=== PATIENT | female | born 1965 | race Caucasian/White ===

== ENCOUNTER → 2017-08-27 10:55 | Outpatient (CLI) | payer MEDICAID, SELFPAY ==
[2017-08-27 12:24] LABS: ALB/GLOB Ratio 1.1 RATIO (0.9-2.4); AST(SGOT) 13 U/L (15-37); Alanine Aminotransfer ALT/SGPT 22 U/L (13-56); Albumin, Serum 3.9 g/dL (3.2-5.0); Alkaline Phosphatase 30 U/L (45-117); Anion Gap 7 (5-15); BUN 9 mg/dL (7-18); BUN/Creat Ratio 12.4 RATIO (10-20); Calcium,Total 8.8 mg/dL (8.5-10.1); Chloride 106 mmol/L (98-107); Cholesterol 162 mg/dL (200); Creatinine, Serum 0.72 mg/dL (0.55-1.02); EST Glomerular Filtration Rate 90 mL/min (>60); Est Glom Filt Rate - Afr Amer 109 mL/min (>60); Globulin 3.4 g/dL (2.2-4.2); Glucose 86 mg/dL (74-106); High Density Lipoprotein 49 mg/dL; Potassium 3.8 mmol/L (3.5-5.1); Protein, Total 7.3 g/dL (6.4-8.2); Sodium Level 140 mmol/L (136-145); Thyroid Stim Hormone (TSH) 0.88 uIU/mL (0.358-3.74); Triglycerides 155 mg/dL; Very Low Density Lipoprotein 31 mg/dL (5-40)
== END ==
PROVIDERS: Family Provider Family Medicine; PCP Family Medicine; Visit Provider Family Medicine
DX: Z00.00 Encounter for general adult medical examination without abnormal findings (principal)
CPT/HCPCS: 36415; 80053; 80061; 84443

== ENCOUNTER → 2019-02-10 08:44 | Outpatient (CLI) | payer MEDICAID, SELFPAY ==
[2016-09-29 11:36] VITALS: BMI 24.8
[2019-02-10 10:10] LABS: Absolute Lymphocyte Count 3.17 X10^3/uL (0.83-4.51); Absolute Neutrophil Count 2.4 X10^3/uL (2.0-7.7); Basophil# 0.04 X10^3/uL; Basophil% 0.6 % (0-1); Eosinophil# 0.17 X10^3/uL; Eosinophils% 2.7 % (0-5); Hematocrit 41.4 % (37-47); Hemoglobin 13.5 g/dL (12.0-15.0); Lymphocyte # 3.17 X10^3/ul (4.0); Lymphocyte % 50.4 % (19-41); Mean Corp Hgb Conc 32.6 g/dL (32-36); Mean Corpuscular Hgb 33.3 pg (27.0-32.0); Mean Corpuscular Volume 102.2 fL (81-99); Mean Platelet Vol. 10.3 fl (6.2-12.0); Monocyte# 0.54 X10^3/uL; Monocyte% 8.6 % (0-10); NRBC Flagged by Analyzer 0 % (0-5); Neutrophil # 2.36 X10^3/uL (2.7-7.7); Neutrophil % 37.5 % (47-70); Platelet Count 232 K/mm3 (150-450); RBC Distribution Width CV 12.3 % (11.6-14.6); RBC Distribution Width SD 46.5 fl (35.1-43.9); Red Blood Count 4.05 M/mm3 (4.2-5.4); White Blood Count 6.3 K/mm3 (4.4-11.0)
[2019-02-10 10:36] LABS: ALB/GLOB Ratio 1.1 RATIO (0.9-2.4); AST(SGOT) 16 U/L (15-37); Alanine Aminotransfer ALT/SGPT 19 U/L (13-56); Albumin, Serum 4.1 g/dL (3.2-5.0); Alkaline Phosphatase 30 U/L (45-117); Anion Gap 6 (5-15); BUN 14 mg/dL (7-18); BUN/Creat Ratio 16.8 RATIO (10-20); Calcium,Total 9.1 mg/dL (8.5-10.1); Chloride 106 mmol/L (98-107); Creatinine, Serum 0.84 mg/dL (0.55-1.02); EST Glomerular Filtration Rate 76 mL/min (>60); Est Glom Filt Rate - Afr Amer 92 mL/min (>60); Globulin 3.7 g/dL (2.2-4.2); Glucose 97 mg/dL (74-106); Lipase 102 U/L (73-393); Protein, Total 7.8 g/dL (6.4-8.2); Sodium Level 141 mmol/L (136-145); T4 Free Direct 1.17 ng/dL (0.76-1.46); Thyroid Stim Hormone (TSH) 1.89 uIU/mL (0.358-3.74)
[2019-02-11 13:12] LABS: DHEA Sulfate 84.5 ug/dL (41.2-243.7)
== END ==
PROVIDERS: Family Provider Family Medicine; PCP Family Medicine; Referring Provider Family Medicine; Visit Provider Family Medicine
DX: R53.83 Other fatigue (principal)
CPT/HCPCS: 36415; 80053; 82533; 82627; 83690; 84403; 84439; 84443; 84481; 85025; 82626

== ENCOUNTER → 2019-07-07 11:28 | Outpatient (CLI) | payer SELFPAY ==
[2016-09-29 11:36] VITALS: BMI 24.8
[2019-07-07 15:05] LABS: Absolute Lymphocyte Count 2.48 X10^3/uL (0.83-4.51); Basophil# 0.06 X10^3/uL; Basophil% 1.2 % (0-1); Eosinophil# 0.11 X10^3/uL; Eosinophils% 2.1 % (0-5); Hematocrit 44.6 % (37-47); Hemoglobin 14.4 g/dL (12.0-15.0); Lymphocyte # 2.48 X10^3/ul (4.0); Lymphocyte % 48.4 % (19-41); Mean Corp Hgb Conc 32.3 g/dL (32-36); Mean Corpuscular Hgb 32.7 pg (27.0-32.0); Mean Corpuscular Volume 101.4 fL (81-99); Mean Platelet Vol. 10.4 fl (6.2-12.0); Monocyte# 0.44 X10^3/uL; Monocyte% 8.6 % (0-10); NRBC Flagged by Analyzer 0 % (0-5); Neutrophil # 2.02 X10^3/uL (2.7-7.7); Neutrophil % 39.5 % (47-70); Platelet Count 278 K/mm3 (150-450); RBC Distribution Width CV 12.7 % (11.6-14.6); RBC Distribution Width SD 47.8 fl (35.1-43.9); White Blood Count 5.1 K/mm3 (4.4-11.0)
[2019-07-07 15:32] LABS: Hemoglobin A1c 5.3 % (4.2-6.3)
[2019-07-07 15:40] LABS: AST(SGOT) 12 U/L (15-37); Alanine Aminotransfer ALT/SGPT 25 U/L (13-56); Alkaline Phosphatase 37 U/L (45-117); Anion Gap 5 (5-15); BUN 13 mg/dL (7-18); BUN/Creat Ratio 17.9 RATIO (10-20); Calcium,Total 9.6 mg/dL (8.5-10.1); Chloride 105 mmol/L (98-107); Creatinine, Serum 0.73 mg/dL (0.55-1.02); EST Glomerular Filtration Rate 89 mL/min (>60); Est Glom Filt Rate - Afr Amer 108 mL/min (>60); Globulin 3.9 g/dL (2.2-4.2); Glucose 82 mg/dL (74-106); Protein, Total 7.9 g/dL (6.4-8.2); Sodium Level 140 mmol/L (136-145)
== END ==
PROVIDERS: PCP Family Medicine; Referring Provider Family Medicine; Visit Provider Family Medicine
DX: R53.81 Other malaise (principal)
CPT/HCPCS: 36415; 80053; 83036; 84443; 85025

== ENCOUNTER → 2019-10-01 10:29 | Outpatient (CLI) | payer OTHER, SELFPAY ==
--- NOTE | 2019-10-01 10:32 | BI_ITS ---
MAMMOGRAPHY - UNILATERAL DIAGNOSTIC: RIGHT BREAST REASON FOR EXAM: Female, 54 years old. Six-month follow-up examination. History of prior puncture wound of the right breast due to a fall. PERTINENT HISTORY: Non-contributory. TECHNIQUE: Digital unilateral breast velma (3D mammographic acquisition) in the CC and MLO projections. 2-D mediolateral oblique (MLO) and craniocaudad (CC) views of both breasts were obtained. CAD: Full Field Digital Mammography with Computer Added Detection was performed. COMPARISON: Comparison is made with prior unenhanced examination dated March 31, 2019. FINDINGS: Breast Composition: There are scattered areas of fibroglandular density. There are no dominant masses or suspicious calcifications. No other significant abnormalities are identified. There has been no significant change since the prior study. BI/DIAG MAMM W/CAD, UNILAT IMPRESSION: Stable unilateral diagnostic mammogram. One year follow-up mammogram recommended. (A) ASSESSMENT CATEGORY: BIRADS Category 2: Benign. A letter regarding these results will be sent to the patient by the facility within 30 days. Approximately 10% of breast cancers are not detected by mammography. A normal mammogram should not delay biopsy of a clinically suspicious abnormality. Electronically Signed: Wilbur Burton, at 12:46 EDT , Service support ,
--- NOTE | 2019-10-01 11:10 | US_ITS ---
STUDY: ULTRASOUND BREAST - RIGHT REASON FOR EXAM: Female, 54 years old. Six-month follow-up for prior puncture wound of the right breast. TECHNIQUE: Axial and longitudinal images of the RIGHT breast were performed with a high resolution ultrasound transducer. # OF IMAGES: 34 COMPARISON: Comparison is made with prior mammogram done earlier in the day. FINDINGS: RIGHT Breast: The lower outer aspect of the right breast was examined by ultrasound. There is homogeneous fibroglandular tissue. No sonographic abnormality is seen. US/Breast Limited Unilateral IMPRESSION: No sonographic abnormality is seen. ASSESSMENT CATEGORY: BIRADS Category 1: Negative. A letter regarding these results will be sent to the patient by the facility within 30 days. Electronically Signed: Wilbur Burton, at 14:12 EDT , Service support ,
== END ==
PROVIDERS: PCP Family Medicine; Referring Provider Family Medicine; Visit Provider Family Medicine
DX: R92.8 Other abnormal and inconclusive findings on diagnostic imaging of breast (principal)
CPT/HCPCS: 76642; 77061; 77065; G0279

== ENCOUNTER → 2020-07-05 09:14 | Outpatient (CLI) | payer OTHER, SELFPAY ==
[2016-09-29 11:36] VITALS: BMI 24.8
[2020-07-05 09:18] LABS: Mucous, Urine 0 SEEN /hpf (<or=2+); Red Blood Cells-Urine 0 SEEN /hpf (0-5); White Blood Cells 0 SEEN /hpf (0-5)
[2020-07-05 10:06] LABS: Absolute Neutrophil Count 2.5 X10^3/uL (2.0-7.7); Basophil# 0.09 X10^3/uL; Basophil% 1.2 % (0-1); Eosinophil# 0.47 X10^3/uL; Eosinophils% 6.2 % (0-5); Hematocrit 43.4 % (37-47); Lymphocyte % 51.5 % (19-41); Mean Corp Hgb Conc 32.3 g/dL (32-36); Mean Corpuscular Hgb 32.7 pg (27.0-32.0); Mean Corpuscular Volume 101.4 fL (81-99); Monocyte# 0.59 X10^3/uL; Monocyte% 7.8 % (0-10); NRBC Flagged by Analyzer 0 % (0-5); Platelet Count 281 K/mm3 (150-450); RBC Distribution Width CV 12.4 % (11.6-14.6); RBC Distribution Width SD 46.6 fl (35.1-43.9); Red Blood Count 4.28 M/mm3 (4.2-5.4); White Blood Count 7.6 K/mm3 (4.4-11.0)
[2020-07-05 10:24] LABS: Color, Urine Yellow (Yellow); Glucose, Dipstick Normal (Normal); Ketone-Dipstick Negative (Negative); Leukocyte Esterase-Dipstick Negative /ul (Negative); Nitrite-Dipstick Negative (Negative); Occult Blood-Urine Negative /ul (Negative); Protein-Dipstick Negative (Negative); Specific Gravity, Urine 1.015 (1.002-1.030); Urine Bilirubin Dipstick Negative (Negative); Urine Clarity Clear (Clear); Urine Urobilinogen Normal (Normal)
[2020-07-05 10:30] LABS: Bacteria RARE /hpf (None Seen); Squamous Epithelial Cells - UA 0-5 SEEN /hpf (5-10)
[2020-07-05 10:35] LABS: Hemoglobin A1c 5.1 % (3.8-5.6)
[2020-07-05 10:42] LABS: AST(SGOT) 25 U/L (15-37); Alanine Aminotransfer ALT/SGPT 55 U/L (13-56); Albumin, Serum 3.9 g/dL (3.2-5.0); Alkaline Phosphatase 38 U/L (45-117); Anion Gap 5 (5-15); BUN 11 mg/dL (7-18); BUN/Creat Ratio 14.1 RATIO (10-20); Calcium,Total 9.2 mg/dL (8.5-10.1); Chloride 107 mmol/L (98-107); Creatinine, Serum 0.78 mg/dL (0.55-1.02); EST Glomerular Filtration Rate 82 mL/min (>60); Est Glom Filt Rate - Afr Amer 99 mL/min (>60); Glucose 91 mg/dL (74-106); Potassium 3.8 mmol/L (3.5-5.1); Protein, Total 7.9 g/dL (6.4-8.2); Sodium Level 139 mmol/L (136-145)
== END ==
PROVIDERS: PCP Family Medicine; Referring Provider Family Medicine; Visit Provider Family Medicine
DX: R35.0 Frequency of micturition (principal)
CPT/HCPCS: 36415; 80053; 81001; 83036; 85025; 87086; 87088

== ENCOUNTER → 2020-07-18 06:53 | Outpatient (CLI) | payer MEDICAID, SELFPAY ==
[2020-07-15 09:37] VITALS: BMI 28.9
--- NOTE | 2020-07-18 13:21 | STRESSREP_ITS ---
Stress Test Report Exercise myocardial perfusion stress test. 54-year-old lady with a history of chest pain. Stress protocol: Resting EKG demonstrates normal sinus rhythm with a rate of 65 bpm, right bundle branch block intervals are noted; resting blood pressure is 114/70 mmHg. The patient exercised according to regular Lam protocol for a total duration of 9 minutes. Patient completed stage III of the Lam protocol the maximum heart rate attained was 146 bpm which was 87% of max impacted heart rate the maximum workload was 10.1 metabolic equivalents. The patient maintained sinus rhythm throughout the recording. At rest there were no ST or T wave changes noted to suggest ischemia or abnormal flow reserve. At peak exercise upsloping ST yared nges were noted with no meet the criteria for ischemia. The test was terminated due to the target heart rate being achieved. The peak blood pressure was 154/62 mmHg which was a normal blood pressure response to exercise with a rate-pressure product of 22,100. Myocardial perfusion protocol. 11.5 mCi of technetium 99m sestamibi was injected at rest. The patient exercised according to regular Lam protocol for 9 minutes and at peak exercise 33.1 mCi of technetium 99m sestamibi was injected stress and resting images were reconstructed and compared in the short axis vertical long horizontal long axis. Gated images were also obtained Perfusion SPECT analysis: Review of the stress images demonstrate normal uptake of tracer noted in all areas of myocardium the resting images similarly demonstrate normal uptake of tracer noted in all areas. No reversibility is noted to suggest ischemia no previous infarct is noted. Gated SPECT analysis: Gated ejection fraction is 61%. Conclusion: Normal exercise myocardial perfusion stress test at a high workload. Preserved ejection fraction.
== END ==
PROVIDERS: PCP Family Medicine; Referring Provider Family Medicine; Visit Provider Family Medicine
DX: R07.89 Other chest pain (principal)
CPT/HCPCS: 78452; 93017; A9500; A4216

== ENCOUNTER → 2020-07-28 11:03 | Outpatient (CLI) | payer MEDICAID, SELFPAY ==
[2020-07-15 09:37] VITALS: BMI 28.9
[2020-07-28 13:21] LABS: Cholesterol 205 mg/dL (200); High Density Lipoprotein 61 mg/dL; Triglycerides 112 mg/dL; Very Low Density Lipoprotein 22 mg/dL (5-40)
== END ==
PROVIDERS: PCP Family Medicine; Referring Provider Family Medicine; Visit Provider Family Medicine
DX: Z13.220 Encounter for screening for lipoid disorders (principal)
CPT/HCPCS: 36415; 80061

== ENCOUNTER 2020-08-10 07:18 | Day surgery (SDC) | payer MEDICAID, SELFPAY ==
[2020-07-15 09:37] VITALS: BMI 28.9
[2020-08-10] VITALS (7 sets, daily range): BP systolic 108–118; BP diastolic 61–80; PULSE 64–74; RESP 16; TEMP 36.2–37.1; O2SAT 100; BMI 27.8
--- NOTE | 2020-08-10 07:23 | HP.PCM_ITS ---
History and Physical Date of Admission: 08/10/20 Date of Service: 07/15/20 MR#: [id number] Acct: [id number] Name: DARLIN PARADA Rep #: [id number] : 1965 Provider: Dr. Al Lanza MD Age/Sex: 54/F Location: [facility] Status: Signed Intake Vital Signs 07/15/20 Height 5 ft 5 in 07/15/20 Weight: 174 lb 07/15/20 BMI 28.9 07/15/20 BP 116/71 07/15/20 Blood Pressure Location Rt brachial 07/15/20 Position Sitting 07/15/20 Respiration 18 07/15/20 Pulse 70 07/15/20 Pulse Source Monitor 07/15/20 Temp 97.9 F 07/15/20 Temp Source Temporal 07/15/20 Pulse Oximetry (%) 99 07/15/20 Oxygen Delivery Method room air Intake Visit Reasons: CSCOPE, ABDOMINAL PAIN Chief Complaint: C-scope consult Electro Winning Operator Required: No Is patient in pain?: No Allergies acetaminophen [From Vicodin] Adverse Reaction (Verified 07/15/20 09:40) Vomiting hydrocodone bitartrate [From Vicodin] Adverse Reaction (Verified 07/15/20 09:40) Vomiting Medications Estradiol/Norethindrone Acet [Estradiol-Noreth 1-0.5 mg Tab] 1 ea PO DAILY 01/27/15 [History Confirmed 07/15/20] Loratadine [Allergy] 10 mg PO DAILY 09/29/16 [History Confirmed 07/15/20] acyclovir 400 mg tablet 500 mg PO DAILY tab 07/15/20 [History Confirmed 07/15/20] apple cider vinegar 500 mg tablet mg PO DAILY tab 07/15/20 [History] biotin 1 mg capsule 1 mg PO DAILY 07/15/20 [History Confirmed 07/15/20] mirtazapine 7.5 mg tablet 7.5 mg PO DAILY 07/15/20 [History Confirmed 07/15/20] zinc gluconate 30 mg tablet 30 mg PO DAILY 07/15/20 [History Confirmed 07/15/20] [facility] Medical History (Updated 07/15/20 @ 09:34 by Jammie Quintero) Right bundle branch block (RBBB) (Acute) Irritable bowel syndrome with constipation (Chronic) Anxiety (Acute) Constipation (Acute) Irritable bowel syndrome (Acute) Surgical History (Updated 07/15/20 @ 09:36 by Jammie Quintero) History of laparoscopic cholecystectomy (Acute) History of vein stripping (Acute) history excision lesion left ear (Acute) history excision lesion lip (Acute) Family History (Updated 07/15/20 @ 09:37 by Jammie Quintero) Father Asthma Diabetes Hypertension Heart disease Mother Asthma Diabetes Heart disease Grandfather Heart disease Social History (Updated 07/18/20 @ 13:[address] Farida Lanza MD) Smoking Status: Former smoker alcohol intake: current substance use type: does not use HPI HPI HPI: DARLIN PARADA, is a 54 F who presents to the office today for HPI HPI Surgical H&P: Yes HPI: DARLIN PARADA, is a 54 F who presents to the office today for change of bowel habits. Patient states she has been having smaller than usual stools recently. Patient does have a history of IBS. Patient states she likely does have low fiber in her diet however she has tried to increase but does note some constipation/bloating with this. Patient also admits to having reflux she states that she does have increased amount of burping and occasionally she will have the burning up her esophagus about every other day. Patient's last colonoscopy was in February 2013 and a small polyp was removed at that time from the distal sigmoid patient was told she had 10 years, which was hyperplastic patient was told 10 years before another. Patient denies any family history of colon cancer. ROS General General: Yes weight change and fatigue; no appetite, colon cancer, breast cancer or weakness HEENT HEENT: No difficulty swallowing, eye injury, eye surgery, swollen glands or hoarseness Endo Endocrine: No thyroid disease, diabetes mellitus, thyroid cancer, Hair loss, heat intolerance or cold intolerance Skin Skin: No rash or changing moles Breast Breast: No left breast lump, right breast lump, breast pain, abnormal mammogram, abnormal US or breast enlargement Musc Musculoskeletal: No back problems, arthritis, rheumatoid arthritis, gout or joint pain Cardio Cardiovascular: No pacemaker, heart disease, atrial fibrillation, high blood pressure, heart attack, heart stent, palpitations, shortness of breat with exertion or chest pain Psych Psychiatric: Yes anxiety; no depression or hearing voices Resp Respiratory: No shortness of breath, No sleep apnea, No cough, No COPD, No asthma, No emphysema, No wheezing Gastro Gastrointestinal: No abdominal pain, No nausea or vomiting, No diarrhea, Yes constipation, No blood in stool, No acid reflux, Yes hemorrhoids, No ulcers, No gallbladder problem, No black,tarry stools Elvis Hematologic: No blood thinners, No blood disorders, No bleeding, No anemia, No blood clots Neuro Neurologic: No weakness Exam Const General: cooperative, comfortable, no acute distress, well developed Resp Effort & Inspection: normal respiratory effort Cardio Rate: regular rate GI Inspection: non-distended Palpation: soft, no guarding, tender (Mild epigastric) Assessment & Plan Problems 1. Change in bowel habits R19.4 2. Gastroesophageal reflux disease K21.9 3. Irritable bowel syndrome with constipation K58.1 Plan Did discuss with patient the importance of trying to add fiber to her diet by also discussed with not adding fiber quickly as it can cause increased bloating and abdominal discomfort. I have discussed the above with the patient. I have offered the patient EGD and colonoscopy for evaluation. I have explained the risks/benefits of the procedure and described the procedure. I have discussed the risks with the patient, including but not limited to: infection, bleeding, perforation of the GI tract requiring emergency surgery, inability to complete the procedure, injury to any internal organs, complications of anesthesia, etc. - the patient understands and agrees to proceed. I have answered all the patient's questions to the patient's satisfaction and t he patient has no further questions. The patient has been given instructions for the colon cleansing preparation. 1 day prep MiraLAX Dulcolax split prep, 1 day of clears we will plan for August 10 per patient request. Farida Lanza M.D. Pager: [phone] [facility] [address] [place] [address], [facility], [address] [place] [address] Office: [phone] Orders Orders: Colonoscopy Today EGD Today Plan Detail Follow Up We will schedule EGD and colonoscopy Coding Level of Care Code Off vis,new,level 4 Diagnoses Change in bowel habits R19.4 Gastroesophageal reflux disease K21.9 Irritable bowel syndrome with constipation K58.1 COVID (Procedure Consent) Procedure Criteria Procedure Criteria: Yes Elective The surgeon/proceduralist and patient have discussed in detail the risk of exposure to and/or potential harm posed by the COVID-19 virus with having a surgery/procedure at this time versus the risk of? delaying the surgery/procedure. It is not possible to know either the risk of delaying the surgery or procedure or chance of getting an infection with perfect accuracy, but a joint decision was made between the patient and the surgeon/proceduralist ?to proceed at this time with the scheduled surgery/procedure as indicated on the consent form. 07/18/20 1328 <Electronically signed by Farida Ayala am, MD> Date _ Farida Lanza MD
[2020-08-10] MEDS: Lactated Ringers 1,000 ML 100 ML IV (07:50)
--- NOTE | 2020-08-10 08:30 | IMM_PTH ---
PATIENT: DARLIN PARADA (KAYLAH) LOC: EN U#:[id number] AGE/SX: 54/F ROOM: RE08/10/[address]: Dr. Farida Lanza MD : 1965 BED: DIS: 08/10/2020 SPEC #: [id number] RECD: 08/10/20 12:57 STATUS: CHIRAG REQ #: [id number] JEANETTE: 08/10/20 08:[address]: Farida Lanza DEPT: IMMUNOHISTOCHEMISTRY RECD BY: Ladi Esparza ENTERED: 08/10/20 12:57 SP TYPE: IMMUNO OTHR DR: Dr. Braden Coulter MD Tissues: A - Stomach, NOS B - Esophageal mucous membrane Procedures: H Pylori (initial) P53 (initial) KI-67 (add) P53 (add) PHYSICIAN & INSTITUTION [place] [id number] SPECIMEN INFORMATION: Tissue Source: A - Antrum biopsy, B - GE junction biopsy Clinical Info: Change in bowel habits; GERD; irritable bowel syndrome with constipation Specimen Number: [id number] A & B CPT code: 22067 x2, 05396 x3 METHODOLOGY: Deparaffinized sections of prefer/formalin-fixed tissue or PAP/DQ stained slides are incubated with monoclonal/polyclonal antibodies/oligonucleotide probes. Localization is made via biotin free immunoperoxidase method. Appropriate controls are performed and reacted as expected. Results on target cell population are indicated in the following table: RESULTS: ANTIBODY / CLONE RESULT Block A H Pylori (polyclonal) positive P53 (DO-7) negative Ki-67 (30-9) negative Block B P53 (DO-7) negative Ki-67 (30-9) negative These tests were developed and their performance characteristics determined by [facility]. They may not have been cleared or approved by the U.S. Food and Drug Administration. The FDA has determined that such clearance or approval is not necessary. The above immunohistochemical/dualISH markers are ordered and reviewed by the pathologist. INTERPRETATION: A. Antrum, biopsy: Positive for Helicobacter pylori organisms. No evidence of dysplasia. B. Gastroesophageal junction, biopsy: No evidence of dysplasia. AM:fco 08/15/2020
--- NOTE | 2020-08-10 08:30 | EGD_PTH ---
PATIENT: DARLIN PARADA (KAYLAH) LOC: EN U#:[id number] AGE/SX: 54/F ROOM: RE08/10/[address]: Dr. Farida Lanza MD : 1965 BED: DIS: 08/10/2020 SPEC #: [id number] RECD: 08/10/20 10:38 STATUS: CHIRAG RECher #: [id number] JEANETTE: 08/10/20 08:[address]: Farida Lanza DEPT: SURGICAL PATHOLOGY RECD BY: Leisa Aldana ENTERED: 08/10/20 12:46 SP TYPE: EGD BIOPSY OT DR: Dr. Braden Coulter MD Tissues: A - Gastric mucous membrane B - Gastric mucous membrane C - Descending colon D - Sigmoid colon biopsy Procedures: Special Stain Group II Surgery Specimen Level IV Alcian Blue/PAS (control) HEADER OPERATION: [place] [place] DIAGNOSIS: Change in bowel habits; GERD; irritable bowel syndrome with constipation TISSUE SUBMITTED: A - Antrum biopsy for H. pylori and path, B - GE junction biopsy, C - Descending colon polyp, D - Sigmoid polyp MICROSCOPIC DIAGNOSIS A. Gastric antrum, biopsy: Chronic gastritis, moderate to severe with focal acute gastritis. Focal intestinal metaplasia. No evidence of dysplasia. See comment. B. Gastroesophageal junction, biopsy: Chronic gastritis with focal active gastritis. Focal goblet cell metaplasia. No evidence of dysplasia. Focal changes of reflux. See comment. C. Descending colon polyp, biopsy: Fragments of colonic mucosa with focal hyperplastic change. D. Sigmoid colon polyp, biopsy: Hyperplastic polyp. AM:fco 08/11/2020 COMMENT A. The results of immunohistochemistry for Helicobacter pylori will be reported separately ([id number]). Immunohistochemistry ([id number]) supports the above diagnosis. Alcian blue/PAS stain with matched control supports the above diagnosis. B. Immunohistochemistry ([id number]) supports the above diagnosis. Alcian blue/PAS stain with matched control supports the above diagnosis. MICROSCOPIC DESCRIPTION Slides are reviewed. GROSS DESCRIPTION A - Received in fixative is one container labeled with the patient's name and designated antrum biopsy. The specimen consists of one irregular fragment of light chapman soft tissue that measures 0.3 x 0.2 x 0.1 cm. The specimen is totally submitted in one cassette. B - Received in fixative is one container labeled with the patient's name and designated GE junction biopsy. The specimen consists of one irregular fragment of light chapman soft tissue that measures 0.4 x 0.3 x 0.1 cm. The specimen is totally submitted in one cassette. C - Received in fixative is one container labeled with the patient's name and designated descending colon polyp. The specimen consists of multiple irregular fragments of light chapman soft tissue that in aggregate measure 1 x 0.5 x 0.1 cm. The specimen is totally submitted in one cassette. D - Received in fixative is one container labeled with the patient's name and designated sigmoid polyp. The specimen consists of multiple irregular fragments of light chapman soft tissue that in aggregate measure 1 x 0.4 x 0.1 cm. The specimen is totally submitted in one cassette. / SJ:rg 08/10/20 TC:3 CPT: 62076 x4, 40820 x2
--- NOTE | 2020-08-10 09:12 | OP.EGD_ITS ---
Patient Name: Faby Forbes Procedure Date: 08/10/2020 8:07 AM Date of : 1965 Age: 54 Procedure: Upper GI endoscopy Indications: Heartburn Providers: Farida Lanza MD Referring MD: Braden Coulter Medicines: Monitored Anesthesia Care Patient Profile: This is a 54 year old female. Complications: No immediate complications. Procedure: Pre-Anesthesia Assessment: - Prior to the procedure, a History and Physical was performed, and patient medications and allergies were reviewed. The patient's tolerance of previous anesthesia was also reviewed. The risks and benefits of the procedure and the sedation options and risks were discussed with the patient. All questions were answered, and informed consent was obtained. Prior Anticoagulants: The patient has taken no previous anticoagulant or antiplatelet agents. ASA Grade Assessment: Per anesthesia. After reviewing the risks and benefits, the patient was deemed in satisfactory condition to undergo the procedure. After obtaining informed consent, the endoscope was passed under direct vision. Throughout the procedure, the patient's blood pressure, pulse, and oxygen saturations were monitored continuously. The gastroscope was introduced through the mouth, and advanced to the second part of duodenum. The upper GI endoscopy was accomplished without difficulty. The patient tolerated the procedure well. Scope In: 8:20:17 AM Scope Out: 8:28:45 AM Total Procedure Duration Time 0 hours 8 minutes 28 seconds Findings: The Z-line was variable and was found 40 cm from the incisors. Biopsies were taken with a cold forceps for histology. Mildly erythematous mucosa without bleeding was found in the gastric antrum. Biopsies were taken with a cold forceps for histology. Biopsies were taken with a cold forceps for Helicobacter pylori cultures. The examined duodenum was normal. A small hiatal hernia was present. Impression: - Z-line variable, 40 cm from the incisors. Biopsied. - Erythematous mucosa in the antrum. Biopsied. - Normal examined duodenum. - Small hiatal hernia. Recommendation: - Await pathology results. - Discharge patient to home. - Resume previous diet. - Use Protonix (pantoprazole) 40 mg PO daily. - Continue present medications. Procedure Code(s): --- Professional --- 98757, Esophagogastroduodenoscopy, flexible, transoral; with biopsy, single or multiple Diagnosis Code(s): --- Professional --- K22.8, Other specified diseases of esophagus K31.89, Other diseases of stomach and duodenum R12, Heartburn CPT copyright 2017 [employer]. All rights reserved. The codes documented in this report are preliminary and upon leasing machine tender review may be revised to meet current compliance requirements. MD Farida Meraz MD 08/10/2020 9:11:41 AM This report has been signed electronically. Number of Addenda: 0 Note Initiated On: 08/10/2020 8:07 AM
--- NOTE | 2020-08-10 09:12 | OP.CCLET_ITS ---
08/10/2020 Braden Coulter [address] [facility] [address] [place] [address] Re : Upper GI endoscopy procedure for Faby Forbes Dear Dr. Coulter This procedure was performed on Monday, August 10, 2020. My impressions and recommendations are as follows: Impressions : - Z-line variable, 40 cm from the incisors. Biopsied. - Erythematous mucosa in the antrum. Biopsied. - Normal examined duodenum. - Small hiatal hernia. Recommendations : - Await pathology results. - Discharge patient to home. - Resume previous diet. - Use Protonix (pantoprazole) 40 mg PO daily. - Continue present medications. My findings are described in the full procedure note, which is enclosed. If I can be of further assistance, please feel free to contact me at Doctor phone number(s): , Work: . Sincerely, MD Farida Meraz MD 08/10/2020 9:11:41 AM This report has been signed electronically.
--- NOTE | 2020-08-10 09:16 | OP.COLON_ITS ---
Patient Name: Faby Forbes Procedure Date: 08/10/2020 8:30 AM Date of : 1965 Age: 54 Procedure: Colonoscopy Indications: Change in bowel habits, Constipation Providers: Farida Lanza MD Referring MD: Braden Coulter Medicines: Monitored Anesthesia Care Patient Profile: This is a 54 year old female. Last Colonoscopy: February 2013. Complications: No immediate complications. Procedure: Pre-Anesthesia Assessment: - Prior to the procedure, a History and Physical was performed, and patient medications and allergies were reviewed. The patient's tolerance of previous anesthesia was also reviewed. The risks and benefits of the procedure and the sedation options and risks were discussed with the patient. All questions were answered, and informed consent was obtained. Prior Anticoagulants: The patient has taken no previous anticoagulant or antiplatelet agents. ASA Grade Assessment: Per anesthesia. After reviewing the risks and benefits, the patient was deemed in satisfactory condition to undergo the procedure. After I obtained informed consent, the scope was passed under direct vision. Throughout the procedure, the patient's blood pressure, pulse, and oxygen saturations were monitored continuously. The colonoscope was introduced through the anus and advanced to the cecum, identified by the appendiceal orifice, ileocecal valve and palpation. The colonoscopy was technically difficult and complex due to a tortuous colon. Successful completion of the procedure was aided by applying abdominal pressure. The patient tolerated the procedure well. The quality of the bowel preparation was good. Scope In: 8:31:01 AM Scope Withdrawal Time 0 hours 16 minutes 8 seconds Scope Out: 9:02:45 AM Total Procedure Duration Time 0 hours 31 minutes 44 seconds Findings: Hemorrhoids were found on perianal exam. Four sessile polyps were found in the sigmoid colon and descending colon. The polyps were less than 5 mm in size. These polyps were removed with a cold biopsy forceps. Resection and retrieval were complete. Non-bleeding internal hemorrhoids were found. The hemorrhoids were Grade I (internal hemorrhoids that do not prolapse). The exam was otherwise without abnormality. Impression: - Hemorrhoids found on perianal exam. - Four less than 5 mm polyps in the sigmoid colon and in the descending colon, removed with a cold biopsy forceps. Resected and retrieved. - Non-bleeding internal hemorrhoids. - The examination was otherwise normal. Recommendation: - Discharge patient to home. - Resume previous diet. - Continue present medications. - Await pathology results. - Repeat colonoscopy in 5-10 years for surveillance based on pathology results. Procedure Code(s): --- Professional --- 03748, Colonoscopy, flexible; with biopsy, single or multiple Diagnosis Code(s): --- Professional --- K64.0, First degree hemorrhoids D12.5, Benign neoplasm of sigmoid colon D12.4, Benign neoplasm of descending colon R19.4, Change in bowel habit K59.00, Constipation, unspecified CPT copyright 2017 [employer]. All rights reserved. The codes documented in this report are preliminary and upon food sales clerk review may be revised to meet current compliance requirements. MD Farida Meraz MD 08/10/2020 9:15:59 AM This report has been signed electronically. Number of Addenda: 0 Note Initiated On: 08/10/2020 8:30 AM
--- NOTE | 2020-08-10 09:16 | OP.CCLET_ITS ---
08/10/2020 Braden Coulter [address] [facility] [facility] [address] [place] [address] Re : Colonoscopy procedure for Faby Forbes Dear Dr. Coulter This procedure was performed on Monday, August 10, 2020. My impressions and recommendations are as follows: Impressions : - Hemorrhoids found on perianal exam. - Four less than 5 mm polyps in the sigmoid colon and in the descending colon, removed with a cold biopsy forceps. Resected and retrieved. - Non-bleeding internal hemorrhoids. - The examination was otherwise normal. Recommendations : - Discharge patient to home. - Resume previous diet. - Continue present medications. - Await pathology results. - Repeat colonoscopy in 5-10 years for surveillance based on pathology results. My findings are described in the full procedure note, which is enclosed. If I can be of further assistance, please feel free to contact me at Doctor phone number(s): , Work: . Sincerely, MD Farida Meraz MD 08/10/2020 9:15:59 AM This report has been signed electronically.
== END 2020-08-10 10:03 | disposition home or self-care (01) ==
LOC: EN 07:18 → AC 07:18
PROVIDERS: PCP Family Medicine; Referring Provider Family Medicine; Visit Provider Surgery
PROC: 0DJD8ZZ Inspection of Lower Intestinal Tract, Via Natural or Artificial Opening Endoscopic (ICD-10-PCS; CPT 45378; principal; 2020-08-10 08:25)
DX: K29.50 Unspecified chronic gastritis without bleeding (principal); K21.9 Gastro-esophageal reflux disease without esophagitis; K44.9 Diaphragmatic hernia without obstruction or gangrene; K63.5 Polyp of colon; K64.0 First degree hemorrhoids; Z20.828 Contact with and (suspected) exposure to other viral communicable diseases; K58.1 Irritable bowel syndrome with constipation; Z78.0 Asymptomatic menopausal state; Z90.49 Acquired absence of other specified parts of digestive tract; Z79.899 Other long term (current) drug therapy; Z87.891 Personal history of nicotine dependence
CPT/HCPCS: 43239; 45380; 87426; 88305; 88313; 88341; 88342; C9803; J7120; J2405; J3490

== ENCOUNTER → 2020-09-28 | Outpatient (CLI) | payer MEDICAID, SELFPAY ==
[2020-08-10 07:46] VITALS: BMI 27.8
[2020-09-30 08:23] LABS: H. PYLORI STOOL AG Negative (Negative)
== END | disposition home or self-care (01) ==
PROVIDERS: PCP Family Medicine; Referring Provider Surgery; Visit Provider Surgery
DX: A04.8 Other specified bacterial intestinal infections (principal)

== ENCOUNTER → 2020-09-29 09:30 | Outpatient (CLI) | payer MEDICAID, SELFPAY ==
[2020-08-10 07:46] VITALS: BMI 27.8
--- NOTE | 2020-09-29 09:35 | BD_ITS ---
STUDY: DUAL ENERGY X-RAY ABSORPTIOMETRY / DXA REASON FOR EXAM: Female, 55 years old. [id number]. The patient is postmenopausal. TECHNIQUE: Bone Mineral Density (BMD) measurements of lumbar spine and bilateral hips were obtained. COMPARISON: None. FINDINGS: Lumbar Spine (L1-L4): g/cm2 (1.359) / T-score (1.5) / Z-score (2.3) Findings are suggestive of normal bone density with a low fracture risk. Left Femur Total: g/cm2 (0.994) / T-score (-0.1) / Z-score (0.5) Left Femoral Neck: g/cm2 (0.957) / T-score (-0.6) / Z-score (0.4) Right Femur Total: g/cm2 (1.017) / T-score (0.1) / Z-score (0.7) Right Femoral Neck: g/cm2 (1.014) / T-score (-0.2) / Z-score (0.8) BD/Dexa Bone Density Study IMPRESSION: The patient is considered normal as outlined below according to World Beau Organization (WHO) criteria with a low fracture risk. Reference Information: The T-score is the number of standard deviations above or below the standard which is normal for young adults at their peak bone mineral density. The World Health Organization (WHO) interprets the T-scores as follows: Above -1 Normal bone density Between -1 and -2.5 Osteopenia Equal to / or below -2.5 Osteoporosis As a practical clinical guideline, osteopenia may be graded as follows: Mild -1 through -1.5 Moderate -1.6 through -2.0 Severe -2.1 through -2.4 The Z-score is the number of standard deviations above or below age-matched controls. A Z-score of less than -1.5 would be considered abnormal. References: 1. NIH Osteoporosis and Related Bone Diseases www osteo.org 2. International Society for Clinical Densitometry www iscd.org 3. National Osteoporosis Foundation www nof.org Electronically Signed: Wilbur Burton MD at 14:09 EDT , Service support ,
== END ==
PROVIDERS: PCP Family Medicine; Referring Provider Family Medicine; Visit Provider Family Medicine
DX: N95.9 Unspecified menopausal and perimenopausal disorder (principal)
CPT/HCPCS: 77080

== ENCOUNTER → 2021-01-03 | Outpatient (CLI) | payer MEDICAID, SELFPAY | END | disposition home or self-care (01) | PROVIDERS: PCP Family Medicine; Visit Provider Family Medicine | DX: B34.9 Viral infection, unspecified (principal) | CPT/HCPCS: 87635; U0005; U0003 ==

== ENCOUNTER 2021-08-01 14:27 | Outpatient (CLI) | payer MEDICAID, SELFPAY ==
[2021-08-01 17:47] LABS: Absolute Lymphocyte Count 3.41 X10^3/uL (0.83-4.51); Absolute Neutrophil Count 2.5 X10^3/uL (2.0-7.7); Basophil# 0.08 X10^3/uL; Basophil% 1.2 % (0-1); Eosinophil# 0.15 X10^3/uL; Eosinophils% 2.3 % (0-5); Hematocrit 44.4 % (37-47); Hemoglobin 14.9 g/dL (12.0-15.0); Lymphocyte # 3.41 X10^3/ul (0.83-4.51); Lymphocyte % 51.4 % (19-41); Mean Corp Hgb Conc 33.6 g/dL (32-36); Mean Corpuscular Hgb 34.5 pg (27.0-32.0); Mean Corpuscular Volume 102.8 fL (81-99); Mean Platelet Vol. 10.8 fl (6.2-12.0); Monocyte# 0.46 X10^3/uL; Monocyte% 6.9 % (0-10); NRBC Flagged by Analyzer 0 % (0-5); Neutrophil # 2.53 X10^3/uL (2.7-7.7); Platelet Count 248 K/mm3 (150-450); RBC Distribution Width CV 12.6 % (11.6-14.6); RBC Distribution Width SD 48.1 fl (35.1-43.9); Red Blood Count 4.32 M/mm3 (4.2-5.4); White Blood Count 6.6 K/mm3 (4.4-11.0)
[2021-08-01 18:16] LABS: ALB/GLOB Ratio 1.2 RATIO (0.9-2.4); AST(SGOT) 18 U/L (15-37); Alanine Aminotransfer ALT/SGPT 22 U/L (13-56); Albumin, Serum 4.1 g/dL (3.2-5.0); Alkaline Phosphatase 35 U/L (45-117); Anion Gap 8 (5-15); BUN 11 mg/dL (7-18); BUN/Creat Ratio 15.7 RATIO (10-20); Calcium,Total 9.3 mg/dL (8.5-10.1); Chloride 105 mmol/L (98-107); Cholesterol 197 mg/dL (200); EST Glomerular Filtration Rate 92 mL/min (>60); Est Glom Filt Rate - Afr Amer 111 mL/min (>60); Globulin 3.4 g/dL (2.2-4.2); Glucose 84 mg/dL (74-106); High Density Lipoprotein 61 mg/dL; Potassium 3.8 mmol/L (3.5-5.1); Protein, Total 7.5 g/dL (6.4-8.2); Sodium Level 140 mmol/L (136-145); Triglycerides 87 mg/dL; Very Low Density Lipoprotein 17 mg/dL (5-40)
== END 2021-08-01 23:59 | disposition home or self-care (01) ==
LOC: MFPLAB 14:28
PROVIDERS: PCP Family Medicine; Referring Provider Family Medicine; Visit Provider Family Medicine
DX: Z00.00 Encounter for general adult medical examination without abnormal findings (principal); K58.9 Irritable bowel syndrome, unspecified; Z13.220 Encounter for screening for lipoid disorders
CPT/HCPCS: 36415; 80053; 80061; 85025

== ENCOUNTER → 2022-01-22 | Outpatient (CLI) | payer MEDICAID, SELFPAY ==
[2022-01-22 18:46] LABS: Absolute Lymphocyte Count 4.04 X10^3/uL (0.83-4.51); Absolute Neutrophil Count 2.2 X10^3/uL (2.0-7.7); Basophil# 0.07 X10^3/uL; Eosinophils% 2.8 % (0-5); Hematocrit 41.2 % (37-47); Hemoglobin 13.4 g/dL (12.0-15.0); Lymphocyte # 4.04 X10^3/ul (0.83-4.51); Lymphocyte % 56.7 % (19-41); Mean Corp Hgb Conc 32.5 g/dL (32-36); Mean Corpuscular Hgb 33.5 pg (27.0-32.0); Monocyte# 0.63 X10^3/uL; Monocyte% 8.8 % (0-10); NRBC Flagged by Analyzer 0 % (0-5); Neutrophil # 2.17 X10^3/uL (2.7-7.7); Neutrophil % 30.6 % (47-70); Platelet Count 218 K/mm3 (150-450); RBC Distribution Width CV 12.6 % (11.6-14.6); RBC Distribution Width SD 47.8 fl (35.1-43.9); White Blood Count 7.1 K/mm3 (4.4-11.0)
[2022-01-22 19:22] LABS: AST(SGOT) 18 U/L (15-37); Alanine Aminotransfer ALT/SGPT 21 U/L (13-56); Alkaline Phosphatase 32 U/L (45-117); Anion Gap 6 (5-15); BUN 10 mg/dL (7-18); Calcium,Total 9.1 mg/dL (8.5-10.1); Chloride 104 mmol/L (98-107); Creatinine, Serum 0.71 mg/dL (0.55-1.02); EST Glomerular Filtration Rate 90 mL/min (>60); Est Glom Filt Rate - Afr Amer 109 mL/min (>60); Globulin 3.9 g/dL (2.2-4.2); Glucose 89 mg/dL (74-106); Potassium 3.7 mmol/L (3.5-5.1); Protein, Total 7.9 g/dL (6.4-8.2); Sodium Level 138 mmol/L (136-145)
== END | disposition home or self-care (01) ==
LOC: MFPLAB 15:53
PROVIDERS: PCP Family Medicine; Visit Provider Family Medicine
DX: K58.9 Irritable bowel syndrome, unspecified (principal); D72.820 Lymphocytosis (symptomatic)
CPT/HCPCS: 36415; 80053; 85025

== ENCOUNTER → 2022-07-26 | Outpatient (CLI) | payer MEDICAID, SELFPAY ==
[2022-07-26 12:33] LABS: Absolute Lymphocyte Count 3.64 X10^3/uL (0.83-4.51); Absolute Neutrophil Count 1.9 X10^3/uL (2.0-7.7); Basophil# 0.06 X10^3/uL; Basophil% 0.9 % (0-1); Eosinophil# 0.23 X10^3/uL; Eosinophils% 3.5 % (0-5); Hematocrit 43.4 % (37-47); Hemoglobin 14.1 g/dL (12.0-15.0); Lymphocyte # 3.64 X10^3/ul (0.83-4.51); Lymphocyte % 55.3 % (19-41); Mean Corp Hgb Conc 32.5 g/dL (32-36); Mean Corpuscular Hgb 33.5 pg (27.0-32.0); Mean Corpuscular Volume 103.1 fL (81-99); Mean Platelet Vol. 10.6 fl (6.2-12.0); Monocyte# 0.71 X10^3/uL; Monocyte% 10.8 % (0-10); NRBC Flagged by Analyzer 0 % (0-5); Neutrophil # 1.93 X10^3/uL (2.7-7.7); Neutrophil % 29.3 % (47-70); Platelet Count 258 K/mm3 (150-450); RBC Distribution Width CV 12.8 % (11.6-14.6); RBC Distribution Width SD 48.6 fl (35.1-43.9); Red Blood Count 4.21 M/mm3 (4.2-5.4); White Blood Count 6.6 K/mm3 (4.4-11.0)
[2022-07-26 13:53] LABS: ALB/GLOB Ratio 1.1 RATIO (0.9-2.4); AST(SGOT) 20 U/L (15-37); Alanine Aminotransfer ALT/SGPT 23 U/L (13-56); Albumin, Serum 3.9 g/dL (3.2-5.0); Alkaline Phosphatase 33 U/L (45-117); Anion Gap 10 (5-15); BUN 13 mg/dL (7-18); BUN/Creat Ratio 19.8 RATIO (10-20); Calcium,Total 9.1 mg/dL (8.5-10.1); Chloride 106 mmol/L (98-107); Cholesterol 190 mg/dL (200); Creatinine, Serum 0.66 mg/dL (0.55-1.02); EST Glomerular Filtration Rate 99 mL/min (>60); Est Glom Filt Rate - Afr Amer 120 mL/min (>60); Globulin 3.4 g/dL (2.2-4.2); Glucose 96 mg/dL (74-106); High Density Lipoprotein 60 mg/dL; Potassium 4.1 mmol/L (3.5-5.1); Protein, Total 7.3 g/dL (6.4-8.2); Sodium Level 141 mmol/L (136-145); Thyroid Stim Hormone (TSH) 1.18 uIU/mL (0.358-3.74); Triglycerides 73 mg/dL; Very Low Density Lipoprotein 15 mg/dL (5-40)
[2022-07-31 13:08] LABS: PROEL- A/G Ratio 1.2 (0.7-1.7); PROEL- Albumin 3.9 g/dL (2.9-4.4); PROEL- Alpha-1 Globulin 0.2 g/dL (0.0-0.4); PROEL- Alpha-2 Globulin 0.7 g/dL (0.4-1.0); PROEL- Gamma Globulin 1.2 g/dL (0.4-1.8); PROEL- Globulin, Total 3.2 g/dL (2.2-3.9); PROEL- TOTAL PROTEIN 7.1 g/dL (6.0-8.5)
== END | disposition home or self-care (01) ==
LOC: MFPLAB 09:40
PROVIDERS: PCP Family Medicine; Referring Provider Family Medicine; Visit Provider Family Medicine
DX: Z00.01 Encounter for general adult medical examination with abnormal findings (principal); Z13.220 Encounter for screening for lipoid disorders; K58.9 Irritable bowel syndrome, unspecified
CPT/HCPCS: 36415; 80053; 80061; 84165; 84443; 85025

== ENCOUNTER → 2022-08-03 | Outpatient (CLI) | payer MEDICAID, SELFPAY ==
[2022-08-03 12:47] LABS: Vitamin B12 456 pg/mL (211-911)
== END | disposition home or self-care (01) ==
PROVIDERS: PCP Family Medicine; Referring Provider Family Medicine; Visit Provider Family Medicine
DX: D75.89 Other specified diseases of blood and blood-forming organs (principal)
CPT/HCPCS: 36415; 82607; 82746

== ENCOUNTER → 2023-07-11 | Outpatient (CLI) | payer OTHER, SELFPAY ==
[2023-07-11 12:09] LABS: Absolute Lymphocyte Count 2.34 X10^3/uL (0.83-4.51); Absolute Neutrophil Count 3.5 X10^3/uL (2.0-7.7); Basophil# 0.07 X10^3/uL; Basophil% 1.1 % (0-1); Eosinophils% 1.6 % (0-5); Hematocrit 42.8 % (37-47); Hemoglobin 14.4 g/dL (12.0-15.0); Lymphocyte # 2.34 X10^3/ul (0.83-4.51); Lymphocyte % 36.4 % (19-41); Mean Corp Hgb Conc 33.6 g/dL (32-36); Mean Corpuscular Hgb 34.6 pg (27.0-32.0); Mean Corpuscular Volume 102.9 fL (81-99); Mean Platelet Vol. 10.7 fl (6.2-12.0); Monocyte# 0.44 X10^3/uL; Monocyte% 6.9 % (0-10); NRBC Flagged by Analyzer 0 % (0-5); Neutrophil # 3.45 X10^3/uL (2.7-7.7); Neutrophil % 53.7 % (47-70); Platelet Count 229 K/mm3 (150-450); RBC Distribution Width CV 12.6 % (11.6-14.6); RBC Distribution Width SD 48.3 fl (35.1-43.9); Red Blood Count 4.16 M/mm3 (4.2-5.4); White Blood Count 6.4 K/mm3 (4.4-11.0)
[2023-07-11 13:17] LABS: ALB/GLOB Ratio 1.1 RATIO (0.9-2.4); AST(SGOT) 15 U/L (15-37); Alanine Aminotransfer ALT/SGPT 17 U/L (13-56); Albumin, Serum 4.1 g/dL (3.2-5.0); Alkaline Phosphatase 36 U/L (45-117); Anion Gap 9 (5-15); BUN 10 mg/dL (7-18); CRP < 2.90 mg/L (0.0-3.0); Calcium,Total 9.5 mg/dL (8.5-10.1); Chloride 104 mmol/L (98-107); Creatinine, Serum 0.72 mg/dL (0.55-1.02); EST Glomerular Filtration Rate 89 mL/min (>60); Est Glom Filt Rate - Afr Amer 108 mL/min (>60); GGTP 4 U/L (5-55); Globulin 3.8 g/dL (2.2-4.2); Glucose 101 mg/dL (74-106); Lipase 36 U/L (13-75); Protein, Total 7.9 g/dL (6.4-8.2); Sodium Level 140 mmol/L (136-145)
== END | disposition home or self-care (01) ==
PROVIDERS: PCP Family Medicine; Visit Provider Family Medicine
DX: N39.0 Urinary tract infection, site not specified (principal); D75.89 Other specified diseases of blood and blood-forming organs; K58.9 Irritable bowel syndrome, unspecified; R10.11 Right upper quadrant pain; R53.81 Other malaise
CPT/HCPCS: 36415; 80053; 82746; 82977; 83690; 84443; 85025; 86140; 87086; 87088

== ENCOUNTER → 2024-07-21 | Outpatient (CLI) | payer OTHER, SELFPAY ==
--- NOTE | 2024-07-21 09:06 | ART_ITS ---
Reason For Study Reason For Study: PVD Procedure A bilateral lower extremity continuous wave Doppler with analog waveform analysis,segmental pressures,and ankle brachial indexes with exercise. PT walked 5 minutes @ 2.0 MPH with no symptoms. Left Segmental Pressures Left brachial= 145mmHg. Left posterior tibial artery = 149mmHg. Left dorsalis pedis artery = 152mmHg. The left posterior tibial artery waveforms are triphasic. The left dorsalis pedis waveforms are biphasic. Right Segmental Pressures Right brachial= 147mmHg. Right posterior tibial artery = 152mmHg. Right dorsalis pedis artery = 149mmHg. The right posterior tibial artery waveforms are triphasic. The right dorsalis pedis waveforms are biphasic. Indices The right resting ankle brachial index is 1.03. The right ankle brachial index by the posterior tibial artery is 1.03. The right ankle brachial index by the dorsalis pedis is 1.01. The right ankle brachial index by the posterior tibial artery post exercise is 1.04. The left resting ankle brachial index is 1.03. The left ankle brachial index by the posterior tibial artery is 1.01. The left ankle brachial index by the dorsalis pedis is 1.03. The left dorsalis pedis index post exercise is 1.05. VL/Lower Ext Art Exam w/ Exercise Interpretation Summary Triphasic and biphasic Doppler waveforms are noted at ankle level bilaterally. Pulse-volume recordings appear satisfactory at low thigh, calf, and ankle levels bilaterally. Resting ankle-br achial indices are normal bilaterally. Following a period of ambulation, ankle pressures augment bilaterally, a normal physiological response. There is no evidence of significant arterial occlusive disease in the lower ext remities bilaterally. Ordering Physician: Braden Coulter Referring Physician: Braden Coulter Performed By: Jammie Moon RVT, RDCS
== END | disposition home or self-care (01) ==
LOC: CVS 09:00
PROVIDERS: PCP Family Medicine; Referring Provider Family Medicine; Visit Provider Family Medicine
DX: I73.9 Peripheral vascular disease, unspecified (principal)
CPT/HCPCS: 93924

== ENCOUNTER 2024-07-31 08:05 | Day surgery (SDC) | payer OTHER, SELFPAY ==
[2024-07-31 08:39] VITALS: BP 143/71; PULSE 67; RESP 16; TEMP 37; O2SAT 100; BMI 27.6
--- NOTE | 2024-07-31 08:41 | DCINST_ITS ---
Discharge Instructions Follow Up Care Test Results: Test results from this visit will be discussed in further detail at your follow- up appointment, if applicable. Discharge Plan Admission Attending Provider: Ethel Sparks Primary Care Provider: Braden Coulter Instructions Print Language: Amharic Discharge Orders/Prescriptions Prescriptions: No Action biotin 1 mg capsule 1 mg PO DAILY zinc gluconate 30 mg tablet 30 mg PO DAILY apple cider vinegar 500 mg tablet 500 mg PO DAILY acyclovir 400 mg tablet 500 mg PO DAILY mirtazapine 7.5 mg tablet 7.5 mg PO QHS (DME) hydrocortisone 2.5%/lidocaine 5% suppository (compound) Suppository See Rx Instructions .ROUTE .MEDSUPPLY Qty: 1 Rx Instructions: 30 supp with 2 refills use BID PRN pain valacyclovir 1 gram tablet 1,000 mg PO QDAY estradiol-norethindrone acet 1 EACH tablet 1 ea PO DAILY Patient Comments: hormone loratadine 10 MG tablet 10 mg PO DAILY pantoprazole 40 MG tablet,delayed release (DR/EC) 40 mg PO DAILY Qty: 30 2RF fluconazole 150 mg tablet 150 mg PO Q3D Qty: 2 0RF Rx Instructions: may repeat second dose 72 hrs after first dose if symptoms persist Referrals / Follow Up: Braden Coulter MD [Primary Care Provider] - Disposition Disposition (needs filled in before D/C Order can be placed): Home, Self Care
--- NOTE | 2024-07-31 08:47 | PCM.HP.BLA ---
History and Physical Date of Admission: 07/31/24 The patient is examined and there are no changes from the H&P dated 07/15/2024. Patient for excision of a neoplasm of her right lower leg. She is marked in the preop holding area prior to surgery. She is aware of the potential need for further surgery depending on the resulting pathology. An informed consent is obtained. Assessment & Plan Assessment/Plan (1) Neoplasm of uncertain behavior of skin: PLAN: Plan Excision neoplasm of right lower leg and submission for pathologic evaluation.
[2024-07-31 09:11] VITALS: BP 110/82; BP 110/95; O2SAT 100; O2SAT 99
[2024-07-31] MEDS: Lidocaine 1% /Epi 1:100 9 ML, Sodium Bicarbonate 1 MEQ OPERA.SITE (09:18)
--- NOTE | 2024-07-31 09:20 | LES_PTH ---
PATIENT: FABY FORBES (KAYLAH) LOC: [facility] U#:[id number] AGE/SX: 58/F ROOM: RE07/31/[address]: Dr. Ethel Sparks MD : 1965 BED: DIS: 07/31/2024 SPEC #: [id number] RECD: 07/31/24 13:42 STATUS: CHIRAG POWELLCher #: [id number] JEANETTE: 07/31/24 09:[address]: Ethel Sparks DEPT: SURGICAL PATHOLOGY RECD BY: Froy Greene ENTERED: 07/31/24 13:42 SP TYPE: Lesion OTHR DR: Dr. Braden Coulter MD Tissues: A - Skin of leg, NOS Procedures: Immunohistochemical Stains Surgery Specimen Level IV HEADER OPERATION: Excision nevus of right lower leg PRE-OP DIAGNOSIS: Neoplasm of uncertain behavior of skin TISSUE SUBMITTED: A- Nevus right lower leg MICROSCOPIC DIAGNOSIS PRELIMINARY DIAGNOSIS: A. SKIN, RIGHT LOWER LEG, NEVUS, EXCISION:- ATYPICAL MELANOCYTIC PROLIFERATION, MARGINS NARROWLY FREE (0.1 CM) - SEE NOTE. NOTE: THE ABOVE IS A PRELIMINARY DIAGNOSIS. THE FINAL DIAGNOSIS IS PENDING DERMATOPATHOLOGIST REVIEW AND WILL BE REPORTED IN AN ADDENDUM. MICROSCOPIC DESCRIPTION Slides are reviewed. These tests were developed and their performance characteristics determined by [facility]. They may not have been cleared or approved by the U.S. Food and Drug Administration. The FDA has determined that such clearance or approval is not necessary. The above immunohistochemical/dualISH markers are ordered and reviewed by the Pathologist. GROSS DESCRIPTION Received in formalin labeled, Faby Forbes, and designated nevus right lower leg, is an on oriented, elliptical, excision of skin that measures 1.0 x 0.6 x 0.2 cm. Central on the skin is an area of brown discoloration measuring 0.7 x 0.5 cm and is 0.1 cm from the closest skin margin. The margin is inked black, and the specimen is entirely submitted as follows:Cassette Summary:A1-central sectionsA2-opposing tips shaved 07/31/2024 CPT:05160,53572 ADDENDUM ADDENDUM ADDENDUM ADDENDUM ADDENDUM ADDENDUM ADDENDUM ADDENDUM ADDENDUM ADDENDUM ADDENDUM ADDENDUM ADDENDUM ADDENDUM ADDENDUM ADDENDUM ADDENDUM ADDENDUM ADDENDUM ADDENDUM ADDENDUM ADDENDUM ADDENDUM ADDENDUM ADDENDUM ADDENDUM ADDENDUM ADDENDUM ADDENDUM ADDENDUM ADDENDUM ADDENDUM ADDENDUM ADDENDUM ADDENDUM ADDENDUM ADDENDUM ADDENDUM ADDENDUM ADDENDUM ADDENDUM ADDENDUM ADDENDUM ADDENDUM ADDENDUM ADDENDUM ADDENDUM ADDENDUM ADDENDUM 08/19/2024 16:52 ADDENDUM 08/19/2024 16:52 ADDENDUM 08/19/2024 16:52 ADDENDUM 08/19/2024 16:52 ADDENDUM 08/19/2024 16:52 This addendum is to report the FINAL DIAGNOSIS following intradepartmental consultation with dermatopathologist, Dr Hema Danielle, at [facility]: FINAL DIAGNOSIS: A. SKIN, RIGHT LOWER LEG, EXCISION: * MALIGNANT MELANOMA, SUPERFICIAL SPREADING TYPE - see Synoptic Report. * BRESLOW THICKNESS 0.5 MM * MARCELLUS LEVEL II * LATERAL MARGINS FREE (3 MM) AND DEEP MARGIN FREE (2.5 MM) - INVASIVE TUMOR * LATERAL MARGINS FREE ((1 MM) - IN SITU TUMOR * pT1a, pNX SYNOPTIC REPORT FOR INVASIVE MELANOMA Procedure: excision Laterality: right Tumor site: lower leg Histologic type: superficial spreading type Maximum depth (Breslow) thickness (mm): 0.5 mm Ulceration: absent Anatopmic (Marcellus) level: II (present in the papillary dermis) Mitotic rate per mm2: not identified Microsatellitosis: not identified Lymphatic and/or vascular invasion: not identified Neurotropism: not identified Tumor infiltrating lymphocytes: present, non-brisk Tumor regression: not identified Margin status: not involved (invasive: 3 mm to lateral margin, 2.5 mm to deep margin) Margin status for melanoma in situ: not involved (in situ: 1 mm to lateral margin) pT1a, pNX Associated findings: minimal solar elastosis Comment: The slides/images were reviewed in intradepartmental consultation by Dr Hema Danielle (dermatopathology division, [facility]). The diagnosis was discussed with Dr Sparks, 08/19/24. IHC utilized in the assessment: Melan-A (A1) The above synoptic report complies, in slightly modified form, with the guidelines of the [employer] and the Association of Directors of Anatomic and Surgical Pathology for the reporting of cancer specimens. All matched controls reacted appropriately. These tests were developed and their performance characteristics determined by [facility]. They may not have been cleared or approved by the U.S. Food and Drug Administration. The FDA has determined that such clearance or approval is not necessary. The above immunohistochemical/dualISH markers are ordered and reviewed by the Pathologist.
--- NOTE | 2024-07-31 09:35 | DCINST_ITS ---
Discharge Instructions Dressing / Incision Additional Dressing/Incision Instructions:: Keep your leg elevated is much as possible to decrease swelling and bruising. Take the oral antibiotic (Bactrim) 2 times a day until finished. May leave the dressing on until seen in the office. Keep the dressing dry when bathing. Follow Up Care Please Follow Up With: Ethel Sparks MD When: 1 to 2 weeks Test Results: Test results from this visit will be discussed in further detail at your follow- up appointment, if applicable. Discharge Plan Admission Attending Provider: Ethel Sparks Primary Care Provider: Braedn Coulter Instructions Print Language: Congolese Discharge Orders/Prescriptions Prescriptions: New sulfamethoxazole-trimethoprim [Bactrim] 400-80 mg tablet 1 tab PO BID 5 Days Qty: 10 0RF No Action biotin 1 mg capsule 1 mg PO DAILY zinc gluconate 30 mg tablet 30 mg PO DAILY apple cider vinegar 500 mg tablet 500 mg PO DAILY acyclovir 400 mg tablet 500 mg PO DAILY mirtazapine 7.5 mg tablet 7.5 mg PO QHS (DME) hydrocortisone 2.5%/lidocaine 5% suppository (compound) Suppository See Rx Instructions .ROUTE .MEDSUPPLY Qty: 1 Rx Instructions: 30 supp with 2 refills use BID PRN pain valacyclovir 1 gram tablet 1,000 mg PO QDAY estradiol-norethindrone acet 1 EACH tablet 1 ea PO DAILY Patient Comments: hormone loratadine 10 MG tablet 10 mg PO DAILY pantoprazole 40 MG tablet,delayed release (DR/EC) 40 mg PO DAILY Qty: 30 2RF fluconazole 150 mg tablet 150 mg PO Q3D Qty: 2 0RF Rx Instructions: may repeat second dose 72 hrs after first dose if symptoms persist Referrals / Follow Up: Braden Coulter MD [Primary Care Provider] - Disposition Disposition (needs filled in before D/C Order can be placed): Home, Self Care
[2024-07-31 09:40] VITALS: BP 122/62; BP 143/71; PULSE 68; RESP 16; TEMP 36.7; O2SAT 96
--- NOTE | 2024-07-31 09:40 | PCM.OPRPT ---
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 maker: No Type of Anesthesia: Local RN Documented Start/Stop Times: Operation Date: 07/31/24 09:20 Case Time Into Pre-Op 07/31/24 08:27 Out of Pre-Op 07/31/24 08:59 Into Room 07/31/24 09:02 Procedure Start 07/31/24 09:19 Procedure End 07/31/24 09:31 Anesthesia End 07/31/24 09:35 Out of Room 07/31/24 09:35 Procedure Start Time: 09:19 Procedure Stop Time: 09:31 Select all DRAINS/GRAFTS/IMPLANTS that apply: None Estimated Blood Loss: Minimal Specimen collected: Yes Description of specimen(s) removed: Neoplasm right lower leg Description of surgery: The patient presents today with a growing or changing neoplasm of the right lower leg. Because of the variation in color and borders, she presents for excision with submission for pathologic evaluation. She is aware the potential need for further surgery depending on the resulting pathology. She is marked in the preop holding area prior to surgery and an informed consent is obtained. The patient is brought to the operating room and placed on the operating room table in supine position. The right leg is prepped and draped in the usual sterile fashion. 1% Xylocaine with epinephrine buffered with sodium bicarb is used for local anesthetic. Following this, the site is excised and passed off the operative field to be sent to pathology. Hemostasis is controlled with cautery. The incisions then closed with interrupted silk suture. Further refinement the closure is done with a running chromic suture. Xeroform gauze and a Coban wrap is used to dress the site. She tolerated the procedure well was taken to the recovery area in an awake and stable condition. Needle and sponge counts are correct. Surgical Findings: As above Complications Complications: No Admit VTE Documentation VTE Mechan Device Prophylaxis: None Reason prophylaxis not ordered: Treatment Not Indicated
== END 2024-07-31 10:02 | disposition home or self-care (01) ==
LOC: SDC 08:05 → AC 08:10
PROVIDERS: PCP Family Medicine; Referring Provider Plastic Surgery; Visit Provider Plastic Surgery
PROC: (CPT 11602; principal; 2024-07-31 09:10)
DX: C43.71 Malignant melanoma of right lower limb, including hip (principal); Z87.891 Personal history of nicotine dependence
CPT/HCPCS: 11602; 88305; 88342

== ENCOUNTER → 2024-08-25 | Outpatient (CLI) | payer OTHER, SELFPAY ==
[2024-08-25 11:46] LABS: Hematocrit 43.2 % (37-47); Hemoglobin 14.7 g/dL (12.0-15.0); Mean Corpuscular Hgb 33.6 pg (27.0-32.0); Mean Corpuscular Volume 98.6 fL (81-99); Mean Platelet Vol. 9.9 fl (6.2-12.0); Platelet Count 249 K/mm3 (150-450); RBC Distribution Width CV 12.7 % (11.6-14.6); RBC Distribution Width SD 46.1 fl (35.1-43.9); Red Blood Count 4.38 M/mm3 (4.2-5.4); White Blood Count 6.8 K/mm3 (4.4-11.0)
[2024-08-25 12:19] LABS: Anion Gap 11 (5-15); BUN 14 mg/dL (4-19); BUN/Creat Ratio 14.4 RATIO (10-20); Calcium,Total 9.7 mg/dL (7.6-11.0); Carbon Dioxide 24.6 mmol/L (21.0-32.0); Chloride 104 mmol/L (98-108); Creatinine, Serum 0.94 mg/dL (0.70-1.20); EST Glomerular Filtration Rate 70 (>60); Glucose 95 mg/dL (70-99); Potassium 4.1 mmol/L (3.3-5.1); Sodium Level 139 mmol/L (133-145)
== END | disposition home or self-care (01) ==
LOC: LAB 11:16
PROVIDERS: PCP Family Medicine; Referring Provider Plastic Surgery; Visit Provider Plastic Surgery
DX: C43.9 Malignant melanoma of skin, unspecified (principal); D48.5 Neoplasm of uncertain behavior of skin
CPT/HCPCS: 36415; 80048; 85027

== ENCOUNTER 2024-09-03 08:18 | Day surgery (SDC) | payer OTHER, SELFPAY ==
--- NOTE | 2024-08-31 12:12 | PAT.ANESEVAL ---
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 When Was Last Pacemaker Check QUESTION #4 FULL TEXT: You/Your Family Experience fever (hyperthermia) with Anesthesia Last Oral Intake Last Oral intake: Last Oral Intake NPO since Meds taken in AM with sips of water? 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 Female Yes 08/31/24 08:13 HX of Motion Sickness No 08/31/24 08:13 HX of N/V After Surgery Yes 08/31/24 08:13 Non-Smoker Yes 08/31/24 08:13 Duration of Surgery greater No 08/31/24 08:13 than 60 minutes Number of Risk Factors 3 08/31/24 08:13 PONV Score Moderate Risk 08/31/24 08:13 Height & Weight Height & Weight: Anesthesia: Height & Weight Height 5 ft 5 in 08/25/24 10:20 Respiratory Assessment Respiratory Assessment - box press operator: Respiratory Tract Infection Hx - box press operator Hx Respiratory Tract Infection No 08/31/24 08:13 STOP Sleep Apnea STOP Sleep Apnea - box press operator: STOP Sleep Apnea - box press operator Hx Hypertension No 08/31/24 08:13 Hx Sleep Apnea No 08/31/24 08:13 CPAP No 08/20/24 08:03 BIPAP No 08/20/24 08:03 Do you snore loudly (louder No 08/31/24 08:13 than talking or can be heard Do you often feel tired/ No 08/31/24 08:13 fatigued/ sleepy during daytime? Has anyone observed you stop No 08/31/24 08:13 breathing during sleep? STOP Results Negative 08/31/24 08:13 QUESTION #5 FULL TEXT : Do you snore loudly (louder than talking or can be heard through closed doors)? 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 Specify any problems Hx of Preganancy in last 3 N/A 08/31/24 08:13 Months Nurse Filling Out Transfusion NBUCHER 08/31/24 08:13 & Questions: Date: 08/31/24 08/31/24 08:13 Time: 08:14 08/31/24 08:13 Patient unable to answer at this time (ie. confused, unrespo /Reproduction History /Reproductive History - box press operator: /Reproductive Hx- box press operator Hx Now No 08/31/24 08:13 Gestational Age (in weeks): EDC: Hx Hx Para Hx Section SAB No 08/31/24 08:13 [facility] Medical History (Updated 08/31/24 @ 08:23 by Jade Mckeon) Wears contact lenses MRSA infection History of IBS Former smoker History of edema PONV (postoperative nausea and vomiting) History of echocardiogram History of stress test Herpes Post-menopausal Vertigo Irritable bowel syndrome Constipation Anxiety Right bundle branch block (RBBB) Irritable bowel syndrome with constipation Home Medications ?Medication ?Instructions ?Recorded ?Last Taken ?Type loratadine 10 mg tablet 10 mg PO DAILY 09/29/16 Unknown History Hydrocortisone 2.5%/lidocaine 5% #1 ea 08/30/20 Unknown History suppository (cmpd) (hydrocortisone 2.5%/lidocaine 5% suppository (compound)) fluconazole 150 mg tablet 150 mg PO Q3D 2 doses #2 tabs 04/26/23 Unknown Rx valacyclovir 1 gram tablet 1,000 mg PO QDAY 07/15/24 07/31/24 History sulfamethoxazole 800 1 tab PO BID #14 tabs 08/26/24 Unknown Rx mg-trimethoprim 160 mg tablet (Bactrim DS) Allergy/AdvReac Type Severity Reaction Status Date / Time amoxicillin Allergy Mild rash Verified 08/31/24 08:07 hydrocodone bitartrate (From AdvReac Vomiting Verified 08/31/24 08:07 Vicodin) Family History Father Asthma Diabetes Hypertension Heart disease Mother Asthma Diabetes Heart disease Grandfather Heart disease Surgical History (Updated 08/31/24 @ 08:23 by Jade Mckeon) History of colonoscopy History of esophagogastroduodenoscopy (EGD) history excision lesion lip history excision lesion left ear History of vein stripping History of laparoscopic cholecystectomy Social History (Updated 07/15/24 @ 09:34 by Brigida Medellin) Smoking Status: Former smoker how long ago did patient quit smoking: quit 18 years ago alcohol intake: current substance use type: does not use additional social history: pt denies vaping, denies marijuana use, denies edibles, denies aspirin use uses ibuprofen as needed Audit: Pertinent Findings Pertinent Findings Echo (EF%) pertinent findings: 01/28/2015. Stress echocardiogram. Negative. 11.7 METS. EF 60 to 70%. Recommendation Anesthesia Recommendation Anesthesia recommendation: OPTIMIZED for anesthesia
[2024-09-03] VITALS (10 sets, daily range): BP systolic 81–121; BP diastolic 42–62; PULSE 51–64; RESP 16; TEMP 36.1–36.6; O2SAT 94–100; BMI 27.5
[2024-09-03] MEDS: Lactated Ringers 1,000 ML 15 ML IV (09:04)
--- NOTE | 2024-09-03 09:15 | PCM.HP.BLA ---
History and Physical Date of Admission: 09/03/24 The patient is examined and there are no changes to the H&P dated 08/27/2024. She presents for wide excision of a melanoma of her right lower extremity. She is aware that this likely will result in skin grafting of the wound. An informed consent is obtained. She is marked in the preop holding area. Assessment & Plan Assessment/Plan (1) Superficial spreading melanoma: PLAN: Plan Wide excision melanoma and probable STSG of the resulting site.
--- NOTE | 2024-09-03 09:38 | PCM.PRE.AN2 ---
ASA Classification* ASA Classification ASA Classification: 2 Assessment & Plan Anesthesia* Anesthesia Assessment Anesthesia Assessment: Discussed sedation and/or anesthesia options, risks, benefits, and alternatives with patient/parents/legal guardian/POA. Questions invited. The patient/parents/legal guardian/POA seems to understand and agrees to proceed with anesthesia plan. Reviewed the physical assessment, medical history, allergy history and patient home medications list prior to surgery/procedure/anesthetic and documented any changes. Performed airway and anesthesia risk assessments. Anesthesia Type Anesthesia Type: General Anesthesia Focused Assessment* Temperature: 97.4 F Pulse Rate: 64 Blood Pressure: 121/62 Respiratory Rate: 16 Pulse Ox: 97 Oxygen Delivery Method: Room Air Airway Assessment Mouth opens: >3 cm Mallampati Score: III Teeth Condition: Intact Neck Range of motion (ROM): Full ROM Focused Labs Anesthesia Preop lab: CBC WBC 6.8 K/mm3 (4.4-11.0) 08/25/24 11:08/25/24 RBC 4.38 M/mm3 (4.2-5.4) 08/25/24 11:08/25/24 Hgb 14.7 g/dL (12.0-15.0) 08/25/24 11:08/25/24 Hct 43.2 % (37-47) 08/25/24 11:22 08/25/24 Plt Count 249 K/mm3 (150-450) 08/25/24 11:22 08/25/24 CHEMISTRY Potassium 4.1 mmol/L (3.3-5.1) 08/25/24 11:08/25/24 Sodium 139 mmol/L (133-145) 08/25/24 11:22 08/25/24 Magnesium 1.9 mg/dL (1.8-2.4) 01/27/15 20:07 01/27/15 BUN 14 mg/dL (4-19) 08/25/24 11:08/25/24 Creatinine 0.94 mg/dL (0.70-1.20) 08/25/24 11:08/25/24 Glucose 95 mg/dL (70-99) 08/25/24 11:08/25/24 TSH 1.00 uIU/mL (0.358-3.74) 07/11/23 10:27 07/11/23 COAG Pre-Assessment Diagnosis/Proposed Procedure Planned Operative Procedure(s): (R) Wide excision melanoma right leg with split thickness skin graft Anesthesia History Anesthesia History - corporate legal manager: Anesthesia History - corporate legal manager Hx Hospitalization No 08/31/24 08:13 Any Problems With Anesthesia Yes: PONV 08/31/24 08:13 Cholinesterase deficiency No 08/31/24 08:13 You/Your Family Experience No 08/31/24 08:13 fever (hyperthermia) with Relationship Recent Exposure to Contagious No 09/03/24 09:05 Disease Does patient have nerve No 08/31/24 08:13 stimulator Patient instructed to have device shut off --Does patient have Pacemaker No 09/03/24 09:05 or ICD? When Was Last Pacemaker Check QUESTION #4 FULL TEXT: You/Your Family Experience fever (hyperthermia) with Anesthesia Last Oral Intake Last Oral intake: Last Oral Intake NPO since 00:00 09/03/24 09:05 Meds taken in AM with sips of No 09/03/24 09:05 water? Meds patient instructed to take am of surgery PONV PONV - corporate legal manager: PONV - corporate legal manager Female Yes 08/31/24 08:13 HX of Motion Sickness No 08/31/24 08:13 HX of N/V After Surgery Yes 08/31/24 08:13 Non-Smoker Yes 08/31/24 08:13 Duration of Surgery greater No 08/31/24 08:13 than 60 minutes Number of Risk Factors 3 08/31/24 08:13 PONV Score Moderate Risk 08/31/24 08:13 Height & Weight Height & Weight: Anesthesia: Height & Weight Height 5 ft 5 in 09/03/24 09:05 Weight: 75 kg 09/03/24 09:05 Body Mass Index (BMI) 27.5 09/03/24 09:05 Respiratory Assessment Respiratory Assessment - corporate legal manager: Respiratory Tract Infection Hx - corporate legal manager Hx Respiratory Tract Infection No 08/31/24 08:13 STOP Sleep Apnea STOP Sleep Apnea - corporate legal manager: STOP Sleep Apnea - corporate legal manager Hx Hypertension No 08/31/24 08:13 Hx Sleep Apnea No 08/31/24 08:13 CPAP No 08/20/24 08:03 BIPAP No 08/20/24 08:03 Do you snore loudly (louder No 08/31/24 08:13 than talking or can be heard Do you often feel tired/ No 08/31/24 08:13 fatigued/ sleepy during daytime? Has anyone observed you stop No 08/31/24 08:13 breathing during sleep? STOP Results Negative 08/31/24 08:13 QUESTION #5 FULL TEXT : Do you snore loudly (louder than talking or can be heard through closed doors)? Tobacco Use History Tobacco Use History - corporate legal manager: Tobacco Use History - corporate legal manager Tobacco Use Smoking Status Former smoker 08/31/24 08:13 Hx Tobacco Use No 08/31/24 08:13 Years Smoking Packs Smoked per Day Smoking Cessation Date was No - quit smoking greater 08/31/24 08:13 within the last 15 years than 15 years ago Hx Smoking Cessation Date 05/06/09 08/31/24 08:13 Hx Smoking Cessation No 08/31/24 08:13 Counseling Hematologic Medial History Hematologic Hx - corporate legal manager: Hematologic Medical Hx - belt sander stone Hx of Blood Transfusion No 08/31/24 08:13 Hx of Transfusion in last 3 No 08/31/24 08:13 Months Date of Last Transfusion (if within last 3 months) Ever experience any problems No 08/31/24 08:13 with transfusion(s)? Specify any problems Hx of Preganancy in last 3 N/A 08/31/24 08:13 Months Nurse Filling Out Transfusion NBUCHER 08/31/24 08:13 & Questions: Date: 08/31/24 08/31/24 08:13 Time: 08:14 08/31/24 08:13 Patient unable to answer at this time (ie. confused, unrespo /Reproduction History /Reproductive History - corporate legal manager: /Reproductive Hx- corporate legal manager Hx Now No 08/31/24 08:13 Gestational Age (in weeks): EDC: Hx Hx Para Hx Section SAB No 08/31/24 08:13 Active Medications Active Medications: Current Medications Generic Name Dose Route Start Last Admin Trade Name Freq PRN Reason Stop Dose Admin Clindamycin Phosphate 900 mg in 50 mls @ 75 mls/hr 09/03/24 10:00 Cleocin IV 09/03/24 10:39 INTRAOP ONE Lactated Ringer's 1,000 mls @ 15 mls/hr 09/03/24 08:45 09/03/24 09:04 IV 15 mls/hr .Q48H KALYAN Administration PFSH Medical History Wears contact lenses MRSA infection History of IBS Former smoker History of edema PONV (postoperative nausea and vomiting) History of echocardiogram History of stress test Herpes Post-menopausal Vertigo Irritable bowel syndrome Constipation Anxiety Right bundle branch block (RBBB) Irritable bowel syndrome with constipation Home Medications ?Medication ?Instructions ?Recorded ?Last Taken ?Type loratadine 10 mg tablet 10 mg PO DAILY 09/29/16 09/02/24 History fluconazole 150 mg tablet 150 mg PO Q3D 2 doses #2 tabs 04/26/23 09/02/24 Rx valacyclovir 1 gram tablet 1,000 mg PO QDAY 07/15/24 09/02/24 History sulfamethoxazole 800 1 tab PO BID #14 tabs 08/26/24 09/02/24 Rx mg-trimethoprim 160 mg tablet (Bactrim DS) Allergy/AdvReac Type Severity Reaction Status Date / Time amoxicillin Allergy Mild rash Verified 09/03/24 09:03 hydrocodone bitartrate (From AdvReac Vomiting Verified 09/03/24 09:03 Vicodin) Family History Father Asthma Diabetes Hypertension Heart disease Mother Asthma Diabetes Heart disease Grandfather Heart disease Surgical History History of colonoscopy History of esophagogastroduodenoscopy (EGD) history excision lesion lip history excision lesion left ear History of vein stripping History of laparoscopic cholecystectomy Social History Smoking Status: Former smoker how long ago did patient quit smoking: quit 18 years ago alcohol intake: current substance use type: does not use additional social history: pt denies vaping, denies marijuana use, denies edibles, denies aspirin use uses ibuprofen as needed Review of Systems (Anesthesia) ROS Narrative System reviewed and no additional complaints, except as documented.
--- NOTE | 2024-09-03 10:00 | LES_PTH ---
PATIENT: DARLIN PARADA (KAYLAH) LOC: [facility] [place] U#:[id number] AGE/SX: 59/F ROOM: RE09/03/[address]: Dr. Ethel Sparks MD : 1965 BED: DIS: 09/03/2024 SPEC #: [id number] RECD: 09/03/24 11:46 STATUS: CHIRAG HOWELL #: [id number] JEANETTE: 09/03/24 10:[address]: Ethel Sparks DEPT: SURGICAL PATHOLOGY RECD BY: Froy Greene ENTERED: 09/03/24 13:33 SP TYPE: Lesion OTHR DR: Mannie Mancuso MD Tissues: A - Skin of leg, NOS Procedures: Surgery Specimen Level IV HEADER OPERATION: Wide excision melanoma right leg with split thickness skin PRE-OP DIAGNOSIS: Superficial spreading melanoma TISSUE SUBMITTED: A- Right leg melanoma * suture for orientation only. 2 tags - superior aspect, 1 posterior aspect* MICROSCOPIC DIAGNOSIS A. Skin, right leg, melanoma, wide excision: * No residual malignant melanoma observed (margins free) - see note. * Ulcer, scar, and associated reactive changes consistent with a previous surgical procedure. * Note: See specimen [id number] for the original diagnosis and Synoptic Report (provided by Dr Hema Danielle, [facility]). MICROSCOPIC DESCRIPTION Slides are reviewed. GROSS DESCRIPTION A. Received in formalin in a container labeled with the patient's name, date of , and right leg melanoma is an oriented ovoid skin excision with 2 sutures indicating superior margin, and 1 suture indicating posterior margin. The superior margin is arbitrarily designated as 12:00, and the posterior margin is arbitrarily designated as 9:00. The specimen is 3.2 cm from superior to inferior/12-6 o'clock, 2.9 cm from posterior to anterior/9-3 o'clock, with a depth of up to 0.8 cm. The epidermis exhibits a black-brown, scabbed lesion.Lesion measurement: 1.2 x 1.0 cm. The lesion is 1.0 cm from each margin. The remaining skin is chapman-pink with sloughing at the periphery. Ink randle: Posterior/9:00 half = black Anterior/3:00 = orange The specimen is serially sectioned from superior/12:00 to inferior/6:00 into 9 slices to reveal that the lesion is within slices 3-7. On cut surface, the lesion exhibits red-black hemorrhage that extends 0.5 cm deep, but is 0.3 cm to the deep margin. The remaining cut surfaces are chapman-yellow and unremarkable. The specimen is submitted entirely and sequentially as follows:A1. Slice 1, perpendicular sections of superior/12:00 marginA2. Slices 2-3, wholeA3. Slices 4-5, wholeA4. Slices 6-8, wholeA5. Slice 9, perpendicular sections of inferior/6:00 margin [facility] 09-03-2024 CPT:59237
[2024-09-03] MEDS: Clindamycin 900 MG/50 ML BAG 75 MG IV (10:11)
[2024-09-03] MEDS: Lidocaine 1% /Epi 1:100 (20ml) 20 ML Vial (10:27)
[2024-09-03] MEDS: EPINEPHrine Nasal 0.1% 30 ML Bottle (10:40)
[2024-09-03] MEDS: Mineral Oil, Light Sterile 10 ML Vial MC (10:40)
[2024-09-03] MEDS: BACITRACIN/POLYMYXIN B 15 GM Tube 1 APPLIC (11:04)
--- NOTE | 2024-09-03 11:36 | EX.PCM.DISCH ---
Discharge Instructions Dressing / Incision Additional Dressing/Incision Instructions:: Keep your leg elevated is much as possible. Take the oral antibiotic twice a day until finished. Leave the dressings in place until seen in the office next week. Follow Up Care Please Follow Up With: Ethel Sparks MD When: In 1 week Test Results: Test results from this visit will be discussed in further detail at your follow-up appointment, if applicable. Discharge Plan Admission Attending Provider: Ethel Sparks Primary Care Provider: Mannie Mancuso Instructions Print Language: Frisian Discharge Orders/Prescriptions Prescriptions: New sulfamethoxazole-trimethoprim [Bactrim] 400-80 mg tablet 1 tab PO BID 7 Days Qty: 14 0RF No Action valacyclovir 1 gram tablet 1,000 mg PO QDAY sulfamethoxazole-trimethoprim [Bactrim DS] 800-160 mg tablet 1 tab PO BID Qty: 14 0RF loratadine 10 MG tablet 10 mg PO DAILY fluconazole 150 mg tablet 150 mg PO Q3D Qty: 2 0RF Rx Instructions: may repeat second dose 72 hrs after first dose if symptoms persist Referrals / Follow Up: Mannie Macnuso MD [Primary Care Provider] - Disposition Disposition (needs filled in before D/C Order can be placed): Home, Self Care
--- NOTE | 2024-09-03 11:40 | OP.PCM_ITS ---
Problems Associated Problem List Diagnoses (1) Superficial spreading melanoma: Operative Report (Standard) Operative Information Date of Procedure: 09/03/24 Pre-Operative Diagnosis: Biopsy-proven superficial spreading melanoma right ankle Post-Operative Diagnosis: Same Surgery/Procedure Performed: Wide excision melanoma right ankle --3.5 cm (1 cm margin); STSG from right thigh to right ankle (20 cm?) napkin machine operator: Yes Burglar Alarm Assembler: Ama Loco Tasks completed by first aid nurse: Retracting Type of Anesthesia: General RN Documented Start/Stop Times: Operation Date: 09/03/24 10:00 Case Time Into Pre-Op 09/03/24 08:34 Out of Pre-Op 09/03/24 09:51 Anesthesia Start 09/03/24 09:55 Into Room 09/03/24 09:55 Procedure Start 09/03/24 10:27 Procedure End 09/03/24 11:28 Anesthesia End 09/03/24 11:33 Out of Room 09/03/24 11:33 Into Recovery 09/03/24 11:36 Procedure Start Time: 10:27 Procedure Stop Time: 11:28 Select all DRAINS/GRAFTS/IMPLANTS that apply: None Estimated Blood Loss: Minimal Specimen collected: Yes Description of specimen(s) removed: Melanoma site right ankle Description of surgery: The patient presents with a diagnosis of a superficial spreading melanoma of the right ankle. She presents today for wide excision to ensure complete removal. She is aware that in this area, we we will likely have to skin graft in order to achieve wound closure. She is also aware that this area is prone to delayed wound healing. The patient is brought to the operating room and placed under general anesthesia in supine position. Care is taken to pad all pressure points, apply a sequential compression stocking on the opposite leg, and a warming pad. Her [facility] ankle and right thigh are prepped and draped in the usual sterile fashion. We initially began with injecting 1% Xylocaine with epinephrine in the periphery of the site of the ankle. Following this, 1 cm margin had been demarcated and the skin around the previous excision site. The skin is incised and dissection is carried down to the fascia. Hemostasis is controlled with cautery. A damp g auze is placed on the site. The specimen is marked for orientation with 2 sutures designated as superior aspect and 1 suture designated as posterior aspect. The wound site is measured and the appropriate with dermatome blade width is selected. The site on the upper thigh is prepared by applying mineral oil. The dermatome is then used to harvest a thin piece of epidermis. An epi soaked Telfa was then placed on the site. The graft is then placed on the open wound after assuring hemostasis. Correct orientation of the graft is assured. The graft is then sutured in place with silk sutures for the tie-over dressing. Additional approximation of the edges is accomplished with a running plain gut suture. A few small fenestrations are placed in the graft to allow egress of fluid. A Xeroform gauze is placed over the graft along with mineral oil soaked cotton balls in the tie-over graft is tied in place. A thin layer of antibiotic ointment is also placed in the periphery of the wound edges. Fluffed gauze are placed over the tie-over and affixed in place with a Bella dressing. A 3 inch Jordan is then used to wrap the foot and ankle. She is placed in an orthopedic shoe in order to prevent dorsiflexion. The graft site is dressed with Skin-Prep and a Tegaderm. She tolerated the procedure well was taken to the recovery area in an awake and stable condition. Needle and sponge counts are correct. Surgical Findings: As above Complications Complications: No Admit VTE Documentation VTE Mechan Device Prophylaxis: SCD's
--- NOTE | 2024-09-03 11:40 | PCM.POST.ANE ---
Anesthesia: Postop Eval I Current Vital Signs Temperature: 97.8 F Pulse Rate: 55 Blood Pressure: 81/49 Respiratory Rate: 16 Pulse Ox: 95 Oxygen Delivery Method: Room Air Assessment Airway patent: Yes Spontaneous unlabored respirations: Yes Mental status: Awake and Calm nausea: No Vomiting: No Anesthesia Complication: No Fluid Hydration Crystalloid volume administer (ml): 1,400 Total IV fluid infused: 1,400 Progress Note Anesthesia document: Postop Eval 1 completed: Yes
--- NOTE | 2024-09-03 15:23 | POSTOPAN2_ITS ---
Anesthesia Postop Eval I Sum Postop Eval Completion status Anesthesia document: Postop Eval 1 completed: Yes Anesthesia Postop Eval I Summary Anesthesia Postop Eval I Summary: Anesthesia Postop Eval I: Assessment Summary Airway patent Yes 09/03/24 11:40 CONCRETE BOOM PUMP [email or web address].[email or web address] Spontaneous unlabored Yes 09/03/24 11:40 CONCRETE BOOM PUMP OPERATOR.[email or web address] respirations Mental status Awake,Calm 09/03/24 11:40 CONCRETE BOOM PUMP [email or web address].[email or web address] nausea No 09/03/24 11:40 CONCRETE BOOM PUMP [email or web address].[email or web address] Vomiting No 09/03/24 11:40 CONCRETE BOOM PUMP [email or web address].[email or web address] Anesthesia Postop Eval I: Fluid Summary Crystalloid volume administer 1,400 09/03/24 11:40 CONCRETE BOOM PUMP [email or web address].[email or web address] (ml) Colloids volume administered ( ml) Blood Product volume administered (ml) Total IV fluid infused 1,400 09/03/24 11:40 CONCRETE BOOM PUMP [email or web address].[email or web address] Anesthesia Postop Eval I: Summary Notes Anesthesia Complication No 09/03/24 11:40 CONCRETE BOOM PUMP [email or web address].[email or web address] Anesthesia Complication Comment: Post-operative progress note Anesthesia: Postop Eval II Evaluation Mental status: Awake and Calm Pain Level: 1 nausea: No Vomiting: No Complications Anesthesia Complication: No
--- NOTE | 2024-09-03 15:23 | PCM.POSTANE2 ---
Anesthesia Postop Eval I Sum Postop Eval Completion status Anesthesia document: Postop Eval 1 completed: Yes Anesthesia Postop Eval I Summary Anesthesia Postop Eval I Summary: Anesthesia Postop Eval I: Assessment Summary Airway patent Yes 09/03/24 11:40 SEALER [email or web address] Spontaneous unlabored Yes 09/03/24 11:40 SEALER [email or web address].[email or web address] respirations Mental status Awake,Calm 09/03/24 11:40 SEALER [email or web address].[email or web address] nausea No 09/03/24 11:40 SEALER [email or web address].[email or web address] Vomiting No 09/03/24 11:40 SEALER [email or web address] Anesthesia Postop Eval I: Fluid Summary Crystalloid volume administer 1,400 09/03/24 11:40 SEALER [email or web address] (ml) Colloids volume administered ( ml) Blood Product volume administered (ml) Total IV fluid infused 1,400 09/03/24 11:40 SEALER [email or web address].[email or web address] Anesthesia Postop Eval I: Summary Notes Anesthesia Complication No 09/03/24 11:40 SEALER [email or web address].[email or web address] Anesthesia Complication Comment: Post-operative progress note Anesthesia: Postop Eval II Evaluation Mental status: Awake and Calm Pain Level: 1 nausea: No Vomiting: No Complications Anesthesia Complication: No
== END 2024-09-03 13:19 | disposition home or self-care (01) ==
LOC: SDC 08:22 → AC 08:25
PROVIDERS: PCP Family Medicine; Referring Provider Plastic Surgery; Visit Provider Plastic Surgery
PROC: (CPT 11606; principal; 2024-09-03 09:45)
DX: C43.71 Malignant melanoma of right lower limb, including hip (principal); Z87.891 Personal history of nicotine dependence
CPT/HCPCS: 11606; 15100; 00400; 88305; J2405

== ENCOUNTER 2024-09-21 12:13 | Emergency (ER) | payer OTHER, SELFPAY ==
[2024-09-21 12:14] VITALS: BP 145/91; PULSE 84; RESP 19; TEMP 36.4; O2SAT 98; BMI 28.0
--- NOTE | 2024-09-21 12:55 | VDLE_ITS ---
Reason For Study Reason For Study: Right leg pain RIGHT LEFT GSV is normal. CFV is compressible, spontaneous, phasic, competent, CFV is compressible, spontaneous, phasic, competent and demonstrates normal augmentation. and demonstrates normal augmentation. FV is compressible, spontaneous, phasic, competent and demonstrates normal augmentation. POP V is compressible, spontaneous, phasic, competent and demonstrates normal augmentation. T/P Trunk is compressible. PTV is compressible. RT PerV is compressible. Procedure This is a venous duplex using B-mode, color flow and spectral Doppler. Exam performed portable in ED. A preliminary report was called and/or faxed to Dr. Peña. VL/Venous Duplex US, Unilateral Interpretation Summary Deep veins of the right lower extremity are patent and compressible segmentally . There is no evidence of right lower extremity deep vein thrombosis. The right great saphenous vein appears patent a nd compressible segmentally. Ordering Physician: Trell Peña Referring Physician: Mannie Mancuso Performed By: Lisa Deshpande RVT
--- NOTE | 2024-09-21 13:15 | EX.ED.DYSGE1 ---
HPI History of Present Illness Chief Complaint: Wound Check Narrative Narrative: Patient is a 59-year-old female with past medical history of IBS, right bundle branch block, anxiety who presents to the emergency department with concern for blood clot in her right leg. 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 States that she called her yesterday concerned with swelling in the leg and given her recent surgery she wanted sent her here to the emergency department to make sure she did not have a blood clot. [facility] Medical History Wears contact lenses MRSA infection History of IBS Former smoker History of edema PONV (postoperative nausea and vomiting) History of echocardiogram History of stress test Herpes Post-menopausal Vertigo Irritable bowel syndrome Constipation Anxiety Right bundle branch block (RBBB) Irritable bowel syndrome with constipation Home Medications ?Medication ?Instructions ?Recorded ?Last Taken ?Type NK 09/21/24 Unknown History Allergy/AdvReac Type Severity Reaction Status Date / Time amoxicillin Allergy Mild rash Verified 09/21/24 12:14 hydrocodone bitartrate (From AdvReac Vomiting Verified 09/21/24 12:14 Vicodin) Family History Father Asthma Diabetes Hypertension Heart disease Mother Asthma Diabetes Heart disease Grandfather Heart disease Surgical History History of colonoscopy History of esophagogastroduodenoscopy (EGD) history excision lesion lip history excision lesion left ear History of vein stripping History of laparoscopic cholecystectomy Social History Smoking Status: Former smoker how long ago did patient quit smoking: quit 18 years ago alcohol intake: current substance use type: does not use additional social history: pt denies vaping, denies marijuana use, denies edibles, denies aspirin use uses ibuprofen as needed ROS ROS ED ROS Narrative Constitutional: Denies fevers, chills, headaches malaise, denies Cardiovascular denies chest pain Respiratory: Denies shortness of breath Musculoskeletal: Complains of right lower extremity swelling as noted above, patient states that this has improved however since last night Neurological: Denies any numbness, wheeze, tingling EXAM Physical Exam Narrative Exam Narrative: General: Patient was lying in bed rest comfortably did not appear to be acute distress Head: Atraumatic, normocephalic Cardiovascular: Regular rate Musculoskeletal: No large appreciable difference between the right lower extremity and left lower extremity with comes the swelling compartments are soft and compressible Extremities: DP pulses +2/4 in the bilateral lower extremities, +5/5 strength noted in the bilateral upper and lower extremities Neurological: Patient following commands knew that she was at [facility] year is 2024. Sensation grossly intact Skin: Patient's wound appears to be healing well without any concern for infection at this point time Const Vital Signs: 09/21/24 12:14 Temperature 97.6 F L Temperature Source Temporal Pulse Rate 84 Respiratory Rate 19 H Blood Pressure 145/91 H Blood Pressure Mean 109 Pulse Ox 98 Oxygen Delivery Method Room Air MDM MDM MDM Narrative Medical decision making narrative: Patient is a 59-year-old female who presents to the emerged part with concern for DVT in her right lower extremity sent by her plastic surgeon. On the differential diagnosis includes but not limited to deep venous thrombosis, superficial venous thrombosis, venous insufficiency. Once again the patient states that by this morning her swelling had improved however since she is here we will complete the DVT study. Patient's DVT study was reviewed and did not show any evidence of any DVT or superficial venous thrombosis. Called to back her plastic surgeon Dr. Sparks and I notified her of the results and she states that she will follow-up with her tomorrow in the office. Patient was advised to go to the appointment tomorrow as scheduled. She was encouraged return with worsening symptoms and concerns. She is agreeable this plan all question concerns answered she is discharged home in stable condition. Discharge Plan Triage Chief Complaint: Wound Check ED Provider: Trell Peña Dx/Rx/DC Orders Clinical Impression: Localized swelling of right lower extremity Prescriptions: No Action NK Primary Care Provider: Mannie Mancuso Referrals: Mannie Mancuso MD [Primary Care Provider] - Activity Restrictions/Additional Instructions: Insert follow-up with your doctor at your scheduled appointment tomorrow. Your ultrasound did not show any evidence of blood clots in your legs today. Return with worsening symptoms or any concerns Print Language: South Korean Disposition Disposition: Home, Self Care
[2024-09-21 13:28] VITALS: BP 141/90; PULSE 87; RESP 16; O2SAT 99
== END 2024-09-21 13:32 | disposition home or self-care (01) ==
LOC: ED 13:20
PROVIDERS: Emergency Provider Emergency Medicine; PCP Family Medicine; Visit Provider Emergency Medicine
DX: R22.41 Localized swelling, mass and lump, right lower limb (principal); Z87.891 Personal history of nicotine dependence
CPT/HCPCS: 93971; 99282

== ENCOUNTER → 2024-12-03 | Outpatient (CLI) | payer OTHER, SELFPAY ==
--- NOTE | 2024-12-03 10:14 | BI_ITS ---
EXAM: SCRN MAMM (CAD)W/HERLIDNA BILAT DATE: 12/03/2024 CLINICAL HISTORY: F, Age 59 y/o , BREAST CANCER SCREENING TECHNIQUE: SCRN MAMM (CAD)W/HERLINDA BILAT COMPARISON: Prior exam(s) were compared FINDINGS: TISSUE DENSITY: The breasts are heterogeneously dense, which may obscure small masses. Bilateral Breast Mammographic Findings: No suspicious masses, calcifications or other abnormalities are identified. BI/SCRN MAMM (CAD)W/HERLINDA BILAT IMPRESSION: No mammographic evidence of malignancy in either breast OVERALL FINAL ASSESSMENT BI-RADS 1: NEGATIVE. RECOMMENDATION: Routine annual follow-up in 1 Year A letter with findings and recommendations will be mailed to the patient. Reading Location: [id number]
--- OUTSIDE RECORDS SUMMARY | 2024-12-03 19:15 | XMS RPT_ITS | CCD ---
Author Organization [facility] Care Team Providers Care Rn Transitional Name Role Phone Daniela Coulter MD Primary Care Provider [phone] Dr. Daniela Coulter Primary Care Provider [phone] Daniela Coulter Referring Provider [phone] PHUONG Marrero Attending Provider Daniela Coulter MD Primary Care Provider [phone] DANIELA COULTER Primary Care Unavailable MADINA MORALES Attending Unavailable DANIELA COULTER Primary Care Unavailable Dr. Daniela Coulter MD Primary Care Provider Dr. Daniela Coulter MD Referring Provider Dr. Ethel Sparks MD Attending Provider Dr. Daniela Coulter MD Attending Provider Dr. Ethel Sparks MD Referring Provider Dr. Ethel Sparks MD Other Provider Zuleyka GARCIA, Dr. Macario Marquez Attending Provider Mannie Mancuso MD Primary Care Provider [phone] Mannie Mancuos MD Referring Provider Dr. Trell Peña DO Emergency Provider Dr. Daniela Mcbride MD Attending Provider Dr. Trell Peña DO Attending Provider Dr. Trell Peña DO Referring Provider Dr. Javad Green MD Attending Provider Coulter MD, Dr. Daniela Primary Care Provider Clare GARCIA, Dr. Davenport Attending Provider Dr. Daniela Coulter MD Referring Provider Jamee, Chalon Referring Unavailable Jamee, Chalon Attending Unavailable Jamee, Chalon Primary Care Unavailable Ghazoul, Ethel Attending Unavailable Jamee, Chalon Referring Unavailable Jamee, Chalon Primary Care Unavailable Jamee, Chalon Referring Unavailable Ghazoul, Ethel Attending Unavailable Jamee, Chalon Primary Care Unavailable Coulter, Daniela Primary Care Unavailable Coulter, Daniela Referring Unavailable Ghazoul, Ethel Attending Unavailable Coulter, Daniela Primary Care Unavailable Coulter, Daniela Referring Unavailable Ghazoul, Ethel Attending Unavailable Jamee, Chalon Primary Care Unavailable Jamee, Chalon Referring Unavailable Ghazoul, Ethel Attending Unavailable Jamee, Chalon Primary Care Unavailable Jamee, Chalon Referring Unavailable Jamee, Chalon Attending Unavailable Coulter, Daniela Primary Care Unavailable Coulter, Daniela Referring Unavailable Coulter, Daniela Attending Unavailable Coulter, Daniela Primary Care Unavailable Ghazoul, Ethel Attending Unavailable Ghazoul, Ethel Referring Unavailable Jamee, Chalon Referring Unavailable Siska Javad Attending Unavailable Jamee, Chalon Primary Care Unavailable PeñaTrell Attending Unavailable Jamee, Chalon Primary Care Unavailable Jamee, Chalon Primary Care Unavailable Ghazoul, Ethel Referring Unavailable Ghazoul, Ethel Attending Unavailable Jamee, Chalon Referring Unavailable Siska Javad Attending Unavailable Jamee, Chalon Primary Care Unavailable Jamee, Chalon Primary Care Unavailable Jamee, Chalon Referring Unavailable Ghazoul, Ethel Attending Unavailable Jamee, Chalon Primary Care Unavailable Jamee, Chalon Referring Unavailable Ghazoul, Ethel Attending Unavailable Coulter, Daniela Primary Care Unavailable Ghazoul, Ethel Consulting Unavailable Ghazoul, Ethel Referring Unavailable Ghazoul, Ethel Attending Unavailable Rae, Daniela Attending Unavailable Peña, Trell Referring Unavailable Jamee, Chalon Primary Care Unavailable Jamee, Chalon Primary Care Unavailable Ghazoul, Ethel Referring Unavailable Ghazoul, Ethel Attending Unavailable Ghazoul, Ethel Consulting Unavailable Jamee, Chalon Primary Care Unavailable Jamee, Chalon Referring Unavailable Siska, Javad Attending Unavailable Coulter, Daniela Primary Care Unavailable Coulter, Daniela Referring Unavailable Ethel Sparks Attending Unavailable Coulter, Daniela Primary Care Unavailable Coulter, Daniela Referring Unavailable Ethel Sparks Attending Unavailable Coulter, Daniela Primary Care Unavailable Coulter, Daniela Referring Unavailable Ethel Sparks Attending Unavailable Coulter, Daniela Primary Care Unavailable Jose Sparksa Referring Unavailable Ethel Sparks Attending Unavailable Allergies Allergy Classification Reported Allergen(s) Allergy Type Date of Onset Reaction(s) Facility Acetaminophen / HYDROcodone (1 source) Acetaminophen / HYDROcodone Drug Allergy 07-22-2008 Vomiting [facility] (7 sources) Acetaminophen Drug Allergy 08-30-2020 Vomiting [facility] (16 sources) HYDROcodone; Translations: [hydrocodone bitartrate] Drug Allergy 08-30-2020 Vomiting [facility] (8 sources) Acetaminophen / HYDROcodone; Translations: [HYDROCODONE-ACETA MINOPHEN] Drug Allergy 07-22-2008 [facility] Work Phone: (11 sources) Amoxicillin Drug Allergy 07-15-2024 rash [facility] (1 source) Acetaminophen Drug Allergy 08-25-2024 [facility] Repository (1 source) Amoxicillin Drug Allergy 11-20-2024 [facility] Repository Medications Current Medications Medication Drug Class(es) Dates Sig (Normalized) Sig (Original) ascorbic acid 500 mg oral tablet (8 sources) Vitamin C take 1 tablet by mouth once daily ascorbic acid, vitamin C, (VITAMIN C) 500 mg tablet Take 500 mg by mouth once daily. 0 Active Comment on above: Take 500 mg by mouth once daily. cholecalciferol 0.025 mg oral tablet (6 sources) Vitamin D take 1 tablet by mouth twice daily cholecalciferol (VITAMIN D3) 1,000 unit tab tablet Take 1,000 Units by mouth twice daily. 0 Active Comment on above: Take 1,000 Units by mouth twice daily. clindamycin 300 mg oral capsule (1 source) Lincosamide Antibacterial Start: 09-16-2023 End: 09-23-2023 take 1 capsule by mouth twice daily clindamycin (CLEOCIN) 300 mg capsule Take 1 capsule by mouth two times a day for 7 days. 14 capsule 0 09/16/2023 09/23/2023 Active Estradiol / Norethindrone (20 sources) Estrogen Start: 05-30-2023 take 1 tablet by mouth once daily, then take 1 tablet by mouth once Estradiol-Norethindr one Acet 1-0.5 mg per tablet Indications: Postmenopausal HRT (hormone replacement therapy) Take 1 tablet by mouth once daily. 28 tablet 0 05/30/2023 Active Start: 05-08-2022 take 1 tablet by yung th once daily, then take 1 tablet by mouth once Estradiol-Norethindrone Acet 1-0.5 mg pe r tablet Indications: Postmenopausal HRT (hormone replacement therapy) Take 1 tablet by mouth once daily. 84 tablet 4 05/08/2022 Active Start: 04-26-2022 take 1 tablet by yung th once daily, then take 1 tablet by mouth once Estradiol-Norethindrone Acet 1-0.5 mg pe r tablet Indications: Postmenopausal HRT (hormone replacement therapy) take 1 tablet by mouth once daily 84 tablet 0 04/26/2022 Active Start: 05-01-2021 End: 04-26-2022 take 1 tablet by mouth once daily, then take 1 tablet by mouth once Estradiol-Norethindrone Acet 1-0.5 mg pe r tablet Indications: Postmenopausal HRT (hormone replacement therapy) Take 1 tablet by mouth once daily. 28 tablet 11 05/01/2021 04/26/2022 Discontinued Start: 05-01-2021 take 1 tablet by yung th once daily, then take 1 tablet by mouth once Estradiol-Norethindrone Acet 1-0.5 mg pe r tablet Indications: Postmenopausal HRT (hormone replacement therapy) Take 1 tablet by mouth once daily. 28 tablet 11 05/01/2021 Active Start: 01-27-2015 Estradiol-Nore thindrone Acet Active 1 EACH PO DAILY January 27, 2015 8:00pm Start: 01-27-2015 End: 08-31-2024 take 1 tablet by mouth once daily Estradiol-Norethindrone Acet 1 EACH tabl et Discontinued 1 NMA PO DAILY January 27, 2015 12:00am August 31, 2024 8:09am Start: 01-27-2015 take 1 tablet by yung th once daily Estradiol-Norethindrone Acet 1 EACH tabl et Active 1 NMA PO DAILY January 27, 2015 12:00am Start: 01-27-2015 Estradiol-Nore thindrone Acet Active 1 EACH PO DAILY January 27, 2015 12:00am Comment on above: Take 1 tablet by yung th once daily. take 1 tablet by yung th once daily Hydrocortisone 2.5%/Lidocaine 5% Suppository (Cmpd) (Hydrocortisone ) suppository (1 source) Start: 021 Hydrocortisone 2.5%/Lidocaine 5% Suppository (Cmpd) (Hydrocortisone ) suppository Active 0 .ROUTE .MEDSUPPLY 1 August 30, 2020 8:58am 30 supp with 2 refills use BID PRN pain ibuprofen 200 mg oral capsule (8 sources) Nonsteroidal Anti-inflammatory Drug Start: Ibuprofen 200 mg ORAL Cap Take by mouth every 4 hours as needed. FOR PAIN. 0 12/07/2010 Active Comment on above: Take by mouth every 4 hours as needed. FOR PAIN. metroNIDAZOLE 500 mg oral tablet (17 sources) Nitroimidazole Antimicrobial Start: End: take 1 tablet by mouth twice daily metroNIDAZOLE (FLAGYL) 500 mg tablet Indications: BV (bacterial vaginosis) Take 1 tablet by mouth two times a day for 7 days. 14 tablet 0 10/03/2023 10/10/2023 Active Start: 09-16-2023 End: 09-16-2023 take 1 tablet by mouth twice daily metroNIDAZOLE (FLAGYL) 500 mg tablet Take 1 tablet by mouth two times a day for 7 days. 14 tablet 0 09/16/2023 09/16/2023 Discontinued Start: 08-15-2020 End: 08-29-2020 take 1 tablet by mouth three times daily Metronidazole 500 mg tablet Discontinued 500 mg PO THREE TIMES A DAY 42 14 0 August 15, 2020 12:00am August 28, 2020 12:00am August 29, 2020 12:03am Mcmullin (Nk) (7 sources) Start: 09-21-2024 Mcmullin (Nk) A ctive September 21, 2024 12:00am Completed/Discontinued Medications Medication Drug Class(es) Dates Sig (Normalized) Sig (Original) acyclovir 400 mg oral tablet (15 sources) Herpesvirus Nucleoside Analog DNA Polymerase Inhibitor, Herpes Simplex Virus Nucleoside Analog DNA Polymerase Inhibitor, Herpes Zoster Virus Nucleoside Analog DNA Polymerase Inhibitor Start: 07-15-2020 End: 08-31-2024 take 1 tablet by mouth once daily Acyclovir 400 mg tablet Discontinued 500 mg PO DAILY July 15, 2020 1:00am August 31, 2024 8:08am Start: 07-15-2020 take 500 mg by mouth once danika y Acyclovir Active 500 MG PO DAILY July 15, 2020 1:00am amoxicillin 875 mg / clavulanate 125 mg oral tablet (12 sources) Penicillin-class Antibacterial Start: 04-19-2023 End: 04-29-2023 Amoxicillin-Pot Clavulanate 875-125 mg tablet Discontinued 1 {tbl} PO Q12H 20 10 0 April 19, 2023 1:00am April 28, 2023 1:00am April 29, 2023 1:04am Acute sinusitis, unspecified Start: 04-19-2023 End: 04-29-2023 take 1 tablet by mouth every twelve hours Amoxicillin-Pot Clavulanate Discontinued 1 TABLET PO Q12H 20 April 19, 2023 1:00am April 29, 2023 1:04am apple cider vinegar 500 mg oral tablet (15 sources) Start: 07-15-2020 End: 08-31-2024 take 1 tablet by mouth once daily Apple Cider Vinegar 500 mg tablet Discontinued 500 mg PO DAILY July 15, 2020 1:00am August 31, 2024 8:09am biotin 1 mg oral capsule (17 sources) Start: 07-15-2020 End: 08-31-2024 take 1 capsule by mouth once daily Biotin 1 mg capsule Discontinued 1 mg PO DAILY July 15, 2020 1:00am August 31, 2024 8:09am biotin 5,000 mcg ODT Take by mouth. 0 Active Comment on above: Take by mouth. bismuth subsalicylate 262 mg oral tablet (15 sources) Bismuth Start: 021 End: take 1 tablet by mouth every twenty-four hours Bismuth Subsalicylate 262 mg tablet Discontinued 2 {tbl} PO .QID 112 14 0 August 15, 2020 12:00am August 28, 2020 12:00am August 29, 2020 12:03am diarrhea do not exceed 16 tabs per 24 hrs Coconut Oil, Bulk, (COCONUT) Misc Oil (2 sources) Coconut Oil, Bul k, (COCONUT) Misc Oil dicyclomine hydrochloride 20 mg oral tablet (15 sources) Anticholinergic Start: End: take 1 tablet by mouth three times daily Dicyclomine 20 MG tablet Discontinued 20 mg PO THREE TIMES A DAY September 29, 2016 12:00am July 15, 2020 10:41am famotidine 20 mg oral tablet (15 sources) Histamine-2 Receptor Antagonist Start: End: take 1 tablet by mouth once daily Famotidine 20 MG tablet Discontinued 20 mg PO DAILY 14 September 29, 2016 12:00am July 15, 2020 10:41am fluconazole 150 mg oral tablet (12 sources) Azole Antifungal Start: End: Fluconazole 150 mg tablet Discontinued 150 mg PO Every 3 Days 2 April 26, 2023 1:00am September 21, 2024 12:47pm september repeat second dose 72 hrs after first dose if symptoms persist Herbal Drugs liqd (2 sources) Herbal Drugs liq d Hydrocortisone 2.5%/Lidocaine 5% Suppository (Cmpd) [Hydrocortisone 2.5%/Lidocaine 5% Suppository (Compound)] (Hydrocortisone ) suppository (14 sources) Start: End: Hydrocortisone 2.5%/Lidocaine 5% Suppository (Cmpd) [Hydrocortisone 2.5%/Lidocaine 5% Suppository (Compound)] (Hydrocortisone ) suppository Discontinued 0 .ROUTE .MEDSUPPLY August 30, 2020 12:00am September 03, 2024 9:04am 30 supp with 2 refills use BID PRN pain Start: 08-30-2020 Hydrocortisone 2.5%/Lidocaine 5% Suppository (Cmpd) [Hydrocortisone 2.5%/Lidocaine 5% Suppository (Compound)] (Hydrocortisone ) suppository Active 0 .ROUTE .MEDSUPPLY August 30, 2020 12:00am 30 supp with 2 refills use BID PRN pain L. acidophilus-L. rhamnosus 15 billion cell cap (2 sources) Start: 03-27-2019 take 1 capsule by mouth once daily L. acidophilus-L. rhamnosus 15 billion cell cap Indications: Vaginal discharge Take 1 capsule by mouth once daily. FLORAJEN WOMEN. If on antibiotic, take at least 1-2 hours before or after antibiotic. KEEP REFRIGERATED 30 capsule 03/27/2019 Active Comment on above: Take [address] [facility] once daily. FLORAJEN WOMEN. If on antibiotic, take at least 1-2 hours before or after antibiotic. KEEP REFRIGERATED loratadine 10 mg oral tablet (20 sources) Start: 09-29-2016 End: 09-21-2024 take 1 tablet by mouth once daily Loratadine 10 MG tablet Discontinued 10 mg PO DAILY September 29, 2016 12:00am September 21, 2024 12:47pm Comment on above: Take 10 mg by mouth once daily. magnesium oxide 400 mg oral capsule (2 sources) magnesium oxide 400 mg cap Take by mouth. 0 Active Comment on above: Take by mouth. mirtazapine 7.5 mg oral tablet (20 sources) Start: 07-15-2020 End: 08-31-2024 take 1 tablet by mouth at bedtime Mirtazapine 7.5 mg tablet Discontinued 7.5 mg PO AT BEDTIME July 15, 2020 1:00am August 31, 2024 8:11am Comment on above: Take 7.5 mg by mouth daily at bedtime. omega-3 fatty acids (FISH OIL CONCENTRATE ORAL) (2 sources) omega-3 fatty ac ids (FISH OIL CONCENTRATE ORAL) Take by mouth. 0 Active Comment on above: Take by mouth. pantoprazole 40 mg delayed release oral tablet (15 sources) Proton Pump Inhibitor Start: 08-10-2020 End: 08-31-2024 take 1 tablet by mouth once daily Pantoprazole 40 MG tablet,delayed release (DR/EC) Discontinued 40 mg PO DAILY 30 2 August 10, 2020 12:00am August 31, 2024 8:11am polyethylene glycol 3350 21757 mg powder for oral solution (15 sources) Osmotic Laxative Start: 01-28-2015 End: 01-28-2015 take 17 g by mouth once daily Polyethylene Glycol 3350 17 GM Packet Discontinued 17 g PO DAILY January 28, 2015 12:00am January 28, 2015 10:07am sulfamethoxazole 400 mg / trimethoprim 80 mg oral tablet (20 sources) Dihydrofolate Reductase Inhibitor Antibacterial, Sulfonamide Antimicrobial Start: 09-03-2024 End: 09-21-2024 Sulfamethoxazole-Tr imethoprim (Bactrim) 400-80 mg tablet Discontinued 1 {tbl} PO TWICE A DAY 14 7 0 September 03, 2024 12:00am September 21, 2024 12:47pm Start: 08-26-2024 End: 09-16-2024 Sulfamethoxazole-Trimethopri m (Bactrim Ds) 800-160 mg tablet Discontinued 1 {tbl} PO TWICE A DAY 14 0 August 26, 2024 12:00am September 16, 2024 11:22am Start: 07-31-2024 End: 08-31-2024 Sulfamethoxazole-Trimethopri m (Bactrim) 400-80 mg tablet Discontinued 1 {tbl} PO TWICE A DAY 10 5 0 July 31, 2024 12:00am August 31, 2024 8:12am tetracycline hydrochloride 500 mg oral capsule (15 sources) Tetracycline-class Antimicrobial Start: 08-15-2020 End: 08-29-2020 take 1 capsule by mouth every four hours Tetracycline 500 mg capsule Discontinued 500 mg PO Q4H 84 14 0 August 15, 2020 12:00am August 28, 2020 12:00am August 29, 2020 12:03am valACYclovir 1000 mg oral tablet (20 sources) Herpesvirus Nucleoside Analog DNA Polymerase Inhibitor, Herpes Simplex Virus Nucleoside Analog DNA Polymerase Inhibitor, Herpes Zoster Virus Nucleoside Analog DNA Polymerase Inhibitor Start: 07-15-2024 End: 09-21-2024 Valacyclovir 1 gram tablet Discontinued 1000 mg PO daily July 15, 2024 12:00am September 21, 2024 12:47pm Start: 09-13-2023 End: 12-06-2024 take 1 tablet by mouth once daily valACYclovir (VALTREX) 1 gram tablet Indications: History of herpes genitalis Take 1 tablet by mouth once daily. 90 tablet 4 09/13/2023 12/06/2024 Active Start: 12-27-2020 End: 05-08-2023 take 1 tablet by mouth once daily valACYclovir (VALTREX) 1 gram Indications: History of herpes genitalis Take 1 tablet by mouth once daily. 90 tablet 4 05/08/2022 05/08/2023 Active Comment on above: Take 1 tablet by yung once daily. wheat dextrin 3000 mg powder for oral solution (15 sources) Start: 09-29-2016 End: 07-15-2020 Wheat Dextrin 1 EACH powder in packet Discontinued 1 NMA PO DAILY September 29, 2016 12:00am July 15, 2020 10:40am Start: 09-29-2016 End: 07-15-2020 Wheat Dextrin Discontinued 1 EACH PO DAILY September 29, 2016 12:00am July 15, 2020 10:40am zinc gluconate 30 mg oral tablet (15 sources) Start: 07-15-2020 End: 08-31-2024 take 1 tablet by mouth once daily Zinc Gluconate 30 mg tablet Discontinued 30 mg PO DAILY July 15, 2020 1:00am August 31, 2024 8:12am Problems Active Problems Problem Classification Problem Date Documented Da te Episodic/Chronic Conditions associated with dizziness or vertigo (16 sources) Vertigo; Translations: [Dizziness and giddiness] Onset: 05-06-2014 06-18-2014 Episodic Conduction disorders (15 sources) Right bundle branch block; Translations: [Unspecified right bundle-branch block] 07-15-2020 Chronic Genitourinary symptoms and ill-defined conditions (3 sources) Increased frequency of urination; Translations: [Frequency of micturition] Episodic Hemorrhoids (15 sources) Internal hemorrhoids; Translations: [Other hemorrhoids] 08-31-2020 Episodic Inflammatory diseases of female pelvic organs (1 source) Bacterial vaginosis; Translations: [Acute vaginitis] 10-03-2023 Episodic Intestinal infection (15 sources) Infection caused by Helicobacter pylori; Translations: [Other specified bacterial intestinal infections] 08-31-2020 Episodic Melanomas of skin (20 sources) Superficial spreading malignant melanoma of skin; Translations: [Malignant melanoma of skin, unspecified] Onset: 08-31-2024 08-25-2024 Chronic Menopausal disorders (19 sources) Premature menopause; Translations: [Asymptomatic premature menopause] Onset: 04-24-2013 Resolved: 01-11-2014 05-01-2021 Chronic Menopausal disorders (10 sources) Postmenopausal state; Translations: [Hormone replacement therapy] Episodic Neoplasms of unspecified nature or uncertain behavior (20 sources) Neoplasm of uncertain behavior of skin; Translations: [Neoplasm of uncertain behavior of skin] Onset: 09-01-2024 07-15-2024 Episodic Nutritional deficiencies (8 sources) Vitamin D deficiency; Translations: [Vitamin D deficiency, unspecified] Onset: 07-04-2012 05-01-2021 Chronic Open wounds of extremities (5 sources) Injury of right leg; Translations: [Unspecified open wound, right lower leg, initial encounter] 10-23-2024 Episodic Comment on above: After skin graft Other female genital disorders (8 sources) Dyspareunia; Translations: [Dyspareunia] 01-11-2014 Chronic Other female genital disorders (2 sources) Vaginal discharge; Translations: [Other specified noninflammatory disorders of vagina] Episodic Other gastrointestinal disorders (15 sources) Irritable bowel syndrome characterized by constipation; Translations: [Irritable bowel syndrome with constipation] 08-10-2020 Chronic Other infections; including parasitic (3 sources) History of sexually transmitted disease; Translations: [Personal history of other infectious and parasitic diseases] Episodic Other screening for suspected conditions (not mental disorders or infectious disease) (9 sources) Breast neoplasm screening status; Translations: [Encounter for screening mammogram for malignant neoplasm of breast] Onset: 06-18-2014 06-18-2014 Episodic Other skin disorders (7 sources) Localized swelling of right lower limb; Translations: [Localized swelling, mass and lump, right lower limb] 09-21-2024 Episodic Other skin disorders (1 source) Localized swelling, mass and lump, right lower limb; Translations: [Localized swelling, mass and lump, right lower limb] Onset: 09-23-2024 Episodic Other upper respiratory infections (13 sources) Acute sinusitis; Translations: [Acute sinusitis, unspecified] 04-19-2023 Episodic Peripheral and visceral atherosclerosis (1 source) Peripheral vascular disease, unspecified; Translations: [Peripheral vascular disease, unspecified] Onset: 07-30-2024 Chronic Residual codes; unclassified (1 source) Family history of ischemic heart disease and other diseases of the circulatory system; Translations: [Family history of ischemic heart disease and other diseases of the circulatory system] Onset: 11-20-2024 Episodic Thyroid disorders (8 sources) Goiter; Translations: [Nontoxic goiter, unspecified] Onset: 06-09-2013 06-09-2013 Chronic Past or Other Problems Problem Classification Problem Date Documented Da te Episodic/Chronic Abdominal pain (3 sources) Right upper quadrant pain; Translations: [Right upper quadrant pain] Onset: 05-17-2005 Resolved: 04-15-2012 04-15-2012 Episodic Biliary tract disease (8 sources) Disorder of gallbladder; Translations: [Other specified diseases of gallbladder] Onset: 06-07-2005 06-07-2005 Episodic Other and unspecified benign neoplasm (8 sources) Benign neoplasm of nose, middle ear and accessory sinuses; Translations: [Benign neoplasm of middle ear, nasal cavity and accessory sinuses] Onset: 01-26-2002 08-30-2003 Episodic Other endocrine disorders (3 sources) Disorder of endocrine ovary; 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 Javad Green MD Age/Sex: 59/F Location: [facility] Status: Signed Intake Vital Signs 10/30/24 09:55 11/20/24 08:56 Height 5 ft 5 in 5 ft 5 in Weight: 166 lb BMI 27.6 BP 114/68 128/84 H Blood Pressure Location Rt brachial Rt brachial Position Sitting Sitting Respiration 18 18 Pulse 77 72 Pulse Source Monitor Temp 98.4 F 97.3 F L Temp Source Oral Temporal Pulse Oximetry (%) 97 97 Oxygen Delivery Method room air room air Intake Visit Reasons: 3 W FU Chief Complaint: wound check Accompanied by: Self Is patient in pain?: Yes Pain scale (1-10): 3 Allergies amoxicillin Allergy (Mild, Verified 11/20/24 08:57) rash hydrocodone bitartrate (From Vicodin) Adverse Reaction (Verified 11/20/24 08:57) Vomiting Medications ???Medication ???Instructions ???Recorded ???Confirmed ???Type NK 09/21/24 11/20/24 History PFSH Medical History Wears contact lenses MRSA infection History of IBS Former smoker History of edema PONV (postoperative nausea and vomiting) History of echocardiogram History of stress test Herpes Post-menopausal Vertigo Irritable bowel syndrome Constipation Anxiety Right bundle branch block (RBBB) Irritable bowel syndrome with constipation Surgical History History of colonoscopy History of esophagogastroduodenosc opy (EGD) history excision lesion lip history excision lesion left ear History of vein stripping History of laparoscopic cholecystectomy Family History Father Asthma Diabetes Hypertension Heart disease Mother Asthma Diabetes Heart disease Grandfather Heart disease Social History Smoking Status: Former smoker how long ago did patient quit smoking: quit 18 years ago alcohol intake: current substance use type: does not use additional social history: pt denies vaping, denies marijuana use, denies edibles, denies aspirin use uses ibuprofen as needed HPI 3 W FU Details: The patient is a 59-year-old female presenting for follow-up care of a superficial spreading melanoma and management of subsequent skin graft and wound. Appears to have healed nicely. No longer any ankle wounds Patient's PCP is concerned about ringworm at the donor site She was placed on ketoconazole topical Exam Details Right ankle Scar status post skin graft. Healed well without any excoriations or wounds. Right thigh with some crustiness at the skin graft donor site consistent with potential ringworm. Coding Level of Care Code Off vis,est,level 3 Diagnoses Wound of right leg S81.801A Ringworm of body B35.4 Assessment and Plan (No Qualifiers) Assessment and Plan (1) Wound of right leg: Status: Acute Comment: After skin graft Plan: Healed Continue Aquaphor placement (2) Ringworm of body: Status: Acute Plan: Discussed terbinafine application (better coverage than ketoconazole for ringworm) She will apply topical terbinafine as directed Return if symptoms persist Aquaphor for the skin graft donor site once ringworm has ceased 11/20/24 1011 Date Javad Green MD Cosigner Signature: Date (if applicable) CC: Normal [facility] Plastic Surgery Visit Report on 10-31-2024 Plastic Surgery Visit Report [facility] Plastic Reconstructive Surgery [address], [address] [place] [address] OFFICE VISIT Date of Service: 10/30/24 MR#: [id number] Acct: [id number] Name: DARLIN FORBES Rep #: [id number] : 1965 Provider: Dr. Javad Green MD Age/Sex: 59/F Location: [facility] Status: Signed Intake Vital Signs 10/23/24 10:59 10/30/24 09:55 Height 5 ft 5 in 5 ft 5 in BP 124/76 H 114/68 Blood Pressure Location Lt brachial Rt brachial Position Sitting Sitting Respiration 18 18 Pulse 72 77 Temp 97.9 F 98.4 F Temp Source Temporal Oral Pulse Oximetry (%) 99 97 Oxygen Delivery Method room air room air Intake Visit Reasons: 1 w fu Chief Complaint: wound check Allergies amoxicillin Allergy (Mild, Verified 10/30/24 09:56) rash hydrocodone bitartrate (From Vicodin) Adverse Reaction (Verified 10/30/24 09:56) Vomiting Medications ???Medication ???Instructions ???Recorded ???Confirmed ???Type NK 09/21/24 10/30/24 History PFSH Medical History Wears contact lenses MRSA infection History of IBS Former smoker History of edema PONV (postoperative nausea and vomiting) History of echocardiogram History of stress test Herpes Post-menopausal Vertigo Irritable bowel syndrome Constipation Anxiety Right bundle branch block (RBBB) Irritable bowel syndrome with constipation Surgical History History of colonoscopy History of esophagogastroduodenosc opy (EGD) history excision lesion lip history excision lesion left ear History of vein stripping History of laparoscopic cholecystectomy Family History Father Asthma Diabetes Hypertension Heart disease Mother Asthma Diabetes Heart disease Grandfather Heart disease Social History Smoking Status: Former smoker how long ago did patient quit smoking: quit 18 years ago alcohol intake: current substance use type: does not use additional social history: pt denies vaping, denies marijuana use, denies edibles, denies aspirin use uses ibuprofen as needed HPI 1 w fu Details: The patient is a 59-year-old female presenting for follow-up care of a superficial spreading melanoma and management of subsequent skin graft and wound. The patient reports swelling in both legs and feet, which she attributes to heat exposure during a recent event. She describes her toes as appearing like sausages, indicating significant swelling. The swelling is noted to be exacerbated by heat and possibly by the use of an Jordan bandage, which may worsen the condition by causing localized swelling in the foot. The patient has a history of superficial spreading melanoma, which was diagnosed following a biopsy. The lesion was excised with clear margins, indicating successful removal. She is awaiting a dermatology referral for ongoing skin checks to monitor for any recurrence or new lesions. - Integumentary: Reports swelling in legs and feet. Denies signs of infection or exposed critical structures. Attestation: Documentation on this patient encounter was supported using ambient scribe technology/ voice AI technology. The patient consented to recording for the purpose of documenting the encounter. Provider reviewed content of the generated note prior to signature. Exam Details - Integumentary: Reports swelling in legs and feet. Denies signs of infection or exposed critical structures. Small areas of scabbing and open wounds in the skin graft wound bed 2+ PEDAL pulses Supplemental Info - Pathology: Superficial spreading melanoma with clear margins Coding Level of Care Code Off vis,est,level 3 Diagnoses Wound of right leg S81.801A Assessment and Plan (No Qualifiers) Assessment and Plan (1) Wound of right leg: Status: Acute Comment: After skin graft Plan: Assessment and Plan The 59-year-old female with a history of superficial spreading melanoma presents for follow-up care. The melanoma was excised with clear margins, and there are no signs of recurrence or infection at the site. The patient is advised to continue with dermatology referrals for regular skin checks to monitor for any new lesions or recurrence. The patient also reports swelling in the legs and feet, likely exacerbated by heat exposure and possibly by the use of an Jordan bandage. The swelling is significant, described as toes appearing like sausages, but there are no signs of infection or critical exposure. Management includes elevation and avoiding compression bandages that may worsen the condition (but wrapping from toes proximal is O.K.). (more content not included)... Normal [facility] Plastic Surgery Visit Report on 10-23-2024 Plastic Surgery Visit Report [facility] Plastic Reconstructive Surgery [address], [address] [place] [address] OFFICE VISIT Date of Service: 10/23/24 MR#: [id number] Acct: [id number] Name: DARLIN FORBES Rep #: [id number] : 1965 Provider: Dr. Javad Green MD Age/Sex: 59/F Location: [facility] Status: Signed Intake Vital Signs 10/07/24 11:19 10/23/24 10:59 Height 5 ft 5 in 5 ft 5 in Weight: 170 lb BMI 28.3 BP 125/73 H 124/76 H Blood Pressure Location Lt brachial Lt brachial Position Sitting Sitting Respiration 18 18 Pulse 98 72 Temp 97.8 F 97.9 F Temp Source Temporal Temporal Pulse Oximetry (%) 95 99 Oxygen Delivery Method room air room air Intake Visit Reasons: wound check Chief Complaint: wound check Is patient in pain?: No Allergies amoxicillin Allergy (Mild, Verified 10/23/24 11:00) rash hydrocodone bitartrate (From Vicodin) Adverse Reaction (Verified 10/23/24 11:00) Vomiting Medications ???Medication ???Instructions ???Recorded ???Confirmed ???Type NK 09/21/24 10/23/24 History Nurse's Note: pt comes into office concerned with the healing of right lower leg PFSH Medical History Wears contact lenses MRSA infection History of IBS Former smoker History of edema PONV (postoperative nausea and vomiting) History of echocardiogram History of stress test Herpes Post-menopausal Vertigo Irritable bowel syndrome Constipation Anxiety Right bundle branch block (RBBB) Irritable bowel syndrome with constipation Surgical History History of colonoscopy History of esophagogastroduodenosc opy (EGD) history excision lesion lip history excision lesion left ear History of vein stripping History of laparoscopic cholecystectomy Family History Father Asthma Diabetes Hypertension Heart disease Mother Asthma Diabetes Heart disease Grandfather Heart disease Social History Smoking Status: Former smoker how long ago did patient quit smoking: quit 18 years ago alcohol intake: current substance use type: does not use additional social history: pt denies vaping, denies marijuana use, denies edibles, denies aspirin use uses ibuprofen as needed HPI wound check Details: The patient is a 59-year-old female presenting with a skin graft site on the right lateral ankle. The graft site has been healing with approximately 90% take, but there are some raw partial thickness wounds present. The patient reports that the site has been bleeding and has some drainage, although not excessive. She has been applying various treatments, including antibacterial ointment, which caused the site to turn yellow and yucky. The excision with 1 cm margins was for a 0.5 mm Breslow depth T1a malignant melanoma superficial spreading subtype. Final surgical excision had clear margins from Dr. Ethel Sparks, previous physician in our practice who performed the skin graft Attestation: Documentation on this patient encounter was supported using ambient scribe technology/ voice AI technology. The patient consented to recording for the purpose of documenting the encounter. Provider reviewed content of the generated note prior to signature. ROS Details - Integumentary: Reports bleeding and drainage from the skin graft site. Denies excessive drainage. Exam Details - Integumentary: Examination of the right lateral ankle skin graft site showed approximately 90% take with no purulent drainage and some raw partial thickness wounds. Coding Level of Care Code Off vis,new,level 3 Diagnoses Wound of right leg S81.801A Assessment and Plan (No Qualifiers) Assessment and Plan (1) Wound of right leg: Status: Acute Comment: After skin graft Plan: Assessment and Plan The patient is a 59-year-old female with a history of atypical melanocytic proliferation presenting with a skin graft site on the right lateral ankle. The graft site shows approximately 90% take with some raw partial thickness wounds and no signs of purulent drainage, indicating ongoing healing. The patient has been experiencing some bleeding and drainage from the site, which she has been managing with various treatments, including antibacterial ointment. The use of antibacterial ointment caused discoloration, but there is no current evidence of infection. 1. Skin Graft Site On The Right Lateral Ankle The plan is to continue local wound care with Xeroform dressing, changing it twice daily to promote healing. The patient should avoid tight bandaging to prevent swelling and is advised to elevate (more content not included)... Normal [facility] Plastic Surgery Visit Report on 10-07-2024 Plastic Surgery Visit Report [facility]astic Reconstructive Surgery [address], [address] [place] [address] OFFICE VISIT Date of Service: 10/07/24 MR#: [id number] Acct: [id number] Name: DARLIN FORBES Rep #: [id number] : 1965 Provider: Dr. Ethel yan MD Age/Sex: 59/F Location: [facility] Status: Signed Intake Vital Signs 09/30/24 13:36 10/07/24 11:19 Height 5 ft 5 in 5 ft 5 in Weight: 168 lb 170 lb BMI 27.9 28.3 BP 121/72 H 125/73 H Blood Pressure Location Lt brachial Lt brachial Position Sitting Sitting Respiration 18 18 Pulse 73 98 Temp 98.7 F 97.8 F Temp Source Temporal Temporal Pulse Oximetry (%) 92 95 Oxygen Delivery Method room air room air Intake Visit Reasons: 1 W FU Chief Complaint: post op Accompanied by: Mother Is patient in pain?: No Allergies amoxicillin Allergy (Mild, Verified 10/07/24 11:19) rash hydrocodone bitartrate (From Vicodin) Adverse Reaction (Verified 10/07/24 11:19) Vomiting Medications ???Medication ???Instructions ???Recorded ???Confirmed ???Type NK 09/21/24 10/07/24 History Nurse's Note: pt here with mother post op, no issues Subjective Details: Darlin comes in today for recheck of the skin graft of her lower leg where the melanoma was excised. I reminded her of the need to establish a relationship with dermatology. She states that she has yet to make an appointment with a [employer] functional analyst but will be following up with that to her primary care provider. She has been ambulating more and keeping the leg up when sitting. Objective Details: The graft is intact. There is some areas that have not fully epithelialized around the periphery. The area was massaged with Aquaphor and the patient instructed to do the same. I dressed this with a Tegaderm, tape, and an Jordan wrap. She can leave this open at home and at nighttime. But I encouraged her to keep it covered while working during the day. She can return to work. 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 PENDING SALE TO [facility] Medical History Wears contact lenses MRSA infection History of IBS Former smoker History of edema PONV (postoperative nausea and vomiting) History of echocardiogram History of stress test Herpes Post-menopausal Vertigo Irritable bowel syndrome Constipation Anxiety Right bundle branch block (RBBB) Irritable bowel syndrome with constipation Surgical History History of colonoscopy History of esophagogastroduodenosc opy (EGD) history excision lesion lip history excision lesion left ear History of vein stripping History of laparoscopic cholecystectomy Family History Father Asthma Diabetes Hypertension Heart disease Mother Asthma Diabetes Heart disease Grandfather Heart disease Social History Smoking Status: Former smoker how long ago did patient quit smoking: quit 18 years ago alcohol intake: current substance use type: does not use additional social history: pt denies vaping, denies marijuana use, denies edibles, denies aspirin use uses ibuprofen as needed Assessment and Plan (No Qualifiers) Assessment and Plan (1) Superficial spreading melanoma: Status: Acute Plan Details Additional Comments: Follow-up as needed 10/07/24 1503 Date Ethel Sparks MD Cosigner Signature: Date (if applicable) CC: Normal [facility] Plastic Surgery Visit Report on 09-30-2024 Plastic Surgery Visit Report [facility]astic Reconstructive Surgery [address], [address] [place] [address] OFFICE VISIT Date of Service: 09/30/24 MR#: [id number] Acct: [id number] Name: DARLIN FORBES Rep #: [id number] : 1965 Provider: Dr. Ethel yan MD Age/Sex: 59/F Location: [facility] Status: Signed Intake Vital Signs 09/22/24 11:13 09/30/24 13:36 Height 5 ft 5 in 5 ft 5 in Weight: 169 lb 168 lb BMI 28.1 27.9 BP 103/64 121/72 H Blood Pressure Location Lt brachial Lt brachial Position Sitting Sitting Respiration 18 18 Pulse 84 73 Temp 98.7 F 98.7 F Temp Source Temporal Temporal Pulse Oximetry (%) 96 92 Oxygen Delivery Method room air room air Intake Visit Reasons: 1 W FU Chief Complaint: post op Accompanied by: Mother Allergies amoxicillin Allergy (Mild, Verified 09/30/24 13:37) rash hydrocodone bitartrate (From Vicodin) Adverse Reaction (Verified 09/30/24 13:37) Vomiting Medications ???Medication ???Instructions ???Recorded ???Confirmed ???Type NK 09/21/24 09/30/24 History Nurse's Note: pt here for post op leg lesion, no pain just tightness when leg is not elevated. Subjective Details: Darlin comes in for recheck of the skin graft status post melanoma excision on her lower leg. She denies any problems. Objective Details: The grafted site is epithelializing. There is no evidence of infection. This was redressed with Aquaphor and a Telfa. This was anchored in place with a Coban wrap. She is instructed to do the same daily. She can take the dressing off to shower and then replace it. She can begin to walk more. She is encouraged to keep her legs up if she sitting however. I will see her back in a week for recheck. 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 PENDING SALE TO [facility] Medical History Wears contact lenses MRSA infection History of IBS Former smoker History of edema PONV (postoperative nausea and vomiting) History of echocardiogram History of stress test Herpes Post-menopausal Vertigo Irritable bowel syndrome Constipation Anxiety Right bundle branch block (RBBB) Irritable bowel syndrome with constipation Surgical History History of colonoscopy History of esophagogastroduodenosc opy (EGD) history excision lesion lip history excision lesion left ear History of vein stripping History of laparoscopic cholecystectomy Family History Father Asthma Diabetes Hypertension Heart disease Mother Asthma Diabetes Heart disease Grandfather Heart disease Social History Smoking Status: Former smoker how long ago did patient quit smoking: quit 18 years ago alcohol intake: current substance use type: does not use additional social history: pt denies vaping, denies marijuana use, denies edibles, denies aspirin use uses ibuprofen as needed Assessment and Plan (No Qualifiers) Assessment and Plan (1) Superficial spreading melanoma: Status: Acute Plan Details Additional Comments: Follow-up 1 week 09/30/24 9840 Date Ethel Torrez Signature: Date (if applicable) CC: Normal [facility] Plastic Surgery Visit Report on 09-22-2024 Plastic Surgery Visit Report [facility] Plastic Reconstructive Surgery [address], [address] [place] [address] OFFICE VISIT Date of Service: 09/22/24 MR#: [id number] Acct: [id number] Name: DARLIN FORBES Rep #: [id number] : 1965 Provider: Dr. Ethel yan MD Age/Sex: 59/F Location: [facility] Status: Signed Intake Vital Signs 09/16/24 11:20 09/21/24 12:14 09/22/24 11:13 Height 5 ft 5 in 5 ft 5 in 5 ft 5 in Weight: 169 lb BMI 28.1 BP 103/64 Blood Pressure Location Lt brachial Position Sitting Respiration 18 Pulse 84 Temp 98.7 F Temp Source Temporal Pulse Oximetry (%) 96 Oxygen Delivery Method room air Intake Visit Reasons: 1 W FU Chief Complaint: post op Allergies amoxicillin Allergy (Mild, Verified 09/21/24 12:14) rash hydrocodone bitartrate (From Vicodin) Adverse Reaction (Verified 09/21/24 12:14) Vomiting Medications ???Medication ???Instructions ???Recorded ???Confirmed ???Type NK 09/21/24 09/22/24 History Nurse's Note: pt here for post op, follow up ED Subjective Details: Darlin comes in for recheck of the skin graft to the lower leg. She had been seen in the ER yesterday due to swelling and was evaluated for DVT which was negative. She states her leg feels better but she has still been cautious and keeping it elevated. Objective Details: The graft is adherent around the periphery. There is some movement of the graft in the mid section however there is no evidence of drainage or fluid collections beneath the graft. There is no evidence of cellulitis. The site was redressed with Xeroform, antibiotic ointment, and dry gauze. The leg is wrapped with an Jordan wrap. The harvest site is healing well and the Tegaderm which was nonadherent was debrided. I will see her back in a week for 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 PENDING SALE TO [facility] Medical History Wears contact lenses MRSA infection History of IBS Former smoker History of edema PONV (postoperative nausea and vomiting) History of echocardiogram History of stress test Herpes Post-menopausal Vertigo Irritable bowel syndrome Constipation Anxiety Right bundle branch block (RBBB) Irritable bowel syndrome with constipation Surgical History History of colonoscopy History of esophagogastroduodenosc opy (EGD) history excision lesion lip history excision lesion left ear History of vein stripping History of laparoscopic cholecystectomy Family History Father Asthma Diabetes Hypertension Heart disease Mother Asthma Diabetes Heart disease Grandfather Heart disease Social History Smoking Status: Former smoker how long ago did patient quit smoking: quit 18 years ago alcohol intake: current substance use type: does not use additional social history: pt denies vaping, denies marijuana use, denies edibles, denies aspirin use uses ibuprofen as needed Assessment and Plan (No Qualifiers) Assessment and Plan (1) Superficial spreading melanoma: Status: Acute Plan Details Additional Comments: follow-up 1 week 09/22/24 1145 Date Ethel Torrez Signature: Date (if applicable) CC: Normal [facility] Emergency Department Summary on 09-21-2024 Emergency Department Summary [facility] Medical Records Department [address] [place] [address] Emergency Department Summary 09/21/24 MR#: [id number] Acct: [id number] Name: DARLIN FORBES Rep #: [id number] : 1965 59 From: Trell Peña DO PCP: Dr. Mannie Mancuso MD Status:PRE ER Location: ED HPI History of Present Illness Chief Complaint: Wound Check Narrative Narrative: Patient is a 59-year-old female with past medical history of IBS, right bundle branch block, anxiety who presents to the emergency department with concern for blood clot in her right leg. 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 States that she called her yesterday concerned with swelling in the leg and given her recent surgery she wanted sent her here to the emergency department to make sure she did not have a blood clot. [facility] Medical History Wears contact lenses MRSA infection History of IBS Former smoker History of edema PONV (postoperative nausea and vomiting) History of echocardiogram History of stress test Herpes Post-menopausal Vertigo Irritable bowel syndrome Constipation Anxiety Right bundle branch block (RBBB) Irritable bowel syndrome with constipation Home Medications ???Medication ???Instructions ???Recorded ???Last Taken ???Type NK 09/21/24 Unknown History Allergy/AdvReac Type Severity Reaction Status Date / Time amoxicillin Allergy Mild rash Verified 09/21/24 12:14 hydrocodone bitartrate (From AdvReac Vomiting Verified 09/21/24 12:14 Vicodin) Family History Father Asthma Diabetes Hypertension Heart disease Mother Asthma Diabetes Heart disease Grandfather Heart disease Surgical History History of colonoscopy History of esophagogastroduodenosc opy (EGD) history excision lesion lip history excision lesion left ear History of vein stripping History of laparoscopic cholecystectomy Social History Smoking Status: Former smoker how long ago did patient quit smoking: quit 18 years ago alcohol intake: current substance use type: does not use additional social history: pt denies vaping, denies marijuana use, denies edibles, denies aspirin use uses ibuprofen as needed ROS ROS ED ROS Narrative Constitutional: Denies fevers, chills, headaches malaise, denies Cardiovascular denies chest pain Respiratory: Denies shortness of breath Musculoskeletal: Complains of right lower extremity swelling as noted above, patient states that this has improved however since last night Neurological: Denies any numbness, wheeze, tingling EXAM Physical Exam Narrative Exam Narrative: General: Patient was lying in bed rest comfortably did not appear to be acute distress Head: Atraumatic, normocephalic Cardiovascular: Regular rate Musculoskeletal: No large appreciable difference between the right lower extremity and left lower extremity with comes the swelling compartments are soft and compressible Extremities: DP pulses +2/4 in the bilateral lower extremities, +5/5 strength noted in the bilateral upper and lower extremities Neurological: Patient following commands knew that she was at [facility] year is 2024. Sensation grossly intact Skin: Patient's wound appears to be healing well without any concern for infection at this point time Const Vital Signs: 09/21/24 12:14 Temperature 97.6 F L Temperature Source Temporal Pulse Rate 84 Respiratory Rate 19 H Blood Pressure 145/91 H Blood Pressure Mean 109 Pulse Ox 98 Oxygen Delivery Method Room Air MDM MDM MDM Narrative Medical decision making narrative: Patient is a 59-year-old female who presents to the emerged part with concern for DVT in her right lower extremity sent by her plastic surgeon. On the differential diagnosis includes but not limited to deep venous thrombosis, superficial venous thrombosis, venous insufficiency. Once again the patient states that by this morning her swelling had improved however since she is here we will complete the DVT study. Patient's DVT study was reviewed and did not show any evidence of any DVT or superficial venous thrombosis. Called to back her plastic surgeon Dr. Sparks and I notified her of the results and she states that she will follow-up with her tomorrow in the office. Patient was advised to go to the appointment tomorrow as scheduled. She was encouraged return with worsening symptoms and concerns. (more content not included)... Normal [facility] Venous Duplex US, Unilateral on 09-21-2024 Venous Duplex US, Unilateral [facility] [address] [place] [address] Venous Duplex US, Unilateral 09/21/24 1301 MR#: [id number] Acct: [id number] Name: DARLIN FORBES Rep #: [id number] : 1965 59 From: Daniela Mcbride MD Attending Dr: Status: DEP ER Ordering Dr: Trell Peña DO Date: 09/21/24 Location: ED Sex: F C Admitted: Reason For Study Reason For Study: Right leg pain RIGHT LEFT GSV is normal. CFV is compressible, spontaneous, phasic, competent, CFV is compressible, spontaneous, phasic, competent and demonstrates normal augmentation. and demonstrates normal augmentation. FV is compressible, spontaneous, phasic, competent and demonstrates normal augmentation. POP V is compressible, spontaneous, phasic, competent and demonstrates normal augmentation. T/P Trunk is compressible. PTV is compressible. RT PerV is compressible. Procedure This is a venous duplex using B-mode, color flow and spectral Doppler. Exam performed portable in ED. A preliminary report was called and/or faxed to Dr. Peña. VL/Venous Duplex US, Unilateral Interpretation Summary Deep veins of the right lower extremity are patent and compressible segmentally. There is no evidence of right lower extremity deep vein thrombosis. The right great saphenous vein appears patent and compressible segmentally. Ordering Physician: Trell Peña Referring Physician: Manine Mancuso Performed By: Lisa Deshpande RVT 09/22/24 0729 Date Daniela Mcbride MD CC: Dr. Mannie Mancuso MD; Dr. Trell Peña, DO Date Dictated: 09/21/24 1301 Date Transcribed: 09/22/24 0729 E D Tech: Signed Normal [facility] Plastic Surgery Visit Report on 09-16-2024 Plastic Surgery Visit Report [facility] [address], [address] [place] [address] OFFICE VISIT Date of Service: 09/16/24 MR#: [id number] Acct: [id number] Name: DARLIN FORBES Rep #: [id number] : 1965 Provider: Dr. Ethel yan MD Age/Sex: 59/F Location: [facility] Status: Signed Intake Vital Signs 08/25/24 10:20 09/08/24 10:10 09/16/24 11:20 Height 5 ft 5 in 5 ft 5 in 5 ft 5 in Weight: 169 lb BMI 28.1 BP 113/76 Blood Pressure Location Lt brachial Position Sitting Respiration 18 Pulse 71 Temp 98.0 F Temp Source Temporal Pulse Oximetry (%) 96 Oxygen Delivery Method room air Intake Visit Reasons: post op Chief Complaint: post op Accompanied by: Mother Is patient in pain?: Yes (08/13) Allergies amoxicillin Allergy (Mild, Verified 09/08/24 10:11) rash hydrocodone bitartrate (From Vicodin) Adverse Reaction (Verified 09/08/24 10:11) Vomiting Medications ???Medication ???Instructions ???Recorded ???Confirmed ???Type loratadine 10 mg tablet 10 mg PO DAILY 09/29/16 09/16/24 H istory fluconazole 150 mg tablet 150 mg PO Q3D 2 doses #2 tabs 04/0609/16/24 Rx valacyclovir 1 gram tablet 1,000 mg PO QDAY 07/15/24 09/16/24 History sulfamethoxazole 400 1 tab PO BID 7 days #14 tabs 09/0309/16/24 Rx mg-trimethoprim 80 mg tablet (Bactrim) Nurse's Note: pt here with mother for post op lesion and skin graft. Subjective Details: Darlin comes in for recheck of the melanoma excision and skin graft of the right lower extremity. She denies any problems. Objective Details: The tie-over dressing is removed. The graft is adherent. This was dressed with antibiotic ointment, Xeroform, and fluff gauze. A Gary and an Jordan wrap maintain the dressing in place. The harvest site is dry and the Tegaderm is intact. The pathology was reviewed which demonstrated clear margins. I will see her back in a week for recheck. 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 PENDING SALE TO [facility] Medical History Wears contact lenses MRSA infection History of IBS Former smoker History of edema PONV (postoperative nausea and vomiting) History of echocardiogram History of stress test Herpes Post-menopausal Vertigo Irritable bowel syndrome Constipation Anxiety Right bundle branch block (RBBB) Irritable bowel syndrome with constipation Surgical History History of colonoscopy History of esophagogastroduodenosc opy (EGD) history excision lesion lip history excision lesion left ear History of vein stripping History of laparoscopic cholecystectomy Family History Father Asthma Diabetes Hypertension Heart disease Mother Asthma Diabetes Heart disease Grandfather Heart disease Social History Smoking Status: Former smoker how long ago did patient quit smoking: quit 18 years ago alcohol intake: current substance use type: does not use additional social history: pt denies vaping, denies marijuana use, denies edibles, denies aspirin use uses ibuprofen as needed Assessment and Plan (No Qualifiers) Assessment and Plan (1) Superficial spreading melanoma: Status: Acute Plan Details Additional Comments: Follow-up 1 week 09/16/24 3822 Date Ethel Sparks MD Cosigner Signature: Date (if applicable) CC: Normal [facility] Plastic Surgery Visit Report on 09-08-2024 Plastic Surgery Visit Report [facility] [address], [address] [place] [address] OFFICE VISIT Date of Service: 09/08/24 MR#: [id number] Acct: [id number] Name: DARLIN FORBES Rep #: [id number] : 1965 Provider: Dr. Ethel yan MD Age/Sex: 59/F Location: [facility] Status: Signed Intake Vital Signs 09/03/24 09:05 09/08/24 10:10 Height 5 ft 5 in 5 ft 5 in Weight: 169 lb BMI 28.1 BP 125/74 H Blood Pressure Location Lt brachial Position Sitting Respiration 18 Pulse 85 Temp 97.5 F L Temp Source Temporal Pulse Oximetry (%) 96 Oxygen Delivery Method room air Intake Visit Reasons: post op -concerned Chief Complaint: concerned with wound Is patient in pain?: Yes (09/12) Allergies amoxicillin Allergy (Mild, Verified 09/08/24 10:11) rash hydrocodone bitartrate (From Vicodin) Adverse Reaction (Verified 09/08/24 10:11) Vomiting Medications ???Medication ???Instructions ???Recorded ???Confirmed ???Type loratadine 10 mg tablet 10 mg PO DAILY 09/29/16 09/08/24 H istory fluconazole 150 mg tablet 150 mg PO Q3D 2 doses #2 tabs 04/0609/08/24 Rx valacyclovir 1 gram tablet 1,000 mg PO QDAY 07/15/24 09/08/24 History sulfamethoxazole 800 1 tab PO BID #14 tabs 08/26/2410/28 Rx mg-trimethoprim 160 mg tablet (Bactrim DS) sulfamethoxazole 400 1 tab PO BID 7 days #14 tabs 09/0309/08/24 Rx mg-trimethoprim 80 mg tablet (Bactrim) Nurse's Note: pt concerned with graft site, pain 09/12 Subjective Details: Darlin comes in today with concerns regarding the thigh dressing which has some drainage on it. She had a friend bring her to the appointment. I reminded her about keeping her ankle at 90 degrees with her leg to prevent dorsiflexion of her foot. Objective Details: The harvest site has some drainage and this was removed. The periphery of the area was cleaned with peroxide and tincture benzoin was placed around the periphery of the harvest site. A new piece of Tegaderm was then applied. I unwrapped the Jordan wrap from the skin graft site. The dressing is intact and dry. I have left in place. I will see her back next week for recheck. 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 PENDING SALE TO [facility] Medical History Wears contact lenses MRSA infection History of IBS Former smoker History of edema PONV (postoperative nausea and vomiting) History of echocardiogram History of stress test Herpes Post-menopausal Vertigo Irritable bowel syndrome Constipation Anxiety Right bundle branch block (RBBB) Irritable bowel syndrome with constipation Surgical History History of colonoscopy History of esophagogastroduodenosc opy (EGD) history excision lesion lip history excision lesion left ear History of vein stripping History of laparoscopic cholecystectomy Family History Father Asthma Diabetes Hypertension Heart disease Mother Asthma Diabetes Heart disease Grandfather Heart disease Social History Smoking Status: Former smoker how long ago did patient quit smoking: quit 18 years ago alcohol intake: current substance use type: does not use additional social history: pt denies vaping, denies marijuana use, denies edibles, denies aspirin use uses ibuprofen as needed Assessment and Plan (No Qualifiers) Assessment and Plan (1) Superficial spreading melanoma: Status: Acute Plan Details Additional Comments: Follow-up 1 week 09/16/2416 Date Ethel Sparks MD Cosigner Signature: Date (if applicable) CC: Normal [facility] Discharge Instructionon Discharge Instruction [facility] Medical Records Department [address] [place] [address] Instructions for Home/Discharge Instructions 09/03/24 1136 MR#: [id number] Acct: [id number] Name: DARLIN FORBES Rep #: [id number] : 1965 59 From: Ethel Sparks MD PCP: Dr. Mannie Mancuso MD Status:REG [facility] Discharge Instructions Dressing / Incision Additional Dressing/Incision Instructions:: Keep your leg elevated is much as possible. Take the oral antibiotic twice a day until finished. Leave the dressings in place until seen in the office next week. Follow Up Care Please Follow Up With: Ethel Sparks MD When: In 1 week Test Results: Test results from this visit will be discussed in further detail at your follow-up appointment, if applicable. Discharge Plan Admission Attending Provider: Ethel Sparks Primary Care Provider: Mannie Mancuso Instructions Print Language: Liberian Discharge Orders/Prescriptions Prescriptions: New sulfamethoxazole-trimet hoprim [Bactrim] 400-80 mg tablet 1 tab PO BID 7 Days Qty: 14 0RF No Action valacyclovir 1 gram tablet 1,000 mg PO QDAY sulfamethoxazole-trimet hoprim [Bactrim DS] 800-160 mg tablet 1 tab PO BID Qty: 14 0RF loratadine 10 MG tablet 10 mg PO DAILY fluconazole 150 mg tablet 150 mg PO Q3D Qty: 2 0RF Rx Instructions: may repeat second dose 72 hrs after first dose if symptoms persist Referrals / Follow Up: Mannie Mancuso MD [Primary Care Provider] - Disposition Disposition (needs filled in before D/C Order can be placed): Home, Self Care 09/03/24 1147 Ethel Sparks MD CC: Dr. Mannie Mancuso MD Signed [facility] MR/POSTOP.ANEon 09-03-2024 MR/POSTOP.ANE [facility] Medical Records Department [address] [place] [address] Anesthesia Postop Eval I 09/03/24 1140 MR#: [id number] Acct: [id number] Name: DARLIN FORBES Rep #: [id number] : 1965 59 From: Mariposa Sears PLASTIC MAKER PCP: Dr. Mannie Mancuso MD Status:[facility] Y Race: C Location: [place] [address] Anesthesia: Postop Eval I Current Vital Signs Temperature: 97.8 F Pulse Rate: 55 Blood Pressure: 81/49 Respiratory Rate: 16 Pulse Ox: 95 Oxygen Delivery Method: Room Air Assessment Airway patent: Yes Spontaneous unlabored respirations: Yes Mental status: Awake and Calm nausea: No Vomiting: No Anesthesia Complication: No Fluid Hydration Crystalloid volume administer (ml): 1,400 Total IV fluid infused: 1,400 Progress Note Anesthesia document: Postop Eval 1 completed: Yes 09/03/24 1140 Date Mariposa Sears PLASTIC MAKER Cosigner Signature: Date CC: Signed Normal [facility] MR/[id number] 09-03-2024 [facility] Medical Records Department [address] [place] [address] Anesthesia Postop Eval II 09/03/24 1523 MR#: [id number] Acct: [id number] Name: DARLIN FORBES Rep #: [id number] : 1965 59 From: Brent Ramos MD PCP: Dr. Mannie Mancuso MD Status:[facility] Y Race: C Location: [facility] [place] [facility] Anesthesia Postop Eval I Sum Postop Eval Completion status Anesthesia document: Postop Eval 1 completed: Yes Anesthesia Postop Eval I Summary Anesthesia Postop Eval I Summary: Anesthesia Postop Eval I: Assessment Summary Airway patent Yes 09/03/24 11:40 [email or web address] Spontaneous unlabored Yes 09/03/24 11:40 PLASTIC [email or web address].LMIL respirations Mental status Awake,Calm 09/03/24 11:40 PLASTIC [email or web address].LMIL nausea No 09/03/24 11:40 PLASTIC [email or web address].LMIL Vomiting No 09/03/24 11:40 [email or web address] [email or web address] Anesthesia Postop Eval I: Fluid Summary Crystalloid volume administer 1,400 09/03/24 11:40 PLASTIC [email or web address].LMIL (ml) Colloids volume administered ( ml) Blood Product volume administered (ml) Total IV fluid infused 1,400 09/03/24 11:40 [email or web address] Anesthesia Postop Eval I: Summary Notes Anesthesia Complication No 09/03/24 11:40 [email or web address].LMIL Anesthesia Complication Comment: Post-operative progress note Anesthesia: Postop Eval II Evaluation Mental status: Awake and Calm Pain Level: 1 nausea: No Vomiting: No Complications Anesthesia Complication: No 09/03/24 1524 Date Brent Ramos MD Cosigner Signature: Date CC: Signed Normal [facility] Operative Reporton Operative Report [facility] Medical Records Department [address] [place] [address] Operative Report 09/03/24 1140 MR#: [id number] Acct: [id number] Name: DARLIN FORBES Rep #: [id number] : 1965 59 From: Ethel Sparks MD PCP: Dr. Mannie Mancuso MD Status:REG [facility] Location: [place] [address] Problems Associated Problem List Diagnoses (1) Superficial spreading melanoma: Operative Report (Standard) Operative Information Date of Procedure: 09/03/24 Pre-Operative Diagnosis: Biopsy-proven superficial spreading melanoma right ankle Post-Operative Diagnosis: Same Surgery/Procedure Performed: Wide excision melanoma right ankle --3.5 cm (1 cm margin); STSG from right thigh to right ankle (20 cm???) booking police officer: Yes Director Of Manufacturing: Ama [employer] Tasks completed by first aid attendant: Retracting Type of Anesthesia: General RN Documented Start/Stop Times: Operation Date: 09/03/24 10:00 Case Time Into Pre-Op 09/03/24 08:34 Out of Pre-Op 09/03/24 09:51 Anesthesia Start 09/03/24 09:55 Into Room 09/03/24 09:55 Procedure Start 09/03/24 10:27 Procedure End 09/03/24 11:28 Anesthesia End 09/03/24 11:33 Out of Room 09/03/24 11:33 Into Recovery 09/03/24 11:36 Procedure Start Time: 10:27 Procedure Stop Time: 11:28 Select all DRAINS/GRAFTS/IMPLANTS that apply: None Estimated Blood Loss: Minimal Specimen collected: Yes Description of specimen(s) removed: Melanoma site right ankle Description of surgery: The patient presents with a diagnosis of a superficial spreading melanoma of the right ankle. She presents today for wide excision to ensure complete removal. She is aware that in this area, we we will likely have to skin graft in order to achieve wound closure. She is also aware that this area is prone to delayed wound healing. The patient is brought to the operating room and placed under general anesthesia in supine position. Care is taken to pad all pressure points, apply a sequential compression stocking on the opposite leg, and a warming pad. Her right ankle and right thigh are prepped and draped in the usual sterile fashion. We initially began with injecting 1% Xylocaine with epinephrine in the periphery of the site of the ankle. Following this, 1 cm margin had been demarcated and the skin around the previous excision site. The skin is incised and dissection is carried down to the fascia. Hemostasis is controlled with cautery. A damp gauze is placed on the site. The specimen is marked for orientation with 2 sutures designated as superior aspect and 1 suture designated as posterior aspect. The wound site is measured and the appropriate with dermatome blade width is selected. The site on the upper thigh is prepared by applying mineral oil. The dermatome is then used to harvest a thin piece of epidermis. An epi soaked Telfa was then placed on the site. The graft is then placed on the open wound after assuring hemostasis. Correct orientation of the graft is assured. The graft is then sutured in place with silk sutures for the tie-over dressing. Additional approximation of the edges is accomplished with a running plain gut suture. A few small fenestrations are placed in the graft to allow egress of fluid. A Xeroform gauze is placed over the graft along with mineral oil soaked cotton balls in the tie-over graft is tied in place. A thin layer of antibiotic ointment is also placed in the periphery of the wound edges. Fluffed gauze are placed over the tie-over and affixed in place with a Gary dressing. A 3 inch Jordan is then used to wrap the foot and ankle. She is placed in an orthopedic shoe in order to prevent dorsiflexion. The graft site is dressed with Skin-Prep and a Tegaderm. She tolerated the procedure well was taken to the recovery area in an awake and stable condition. Needle and sponge counts are correct. Surgical Findings: As above Complications Complications: No Admit VTE Documentation VTE Mechan Device Prophylaxis: SCD's 09/03/24 1147 Cosigner Signature (if applicable): CC: Dr. Mannie Mancuso MD; Dr. Ethel Sparks MD Signed Normal [facility] Surgery Specimen Level Elizabeth 09-03-2024 Surgery Specimen Level IV Patient Age/Sex Location Account Attending Physician DARLIN FORBES 59/F [facility] [id number] Dr. Ethel Sparks MD Specimen: [id number] Received: 09/03/24 Status: CHIRAG Singleton Num: [id number] Spec Type: Lesion Subm Dr: Dr. Ethel Sparks MD HEADER OPERATION: Wide excision melanoma right leg with split thickness skin PRE-OP DIAGNOSIS: Superficial spreading melanoma TISSUE SUBMITTED: A- Right leg melanoma * suture for orientation only. 2 tags - superior aspect, 1 posterior aspect* MICROSCOPIC DIAGNOSIS A. Skin, right leg, melanoma, wide excision: * No residual malignant melanoma observed (margins free) - see note. * Ulcer, scar, and associated reactive changes consistent with a previous surgical procedure. * Note: See specimen [id number] for the original diagnosis and Synoptic Report (provided by Dr Hema Danielle, [facility]). MICROSCOPIC DESCRIPTION Slides are reviewed. GROSS DESCRIPTION A. Received in formalin in a container labeled with the patient's name, date of , and right leg melanoma is an oriented ovoid skin excision with 2 sutures indicating superior margin, and 1 suture indicating posterior margin. The superior margin is arbitrarily designated as 12:00, and the posterior margin is arbitrarily designated as 9:00. The specimen is 3.2 cm from superior to inferior/12-6 o'clock, 2.9 cm from posterior to anterior/9-3 o'clock, with a depth of up to 0.8 cm. The epidermis exhibits a black-brown, scabbed lesion.Lesion measurement: 1.2 x 1.0 cm. The lesion is 1.0 cm from each margin. The remaining skin is chapman-pink with sloughing at the periphery. Ink randle: Posterior/9:00 half = black Anterior/3:00 = orange The specimen is serially sectioned from superior/12:00 to inferior/6:00 into 9 slices to reveal that the lesion is within slices 3-7. On cut surface, the lesion exhibits red-black hemorrhage that extends 0.5 cm deep, but is 0.3 cm to the deep margin. The remaining cut surfaces are chapman-yellow and unremarkable. The specimen is submitted entirely and sequentially as follows:A1. Slice 1, perpendicular sections of superior/12:00 marginA2. Slices 2-3, wholeA3. Slices 4-5, wholeA4. Slices 6-8, wholeA5. Slice 9, perpendicular sections of inferior/6:00 margin [facility] 09-03-2024 CPT:18315 Patient Age/Sex Location Account Attending Physician DARLIN FORBES 59/F [facility] [id number] Dr. Ethel Sparks MD Signed (signature on file) Dr. Nadja Duval MD 09/16/24 1020 Normal [facility] Comment on above: Performed By: #### P SUIV ####[facility] [address] [place], [address] MR/Josselin 08-31-2024 MR/PAT.[place] [facility] Medical Records Department [address] [place] [address] PAT - Anesthesia 08/31/24 1212 MR#: [id number] Acct: [id number] Name: DARLIN FORBES Rep #: [id number] : 1965 59 From: Aleksandar Basurto MD PCP: Dr. 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 When Was Last Pacemaker Check QUESTION #4 FULL TEXT: You/Your Family Experience fever (hyperthermia) with Anesthesia Last Oral Intake Last Oral intake: Last Oral Intake NPO since Meds taken in AM with sips of water? 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 Female Yes 08/31/24 08:13 HX of Motion Sickness No 08/31/24 08:13 HX of N/V After Surgery Yes 08/31/24 08:13 Non-Smoker Yes 08/31/24 08:13 Duration of Surgery greater No 08/31/24 08:13 than 60 minutes Number of Risk Factors 3 08/31/24 08:13 PONV Score Moderate Risk 08/31/24 08:13 Height Weight Height Weight: Anesthesia: Height Weight Height 5 ft 5 in 08/25/24 10:20 Respiratory Assessment Respiratory Assessment - field pipelines supervisor: Respiratory Tract Infection Hx - field pipelines supervisor Hx Respiratory Tract Infection No 08/31/24 08:13 STOP Sleep Apnea STOP Sleep Apnea - field pipelines supervisor: STOP Sleep Apnea - field pipelines supervisor Hx Hypertension No 08/31/24 08:13 Hx Sleep Apnea No 08/31/24 08:13 CPAP No 08/20/24 08:03 BIPAP No 08/20/24 08:03 Do you snore loudly (louder No 08/31/24 08:13 than talking or can be heard Do you often feel tired/ No 08/31/24 08:13 fatigued/ sleepy during daytime? Has anyone observed you stop No 08/31/24 08:13 breathing during sleep? STOP Results Negative 08/31/24 08:13 QUESTION #5 FULL TEXT : Do you snore loudly (louder than talking or can be heard through closed doors)? 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 Specify any problems Hx of Preganancy in last 3 N/A 08/31/24 08:13 Months Nurse Filling Out Transfusion NBUCHER 08/31/24 08:13 Questions: Date: 08/31/24 08/31/24 08:13 Time: 08:14 08/31/24 08:13 Patient unable to answer at this time (ie. confused, unrespo /Reproduction History /Reproductive History - field pipelines supervisor: /Reproductive Hx- field pipelines supervisor Hx Now No 08/31/24 08:13 Gestational Age (in weeks): EDC: Hx Hx Para Hx Section SAB No 08/31/24 08:13 PENDING SALE TO [facility] Medical History (Updated 08/31/24 @ 08:23 by Jade Mckeon) Wears contact lenses MRSA infection History of IBS Former smoker History of edema PONV (postoperative nausea and vomiting) History of echocardiogram History of stress test Herpes Post-menopausal Vertigo Irritable bowel syndrome Constipation Anxiety Right bundle branch block (RBBB) Irritable bowel syndrome with constipation Home Medications ???Medication ???Instructions ???Recorded ???Last Taken ???Type loratadine 10 mg tablet 10 mg PO DAILY 09/29/16 Unknown Hi story Hydrocortisone 2.5%/lidocaine 5% #1 ea 08/30/20 Unknown History suppository (cmpd) (hydrocortisone 2.5%/lidocaine 5% suppository (compound)) fluconazole 150 mg tablet 150 mg PO Q3D 2 doses #2 tabs 12/2 (more content not included)... Normal [facility] Anion gap in Serum or Plasma Ordered By: Ethel Sparks on 08-25-2024 Anion gap [Moles/Vol] 11 mmol/L - [facility] BUN/creatinine ratioOrdered By: Ethel Sparks on 08-25-2024 Urea nitrogen/Creatinine [Mass ratio] 14.4 mg/mg - [facility] Basic Metabolic Profile (BMP )on 08-25-2024 BUN/CRE 14.4 RATIO Normal 02-22 [facility] Comment on above: Performed By: #### L 100.0500, L500.2500 ####[facility] [address] [place], [address] Calcium [Mass/Vol] 9.7 mg/dL Normal 7.6-11.0 [facility] Comment on above: Performed By: #### L 100.0500, L500.2500 ####[facility] [address] [place], [address] Chloride [Moles/Vol] 104 mmol/L Normal 98-108 [facility] Comment on above: Performed By: #### L 100.0500, L500.2500 ####[facility] [address] [place], [address] CO2 [Moles/Vol] 24.6 mmol/L Normal 21.0-32.0 [facility] Comment on above: Performed By: #### L 100.0500, L500.2500 ####[facility] [address] [place], [address] Creatinine [Mass/Vol] 0.94 mg/dL Normal 0.70-1.20 [facility] Comment on above: Performed By: #### L 100.0500, L500.2500 ####[facility] [address] [place], [address] GAP 11 Normal 5-15 [facility] Comment on above: Performed By: #### L 100.0500, L500.2500 ####[facility] [address] [place], [address] GFR/1.73 sq M.predicted among non-blacks MDRD (S/P/Bld) [Vol rate/Area] 70 mL/min/{1.73_m2} Normal >60 [facility] Comment on above: Result Comment: mL/m in/1.73m2 CKD-EPI Creatinine Equation (2020) Performed By: #### L 100.0500, L500.2500 ####[facility] [address] [place], [address] Glucose [Mass/Vol] 95 mg/dL Normal 70-99 [facility] Comment on above: Performed By: #### L 100.0500, L500.2500 ####[facility] [address] [place], [address] Potassium [Moles/Vol] 4.1 mmol/L Normal 3.3-5.1 [facility] Comment on above: Performed By: #### L 100.0500, L500.2500 ####[facility] [address] [place], [address] Sodium [Moles/Vol] 139 mmol/L Normal 133-145 [facility] Comment on above: Performed By: #### L 100.0500, L500.2500 ####[facility] [address] [place], [address] Urea nitrogen [Mass/Vol] 14 mg/dL Normal 4-19 [facility] Comment on above: Performed By: #### L 100.0500, L500.2500 ####[facility] [address] [place], [address] CBC-Complete Blood Cnt No Di ffon 08-25-2024 Erythrocyte distribution width (RBC) [Ratio] 12.7 % Normal 11.6-14.6 [facility] Comment on above: Performed By: #### L 100.0500, L500.2500 ####[facility] [address] [place], [address] Hematocrit (Bld) [Volume fraction] 43.2 % Normal 37-47 [facility] Comment on above: Performed By: #### L 100.0500, L500.2500 ####[facility] [address] [place], [address] Hemoglobin (Bld) [Mass/Vol] 14.7 g/dL Normal 12.0-15.0 [facility] Comment on above: Performed By: #### L 100.0500, L500.2500 ####[facility] [address] [place], [address] MCH (RBC) [Entitic mass] 33.6 pg High 27.0-32.0 [facility] Comment on above: Performed By: #### L 100.0500, L500.2500 ####[facility] [address] [place], [address] MCHC (RBC) [Mass/Vol] 34.0 g/dL Normal 32-36 [facility] Comment on above: Performed By: #### L 100.0500, L500.2500 ####[facility] [address] [place], [address] MCV (RBC) [Entitic vol] 98.6 fL Normal 81-[address] [facility] Comment on above: Performed By: #### L 100.0500, L500.2500 ####[facility] [address] [place], [address] Platelet mean volume (Bld) [Entitic vol] 9.9 fL Normal 6.2-12.0 [facility] Comment on above: Performed By: #### L 100.0500, L500.2500 ####[facility] [address] [place], [address] Platelets (Bld) [#/Vol] 249 10*3/uL Normal 150-450 [facility] Comment on above: Performed By: #### L 100.0500, L500.2500 ####[facility] [address] [place], [address] RBC (Bld) [#/Vol] 4.38 10*6/uL Normal 4.2-5.4 [facility] Comment on above: Performed By: #### L 100.0500, L500.2500 ####[facility] [address] [place], [address] RDW SD 46.1 fl High 35.1-43.9 [facility] Comment on above: Performed By: #### L 100.0500, L500.2500 ####[facility] [address] [place], [address] WBC (Bld) [#/Vol] 6.8 10*3/uL Normal 4.4-11.0 [facility] Comment on above: Performed By: #### L 100.0500, L500.2500 ####[facility] [address] [place], [address] Carbon dioxide, total [Moles /volume] in Central venous bloodOrdered By: Ethel Sparks on 08-25-2024 CO2 [Moles/Vol] 24.6 mmol/L 21.0-32.0 [facility] Chloride assayOrdered By: Darrell Sparks on 08-25-2024 Chloride [Moles/Vol] 104 mmol/L 98-108 [facility] Erythrocyte distribution wid th (RBC) [Ratio]Ordered By: Ethel Sparks on 08-25-2024 Erythrocyte distribution width (RBC) [Entitic vol] 46.1 fL High 35.1-43.9 [facility] Erythrocyte distribution wid th ratioOrdered By: Ethel Sparks on 08-25-2024 Erythrocyte distribution width (RBC) [Ratio] 12.7 % 11.6-14.6 [facility] Erythrocyte distribution wid th standard deviationOrdered By: Ethel Balderramaazofarrah on 08-25-2024 Erythrocyte distribution width (RBC) [Ratio] 46.1 fl High 35.1-43.9 [facility] GFR/1.73 sq M.predicted jacquelin g non-blacks MDRD (S/P/Bld) [Vol rate/Area]Ordered By: Ethel Sparks on 08-25-2024 Estimated GFR (MDRD) Non-Af Amer 70 >60 [facility] Comment on above: mL/min/1.73m2 CKD-EP I Creatinine Equation (2020) Glomerular filtration rate ( GFR) estimation/1.73 sq m using serum, plasma, or whole bOrdered By: Ethel Sparks on 08-25-2024 GFR/1.73 sq M.predicted among non-blacks MDRD (S/P/Bld) [Vol rate/Area] 70 mL/min/{1.73_m2} >60 [facility] Comment on above: mL/min/1.73m2 CKD-EP I Creatinine Equation (2020) Hematocrit Auto (Bld) [Volum e fraction]Ordered By: Ethel Sparks on 08-25-2024 Hematocrit (Bld) [Volume fraction] 43.2 % 37-47 [facility] Hemoglobin measurementOrdere d By: Ethel Sparks on 08-25-2024 Hemoglobin (Bld) [Mass/Vol] 14.7 g/dL 12.0-15.0 [facility] MCV (mean corpuscular volume ) determinationOrdered By: Ethel Sparks on 08-25-2024 MCV (RBC) [Entitic vol] 98.6 fL 81-99 [facility] Mean corpuscular hemoglobin (MCH) determinationOrdered By: Ethel Sparks on 08-25-2024 MCH (RBC) [Entitic mass] 33.6 pg High 27.0-32.0 [facility] Mean corpuscular hemoglobin concentration (MCHC) determinationOrdered By: Ethel Sparks on 08-25-2024 MCHC (RBC) [Mass/Vol] 34.0 g/dL 32-36 [facility] Mean platelet volume determi nationOrdered By: Ethel Sparks on 08-25-2024 Platelet mean volume (Bld) [Entitic vol] 9.9 fL 6.2-12.0 [facility] Plastic Surgery Visit Report on 08-25-2024 Plastic Surgery Visit Report [facility] Plastic Reconstructive Surgery [address], [address] [place], [place] [address] OFFICE VISIT Date of Service: 08/25/24 MR#: [id number] Acct: [id number] Name: DARLIN FORBES Rep #: [id number] : 1965 Provider: Dr. Ethel yan MD Age/Sex: 59/F Location: [facility] [place] Status: Signed with Addenda ADDENDUM by Dr. Ethel Sparks MD on 08/26/24 at 0940 Assessment and Plan (No Qualifiers) Assessment and Plan (1) Superficial spreading melanoma: Status: Acute Addendum 08/26/24 She was called with results of her CBC and electrolytes which were essentially within normal limits. She states she changed the dressing today and noted improvement in the redness. She cleaned it with peroxide and reapplied the dressing. I also reminded her to continue with oral antibiotics. I reiterated the importance of keeping her leg elevated. She is reminded to get in with her primary care provider to provide clearance for the upcoming surgery. She is encouraged to call with any problems. 08/26/24 0940 Date Ethel Sparks MD cc: * Signed Intake Vital Signs 08/11/24 10:54 08/24/24 09:53 08/25/24 10:20 Height 5 ft 5 in 5 ft 5 in 5 ft 5 in Weight: 167 lb 6 oz BMI 27.8 BP 114/73 Blood Pressure Location Lt brachial Position Sitting Respiration 18 Pulse 66 Temp 98.3 F Temp Source Temporal Pulse Oximetry (%) 98 Oxygen Delivery Method room air Intake Visit Reasons: 2 W FU Chief Complaint: concerned with wound Is patient in pain?: No Allergies amoxicillin Allergy (Mild, Verified 08/25/24 10:22) rash acetaminophen (From Vicodin) Adverse Reaction (Verified 08/25/24 10:22) Vomiting hydrocodone bitartrate (From Vicodin) Adverse Reaction (Verified 08/25/24 10:22) Vomiting Nurse's Note: pt here for post of, removed xeroform, gauze, cling and coban, pt report wound looks better. pt reports feeling like burning /itchy this am. Subjective Details: Darlin comes in for recheck of her leg where she had an excision of a neoplasm. She had come into the office Michel with concern of the redness. She was put on Bactrim DS. She had been applying a nonstick Band-Aid to the area. Objective Details: The area has some surrounding erythema but no drainage. The silk sutures are removed. The area was cleaned with peroxide. Dry gauze was applied along with a Coban wrap. I reviewed the pathology with her which demonstrated a melanoma, superficial spreading. Although the margins were clear (3 mm), additional excision will be needed to assure complete removal. I reviewed with her the need for excision and skin graft for closure of the wound. I have indicated that she will need to take time off of work and keep this leg elevated is much as she can to facilitate healing. We will expedite her surgery under a general anesthetic. I also reviewed with her the need to establish a relationship with dermatology to do a complete skin scan along with ongoing surveillance. Coding Level of Care Code Off vis,est,level 4 Diagnoses Superficial spreading melanoma C43.9 PENDING SALE TO [facility] Medical History Irritable bowel syndrome Constipation Anxiety Right bundle branch block (RBBB) Irritable bowel syndrome with constipation Surgical History history excision lesion lip history excision lesion left ear History of vein stripping History of laparoscopic cholecystectomy Family History Father Asthma Diabetes Hypertension Heart disease Mother Asthma Diabetes Heart disease Grandfather Heart disease Social History (Updated 07/15/24 @ 09:34 by Brigida Medellin) Smoking Status: Former smoker how long ago did patient quit smoking: quit 18 years ago alcohol intake: current substance use type: does not use additional social history: pt denies vaping, denies marijuana use, denies edibles, denies aspirin use uses ibuprofen as needed Assessment and Plan (No Qualifiers) Assessment and Plan (1) Superficial spreading melanoma: Status: Acute Plan Details Additional Comments: We will schedule this in the near future. The procedure of wide excision melanoma of right lower leg with STSG was thoroughly reviewed with the patient including risks and alternatives of care. Informed consent was obtained. The patient will be scheduled for the procedure under [general] anesthesia. They are to call with any problems or questions prior to the procedure. 08/25/24 1535 Date Ethel Torrez Signature: Date (more content not included)... Normal [facility] Platelet countOrdered By: Darrell Sparks on 08-25-2024 Platelets (Bld) [#/Vol] 249 10*3/uL 150-450 [facility] Potassium (Unsp spec) [Mass/ Vol]Ordered By: Ethel Sparks on 08-25-2024 Potassium [Moles/Vol] 4.1 mmol/L 3.3-5.1 [facility] Potassium measurement (mass/ volume)Ordered By: Ethel Sparks on 08-25-2024 Potassium (Unsp spec) [Mass/Vol] 4.1 mmol/L 3.3-5.1 [facility] RBC Auto (Bld) [#/Vol]Ordere d By: Ethel Sparks on 08-25-2024 RBC (Bld) [#/Vol] 4.38 10*6/uL 4.2-5.4 [facility] Serum creatinine measurement (mass/volume)Ordered By: Ethel Sparks on 08-25-2024 Creatinine [Mass/Vol] 0.94 mg/dL 0.70-1.20 [facility] Serum glucose measurement (m ass/volume)Ordered By: Ethel Sparks on 08-25-2024 Glucose [Mass/Vol] 95 mg/dL 70-99 [facility] Serum or plasma calcium ana cristina urement (mass/volume)Ordered By: Ethel Sparks on 08-25-2024 Calcium [Mass/Vol] 9.7 mg/dL 7.6-11.0 [facility] Serum or plasma urea nitroge n measurement (mass/volume)Ordered By: Ethel Sparks on 08-25-2024 Urea nitrogen [Mass/Vol] 14 mg/dL 4-19 [facility] Sodium levelOrdered By: Prema Sparks on 08-25-2024 Sodium [Moles/Vol] 139 mmol/L 133-145 [facility] White blood cell (WBC) count Ordered By: Ethel Sparks on 08-25-2024 WBC (Bld) [#/Vol] 6.8 10*3/uL 4.4-11.0 [facility] Office Visit Reporton 2024 Office Visit Report [facility] [place] [address] [address] [place] [address] OFFICE VISIT Date of Service: 08/24/24 MR#: [id number] Acct: [id number] Patient: DARLIN FORBES Rep #: [id number] : 1965 Provider: Dr. Ethel yan MD Age/Sex: 59/F Location: [facility] Status: Signed Intake Vital Signs 08/20/24 08:03 08/24/24 09:53 Height 5 ft 5 in 5 ft 5 in BP 116/88 H Blood Pressure Location Lt brachial Position Sitting Respiration 18 Pulse 66 Temp 98.5 F Temp Source Oral Intake Visit Reasons: FOLLOW UP Chief Complaint: concerned with wound Is patient in pain?: No Allergies amoxicillin Allergy (Mild, Verified 08/25/24 10:22) rash acetaminophen (From Vicodin) Adverse Reaction (Verified 08/25/24 10:22) Vomiting hydrocodone bitartrate (From Vicodin) Adverse Reaction (Verified 08/25/24 10:22) Vomiting Nurse's Note: pt comes in for dressing change, xeroform, gauze, gary and coban. pt spoke with Dr. Sparks on phone, instructed pt to elevate leg as much as possible, and to take motrin BID. 08/25/24 1536 Date Ethel Sparks MD Cosigner Signature: Date (if applicable) CC: Normal [facility] Office Visit Reporton 2024 Office Visit Report [facility] [address] [place] [address] OFFICE VISIT Date of Service: 08/19/24 MR#: [id number] Acct: [id number] Patient: DARLIN FORBES Rep #: [id number] : 1965 Provider: Dr. Ethel yan MD Age/Sex: 59/F Location: [facility] Status: Signed Intake Vital Signs 08/11/24 10:54 08/20/24 08:03 Height 5 ft 5 in 5 ft 5 in Weight: 170 lb 6 oz BMI 28.3 BP 104/60 Blood Pressure Location Lt brachial Position Sitting Respiration 18 Pulse 75 Temp 97.3 F L Temp Source Temporal Pulse Oximetry (%) 96 Oxygen Delivery Method room air Intake Visit Reasons: NURSE VISIT Chief Complaint: side of right leg suspicious mole and on back Is patient in pain?: No Allergies amoxicillin Allergy (Mild, Verified 08/20/24 14:24) rash acetaminophen (From Vicodin) Adverse Reaction (Verified 08/20/24 14:24) Vomiting hydrocodone bitartrate (From Vicodin) Adverse Reaction (Verified 08/20/24 14:24) Vomiting Medications ???Medication ???Instructions ???Recorded ???Confirmed ???Type estradiol-norethindrone acet 1 1 ea PO DAILY 01/27/15 08/20/24 Hi story mg-0.5 mg tablet loratadine 10 mg tablet 10 mg PO DAILY 09/29/16 08/20/24 H istory acyclovir 400 mg tablet 500 mg PO DAILY 07/15/20 08/20/24 History apple cider vinegar 500 mg tablet 500 mg PO DAILY 07/15/20 08/20/24 History biotin 1 mg capsule 1 mg PO DAILY 07/15/20 08/20/24 Hi story mirtazapine 7.5 mg tablet 7.5 mg PO QHS 07/15/20 08/20/24 Hi story zinc gluconate 30 mg tablet 30 mg PO DAILY 07/15/20 08/20/24 H istory pantoprazole 40 mg tablet,delayed 40 mg PO DAILY ##30 08/10/2008/04 Rx release Hydrocortisone 2.5%/lidocaine 5% #1 ea 08/30/20 08/20/24 History suppository (cmpd) (hydrocortisone 2.5%/lidocaine 5% suppository (compound)) fluconazole 150 mg tablet 150 mg PO Q3D 2 doses #2 tabs 04/0608/20/24 Rx valacyclovir 1 gram tablet 1,000 mg PO QDAY 07/15/24 08/20/24 History sulfamethoxazole 400 1 tab PO BID 5 days #10 tabs 07/3108/20/24 Rx mg-trimethoprim 80 mg tablet (Bactrim) Nurse's Note: Pt came in for area on right ankle to be looked at. pt concerned about it being infected. Area slight redness surrounding incision. Dr. Strickland was called and gave instructions for dressing area as well as an antibiotic for pt. Bactrium DS called in to [facility] in [place]. one tab by mouth twice a day for 7 days. 08/20/24 1627 Date Ethel Sparks MD Cosigner Signature: Date (if applicable) CC: Normal [facility] Plastic Surgery Visit Report on 08-11-2024 Plastic Surgery Visit Report [facility] Plastic Reconstructive Surgery [address], [address] [place] [address] OFFICE VISIT Date of Service: 08/11/24 MR#: [id number] Acct: [id number] Name: DARLIN FORBES Rep #: [id number] : 1965 Provider: Dr. Ethel yan MD Age/Sex: 58/F Location: [facility] [place] Status: Signed Intake Vital Signs 07/15/24 09:36 07/31/24 08:39 08/11/24 10:54 Height 5 ft 5 in 5 ft 5 in 5 ft 5 in Weight: 170 lb 6 oz BMI 28.3 BP 104/60 Blood Pressure Location Lt brachial Position Sitting Respiration 18 Pulse 75 Temp 97.3 F L Temp Source Temporal Pulse Oximetry (%) 96 Oxygen Delivery Method room air Intake Visit Reasons: post op Chief Complaint: side of right leg suspicious mole and on back Is patient in pain?: No Allergies amoxicillin Allergy (Mild, Verified 08/11/24 10:54) rash acetaminophen (From Vicodin) Adverse Reaction (Verified 08/11/24 10:54) Vomiting hydrocodone bitartrate (From Vicodin) Adverse Reaction (Verified 08/11/24 10:54) Vomiting Medications ???Medication ???Instructions ???Recorded ???Confirmed ???Type estradiol-norethindrone acet 1 1 ea PO DAILY 01/27/15 08/11/24 Hi story mg-0.5 mg tablet loratadine 10 mg tablet 10 mg PO DAILY 09/29/16 08/11/24 H istory acyclovir 400 mg tablet 500 mg PO DAILY 07/15/20 08/11/24 History apple cider vinegar 500 mg tablet 500 mg PO DAILY 07/15/20 08/11/24 History biotin 1 mg capsule 1 mg PO DAILY 07/15/20 08/11/24 Hi story mirtazapine 7.5 mg tablet 7.5 mg PO QHS 07/15/20 08/11/24 Hi story zinc gluconate 30 mg tablet 30 mg PO DAILY 07/15/20 08/11/24 H istory pantoprazole 40 mg tablet,delayed 40 mg PO DAILY ##30 08/10/2012/28 Rx release Hydrocortisone 2.5%/lidocaine 5% #1 ea 08/30/20 08/11/24 History suppository (cmpd) (hydrocortisone 2.5%/lidocaine 5% suppository (compound)) fluconazole 150 mg tablet 150 mg PO Q3D 2 doses #2 tabs 04/0608/11/24 Rx valacyclovir 1 gram tablet 1,000 mg PO QDAY 07/15/24 08/11/24 History sulfamethoxazole 400 1 tab PO BID 5 days #10 tabs 07/3108/11/24 Rx mg-trimethoprim 80 mg tablet (Bactrim) Nurse's Note: post op leg lesion Subjective Details: Darlin comes in for recheck of the neoplasm removed from her leg. She denies any problemss. Objective Details: The incision is well approximated and the sutures are intact. There is no evidence of drainage or infection. The path is not back yet. Wound care was reviewed. She can leave this area open at night. She is to wear a bandaid during the day. I will see her back in 2 weeks for recheck. Coding Level of Care Code Global Post Op Diagnoses Neoplasm of uncertain behavior of skin D48.5 PENDING SALE TO [facility] Medical History Irritable bowel syndrome Constipation Anxiety Right bundle branch block (RBBB) Irritable bowel syndrome with constipation Surgical History history excision lesion lip history excision lesion left ear History of vein stripping History of laparoscopic cholecystectomy Family History Father Asthma Diabetes Hypertension Heart disease Mother Asthma Diabetes Heart disease Grandfather Heart disease Social History (Updated 07/15/24 @ 09:34 by Brigida Medellin) Smoking Status: Former smoker how long ago did patient quit smoking: quit 18 years ago alcohol intake: current substance use type: does not use additional social history: pt denies vaping, denies marijuana use, denies edibles, denies aspirin use uses ibuprofen as needed Assessment and Plan (No Qualifiers) Assessment and Plan (1) Neoplasm of uncertain behavior of skin: Status: Acute Plan Details Additional Comments: f/u in 2 weeks 08/11/24 1625 Date Ethel Torrez Signature: Date (if applicable) CC: Normal [facility] Discharge Instructionon 07-05 Discharge Instruction [facility] Medical Records Department [address] [place] [address] Instructions for Home/Discharge Instructions 07/31/24 0935 MR#: [id number] Acct: [id number] Name: DARLIN FORBES Rep #: [id number] : 1965 58 From: Ethel Sparks MD PCP: Dr. Daniela Coulter MD Status:REG [facility] [place] Discharge Instructions Dressing / Incision Additional Dressing/Incision Instructions:: Keep your leg elevated is much as possible to decrease swelling and bruising. Take the oral antibiotic (Bactrim) 2 times a day until finished. May leave the dressing on until seen in the office. Keep the dressing dry when bathing. Follow Up Care Please Follow Up With: Ethel Sparks MD When: 1 to 2 weeks Test Results: Test results from this visit will be discussed in further detail at your follow-up appointment, if applicable. Discharge Plan Admission Attending Provider: Ethel Sparks Primary Care Provider: Dnaiela Coulter Instructions Print Language: Liberian Discharge Orders/Prescriptions Prescriptions: New sulfamethoxazole-trimet hoprim [Bactrim] 400-80 mg tablet 1 tab PO BID 5 Days Qty: 10 0RF No Action biotin 1 mg capsule 1 mg PO DAILY zinc gluconate 30 mg tablet 30 mg PO DAILY apple cider vinegar 500 mg tablet 500 mg PO DAILY acyclovir 400 mg tablet 500 mg PO DAILY mirtazapine 7.5 mg tablet 7.5 mg PO QHS (DME) hydrocortisone 2.5%/lidocaine 5% suppository (compound) Suppository See Rx Instructions .ROUTE .MEDSUPPLY Qty: 1 Rx Instructions: 30 supp with 2 refills use BID PRN pain valacyclovir 1 gram tablet 1,000 mg PO QDAY estradiol-norethindrone acet 1 EACH tablet 1 ea PO DAILY Patient Comments: hormone loratadine 10 MG tablet 10 mg PO DAILY pantoprazole 40 MG tablet,delayed release (DR/EC) 40 mg PO DAILY Qty: 30 2RF fluconazole 150 mg tablet 150 mg PO Q3D Qty: 2 0RF Rx Instructions: may repeat second dose 72 hrs after first dose if symptoms persist Referrals / Follow Up: Daniela Coulter MD [Primary Care Provider] - Disposition Disposition (needs filled in before D/C Order can be placed): Home, Self Care 07/31/24 0939 Ethel Sparks MD CC: Dr. Daniela Coulter MD Signed Normal [facility] Immunohistochemical Stainson 07-31-2024 Immunohistochemical Stains Patient Age/Sex Location Account Attending Physician DARLIN FORBES 58/F [facility] [place] [id number] Dr. Ethel Sparks MD Specimen: [id number] Received: 07/31/24 Status: [facility] Areli Num: [id number] Spec Type: Lesion Subm Dr: Dr. Ethel Sparks MD HEADER OPERATION: Excision nevus of right lower leg PRE-OP DIAGNOSIS: Neoplasm of uncertain behavior of skin TISSUE SUBMITTED: A- Nevus right lower leg MICROSCOPIC DIAGNOSIS PRELIMINARY DIAGNOSIS: A. SKIN, RIGHT LOWER LEG, NEVUS, EXCISION:- ATYPICAL MELANOCYTIC PROLIFERATION, MARGINS NARROWLY FREE (0.1 CM) - SEE NOTE. NOTE: THE ABOVE IS A PRELIMINARY DIAGNOSIS. THE FINAL DIAGNOSIS IS PENDING DERMATOPATHOLOGIST REVIEW AND WILL BE REPORTED IN AN ADDENDUM. MICROSCOPIC DESCRIPTION Slides are reviewed. GROSS DESCRIPTION Received in formalin labeled, Darlin Forbes, and designated nevus right lower leg, is an on oriented, elliptical, excision of skin that measures 1.0 x 0.6 x 0.2 cm. Central on the skin is an area of brown discoloration measuring 0.7 x 0.5 cm and is 0.1 cm from the closest skin margin. The margin is inked black, and the specimen is entirely submitted as follows:Cassette Summary:A1-central sectionsA2-opposing tips shaved 07/31/2024 CPT:21918 ADDENDUM Addendum 1 Entered: 08/19/24 This addendum is to report the FINAL DIAGNOSIS following intradepartmental consultation with dermatopathologist, Dr Hema Danielle, at [facility]: FINAL DIAGNOSIS: A. SKIN, RIGHT LOWER LEG, EXCISION: Patient Age/Sex Location Account Attending Physician KARMADARLIN GARCIA 58/F [facility] [place] [id number] Dr. Ethel Sparks MD ADDENDUM (Continued) * MALIGNANT MELANOMA, SUPERFICIAL SPREADING TYPE - see Synoptic Report. * BRESLOW THICKNESS 0.5 MM * MARCELLUS LEVEL II * LATERAL MARGINS FREE (3 MM) AND DEEP MARGIN FREE (2.5 MM) - INVASIVE TUMOR * LATERAL MARGINS FREE ((1 MM) - IN SITU TUMOR * pT1a, pNX SYNOPTIC REPORT FOR INVASIVE MELANOMA Procedure: excision Laterality: right Tumor site: lower leg Histologic type: superficial spreading type Maximum depth (Breslow) thickness (mm): 0.5 mm Ulceration: absent Anatopmic (Marcellus) level: II (present in the papillary dermis) Mitotic rate per mm2: not identified Microsatellitosis: not identified Lymphatic and/or vascular invasion: not identified Neurotropism: not identified Tumor infiltrating lymphocytes: present, non-brisk Tumor regression: not identified Margin status: not involved (invasive: 3 mm to lateral margin, 2.5 mm to deep margin) Margin status for melanoma in situ: not involved (in situ: 1 mm to lateral margin) pT1a, pNX Associated findings: minimal solar elastosis Comment: The slides/images were reviewed in intradepartmental consultation by Dr Hema Danielle (dermatopathology division, [facility]). The diagnosis was discussed with Dr Sparks, 08/19/24. IHC utilized in the assessment: Melan-A (A1) The above synoptic report complies, in slightly modified form, with the guidelines of the [employer] and the Association of Directors of Anatomic and Surgical Pathology for the reporting of cancer specimens. All matched controls reacted appropriately. These tests were developed and their performance characteristics determined by [facility]. They may not have been cleared or approved by the U.S. Food and Drug Administration. The FDA has determined that such clearance or approval is not necessary. The above immunohistochemical/ashli Sienna markers are ordered and reviewed by the Pathologist. Addendum Signed (signature on file) Dr. Nadja Duval MD 08/19/24 1653 Patient Age/Sex Location Account Attending Physician DARLIN FORBES 58/F [facility] [place] [id number] Dr. Ethel Sparks MD (more content not included)... Normal [facility] Comment on above: Performed By: #### P GIOVANY BOYLE ####[facility] [id number] [place], [address] Operative Reporton 5 Operative Report [facility] Medical Records Department [address] [place] [address] Operative Report 07/31/24 0940 MR#: [id number] Acct: [id number] Name: DARLIN FORBES Rep #: [id number] : 1965 58 From: Ethel Sparks MD PCP: Dr. 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 Post-Operative Diagnosis: Same Surgery/Procedure Performed: Excision neoplasm right lower leg (1.5 cm) booking police officer: No Type of Anesthesia: Local RN Documented Start/Stop Times: Operation Date: 07/31/24 09:20 Case Time Into Pre-Op 07/31/24 08:27 Out of Pre-Op 07/31/24 08:59 Into Room 07/31/24 09:02 Procedure Start 07/31/24 09:19 Procedure End 07/31/24 09:31 Anesthesia End 07/31/24 09:35 Out of Room 07/31/24 09:35 Procedure Start Time: 09:19 Procedure Stop Time: 09:31 Select all DRAINS/GRAFTS/IMPLANTS that apply: None Estimated Blood Loss: Minimal Specimen collected: Yes Description of specimen(s) removed: Neoplasm right lower leg Description of surgery: The patient presents today with a growing or changing neoplasm of the right lower leg. Because of the variation in color and borders, she presents for excision with submission for pathologic evaluation. She is aware the potential need for further surgery depending on the resulting pathology. She is marked in the preop holding area prior to surgery and an informed consent is obtained. The patient is brought to the operating room and placed on the operating room table in supine position. The right leg is prepped and draped in the usual sterile fashion. 1% Xylocaine with epinephrine buffered with sodium bicarb is used for local anesthetic. Following this, the site is excised and passed off the operative field to be sent to pathology. Hemostasis is controlled with cautery. The incisions then closed with interrupted silk suture. Further refinement the closure is done with a running chromic suture. Xeroform gauze and a Coban wrap is used to dress the site. She tolerated the procedure well was taken to the recovery area in an awake and stable condition. Needle and sponge counts are correct. Surgical Findings: As above Complications Complications: No Admit VTE Documentation VTE Mechan Device Prophylaxis: None Reason prophylaxis not ordered: Treatment Not Indicated 07/31/24 0942 Cosigner Signature (if applicable): CC: Dr. Daniela Coulter MD; Dr. Ethel Sparks MD Signed Normal [facility] Surgery Specimen Level Elizabeth 07-31-2024 Surgery Specimen Level IV Patient Age/Sex Location Account Attending Physician DARLIN FORBES 58/F [facility] [place] [id number] Dr. Ethel Sparks MD Specimen: [id number] Received: 07/31/24 Status: CHIRAG Singleton Num: [id number] Spec Type: Lesion Subm Dr: Dr. Ethel Sparks MD HEADER OPERATION: Excision nevus of right lower leg PRE-OP DIAGNOSIS: Neoplasm of uncertain behavior of skin TISSUE SUBMITTED: A- Nevus right lower leg MICROSCOPIC DIAGNOSIS PRELIMINARY DIAGNOSIS: A. SKIN, RIGHT LOWER LEG, NEVUS, EXCISION:- ATYPICAL MELANOCYTIC PROLIFERATION, MARGINS NARROWLY FREE (0.1 CM) - SEE NOTE. NOTE: THE ABOVE IS A PRELIMINARY DIAGNOSIS. THE FINAL DIAGNOSIS IS PENDING DERMATOPATHOLOGIST REVIEW AND WILL BE REPORTED IN AN ADDENDUM. MICROSCOPIC DESCRIPTION Slides are reviewed. GROSS DESCRIPTION Received in formalin labeled, Darlin Forbes, and designated nevus right lower leg, is an on oriented, elliptical, excision of skin that measures 1.0 x 0.6 x 0.2 cm. Central on the skin is an area of brown discoloration measuring 0.7 x 0.5 cm and is 0.1 cm from the closest skin margin. The margin is inked black, and the specimen is entirely submitted as follows:Cassette Summary:A1-central sectionsA2-opposing tips shaved K 07/31/2024 CPT:03080 Patient Age/Sex Location Account Attending Physician DARLIN FORBES 58/F [facility] [place] [id number] Dr. Ethel Sparks MD Signed (signature on file) Dr. Nadja Duval MD 08/11/24 1156 Normal [facility] Comment on above: Performed By: #### P GIOVANY BOYLE ####[facility] [id number] [place], [address] Arterial study reportOrdered By: Macario Gardiner on 07-22-2024 Noninvasive arteriosclerosis study report [facility] [address] [place] [address] Lower Ext Art Exam w/ Exercise 07/21/24906 MR#: [id number] Acct: [id number] Name: DARLIN FORBES Rep #:[id number] : 1965 58 From: Macario Gardiner MD Attending Dr: Dr. Daniela Coulter MD atus: REG CLI Ordering Dr: Daniela Coulter MD Date: 07/04 12/28 Location: [facility] Sex: F C Admitted: Reason For Study Reason For Study: PVD Procedure A bilateral lower extremity continuous wave Doppler with analog waveform analysis,segmental pressures,and ankle brachial indexes with exercise. PT walked 5 minutes @ 2.0 MPH with no symptoms. Left Segmental Pressures Left brachial= 145mmHg. Left posterior tibial artery = 149mmHg. Left dorsalis pedis artery = 152mmHg. The left posterior tibial artery waveforms are triphasic. The left dorsalis pedis waveforms are biphasic. Right Segmental Pressures Right brachial= 147mmHg. Right posterior tibial artery = 152mmHg. Right dorsalispedis artery = 149mmHg. The right posterior tibial artery waveforms are triphasic. The right dorsalis pedis waveforms are biphasic. Indices The right resting ankle brachial index is 1.03. The right ankle brachial index by the posterior tibial artery is 1.03. The right ankle brachial index by the dorsalis pedis is 1.01. The right ankle brachial index by the posterior tibial artery post exercise is 1.04. The left resting ankle brachial index is 1.03. Theleft ankle brachial index by the posterior tibial artery is 1.01. The left ankle brachial index by the dorsalis pedis is 1.03. The left dorsalis pedis index post exercise is 1.05. VL/Lower Ext Art Exam w/ Exercise Interpretation Summary Triphasic and biphasic Doppler waveforms are noted at ankle level bilaterally. Pulse-volume recordings appear satisfactory at low thigh, calf, and ankle levels bilaterally. Resting ankle-brachial indices are normal bilaterally. Following a period of ambulation, ankle pressures augment bilaterally, a normal physiological response. There is no evidence of significant arterial occlusive disease in the lower extremities bilaterally. Ordering Physician: Daniela Coulter Referring Physician: Daniela Coulter Performed By: Jammie Moon RVT, RDCS 07/22/24 1434 Date _ Macario Gardiner MD CC: Dr. Daniela Coulter MD ~ Date Dictated: 07/21/24906 Date Transcribed: 07/22/241433 E D Tech: Signed [facility] Other Phone: Lower Ext Art Exam w/ Exerci mayank 07-21-2024 Lower Ext Art Exam w/ Exercise [facility] [address] [place] [address] Lower Ext Art Exam w/ Exercise 07/21/24906 MR#: [id number] Acct: [id number] Name: DARLIN FORBES Rep #: [id number] : 1965 58 From: Macario Gardiner MD Attending Dr: Dr. Daniela Coulter MD Status: REG CL I Ordering Dr: Daniela Coulter MD Date: 07/21/24 Location: [facility] Sex: F C Admitted: Reason For Study Reason For Study: PVD Procedure A bilateral lower extremity continuous wave Doppler with analog waveform analysis,segmental pressures,and ankle brachial indexes with exercise. PT walked 5 minutes @ 2.0 MPH with no symptoms. Left Segmental Pressures Left brachial= 145mmHg. Left posterior tibial artery = 149mmHg. Left dorsalis pedis artery = 152mmHg. The left posterior tibial artery waveforms are triphasic. The left dorsalis pedis waveforms are biphasic. Right Segmental Pressures Right brachial= 147mmHg. Right posterior tibial artery = 152mmHg. Right dorsalis pedis artery = 149mmHg. The right posterior tibial artery waveforms are triphasic. The right dorsalis pedis waveforms are biphasic. Indices The right resting ankle brachial index is 1.03. The right ankle brachial index by the posterior tibial artery is 1.03. The right ankle brachial index by the dorsalis pedis is 1.01. The right ankle brachial index by the posterior tibial artery post exercise is 1.04. The left resting ankle brachial index is 1.03. The left ankle brachial index by the posterior tibial artery is 1.01. The left ankle brachial index by the dorsalis pedis is 1.03. The left dorsalis pedis index post exercise is 1.05. VL/Lower Ext Art Exam w/ Exercise Interpretation Summary Triphasic and biphasic Doppler waveforms are noted at ankle level bilaterally. Pulse-volume recordings appear satisfactory at low thigh, calf, and ankle levels bilaterally. Resting ankle-brachial indices are normal bilaterally. Following a period of ambulation, ankle pressures augment bilaterally, a normal physiological response. There is no evidence of significant arterial occlusive disease in the lower extremities bilaterally. Ordering Physician: Daniela Coulter Referring Physician: Daniela Coulter Performed By: Jammie Moon RVPatrice, RDCS 07/22/24 1434 Date Macario Gardiner MD CC: Dr. Daniela Coulter MD Date Dictated: 07/21/24 0907 Date Transcribed: 07/22/24 1434 E D Tech: Signed Normal [facility] Plastic Surgery Visit Report on 07-15-2024 Plastic Surgery Visit Report [facility] [address] [place] [address] OFFICE VISIT Date of Service: 07/15/24 MR#: [id number] Acct: [id number] Name: DARLIN FORBES Rep #: [id number] : 1965 Provider: Dr. Ethel yan MD Age/Sex: 58/F Location: [facility] Status: Signed Intake Vital Signs 04/19/23 10:51 07/15/24 09:36 Height 5 ft 4 in 5 ft 5 in Weight: 171 lb 8 oz BMI 28.5 BP 112/59 L Blood Pressure Location Lt brachial Position Sitting Respiration 18 Pulse 60 Temp 99.2 F H Temp Source Oral Pulse Oximetry (%) 98 Oxygen Delivery Method room air Intake Visit Reasons: R LEG NEVUS Chief Complaint: side of right leg suspicious mole and on back Is patient in pain?: No Allergies amoxicillin Allergy (Mild, Verified 07/15/24 09:34) rash acetaminophen (From Vicodin) Adverse Reaction (Verified 07/15/24 09:34) Vomiting hydrocodone bitartrate (From Vicodin) Adverse Reaction (Verified 07/15/24 09:34) Vomiting Medications ???Medication ???Instructions ???Recorded ???Confirmed ???Type estradiol-norethindrone acet 1 1 ea PO DAILY 01/27/15 04/19/23 Hi story mg-0.5 mg tablet loratadine 10 mg tablet 10 mg PO DAILY 09/29/16 04/19/23 H istory acyclovir 400 mg tablet 500 mg PO DAILY 07/15/20 04/19/23 History apple cider vinegar 500 mg tablet 500 mg PO DAILY 07/15/20 04/19/23 History biotin 1 mg capsule 1 mg PO DAILY 07/15/20 04/19/23 Hi story mirtazapine 7.5 mg tablet 7.5 mg PO QHS 07/15/20 04/19/23 Hi story zinc gluconate 30 mg tablet 30 mg PO DAILY 07/15/20 04/19/23 H istory pantoprazole 40 mg tablet,delayed 40 mg PO DAILY ##30 08/10/2004/05 Rx release Hydrocortisone 2.5%/lidocaine 5% #1 ea 08/30/20 04/19/23 History suppository (cmpd) (hydrocortisone 2.5%/lidocaine 5% suppository (compound)) fluconazole 150 mg tablet 150 mg PO Q3D 2 doses #2 tabs 04/06 06/28 Rx valacyclovir 1 gram tablet 1,000 mg PO QDAY 07/15/24 07/15/24 History Nurse's Note: pt here for evaluation of mole on right side of lower leg and back PENDING SALE TO [facility] Medical History Irritable bowel syndrome Constipation Anxiety Right bundle branch block (RBBB) Irritable bowel syndrome with constipation Surgical History history excision lesion lip history excision lesion left ear History of vein stripping History of laparoscopic cholecystectomy Family History Father Asthma Diabetes Hypertension Heart disease Mother Asthma Diabetes Heart disease Grandfather Heart disease Social History (Updated 07/15/24 @ 09:34 by Brigida Medellin) Smoking Status: Former smoker how long ago did patient quit smoking: quit 18 years ago alcohol intake: current substance use type: does not use additional social history: pt denies vaping, denies marijuana use, denies edibles, denies aspirin use uses ibuprofen as needed HPI R LEG NEVUS Details: Darlin is a 58-year-old female who presents with a neoplasm of her right lower leg that she has noticed for the past 1 to 2 years . She denies any other symptomatology such as bleeding, drainage, or pain. She is otherwise in good health. She has history of smoking but quit 4 to 6 years ago. She has never personally had a skin cancer and denies any family history of skin cancer. She does admit to enjoying outdoor activities such as camping. ROS General General: Yes good health; No fatigue, fever(s) or weight loss HENMT HENMT: No rhinitis, sore throat/mouth sore, nasal congestion, contacts or glaucoma Endo Endocrine: No thyroid disease, polydipsia, heat intolerance, cold intolerance, hepatitis or excessive urine Skin Skin: No Bleeding, bruising, changing moles or suspicious lesion Musc Musculoskeletal: No joint pain, joint stiffness, muscle weakness, back pain, osteoarthritis or Muscle aches/ myalgia Neuro Neurological: No headache(s), No lightheadedness and No numbness Cardio Cardiovascular: No chest pain, pacemaker, fatigue or shortness of breat with exertion Psych Psychiatric: No depression, claustrophobia or anxiety Resp Respiratory: No spitting up, shortness of breath, sleep apnea, asthma, emphysema, TB, Cough or Smoker Gastro Gastrointestinal: Yes constipation; No diarrhea, blood in stool, nausea, vomiting or abdominal bloating Elvis Hematologic: No anemia, No bleeding and No abnormal bleeding Genitourinary: No urinary frequency, blood in urine or incontinence Exam Details Patient with a variegated pigmented nevus on the lateral aspect of the right lower leg near the ankle. It has irregular margins. Is otherwise fl (more content not included)... Normal [facility] 10-03-2023 [facility] DAR[facility] FORB[facility] ([id number]) 1965 F Date Time Provider Department 10/03/23 MADINA MORALES OBGYWNisha During your visit today, we recorded the following information about you: Beena Rivera RN 10/03/2023 10:28 AM Signed Patient calling with update. Saw AG 09/13/23 and was positive for BV. She completed the clindamycin PO and had no improvement with symptoms. States she is still having copious amounts of odorous vaginal discharge. Still having the vaginal burning/irritation too. Taking Florajen already. She ordered Clairvee, but stated she won't get that in the mail for about 10 days. She is self pay. Asking if she could get another round of antibiotics instead of coming in d/t cost. Please advise. SHELBY Gregg Amy, APRN.[facility] 10/03/2023 1:37 PM Signed She needs treated with oral metronidazole but declined due to wanting to drink alcohol on the weekends when camping so she was treated with clindamycin cream. Please ask if this acceptable with her. Madina Morales APRN.Beena Valencia RN 10/03/2023 1:51 PM Signed Patient notified. She is willing to try Flagyl now. Pharmacy correct. She did pick up operator boric acid suppositories now too. Should she continue with those? SHELBY Gregg Amy, APRN.CL 10/03/2023 2:30 PM Signed Yes, she can continue the boric acid. Madina Morales APRN.Beena Valencia RN 10/03/2023 2:37 PM Signed Patient notified. Beena Rivera RN The following approved medication requests have been transmitted electronically. Requested Prescriptions Signed Prescriptions Disp Refills metroNIDAZOLE (FLAGYL) 500 mg tablet 14 tablet 0 Sig: Take 1 tablet by mouth two times a day for 7 days. Authorizing Provider: MADINA MORALES Pharmacy Information Pharmacy Address [id number] [address] [place] [address] Allergies As of Date: 10/03/2023 Noted Allergy Reaction VICODIN (HYDROCODONE-ACETAMINOP HE*07/22/2008 11 - Vomiting Date Reviewed: 09/13/2023 Reviewed by: Madina Morales APRN.DIGITAL COMMUNICATIONS MANAGER - Fully Assessed Reason for Visit: Vaginal Infection [241] Primary Visit Diagnosis:BV (bacterial vaginosis) [N76.0, B96.89] Order(s):metroNIDAZOLE (FLAGYL) 500 mg tabletTake 1 tablet by mouth two times a day for 7 days.Disp: 14 tabletRfl: 0 Prescriptions as of 10/03/2023 - metroNIDAZOLE (FLAGYL) 500 mg tablet Take 1 tablet by mouth two times a day for 7 days. - valACYclovir (VALTREX) 1 gram tablet Take 1 tablet by mouth once daily. - Estradiol-Norethindrone Acet 1-0.5 mg per tablet Take 1 tablet by mouth once daily. - mirtazapine (REMERON ORAL) Take 7.5 mg by mouth daily at bedtime. - cholecalciferol (VITAMIN D3) 1,000 unit tab tablet Take 1,000 Units by mouth twice daily. - Mirtazapine (REMERON) 7.5 mg tablet Take 7.5 mg by mouth daily at bedtime. - loratadine (CLARITIN) 10 mg tablet Take 10 mg by mouth once daily. - ascorbic acid, vitamin C, (VITAMIN C) 500 mg tablet Take 500 mg by mouth once daily. - Ibuprofen 200 mg ORAL Cap Take by mouth every 4 hours as needed. FOR PAIN. 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] 01/26/2002 01/11/2014 Abdominal pain, right upper quadrant [R10.11] 05/17/2005 04/15/2012 BILIARY DYSKINESIA [K82.8] 06/07/2005 Symptomatic menopausal or female climacteric st*04/24/2013 01/11/2014 Enlarged thyroid [E04.9] 06/09/2013 Dyspareunia [UFT5502] Postmenopausal HRT (hormone replacement therapy* Premature menopause [E28.319] Premature menopause on HRT [E28.319, Z79.890] hx of low vitamin D treated [E55.9] 07/04/2012 Vertigo [R42] Benign positional vertigo [H81.10] 05/06/2014 Other screening mammogram [Z12.31] 06/18/2014 Prescriptions ordered this encounter Disp Refills Start End METRONIDAZOLE 500 MG TABLET 14 t* 0 10/03/2023 10/10/2023 Route: ORAL Sig: Take 1 tablet by mouth two times a day for 7 days. Encounter Status:Closed by BEENA RIVERA on 10/03/23 [facility] 09-16-2023 CNPN Telephone (JAMES) DARLIN FORBES ([id number]) 1965 F Date Time Provider Department 09/16/23 WALDO CALDWELL During your visit today, we recorded the following information about you: Waldo Caldwell APRN.[facility] 09/16/2023 7:18 AM Signed Please notify patient: You tested positive for bacterial vaginosis. This is an imbalance of your normal bacteria. Your partner does not need treated. I will send a prescription for Clindamycin by mouth twice a day for 7 days. No intercourse during treatment. Probiotic by mouth once daily for 30 days or as needed. Please let me know if you have any questions. Waldo Caldwell APRN.Vanessa Alvarenga RN 09/16/2023 9:47 AM Signed Patient notified. Vanessa Rahman RN Allergies As of Date: 09/16/2023 Noted Allergy Reaction VICODIN (HYDROCODONE-ACETAMINOP HE*07/22/2008 11 - Vomiting Date Reviewed: 09/13/2023 Reviewed by: Madina Morales APRN.DIGITAL COMMUNICATIONS MANAGER - Fully Assessed Reason for Visit: Results [95] Order(s):clindamycin (CLEOCIN) 300 mg capsuleTake 1 capsule by mouth two times a day for 7 days.Disp: 14 capsuleRfl: 0 Prescriptions as of 09/16/2023 - clindamycin (CLEOCIN) 300 mg capsule Take 1 capsule by mouth two times a day for 7 days. - valACYclovir (VALTREX) 1 gram tablet Take 1 tablet by mouth once daily. - Estradiol-Norethindrone Acet 1-0.5 mg per tablet Take 1 tablet by mouth once daily. - mirtazapine (REMERON ORAL) Take 7.5 mg by mouth daily at bedtime. - cholecalciferol (VITAMIN D3) 1,000 unit tab tablet Take 1,000 Units by mouth twice daily. - Mirtazapine (REMERON) 7.5 mg tablet Take 7.5 mg by mouth daily at bedtime. - loratadine (CLARITIN) 10 mg tablet Take 10 mg by mouth once daily. - ascorbic acid, vitamin C, (VITAMIN C) 500 mg tablet Take 500 mg by mouth once daily. - Ibuprofen 200 mg ORAL Cap Take by mouth every 4 hours as needed. FOR PAIN. 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] 01/26/2002 01/11/2014 Abdominal pain, right upper quadrant [R10.11] 05/17/2005 04/15/2012 BILIARY DYSKINESIA [K82.8] 06/07/2005 Symptomatic menopausal or female climacteric st*04/24/2013 01/11/2014 Enlarged thyroid [E04.9] 06/09/2013 Dyspareunia [AWU0476] Postmenopausal HRT (hormone replacement therapy* Premature menopause [E28.319] Premature menopause on HRT [E28.319, Z79.890] hx of low vitamin D treated [E55.9] 07/04/2012 Vertigo [R42] Benign positional vertigo [H81.10] 05/06/2014 Other screening mammogram [Z12.31] 06/18/2014 Prescriptions ordered this encounter Disp Refills Start End METRONIDAZOLE 500 MG TABLET 14 t* 0 09/16/2023 09/16/2023 Route: ORAL Sig: Take 1 tablet by mouth two times a day for 7 days. CLINDAMYCIN HCL 300 MG CAPSULE 14 c* 0 09/16/2023 09/23/2023 Route: ORAL Sig: Take 1 capsule by mouth two times a day for 7 days. Medications Discontinued During This Encounter Prescriptions - metroNIDAZOLE (FLAGYL) 500 mg tablet (Discontinued) Take 1 tablet by mouth two times a day for 7 days. Encounter Status:Closed by VANESSA RAHMAN on 09/16/23 [facility] Bacteria Ur Culton 4 Bacteria identified Cx Nom (U) ORGANISM ID: 1 10,000 -<50,000 CFU/ml Normal urogenital maia Normal [facility] Comment on above: Performed By: #### 6 30-4 #### [facility] CLIA [id number] [address] [place] [address] [place] CNOVon 09-13-2023 CNOV Office Visit (DREWWNisha ) DARLIN FORBES ([id number]) 1965 F Date Time Provider Department 09/13/23 10:30 AM MADINA MORALES During your visit today, we recorded the following information about you: Blood pressure Weight 136/76 72.6 kg Madina Morales APRN.DIGITAL COMMUNICATIONS MANAGER 09/13/2023 12:54 PM Signed Operations And Maintenance Specialist offered: Patient declines. Darlin Forbes is a 58 year old female who presents for problem visit vaginal discharge, burning and a little irritation for 1-2 weeks. HPI: Complains of vaginal discharge, burning and a little irritation for past 1-2 weeks. Thinks may have notice a fishy odor at times. Hot feeling when urine strikes the outside of the vagina. Urine has looked different - darker. Able to hold bladder at work. Had what she thought was a pimple to top of vagina a few weeks ago but it has resolved. Noticed sore to outer vagina, not labia, a couple of days ago which is still there. Has history of genital HSV but has never had an outbreak that she knows of. Using hypoallergenic Rastafari soap for bathing. Denies using douches. No recent antibiotic. Has started camping. 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 Is currently sexually active with partner of 1 year. Negative STD testing 10/2022 and does not want repeat. Stopped BRIGITTE that she was taking for HRT, per her preference, a month ago. Has had some episodes of feeling hot. OB History T0 L0 SAB0 IAB0 Ectopic0 Multiple0 Live Births0 Comment: Menarche 15. Was on OCP age 15 - 35 when tried to get . Document Management Specialist History LMP: 06/07/2001, Postmenopausal Age at Menarche: Age at First : Age at Menopause: Document Management Specialist History Comments: Sexual Activity: Not Currently; Male; dyspaurenia Contraception: No contraception data on record PAST MEDICAL HISTORY Diagnosis Date Benign positional vertigo 05/06/2014 BPV saw ENT and PCP had procedure Dyspareunia getting worse Herpes, genital hx of low vitamin D treated 07/04/2012 26.8 repeat 01/2014 normal Premature menopause age 35 Premature menopause on HRT activella PAST SURGICAL HISTORY Procedure Laterality Date CHOLECYSTECTOMY 06/01/2005 Cholecystectomy COLONOSCOPY FLX DX W/COLLJ SPEC WHEN PFRMD 02/03/2013 Colonoscopy- COLONOSCOPY GEN ANES 08/2020 DILATION AND CURETTAGE DXAND/THER NONOBSTETRIC 05/06/1994 false placenta grew, no embryo EGD 08/2020 EXCISION BENIGN LESIONS,EARS EXCISION LIP LESION PAST SURGICAL HISTORY OF 05/06/1991 vein stripping PAST SURGICAL HISTORY OF 04/05/2008 vein ligation left leg FAMILY HISTORY Problem Relation Age of Onset Diabetes Mother vein stripping, circulatory problem hysterectomy for prolapse Heart Mother Stent Hypertension Mother Asthma Mother Hyperlipidemia Mother Thyroid Mother Diabetes Father Heart Father open heart surgery Cancer Father Bladder Hypertension Father Asthma Father Hyperlipidemia Father Alzheimer's Disease Father other (Head Trauma) Father other (menopause age 50) Sister Alzheimer's Disease Paternal Grandmother Heart Paternal Grandfather Social History Tobacco Use Smoking status: Former Packs/day: 0.50 Years: 15.00 Additional pack years: 0.00 Total pack years: 7.50 Types: Cigarettes Quit date: 05/29/2005 Years since quittin.3 Smokeless tobacco: Never Tobacco comments: quit 10 years. Prior was ppd for 20 years Vaping Use Vaping Use: Never used Substance Use Topics Alcohol use: Yes Comment: socially Drug use: No Current Outpatient Medications Medication Sig Estradiol-Norethindrone Acet 1-0.5 mg per tablet Take 1 tablet by mouth once daily. mirtazapine (REMERON ORAL) Take 7.5 mg by mouth daily at bedtime. cholecalciferol (VITAMIN D3) 1,000 unit tab tablet Take 1,000 Units by mouth twice daily. Mirtazapine (REMERON) 7.5 mg tablet Take 7.5 mg by mouth daily at bedtime. loratadine (CLARITIN) 10 mg tablet Take 10 mg by mouth once daily. ascorbic acid, vitamin C, (VITAMIN C) 500 mg tablet Take 500 mg by mouth once daily. Ibuprofen 200 mg ORAL Cap Take by mouth every 4 hours as needed. FOR PAIN. No current facility-administered medications for this visit. Allergies As of Date: 09/13/2023 Allergen Noted Reaction VICODIN [HYDROCODONE-ACETAMINOP HE*07/22/2008 Vomiting Fully Assessed 10/30/2022 REVIEW OF SYSTEMS Abdomen: No bloating, early satiety, indigestion, or increased flatulence. No abdominal pain, nausea, vomiting, diarrhea, or constipation. Bladder: see HPI. Allergies and current medication updated:Yes EXAM: BP 136/76 Wt 160 lb (72.6kg) LMP 06/07/2001 GENERAL: pleasant, female in no apparent distress CHEST: Normal inspiratory effort ABDOMEN: soft, non-tender, and no masses PELVIC: external genitalia normal, normal Bartholin's glands, urethra, Hankins's glands, no vulvar lesions, no cervical l (more content not included)... Normal [facility] Gram Stn Vagon 09-13-2023 Microscopic observation Gram stain Nom (Vag fld) BACTERIAL VAGINOSIS: BACTERIAL VAGINOSIS RESULT: Stain results consistent with bacterial vaginosis. No Yeast observed No clue cells present Few Polymorphonuclear leukocytes Abnormal [facility] Comment on above: Performed By: #### 1 [id number] #### [facility] CLIA [id number] [address] [place] [address] Microscopic observation Gram stain Nom (Vag fld)Ordered By: Dania Parada on 09-13-2023 Bacterial Vaginosis BACTERIAL VAGINOSIS RESULT: Stain results consistent with bacterial vaginosis. Abnormal [facility] Bacterial Vaginosis No Yeast observed Abnormal [facility] Bacterial Vaginosis No clue cells present Abnormal [facility] Bacterial Vaginosis Few Polymorphonuclea r leukocytes Abnormal [facility] No Panel InformationOrdered By: Dania Parada on 09-13-2023 Interpretation and review of laboratory results Abnormal [facility] UA DIP, URINE (POC)on 2023 BILIRUBIN UA (POCT) Negative Negative [facility] CLARITY UA (POCT) Clear [facility] COLOR UA (POCT) Yellow [facility] GLUCOSE UA (POCT) Negative Negative mg/dL [facility] Hemoglobin Ql (U) Negative Negative [facility] KETONE UA (POCT) Negative Negative mg/dL [facility] LEUKOCYTES UA (POCT) Trace Abnormal Negative [facility] NITRITE UA (POCT) Negative Negative [facility] PH UA (POCT) 5.5 4.5 - 8.0 [facility] Protein Ql (U) Negative Negative mg/dL [facility] SPECIFIC GRAVITY UA (POCT) >=1.030 1.005 - 1.030 [facility] UROBILINOGEN UA (POCT) 0.2 Normal E.U./d L [facility] Location:[facility], [address], [place], [address] [facility] POINT OF CARE [facility] No Panel InformationOrdered By: Daniela Coulter on 07-12-2023 Folate 20.50 ng/mL 3.1-55.4 [facility] Absolute lymphocyte countOrd ered By: Daniela Yfn on 07-11-2023 Lymphocytes Auto (Unsp spec) [#/Vol] 2.34 10*3/uL 0.83-4.51 [facility] Automated lymphocyte count a s percentage of total leukocytesOrdered By: Daniela Yfn on 07-11-2023 Lymphocytes/100 WBC Auto (Unsp spec) 36.4 % 19-41 [facility] Basophil percentageOrdered B y: Danielasandra Coulter on 07-11-2023 Basophils/100 WBC (Bld) 1.1 % 0-1 [facility] Bilirubin [Mass/Vol] 0.50 mg/dL 0.20-1.00 [facility] Comment on above: For patients on eltr ombopag therapy, use of Dimension [place] TBIL is not recommended. Chloride [Moles/Vol] 104 mmol/L 98-107 [facility] Eosinophils/100 WBC (Bld) 1.6 % 0-5 [facility] Glucose [Mass/Vol] 101 mg/dL 74-106 [facility] Comment on above: Fasting Glucose resu lt from 100 to 125 mg/dL suggests IMPAIRED HOMEOSTASIS per A.D.A. criteria. Hemoglobin (Bld) [Mass/Vol] 14.4 g/dL 12.0-15.0 [facility] Monocytes/100 WBC (Bld) 6.9 % 0-10 [facility] Neutrophils (Bld) [#/Vol] 3.5 10*3/uL 2.0-7.7 [facility] Neutrophils/100 WBC (Bld) 53.7 % 47-70 [facility] Potassium [Moles/Vol] 4.0 mmol/L 3.5-5.1 [facility] Protein [Mass/Vol] 7.9 g/dL 6.4-8.2 [facility] Sodium [Moles/Vol] 140 mmol/L 136-145 [facility] WBC (Bld) [#/Vol] 6.4 10*3/uL 4.4-11.0 [facility] Culture, urineOrdered By: Wade sandra Coulter on 07-11-2023 Bacteria identified Cx Nom (U) Mixed Gram Pos & Gram Neg Org [facility] Determination of erythrocyte mean corpuscular volume (MCV)Ordered By: Daniela Coulter on 07-11-2023 MCV (RBC) [Entitic vol] 102.9 fL 81-99 [facility] Erythrocyte distribution wid th ratioOrdered By: Daniela Couletr on 07-11-2023 Erythrocyte distribution width (RBC) [Ratio] 12.6 % 11.6-14.6 [facility] Erythrocyte distribution wid th standard deviationOrdered By: Daniela Coulter on 07-11-2023 Erythrocyte distribution width (RBC) [Entitic vol] 48.3 fL 35.1-43.9 [facility] Hematocrit Auto (Bld) [Volum e fraction]Ordered By: Daniela Coulter on 07-11-2023 Hematocrit (Bld) [Volume fraction] 42.8 % 37-47 [facility] Immature granulocytes/100 WB C Auto (Bld)Ordered By: Daniela Coulter on 07-11-2023 Immature granulocytes/100 WBC (Bld) 0.300 % 0.0-0.9 [facility] Comment on above: IG% - Immature Granu locytes (promyelocytes, myelocytes and metamyelocytes) > 1% indicates that a LEFT SHIFT is Present. Laboratory - Chemistry and C hemistry - challengeOrdered By: Daniela Coulter on 07-11-2023 Albumin/Globulin [Mass ratio] 1.1 {ratio} 0.9-2.4 [facility] ALP [Catalytic activity/Vol] 36 U/L 45-117 [facility] ALT [Catalytic activity/Vol] 17 U/L 13-56 [facility] Amylase [Catalytic activity/Vol] 4 U/L 5-55 [facility] CO2 [Moles/Vol] 27.0 mmol/L 21.0-32.0 [facility] Globulin (S) [Mass/Vol] 3.8 g/dL 2.2-4.2 [facility] Lipase [Catalytic activity/Vol] 36 U/L 13-75 [facility] Comment on above: Please note:LIPASE r evised reference range effective 22. New Lipase methodology. Expected to produce lower values than the previous assay method. NEW Reference Range: 13 - 75 U/L Urea nitrogen/Creatinine [Mass ratio] 14.0 mg/mg 10-20 [facility] Laboratory - Hematology and Cell countsOrdered By: Daniela Coulter on 07-11-2023 MCH (RBC) [Entitic mass] 34.6 pg 27.0-32.0 [facility] MCHC (RBC) [Mass/Vol] 33.6 g/dL 32-36 [facility] Nucleated RBC/100 WBC (Bld) [Ratio] 0 % 0-5 [facility] Platelet mean volume (Bld) [Entitic vol] 10.7 fL 6.2-12.0 [facility] Platelets (Bld) [#/Vol] 229 10*3/uL 150-450 [facility] No Panel InformationOrdered By: Daniela Coulter on 07-11-2023 C-Reactive Protein Extended Range < 2.90 mg/L 0.0-3.0 [facility] Comment on above: C-Reactive Protein ( CRP) provides useful information for thediagnosis, therapy and monitoring of inflammatory processesand associated diseases. For the evaluation of Relative Riskfor Cardiovascular Disease, a High Sensitivity CRP (HSCRP)should be ordered. Estimated GFR (MDRD) Amer 108 mL/min >60 [facility] Comment on above: GFR Calc Estimated GFR (MDRD) Non-Af Amer 89 mL/min >60 [facility] Comment on above: Non- GFR Calc RBC Auto (Bld) [#/Vol]Ordere d By: Daniela Coulter on 07-11-2023 RBC (Bld) [#/Vol] 4.16 10*6/uL 4.2-5.4 [facility] Serum or plasma calcium ana cristina urement (mass/volume)Ordered By: Daniela Coulter on 07-11-2023 Calcium [Mass/Vol] 9.5 mg/dL 8.5-10.1 [facility] Serum or plasma creatinine m easurement (mass/volume)Ordered By: Daniela Coulter on 07-11-2023 Creatinine [Mass/Vol] 0.72 mg/dL 0.55-1.02 [facility] Comment on above: The validity of the calculated GFR & GFRAA in patients over 70 years has not been determined. Clinical correlation is essential. Serum or plasma thyroid stim ulating hormone (TSH) measurement (units/volume)Ordered By: Daniela Coulter on 07-11-2023 TSH Qn 1.00 uIU/mL 0.358-3.74 [facility] Serum or plasma urea nitroge n measurement (mass/volume)Ordered By: Daniela Coulter on 07-11-2023 Urea nitrogen [Mass/Vol] 10 mg/dL 7-18 [facility] Thin prep Papanicolaou smear with manual screeningOrdered By: Daniela Coulter on 07-11-2023 Thin prep Papanicolaou smear with manual screening 4.1 g/dL 3.2-5.0 [facility] Thin prep Papanicolaou smear with manual screening 15 U/L 15-37 [facility] Thin prep Papanicolaou smear with manual screening 9 5-15 [facility] BACTERIAL VAGINOSIS NAATon 0 10-31-2022 Lactobacillus crispatus+gasseri+jense sandra + Gardnerella vaginalis + Atopobium vaginae rRNA LUCIEN+probe Ql (Vag fld) Negative Negative for bacterial vaginosis [facility] DARIEN/TRICHOMONAS NAATon 0 10-31-2022 C. glabrata RNA LUCIEN+probe Ql (Vag fld) Negative Negative for Darien glabrata [facility] Darien sp DNA LUCIEN+probe Ql (Vag fld) Negative Negative for Darien species [facility] T. vaginalis DNA LUCIEN+probe Ql (Unsp spec) Negative Negative for Trichomonas vaginalis by amplification [facility] CNPNon 10-31-2022 CNPN Telephone ([facility]) DARLIN FORBES ([id number]) 1965 F Date Time Provider Department 10/31/22 CANDIE GANDARA [facility] During your visit today, we recorded the following information about you: Candie Gandara APRN.DIGITAL COMMUNICATIONS MANAGER 10/31/2022 7:12 AM Signed Negative for gonorrhea, chlamydia, trichomonas, yeast, bacterial infection, patient's urine culture is still pending but if patient symptoms are persistent patient should follow-up with primary care physician. Estela Steiner 10/31/2022 8:32 AM Signed Patient given results and verbalized understanding of instructions given. Estela Steiner Allergies As of Date: 10/31/2022 Noted Allergy Reaction VICODIN (HYDROCODONE-ACETAMINOP HE*07/22/2008 11 - Vomiting Date Reviewed: 10/30/2022 Reviewed by: Liat Moy MA - Fully Assessed Reason for Visit: Results [95] Prescriptions as of 10/31/2022 - mirtazapine (REMERON ORAL) Take 7.5 mg by mouth daily at bedtime. - cholecalciferol (VITAMIN D3) 1,000 unit tab tablet Take 1,000 Units by mouth twice daily. - Estradiol-Norethindrone Acet 1-0.5 mg per tablet Take 1 tablet by mouth once daily. - valACYclovir (VALTREX) 1 gram Take 1 tablet by mouth once daily. - Mirtazapine (REMERON) 7.5 mg tablet Take 7.5 mg by mouth daily at bedtime. - loratadine (CLARITIN) 10 mg tablet Take 10 mg by mouth once daily. - ascorbic acid, vitamin C, (VITAMIN C) 500 mg tablet Take 500 mg by mouth once daily. - Ibuprofen 200 mg ORAL Cap Take by mouth every 4 hours as needed. FOR PAIN. 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] 01/26/2002 01/11/2014 Abdominal pain, right upper quadrant [R10.11] 05/17/2005 04/15/2012 BILIARY DYSKINESIA [K82.8] 06/07/2005 Symptomatic menopausal or female climacteric st*04/24/2013 01/11/2014 Enlarged thyroid [E04.9] 06/09/2013 Dyspareunia [[id number]] Postmenopausal HRT (hormone replacement therapy* Premature menopause [E28.319] Premature menopause on HRT [E28.319, Z79.890] hx of low vitamin D treated [E55.9] 07/04/2012 Vertigo [R42] Benign positional vertigo [H81.10] 05/06/2014 Other screening mammogram [Z12.31] 06/18/2014 Encounter Status:Closed by ESTELA STEINER on 10/31/22 Normal [facility] BACTERIAL VAGINOSIS NAATon 0 10-30-2022 Lactobacillus crispatus+gasseri+jense sandra + Gardnerella vaginalis + Atopobium vaginae rRNA LUCIEN+probe Ql (Vag fld) Negative Normal Negative for bacterial vaginosis [facility] Comment on above: Order Comment: Speci men Type: SWAB Ordering Facility: [facility] Address: [address] [place] [address] Performed By: #### Geoff VAMP, [id number] #### [facility] CLIA [id number] [address] [place] [address] [place] Bacteria Ur Culton 3 Bacteria identified Cx Nom (U) CULTURE, URINE: No growth (<1,000 CFU/ml) [facility] Comment on above: Performed By: #### 6 30-4 #### [facility] CLIA [id number] [address] [place] [address] [place] C. trachomatis+N. gonorrhoea e DNA LUCIEN+probe Ql (Unsp spec)on 10-30-2022 C. trachomatis rRNA LUCIEN+probe Ql (Unsp spec) Negative Normal Negative for Chlamydia trachomatis by amplificaton [facility] Comment on above: Order Comment: Speci men Type: SWAB Ordering Facility: [facility] Address: [address] [place] [address] Performed By: #### Geoff VAMP, [id number] #### [facility] CLIA [id number] [address] [place] [address] [place] N. gonorrhoeae rRNA LUCIEN+probe Ql (Unsp spec) Negative Normal Negative for Neisseria gonorrhoeae by amplification [facility] Comment on above: Order Comment: Speci men Type: SWAB Ordering Facility: [facility] Address: [address] [place] [address] Performed By: #### Geoff VAMP, [id number] #### [facility] CLIA [id number] [address] [place] [address] [place] [id number] [place] DARIEN/TRICHOMONAS NAATon 0 10-30-2022 DARIEN/TRICHOMONAS NAAT DARIEN SPECIES GROUP: Negative for Darien species DARIEN GLABRATA: Negative for Darien glabrata TRICH VAG AMPLIFICATION: Negative for Trichomonas vaginalis by amplification [facility] Comment on above: Performed By: #### C VTV #### [facility] CLIA [id number] [facility] [place] [id number] [place] CNOVon 10-30-2022 CNOV Office Visit (UCWSTR ) DARLIN FORBES ([id number]) 1965 F Date Time Provider Department 10/30/22 2:30 PM CANDIE GANDARA [facility] During your visit today, we recorded the following information about you: Temperature Pulse Respiration Blood pressure 98.3 degrees 58/minute 16/minute 124/72 Weight Height 73.9 kg 1.638 m Candie Gandara APRN.DIGITAL COMMUNICATIONS MANAGER 10/30/2022 3:14 PM Signed CC: Patient presents with: Dysuria Patient does have a new sexual partner that she has been with for about 3 weeks. Patient has had unprotected sex. HPI Darlin Forbes is a 57 year old female who presents with complaint of possible UTI. These symptoms have been present for 2 days. Associated symptoms: burning and abnormal vaginal discharge Denies: fever, chills, and sweats Treatments: nothing The ROS was otherwise negative. PMH, Medications, labs, allergies, and recent past visits with PCP were reviewed and updated as able. PHYSICAL EXAM: BP 124/72 Pulse (!) 58 Temp 36.8 ?C (98.3 ?F) Resp 16 Ht 163.8 cm (5' 4.5) Wt 73.9 kg (163 lb) LMP 06/07/2001 BMI 27.55 kg/m? General: Well appearing and alert Back: straight and symmetric Abdomen: soft, nontender, nondistended No abnormalities upon vaginal exam. Operations And Maintenance Specialist was in the room. PAST MEDICAL HISTORY Diagnosis Date Benign positional vertigo 05/06/2014 BPV saw ENT and PCP had procedure Dyspareunia getting worse Herpes, genital hx of low vitamin D treated 07/04/2012 26.8 repeat 01/2014 normal Premature menopause age 35 Premature menopause on HRT activella PAST SURGICAL HISTORY Procedure Laterality Date CHOLECYSTECTOMY 06/01/2005 Cholecystectomy COLONOSCOPY FLX DX W/COLLJ SPEC WHEN PFRMD 02/03/2013 Colonoscopy- COLONOSCOPY GEN ANES 08/2020 DILATION AND CURETTAGE DXAND/THER NONOBSTETRIC 05/06/1994 false placenta grew, no embryo EGD 08/2020 EXCISION BENIGN LESIONS,EARS EXCISION LIP LESION PAST SURGICAL HISTORY OF 05/06/1991 vein stripping PAST SURGICAL HISTORY OF 04/05/2008 vein ligation left leg ALLERGIES Vicodin [Hydrocodone-Acetaminop hen] MEDICATIONS Estradiol-Norethindrone Acet 1-0.5 mg per tablet Take 1 tablet by mouth once daily. valACYclovir (VALTREX) 1 gram Take 1 tablet by mouth once daily. Mirtazapine (REMERON) 7.5 mg tablet Take 7.5 mg by mouth daily at bedtime. loratadine (CLARITIN) 10 mg tablet Take 10 mg by mouth once daily. ascorbic acid, vitamin C, (VITAMIN C) 500 mg tablet Take 500 mg by mouth once daily. Ibuprofen 200 mg ORAL Cap Take by mouth every 4 hours as needed. FOR PAIN. mirtazapine (REMERON ORAL) Take 7.5 mg by mouth daily at bedtime. cholecalciferol (VITAMIN D3) 1,000 unit tab tablet Take 1,000 Units by mouth twice daily. FAMILY HISTORY Problem Relation Age of Onset Diabetes Mother vein stripping, circulatory problem hysterectomy for prolapse Heart Mother Stent Hypertension Mother Asthma Mother Hyperlipidemia Mother Thyroid Mother Diabetes Father Heart Father open heart surgery Cancer Father Bladder Hypertension Father Asthma Father Hyperlipidemia Father Alzheimer's Disease Father other (Head Trauma) Father other (menopause age 50) Sister Alzheimer's Disease Paternal Grandmother Heart Paternal Grandfather Social History Tobacco Use Smoking status: Former Packs/day: 0.50 Years: 15.00 Pack years: 7.50 Types: Cigarettes Quit date: 05/29/2005 Years since quittin.4 Smokeless tobacco: Never Tobacco comments: quit 10 years. Prior was ppd for 20 years Vaping Use Vaping Use: Never used Substance Use Topics Alcohol use: Yes Comment: socially Drug use: No ASSESSMENT/PLAN: 1. Urinary frequency - ICD9: 788.41, ICD10: R35.0 (primary diagnosis) - UA DIP, URINE (POC) - URINE CULTURE - DARIEN/TRICHOMONAS NAAT - BACTERIAL VAGINOSIS NAAT - GONORRHEA/CHLAMYDIA NAAT 2. Vaginal discharge - ICD9: 623.5, ICD10: N89.8 - DARIEN/TRICHOMONAS NAAT - BACTERIAL VAGINOSIS NAAT - GONORRHEA/CHLAMYDIA NAAT Patient was not treated at this time for anything. Please treat patient according to any positive test results. Patient would like a medication that is compatible with alcohol if possible. Candie Gandara APRN.DIGITAL COMMUNICATIONS MANAGER Prescription instructions reviewed with patient as applicable. Potential red flag symptoms discussed with the patient. Reviewed appropriate action plan to take if red flag symptoms occur. Patient agreeable to treatment plan. Candie Gandara APRN.DIGITAL COMMUNICATIONS MANAGER Allergies As of Date: 10/30/2022 Noted Allergy Reaction VICODIN (HYDROCODONE-ACETAMINOP HE*07/22/2008 11 - Vomiting Date Reviewed: 10/30/2022 Reviewed by: Liat Moy MA - Fully Assessed Reason for Visit: Dysuria [1085] Primary Visit Diagnosis:Urinary frequency [R35.0] Other Visit Diagnosis:Vaginal discharge [N89.8] Order(s):UA DIP, URINE (POC) [[id number]] Or (more content not included)... Normal [facility] UA DIP, URINE (POC)on 2022 BILIRUBIN UA (POCT) Negative Negative [facility] CLARITY UA (POCT) Clear [facility] COLOR UA (POCT) Yellow [facility] GLUCOSE UA (POCT) Negative Negative mg/dL [facility] HEMOGLOBIN/BLOOD UA (POCT) Negative Negative [facility] KETONE UA (POCT) Negative Negative mg/dL [facility] LEUKOCYTES UA (POCT) Negative Negative [facility] NITRITE UA (POCT) Negative Negative [facility] PH UA (POCT) 5.5 4.5 - 8.0 [facility] Protein Ql (U) Negative Negative mg/dL [facility] SPECIFIC GRAVITY UA (POCT) 1.010 1.005 - 1.030 [facility] UROBILINOGEN UA (POCT) 0.2 E.U./dL Normal E.U./ dL [facility] Absolute lymphocyte countOrd ered By: Dr. Coulter on 07-26-2022 Lymphocytes Auto (Unsp spec) [#/Vol] 3.64 10*3/uL 0.83-4.51 [facility] Basophil percentageOrdered B y: Dr. Coulter on 07-26-2022 Basophils/100 WBC (Bld) 0.9 % 0-1 [facility] Bilirubin [Mass/Vol] 0.70 mg/dL 0.20-1.00 [facility] Comment on above: For patients on eltr ombopag therapy, use of Dimension [place] TBIL is not recommended. Chloride [Moles/Vol] 106 mmol/L 98-107 [facility] Cholesterol [Mass/Vol] 190 mg/dL <200 [facility] Comment on above: <200 mg/dL Desirable 200-240 mg/dL Borderline >240 mg/dL High Risk Eosinophils/100 WBC (Bld) 3.5 % 0-5 [facility] Glucose [Mass/Vol] 96 mg/dL 74-106 [facility] Neutrophils (Bld) [#/Vol] 1.9 10*3/uL 2.0-7.7 [facility] Neutrophils/100 WBC (Bld) 29.3 % 47-70 [facility] Potassium [Moles/Vol] 4.1 mmol/L 3.5-5.1 [facility] Protein [Mass/Vol] 7.3 g/dL 6.4-8.2 [facility] Sodium [Moles/Vol] 141 mmol/L 136-145 [facility] Triglyceride [Mass/Vol] 73 mg/dL <199 [facility] Comment on above: The drugs N-Acetylcy steine and Metamizole may falsely depress this assay.Serum Triglycerides Reference Interval Normal <150 mg/dL Borderline high 150 - 199 mg/dL High 200 - 499 mg/dL Very High > or = 500 mg/dL WBC (Bld) [#/Vol] 6.6 10*3/uL 4.4-11.0 [facility] Blood erythrocytes count (nu mber/volume)Ordered By: Dr. Coulter on 07-26-2022 RBC (Bld) [#/Vol] 4.21 10*6/uL 4.2-5.4 [facility] Blood hemoglobin measurement (mass/volume)Ordered By: Dr. Coulter on 07-26-2022 Hemoglobin (Bld) [Mass/Vol] 14.1 g/dL 12.0-15.0 [facility] Blood lymphocytes/100 leukoc ytesOrdered By: Dr. Coulter on 07-26-2022 Lymphocytes/100 WBC (Bld) 55.3 % 19-41 [facility] Blood monocytes/100 leukocyt esOrdered By: Dr. Coulter on 07-26-2022 Monocytes/100 WBC (Bld) 10.8 % 0-10 [facility] Blood platelet mean volumeOr dered By: Dr. Coulter on 07-26-2022 Platelet mean volume (Bld) [Entitic vol] 10.6 fL 6.2-12.0 [facility] Determination of erythrocyte mean corpuscular volume (MCV)Ordered By: Dr. Coulter on 07-26-2022 MCV (RBC) [Entitic vol] 103.1 fL 81-99 [facility] Hematocrit Auto (Bld) [Volum e fraction]Ordered By: Dr. Coulter on 07-26-2022 Hematocrit (Bld) [Volume fraction] 43.4 % 37-47 [facility] Laboratory - Chemistry and C hemistry - challengeOrdered By: Dr. Coulter on 07-26-2022 ALP [Catalytic activity/Vol] 33 U/L 45-117 [facility] ALT [Catalytic activity/Vol] 23 U/L 13-56 [facility] CO2 [Moles/Vol] 25.0 mmol/L 21.0-32.0 [facility] Globulin (S) [Mass/Vol] 3.4 g/dL 2.2-4.2 [facility] Urea nitrogen/Creatinine [Mass ratio] 19.8 mg/mg 10-20 [facility] Laboratory - Hematology and Cell countsOrdered By: Dr. Coulter on 07-26-2022 Erythrocyte distribution width (RBC) [Entitic vol] 48.6 fL 35.1-43.9 [facility] Erythrocyte distribution width (RBC) [Ratio] 12.8 % 11.6-14.6 [facility] Immature granulocytes/100 WBC (Bld) 0.200 % 0.0-0.9 [facility] Comment on above: IG% - Immature Granu locytes (promyelocytes, myelocytes and metamyelocytes) > 1% indicates that a LEFT SHIFT is Present. MCH (RBC) [Entitic mass] 33.5 pg 27.0-32.0 [facility] Nucleated RBC/100 WBC (Bld) [Ratio] 0 % 0-5 [facility] MCHC Auto (RBC) [Mass/Vol]Or dered By: Dr. Coulter on 07-26-2022 MCHC (RBC) [Mass/Vol] 32.5 g/dL 32-36 [facility] No Panel InformationOrdered By: Dr. Coulter on 07-26-2022 Addendum Document Comment . [facility] Comment on above: The SPE pattern appe ars unremarkable. Evidence ofmonoclonal protein is not apparent.Performed at: [facility] [address] [id number] Director: Delgado Harris PhD, Phone: [phone] Ypfid-7-Ajqfvqhil 0.2 g/dL 0.0-0.4 [facility] Pwdxj-4-Zqiyyixpc 0.7 g/dL 0.4-1.0 [facility] Estimated GFR (MDRD) Amer 120 mL/min >60 [facility] Comment on above: GFR Calc Estimated GFR (MDRD) Non-Af Amer 99 mL/min >60 [facility] Comment on above: Non- GFR Calc Gamma Globulins 1.2 g/dL 0.4-1.8 [facility] Thyroid Stimulating Hormone (TSH) 1.18 uIU/mL 0.358-3.74 [facility] Platelets bldOrdered By: Dr. Coulter on 07-26-2022 Platelets (Bld) [#/Vol] 258 10*3/uL 150-450 [facility] Protein Fractions Elph [Inte rp]Ordered By: Dr. Coulter on 07-26-2022 Protein Fractions [Interp] Comment . [facility] Comment on above: Protein electrophore sis scan will follow via computer,mail, or hearing examiner delivery. Serum albumin to globulin ra paula by protein electrophoresisOrdered By: Dr. Coulter on 07-26-2022 Albumin/Globulin Elph [Mass ratio] 1.2 0.7-1.7 [facility] Serum globulin measurement ( mass/volume)Ordered By: Dr. Coulter on 07-26-2022 Globulin (S) [Mass/Vol] 3.2 g/dL 2.2-3.[address] [facility] Serum or plasma albumin ana cristina urement (mass/volume)Ordered By: Dr. Coulter on 07-26-2022 Albumin [Mass/Vol] 3.9 g/dL 2.9-4.4 [facility] Serum or plasma albumin/glob ulin mass ratioOrdered By: Dr. Coulter on 07-26-2022 Albumin/Globulin [Mass ratio] 1.1 {ratio} 0.9-2.4 [facility] Serum or plasma beta globuli n measurement by electrophoresis (mass/volume)Ordered By: Dr. Coulter on 07-26-2022 Beta globulin Elph [Mass/Vol] 1.0 g/dL 0.7-1.3 [facility] Serum or plasma calcium ana cristina urement (mass/volume)Ordered By: Dr. Coulter on 07-26-2022 Calcium [Mass/Vol] 9.1 mg/dL 8.5-10.1 [facility] Serum or plasma cholesterol in HDL measurement (mass/volume)Ordered By: Dr. Coulter on 07-26-2022 Cholesterol in HDL [Mass/Vol] 60 mg/dL >40 [facility] Comment on above: The drugs N-Acetylcy steine and Metamizole may falsely depress this assay. Reference Range HDL <40 mg/dL Low HDL Cholesterol HDL >or= 60 mg/dL High HDL Cholesterol Serum or plasma cholesterol in VLDL measurement (mass/volume)Ordered By: Dr. Coulter on 07-26-2022 Cholesterol in VLDL [Mass/Vol] 15 mg/dL 5-40 [facility] Serum or plasma creatinine m easurement (mass/volume)Ordered By: Dr. Coulter on 07-26-2022 Creatinine [Mass/Vol] 0.66 mg/dL 0.55-1.02 [facility] Comment on above: The validity of the calculated GFR & GFRAA in patients over 70 years has not been determined. Clinical correlation is essential. Serum or plasma low density lipoprotein (LDL) cholesterol measurement (mass/volume)Ordered By: Dr. Coulter on 07-26-2022 Cholesterol in LDL [Mass/Vol] 115 mg/dL 0-130 [facility] Serum or plasma urea nitroge n measurement (mass/volume)Ordered By: Dr. Coulter on 07-26-2022 Urea nitrogen [Mass/Vol] 13 mg/dL 7-18 [facility] Thin prep Papanicolaou smear with manual screeningOrdered By: Dr. Coulter on 07-26-2022 Thin prep Papanicolaou smear with manual screening 20 U/L 15-37 [facility] Thin prep Papanicolaou smear with manual screening 10 5-15 [facility] Thin prep Papanicolaou smear with manual screening See comment [facility] Comment on above: Result: Not Observed Total protein bloodOrdered B y: Dr. Coulter on 07-26-2022 Protein [Mass/Vol] 7.1 g/dL 6.0-8.5 [facility] Absolute lymphocyte counton 01-22-2022 Lymphocytes Auto (Unsp spec) [#/Vol] 4.04 10*3/uL 0.83-4.51 [facility] Work Phone: [phone] Basophil percentageon 2021 Basophils/100 WBC (Bld) 1.0 % 0-[address] [facility] Work Phone: [phone] Bilirubin [Mass/Vol] 0.30 mg/dL 0.20-1.00 [facility] Work Phone: [phone] Comment on above: For patients on eltr ombopag therapy, use of Dimension [place] TBIL is not recommended. Chloride [Moles/Vol] 104 mmol/L 98-107 [facility] Work Phone: Eosinophils/100 WBC (Bld) 2.8 % 0-5 [facility] Work Phone: Glucose [Mass/Vol] 89 mg/dL 74-106 [facility] Work Phone: Neutrophils (Bld) [#/Vol] 2.2 10*3/uL 2.0-7.7 [facility] Work Phone: Neutrophils/100 WBC (Bld) 30.6 % 47-70 [facility] Work Phone: Potassium [Moles/Vol] 3.7 mmol/L 3.5-5.1 [facility]: Protein [Mass/Vol] 7.9 g/dL 6.4-8.2 [facility] Work Phone: Sodium [Moles/Vol] 138 mmol/L 136-145 [facility] Work Phone: WBC (Bld) [#/Vol] 7.1 10*3/uL 4.4-11.0 [facility] Work Phone: Blood erythrocytes count (nu mber/volume)on 01-22-2022 RBC (Bld) [#/Vol] 4.00 10*6/uL 4.2-5.4 [facility]: Blood hemoglobin measurement (mass/volume)on 01-22-2022 Hemoglobin (Bld) [Mass/Vol] 13.4 g/dL 12.0-15.0 [facility] Work Phone: Blood lymphocytes/100 leukoc yteson 01-22-2022 Lymphocytes/100 WBC (Bld) 56.7 % 19-41 [facility] Work Phone: Blood monocytes/100 leukocyt eson 01-22-2022 Monocytes/100 WBC (Bld) 8.8 % 0-10 [facility] Work Phone: Blood platelet mean volumeon 01-22-2022 Platelet mean volume (Bld) [Entitic vol] 11.0 fL 6.2-12.0 [facility] Work Phone: Determination of erythrocyte mean corpuscular volume (MCV)on 01-22-2022 MCV (RBC) [Entitic vol] 103.0 fL 81-99 [facility] Work Phone: Hematocrit Auto (Bld) [Volum e fraction]on 01-22-2022 Hematocrit (Bld) [Volume fraction] 41.2 % 37-47 [facility] Work Phone: [phone] Laboratory - Chemistry and C hemistry - challengeon 01-22-2022 ALP [Catalytic activity/Vol] 32 U/L 45-117 [facility] Work Phone: ALT [Catalytic activity/Vol] 21 U/L 13-56 [facility] Work Phone: CO2 [Moles/Vol] 28.0 mmol/L 21.0-32.0 [facility] Work Phone: Globulin (S) [Mass/Vol] 3.9 g/dL 2.2-4.2 [facility] Work Phone: [phone] Urea nitrogen/Creatinine [Mass ratio] 14.0 mg/mg 10-20 [facility] Work Phone: [phone] Laboratory - Hematology and Cell countson 01-22-2022 Erythrocyte distribution width (RBC) [Entitic vol] 47.8 fL 35.1-43.9 [facility] Work Phone: [phone] Erythrocyte distribution width (RBC) [Ratio] 12.6 % 11.6-14.6 [facility] Work Phone: [phone] Immature granulocytes/100 WBC (Bld) 0.100 % 0.0-0.9 [facility] Work Phone: [phone] Comment on above: IG% - Immature Granu locytes (promyelocytes, myelocytes and metamyelocytes) > 1% indicates that a LEFT SHIFT is Present. MCH (RBC) [Entitic mass] 33.5 pg 27.0-32.0 [facility] Work Phone: [phone] Nucleated RBC/100 WBC (Bld) [Ratio] 0 % 0-5 [facility] Work Phone: [phone] MCHC Auto (RBC) [Mass/Vol]on 01-22-2022 MCHC (RBC) [Mass/Vol] 32.5 g/dL 32-36 [facility] Work Phone: [phone] No Panel Informationon 01-22 Estimated GFR (MDRD) Amer 109 mL/min >60 [facility] Work Phone: Comment on above: GFR Calc Estimated GFR (MDRD) Non-Af Amer 90 mL/min >60 [facility] Work Phone: Comment on above: Non- GFR Calc Platelets bldon 01-22-2022 Platelets (Bld) [#/Vol] 218 10*3/uL 150-450 [facility] Work Phone: Serum or plasma albumin ana cristina urement (mass/volume)on 01-22-2022 Albumin [Mass/Vol] 4.0 g/dL 3.2-5.0 [facility] Work Phone: Serum or plasma albumin/glob ulin mass ratioon 01-22-2022 Albumin/Globulin [Mass ratio] 1.0 {ratio} 0.9-2.4 [facility] Work Phone: Serum or plasma calcium ana cristina urement (mass/volume)on 01-22-2022 Calcium [Mass/Vol] 9.1 mg/dL 8.5-10.1 [facility] Work Phone: Serum or plasma creatinine m easurement (mass/volume)on 01-22-2022 Creatinine [Mass/Vol] 0.71 mg/dL 0.55-1.02 [facility] Work Phone: Comment on above: The validity of the calculated GFR & GFRAA in patients over 70 years has not been determined. Clinical correlation is essential. Serum or plasma urea nitroge n measurement (mass/volume)on 01-22-2022 Urea nitrogen [Mass/Vol] 10 mg/dL 7-18 [facility] Work Phone: Thin prep Papanicolaou smear with manual screeningon 01-22-2022 Thin prep Papanicolaou smear with manual screening 18 U/L 15-37 [facility] Work Phone: Thin prep Papanicolaou smear with manual screening 6 5-15 [facility] Work Phone: Absolute lymphocyte counton 08-01-2021 Lymphocytes Auto (Unsp spec) [#/Vol] 3.41 10*3/uL 0.83-4.51 [facility] Work Phone: [phone] Basophil percentageon 2021 Basophils/100 WBC (Bld) 1.2 % 0-1 [facility] Work Phone: [phone] Bilirubin [Mass/Vol] 0.40 mg/dL 0.20-1.00 [facility] Work Phone: [phone] Comment on above: For patients on eltr ombopag therapy, use of Dimension [place] TBIL is not recommended. Chloride [Moles/Vol] 105 mmol/L 98-107 [facility] Work Phone: [phone] Cholesterol [Mass/Vol] 197 mg/dL <200 [facility] Work Phone: [phone] Comment on above: <200 mg/dL Desirable 200-240 mg/dL Borderline >240 mg/dL High Risk Eosinophils/100 WBC (Bld) 2.3 % 0-5 [facility] Work Phone: Glucose [Mass/Vol] 84 mg/dL 74-106 [facility] Work Phone: Neutrophils (Bld) [#/Vol] 2.5 10*3/uL 2.0-7.7 [facility] Work Phone: Neutrophils/100 WBC (Bld) 38.0 % 47-70 [facility] Work Phone: [phone] Potassium [Moles/Vol] 3.8 mmol/L 3.5-5.1 [facility] Work Phone: Protein [Mass/Vol] 7.5 g/dL 6.4-8.2 [facility] Work Phone: Sodium [Moles/Vol] 140 mmol/L 136-145 [facility] Work Phone: Triglyceride [Mass/Vol] 87 mg/dL [facility] Work Phone: [phone] Comment on above: The drugs N-Acetylcy steine and Metamizole may falsely depress this assay.Serum Triglycerides Reference Interval Normal <150 mg/dL Borderline high 150 - 199 mg/dL High 200 - 499 mg/dL Very High > or = 500 mg/dL WBC (Bld) [#/Vol] 6.6 10*3/uL 4.4-11.0 [facility] Work Phone: [phone] Blood erythrocytes count (nu mber/volume)on 08-01-2021 RBC (Bld) [#/Vol] 4.32 10*6/uL 4.2-5.4 [facility] Work Phone: [phone] Blood hemoglobin measurement (mass/volume)on 08-01-2021 Hemoglobin (Bld) [Mass/Vol] 14.9 g/dL 12.0-15.0 [facility] Work Phone: Blood lymphocytes/100 leukoc yteson 08-01-2021 Lymphocytes/100 WBC (Bld) 51.4 % 19-41 [facility] Work Phone: Blood monocytes/100 leukocyt eson 08-01-2021 Monocytes/100 WBC (Bld) 6.9 % 0-10 [facility] Work Phone: Blood platelet mean volumeon 08-01-2021 Platelet mean volume (Bld) [Entitic vol] 10.8 fL 6.2-12.0 [facility] Work Phone: Determination of erythrocyte mean corpuscular volume (MCV)on 08-01-2021 MCV (RBC) [Entitic vol] 102.8 fL 81-99 [facility] Work Phone: [phone] Hematocrit Auto (Bld) [Volum e fraction]on 08-01-2021 Hematocrit (Bld) [Volume fraction] 44.4 % 37-47 [facility] Work Phone: [phone] Laboratory - Chemistry and C hemistry - challengeon 08-01-2021 ALP [Catalytic activity/Vol] 35 U/L 45-117 [facility] Work Phone: [phone] ALT [Catalytic activity/Vol] 22 U/L 13-56 [facility] Work Phone: CO2 [Moles/Vol] 27.0 mmol/L 21.0-32.0 [facility] Work Phone: Globulin (S) [Mass/Vol] 3.4 g/dL 2.2-4.2 [facility] Work Phone: Urea nitrogen/Creatinine [Mass ratio] 15.7 mg/mg 10-20 [facility] Work Phone: Laboratory - Hematology and Cell countson 08-01-2021 Erythrocyte distribution width (RBC) [Entitic vol] 48.1 fL 35.1-43.9 [facility] Work Phone: Erythrocyte distribution width (RBC) [Ratio] 12.6 % 11.6-14.6 [facility] Work Phone: Immature granulocytes/100 WBC (Bld) 0.200 % 0.0-0.9 [facility] Work Phone: Comment on above: IG% - Immature Granu locytes (promyelocytes, myelocytes and metamyelocytes) > 1% indicates that a LEFT SHIFT is Present. MCH (RBC) [Entitic mass] 34.5 pg 27.0-32.0 [facility] Work Phone: Nucleated RBC/100 WBC (Bld) [Ratio] 0 % 0-5 [facility] Work Phone: MCHC Auto (RBC) [Mass/Vol]on 08-01-2021 MCHC (RBC) [Mass/Vol] 33.6 g/dL 32-36 [facility] Work Phone: No Panel Informationon 08-01 Estimated GFR (MDRD) Amer 111 mL/min >60 [facility] Work Phone: Comment on above: GFR Calc Estimated GFR (MDRD) Non-Af Amer 92 mL/min >60 [facility] Work Phone: Comment on above: Non- GFR Calc Platelets bldon 08-01-2021 Platelets (Bld) [#/Vol] 248 10*3/uL 150-450 [facility] Work Phone: Serum or plasma albumin ana cristina urement (mass/volume)on 08-01-2021 Albumin [Mass/Vol] 4.1 g/dL 3.2-5.0 [facility] Work Phone: Serum or plasma albumin/glob ulin mass ratioon 08-01-2021 Albumin/Globulin [Mass ratio] 1.2 {ratio} 0.9-2.4 [facility] Work Phone: Serum or plasma calcium ana cristina urement (mass/volume)on 08-01-2021 Calcium [Mass/Vol] 9.3 mg/dL 8.5-10.1 [facility] Work Phone: Serum or plasma cholesterol in HDL measurement (mass/volume)on 08-01-2021 Cholesterol in HDL [Mass/Vol] 61 mg/dL [facility] Work Phone: Comment on above: The drugs N-Acetylcy steine and Metamizole may falsely depress this assay. Reference Range HDL <40 mg/dL Low HDL Cholesterol HDL >or= 60 mg/dL High HDL Cholesterol Serum or plasma cholesterol in VLDL measurement (mass/volume)on 08-01-2021 Cholesterol in VLDL [Mass/Vol] 17 mg/dL 5-40 [facility] Work Phone: Serum or plasma creatinine m easurement (mass/volume)on 08-01-2021 Creatinine [Mass/Vol] 0.70 mg/dL 0.55-1.02 [facility] Work Phone: Comment on above: The validity of the calculated GFR & GFRAA in patients over 70 years has not been determined. Clinical correlation is essential. Serum or plasma low density lipoprotein (LDL) cholesterol measurement (mass/volume)on 08-01-2021 Cholesterol in LDL [Mass/Vol] 119 mg/dL 0-130 [facility] Work Phone: Serum or plasma urea nitroge n measurement (mass/volume)on 08-01-2021 Urea nitrogen [Mass/Vol] 11 mg/dL 7-18 [facility] Work Phone: Thin prep Papanicolaou smear with manual screeningon 08-01-2021 Thin prep Papanicolaou smear with manual screening 18 U/L 15-37 [facility] Work Phone: Thin prep Papanicolaou smear with manual screening 8 5-15 [facility] Work Phone: Vital Signs Date Time Vital Sign Value Performing Clinician Facility 11-20-2024 08:56-0400 Body height 165.[address] Daniela Coulter MD Work Phone: [facility] 11-20-2024 08:56-0400 Body mass index (BMI) [Ratio] 27.6 kg/m2 Dr. Daniela Coulter MD Work Phone: [facility] 11-20-2024 08:56-0400 Body temperature 97.3 [degF] Dr. Daniela Coulter MD Work Phone: [facility] 11-20-2024 08:56-0400 Body weight 75.[address] Daniela Coulter MD Work Phone: [facility] 11-20-2024 08:56-0400 Diastolic blood pressure 84 mm[Hg] Dr. Daniela Coulter MD Work Phone: [facility] 11-20-2024 08:56-0400 Heart rate 72 /min Dr. Daniela Coulter MD Work Phone: [facility] 11-20-2024 08:56-0400 Respiratory rate 18 /min Dr. Danieal Coulter MD Work Phone: [facility] 11-20-2024 08:56-0400 SaO2% (BldA) [Mass fraction] 97 % Dr. Daniela Coulter MD Work Phone: [facility] 11-20-2024 08:56-0400 Systolic blood pressure 128 mm[Hg] Dr. Daniela Coulter MD Work Phone: [facility] 10-30-2024 09:55-0400 Body height 165.[address] Daniela Coulter MD Work Phone: [phone] [place] [address] 10-30-2024 09:55-0400 Body temperature 98.4 [degF] Dr. Daniela Coulter MD Work Phone: [facility] 10-30-2024 09:55-0400 Diastolic blood pressure 68 mm[Hg] Dr. Daniela Coulter MD Work Phone: [phone])[phone] [place] [address] 10-30-2024 09:55-0400 Heart rate 77 /min Dr. Daniela Coulter MD Work Phone: 3([phone])398-618144 [address] 10-30-2024 09:55-0400 Respiratory rate 18 /min Dr. Daniela Coulter MD Work Phone: [phone])[phone] [place] [address] 10-30-2024 09:55-0400 SaO2% (BldA) [Mass fraction] 97 % Dr. Daniela Coulter MD Work Phone: 5([phone] [place] [address] 10-30-2024 09:55-0400 Systolic blood pressure 114 mm[Hg] Dr. Daniela Coulter MD Work Phone: 7([phone])794-616944 [address] 10-23-2024 10:59-0400 Body height 165.[address] Daniela Coulter MD Work Phone: 4([phone] [address] 10-23-2024 10:59-0400 Body temperature 97.9 [degF] Dr. Daniela Coulter MD Work Phone: [phone])[phone] [address] 10-23-2024 10:59-0400 Diastolic blood pressure 76 mm[Hg] Dr. Daniela Coulter MD Work Phone: [facility] 10-23-2024 10:59-0400 Heart rate 72 /min Dr. Daniela Coulter MD Work Phone: [phone] [place] [address] 10-23-2024 10:59-0400 Respiratory rate 18 /min Dr. Daniela Coulter MD Work Phone: [facility] 10-23-2024 10:59-0400 SaO2% (BldA) [Mass fraction] 99 % Dr. Daniela Coulter MD Work Phone: [facility] 10-23-2024 10:59-0400 Systolic blood pressure 124 mm[Hg] Dr. Daniela Coulter MD Work Phone: 6([phone] [place] [address] 10-07-2024 11:19-0400 Body height 165.[address] Daniela Coulter MD Work Phone: [phone] [place] [address] 10-07-2024 11:19-0400 Body mass index (BMI) [Ratio] 28.3 kg/m2 Dr. Daniela Coulter MD Work Phone: [phone])[phone] [place] [address] 10-07-2024 11:19-0400 Body temperature 97.8 [degF] Dr. Daniela Coulter MD Work Phone: 3([phone] [place] [address] 10-07-2024 11:19-0400 Body weight 77.[address] Daniela Coulter MD Work Phone: 8([phone])068-263504 [place] [address] 10-07-2024 11:19-0400 Diastolic blood pressure 73 mm[Hg] Dr. Daniela Coulter MD Work Phone: [phone](484)[phone] [place] [address] 10-07-2024 11:19-0400 Heart rate 98 /min Dr. Daniela Coulter MD Work Phone: 0(452)[phone] [place] [address] 10-07-2024 11:19-0400 Respiratory rate 18 /min Dr. Daniela Coulter MD Work Phone: 5([phone] [place] [address] 10-07-2024 11:19-0400 SaO2% (BldA) [Mass fraction] 95 % Dr. Daniela Coulter MD Work Phone: [phone])340-915161 [place] [address] 10-07-2024 11:19-0400 Systolic blood pressure 125 mm[Hg] Dr. Daniela Coulter MD Work Phone: 0(730)[phone] [place] [address] 09-30-2024 13:36-0400 Body height 165.[address] Daniela Coulter MD Work Phone: 4(515)[phone] [place] [address] 09-30-2024 13:36-0400 Body mass index (BMI) [Ratio] 27.9 kg/m2 Dr. Daniela Coulter MD Work Phone: [phone])[phone] [place] [address] 09-30-2024 13:36-0400 Body temperature 98.7 [degF] Dr. Daniela Coulter MD Work Phone: 4(763)808-620561 [place] [address] 09-30-2024 13:36-0400 Body weight 76.[address] Daniela Coulter MD Work Phone: 7(515)802-453504 [place] [address] 09-30-2024 13:36-0400 Diastolic blood pressure 72 mm[Hg] Dr. Daniela Coulter MD Work Phone: 2(466)282-240004 [place] [address] 09-30-2024 13:36-0400 Heart rate 73 /min Dr. Daniela Coulter MD Work Phone: 3(573)299-400604 [place] [address] 09-30-2024 13:36-0400 Respiratory rate 18 /min Dr. Daniela Coulter MD Work Phone: 4(004)037-376204 [place] [address] 09-30-2024 13:36-0400 SaO2% (BldA) [Mass fraction] 92 % Dr. Daniela Coulter MD Work Phone: 5(524)461-519904 [place] [address] 09-30-2024 13:36-0400 Systolic blood pressure 121 mm[Hg] Dr. Daniela Coulter MD Work Phone: 1(904)191-705404 [place] [address] 09-22-2024 11:13-0400 Body height 165.[address] Daniela Coulter MD Work Phone: 5(400)066-190004 [place] [address] 09-22-2024 11:13-0400 Body mass index (BMI) [Ratio] 28.1 kg/m2 Dr. Daniela Coulter MD Work Phone: 9(533)819-703504 [place] [address] 09-22-2024 11:13-0400 Body temperature 98.7 [degF] Dr. Daniela Coulter MD Work Phone: 2(616)347-500004 [place] [address] 09-22-2024 11:13-0400 Body weight 76.[address] Daniela Coulter MD Work Phone: 7(939)971-642304 [place] [address] 09-22-2024 11:13-0400 Diastolic blood pressure 64 mm[Hg] Dr. Daniela Coulter MD Work Phone: 9(367)838-388804 [place] [address] 09-22-2024 11:13-0400 Heart rate 84 /min Dr. Daniela Couletr MD Work Phone: 5(111)399-280704 [place] [address] 09-22-2024 11:13-0400 Respiratory rate 18 /min Dr. Daniela Coulter MD Work Phone: 6(441)019-738604 [place] [address] 09-22-2024 11:13-0400 SaO2% (BldA) [Mass fraction] 96 % Dr. Daniela Coulter MD Work Phone: 0(900)528-520304 [place] [address] 09-22-2024 11:13-0400 Systolic blood pressure 103 mm[Hg] Dr. Daniela Coulter MD Work Phone: 6(376)859-476204 [place] [address] 09-21-2024 13:28-0400 Diastolic blood pressure 90 mm[Hg] Dr. Daniela Coulter MD Work Phone: 1(293)178-514904 [place] [address] 09-21-2024 13:28-0400 Heart rate 87 /min Dr. Daniela Coulter MD Work Phone: 4(355)868-765804 [place] [address] 09-21-2024 13:28-0400 Respiratory rate 16 /min Dr. Daniela Coulter MD Work Phone: 3(161)813-388704 [place] [address] 09-21-2024 13:28-0400 SaO2% (BldA) [Mass fraction] 99 % Dr. Daniela Coulter MD Work Phone: 4(424)111-844004 [place] [address] 09-21-2024 13:28-0400 Systolic blood pressure 141 mm[Hg] Dr. Daniela Coulter MD Work Phone: 4(983)259-191404 [place] [address] 09-21-2024 12:14-0400 Body height 165.[address] Daniela Coulter MD Work Phone: 2(782)335-147104 [place] [address] 09-21-2024 12:14-0400 Body mass index (BMI) [Ratio] 28 kg/m2 Dr. Daniela Coulter MD Work Phone: 6(200)769-382604 [place] [address] 09-21-2024 12:14-0400 Body temperature 97.6 [degF] Dr. Daniela Coulter MD Work Phone: 7(725)264-133604 [place] [address] 09-21-2024 12:14-0400 Body weight 76.[address] Daniela Coulter MD Work Phone: 1(730)784-525361 [place] [address] 09-16-2024 11:20-0400 Body height 165.[address] Daniela Coulter MD Work Phone: 0(970)070-891604 [place] [address] 09-16-2024 11:20-0400 Body mass index (BMI) [Ratio] 28.1 kg/m2 Dr. Daniela Coulter MD Work Phone: 1(150)959-010704 [place] [address] 09-16-2024 11:20-0400 Body temperature 98 [degF] Dr. Daniela Coulter MD Work Phone: 0(601)420-825804 [place] [address] 09-16-2024 11:20-0400 Body weight 76.[address] Daniela Coulter MD Work Phone: 9(486)492-384904 [place] [address] 09-16-2024 11:20-0400 Diastolic blood pressure 76 mm[Hg] Dr. Daniela Coulter MD Work Phone: 4(093)119-076304 [place] [address] 09-16-2024 11:20-0400 Heart rate 71 /min Dr. Daniela Coulter MD Work Phone: 4(467)481-999004 [place] [address] 09-16-2024 11:20-0400 Respiratory rate 18 /min Dr. Daniela Coulter MD Work Phone: 5(092)794-674004 [place] [address] 09-16-2024 11:20-0400 SaO2% (BldA) [Mass fraction] 96 % Dr. Daniela Coulter MD Work Phone: 6(914)037-908304 [place] [address] 09-16-2024 11:20-0400 Systolic blood pressure 113 mm[Hg] Dr. Daniela Coulter MD Work Phone: 0(613)929-202204 [place] [address] 09-08-2024 10:10-0400 Body mass index (BMI) [Ratio] 28.1 kg/m2 Dr. Daniela Coulter MD Work Phone: 1(550)048-582804 [place] [address] 09-08-2024 10:10-0400 Body temperature 97.5 [degF] Dr. Daniela Coulter MD Work Phone: 6(083)059-691504 [place] [address] 09-08-2024 10:10-0400 Body weight 76.[address] Daniela Coulter MD Work Phone: [facility] 09-08-2024 10:10-0400 Diastolic blood pressure 74 mm[Hg] Dr. Daniela Coulter MD Work Phone: 2(544)666-178104 [place] [address] 09-08-2024 10:10-0400 Heart rate 85 /min Dr. Daniela Coulter MD Work Phone: 6(037)937-814804 [place] [address] 09-08-2024 10:10-0400 Respiratory rate 18 /min Dr. Daniela Coulter MD Work Phone: 2(314)255-688304 [place] [address] 09-08-2024 10:10-0400 SaO2% (BldA) [Mass fraction] 96 % Dr. Daniela Coulter MD Work Phone: 8(436)818-518604 [place] [address] 09-08-2024 10:10-0400 Systolic blood pressure 125 mm[Hg] Dr. Daniela Coulter MD Work Phone: 6(965)106-307004 [place] [address] 09-03-2024 12:35-0400 Body temperature 97 [degF] Dr. Daniela Coulter MD Work Phone: 8(845)591-713704 [place] [address] 09-03-2024 12:35-0400 Diastolic blood pressure 62 mm[Hg] Dr. Daniela Coulter MD Work Phone: 2(857)089-659804 [place] [address] 09-03-2024 12:35-0400 Heart rate 53 /min Dr. Daniela Coulter MD Work Phone: 1(525)861-195804 [place] [address] 09-03-2024 12:35-0400 Respiratory rate 16 /min Dr. Daniela Coulter MD Work Phone: 6(516)218-013604 [place] [address] 09-03-2024 12:35-0400 SaO2% (BldA) [Mass fraction] 99 % Dr. Daniela Coulter MD Work Phone: 1(020)437-807004 [place] [address] 09-03-2024 12:35-0400 Systolic blood pressure 97 mm[Hg] Dr. Daniela Coulter MD Work Phone: 8(833)602-462804 [place] [address] 09-03-2024 09:05-0400 Body mass index (BMI) [Ratio] 27.5 kg/m2 Dr. Daniela Coulter MD Work Phone: [facility] 09-03-2024 09:05-0400 Body weight [address] Daniela Coulter MD Work Phone: 4(337)508-611404 [place] [address] 08-25-2024 10:20-0400 Body height 165.[address] Daniela Coulter MD Work Phone: 4(910)619-590704 [place] [address] 08-25-2024 10:20-0400 Body mass index (BMI) [Ratio] 27.8 kg/m2 Dr. Daniela Coulter MD Work Phone: 5(874)171-121344 [address] 08-25-2024 10:20-0400 Body temperature 98.3 [degF] Dr. Daniela Coulter MD Work Phone: 7(136)035-098104 [place] [address] 08-25-2024 10:20-0400 Body weight 75.[address] Daniela Coulter MD Work Phone: 4(580)267-085904 [place] [address] 08-25-2024 10:20-0400 Diastolic blood pressure 73 mm[Hg] Dr. Daniela Coulter MD Work Phone: 9(776)173-155604 [place] [address] 08-25-2024 10:20-0400 Heart rate 66 /min Dr. Daniela Coulter MD Work Phone: 5(051)168-408404 [place] [address] 08-25-2024 10:20-0400 Respiratory rate 18 /min Dr. Daniela Coulter MD Work Phone: 0(565)929-356904 [place] [address] 08-25-2024 10:20-0400 SaO2% (BldA) [Mass fraction] 98 % Dr. Daniela Coulter MD Work Phone: 8(888)204-623561 [place] [address] 08-25-2024 10:20-0400 Systolic blood pressure 114 mm[Hg] Dr. Daniela Coulter MD Work Phone: 0(622)310-170104 [place] [address] 08-24-2024 09:53-0400 Body temperature 98.5 [degF] Dr. Daniela Coulter MD Work Phone: 0(168)112-991104 [place] [address] 08-24-2024 09:53-0400 Diastolic blood pressure 88 mm[Hg] Dr. Daniela Coulter MD Work Phone: 9(127)897-386604 [place] [address] 08-24-2024 09:53-0400 Heart rate 66 /min Dr. Daniela Coulter MD Work Phone: [facility] 08-24-2024 09:53-0400 Respiratory rate 18 /min Dr. Daniela Coulter MD Work Phone: 0(243)840-469761 [place] [address] 08-24-2024 09:53-0400 Systolic blood pressure 116 mm[Hg] Dr. Daniela Coulter MD Work Phone: 5(161)354-003204 [place] [address] 08-11-2024 10:54-0400 Body mass index (BMI) [Ratio] 28.3 kg/m2 Dr. Daniela Coulter MD Work Phone: 6(291)989-181604 [place] [address] 08-11-2024 10:54-0400 Body temperature 97.3 [degF] Dr. Daniela Coulter MD Work Phone: 8(798)706-909004 [place] [address] 08-11-2024 10:54-0400 Body weight 77.[address] Daniela Coulter MD Work Phone: 9(850)262-977761 [place] [address] 08-11-2024 10:54-0400 Diastolic blood pressure 60 mm[Hg] Dr. Daniela Coulter MD Work Phone: 1(079)725-694304 [place] [address] 08-11-2024 10:54-0400 Heart rate 75 /min Dr. Daniela Coulter MD Work Phone: 3(866)798-958104 [place] [address] 08-11-2024 10:54-0400 Respiratory rate 18 /min Dr. Daniela Coulter MD Work Phone: 8(423)293-028861 [place] [address] 08-11-2024 10:54-0400 SaO2% (BldA) [Mass fraction] 96 % Dr. Daniela Coulter MD Work Phone: 6(768)217-082361 [place] [address] 08-11-2024 10:54-0400 Systolic blood pressure 104 mm[Hg] Dr. Daniela Coulter MD Work Phone: 2(643)209-512961 [place] [address] 07-31-2024 09:40-0400 Body temperature 98.1 [degF] Dr. Daniela Coulter MD Work Phone: 9(236)273-092204 [place] [address] 07-31-2024 09:40-0400 Diastolic blood pressure 62 mm[Hg] Dr. Daniela Coulter MD Work Phone: 9(326)989-111261 [place] [address] 07-31-2024 09:40-0400 Heart rate 68 /min Dr. Daniela Coulter MD Work Phone: 3(490)864-738904 [place] [address] 07-31-2024 09:40-0400 Respiratory rate 16 /min Dr. Daniela Coulter MD Work Phone: 6(763)666-798004 [place] [address] 07-31-2024 09:40-0400 SaO2% (BldA) [Mass fraction] 96 % Dr. Daniela Coulter MD Work Phone: 0(878)958-737304 [place] [address] 07-31-2024 09:40-0400 Systolic blood pressure 122 mm[Hg] Dr. Daniela Coulter MD Work Phone: 0(918)277-748804 [place] [address] 07-31-2024 08:39-0400 Body height 165.[address] Daniela Coulter MD Work Phone: 5(946)014-580004 [place] [address] 07-31-2024 08:39-0400 Body mass index (BMI) [Ratio] 27.6 kg/m2 Dr. Daniela Coulter MD Work Phone: 3(946)503-800204 [place] [address] 07-31-2024 08:39-0400 Body weight 75.[address] Daniela Coulter MD Work Phone: 8(886)877-010304 [place] [address] 07-15-2024 09:36-0400 Body height 165.[address] Daniela Coulter MD Work Phone: 1(228)476-155904 [place] [address] 07-15-2024 09:36-0400 Body mass index (BMI) [Ratio] 28.5 kg/m2 Dr. Daniela Coulter MD Work Phone: 5(416)751-461204 [place] [address] 07-15-2024 09:36-0400 Body temperature 99.2 [degF] Dr. Danilea Coulter MD Work Phone: 7(840)002-692704 [place] [address] 07-15-2024 09:36-0400 Body weight 77.[address] Daniela Coulter MD Work Phone: 8(174)846-101104 [place] [address] 07-15-2024 09:36-0400 Diastolic blood pressure 59 mm[Hg] Dr. Daniela Coulter MD Work Phone: [facility] 07-15-2024 09:36-0400 Heart rate 60 /min Dr. Daniela Coulter MD Work Phone: [facility] 07-15-2024 09:36-0400 Respiratory rate 18 /min Dr. Daniela Coulter MD Work Phone: [facility] 07-15-2024 09:36-0400 SaO2% (BldA) [Mass fraction] 98 % Dr. Daniela Coulter MD Work Phone: [facility] 07-15-2024 09:36-0400 Systolic blood pressure 112 mm[Hg] Dr. Daniela Coulter MD Work Phone: [facility] 09-13-2023 10:50-0400 Body mass index (BMI) [Ratio] 27.04 kg/m2 Madina Morales APRN.DIGITAL COMMUNICATIONS MANAGER Work Phone: [facility] 09-13-2023 10:50-0400 Body weight 72.58 kg Madina Morales APRN.DIGITAL COMMUNICATIONS MANAGER Work Phone: [facility] 09-13-2023 10:50-0400 Diastolic blood pressure 76 mm[Hg] Madina Morales APRN.DIGITAL COMMUNICATIONS MANAGER Work Phone: [facility] 09-13-2023 10:50-0400 Systolic blood pressure 136 mm[Hg] Madina Morales APRN.DIGITAL COMMUNICATIONS MANAGER Work Phone: [facility] 04-19-2023 10:51-0500 Body height 162.[address] Daniela Coulter Work Phone: [facility] 04-19-2023 10:51-0500 Body mass index (BMI) [Ratio] 27.4 kg/m2 Dr. Daniela Coulter Work Phone: [facility] 04-19-2023 10:51-0500 Body temperature 98.9 [degF] Dr. Daniela Coulter Work Phone: [facility] 04-19-2023 10:51-0500 Body weight 72.[address] Daniela Coulter Work Phone: [facility] 04-19-2023 10:51-0500 Diastolic blood pressure 76 mm[Hg] Dr. Daniela Coulter Work Phone: [facility] 04-19-2023 10:51-0500 Heart rate 88 /min Dr. Daniela Coulter Work Phone: [facility] 04-19-2023 10:51-0500 Respiratory rate 16 /min Dr. Daniela Coulter Work Phone: [facility] 04-19-2023 10:51-0500 SaO2% (BldA) [Mass fraction] 97 % Dr. Daniela Coulter Work Phone: [facility] 04-19-2023 10:51-0500 Systolic blood pressure 150 mm[Hg] Dr. Daniela Coulter Work Phone: [facility] 10-30-2022 14:36-0400 Body height 163.8 cm Candie Gandara APRN.DIGITAL COMMUNICATIONS MANAGER Work Phone: [facility] 10-30-2022 14:36-0400 Body temperature 98.29 [degF] Candie Gandara APRN.DIGITAL COMMUNICATIONS MANAGER Work Phone: [facility] 10-30-2022 14:36-0400 Body weight 73.94 kg Candie Gandara APRN.DIGITAL COMMUNICATIONS MANAGER Work Phone: [facility] 10-30-2022 14:36-0400 Diastolic blood pressure 72 mm[Hg] Candie Gandara APRN.DIGITAL COMMUNICATIONS MANAGER Work Phone: [facility] 10-30-2022 14:36-0400 Heart rate 58 /min Candie Gandara APRN.DIGITAL COMMUNICATIONS MANAGER Work Phone: [facility] 10-30-2022 14:36-0400 Respiratory rate 16 /min Candie Gandara APRN.DIGITAL COMMUNICATIONS MANAGER Work Phone: [facility] 10-30-2022 14:36-0400 Systolic blood pressure 124 mm[Hg] Candie Gandara APRN.DIGITAL COMMUNICATIONS MANAGER Work Phone: [facility] Encounters Encounter Date Encounter Type Care Provider Facility Start: 11-20-2024 End: 11-20-[address] Javad Green MD -[facility] Work Phone: Start: 11-20-2024 End: 11-20-[address] Daniela Coulter MD Work Phone: -[facility] Start: 10-30-2024 End: 10-30-[address] Javad Green MD -[facility] Work Phone: Start: 10-30-2024 End: 10-30-[address] Daniela Coulter MD Work Phone: [facility] Work Phone: Start: 10-23-2024 End: 10-23-[address] Javad Green MD -[facility] Work Phone: Start: 10-23-2024 End: 10-23-[address] Daniela Coulter MD Work Phone: [facility] Work Phone: Start: 10-07-2024 End: 10-07-[address] Ethel Sparks MD -[facility] Work Phone: Start: 10-07-2024 End: 10-07-[address] Daniela Coulter MD Work Phone: [facility] Work Phone: Start: 09-30-2024 End: 09-30-[address] Ethel Sparks MD -[facility] Work Phone: Start: 09-30-2024 End: 09-30-[address] Daniela Coulter MD Work Phone: [facility] Work Phone: Start: 09-22-2024 End: 09-22-[address] Ethel Sparks MD -[facility] Work Phone: Start: 09-22-2024 End: 09-22-[address] Daniela Coulter MD Work Phone: [facility] Work Phone: Start: 09-21-2024 ambulatory [facility] Facility:[facility] Start: 09-21-2024 Non-patient / Non-visit Dr. Daniela terry MD -[facility] Start: 09-21-2024 End: 09-21-2024 Emergency department patient visit Dr. Daniela Coulter MD Work Phone: -Emergency Department Work Phone: Start: 09-16-2024 End: 09-16-[address] Ethel Sparks MD -[facility] Work Phone: Start: 09-16-2024 End: 09-16-[address] Daniela Coutler MD Work Phone: [facility] Work Phone: Start: 09-08-2024 End: 09-08-[address] Ethel Sparks MD -[facility] Work Phone: Start: 09-08-2024 End: 09-08-2024 ambulatory Chalon Jamee Facility:[facility] Start: 09-03-2024 Non-patient / Non-visit Dr. Ethel myers MD -[facility] Start: 09-03-2024 End: 09-03-2024 Admission to same day surgery center Dr. Ethel Sparks MD -[facility] Start: 09-03-2024 End: 09-03-2024 ambulatory Chalon Jamee Facility:[facility] Start: 08-25-2024 End: 08-25-[address] Daniela Coulter MD Work Phone: [facility] Work Phone: Start: 08-25-2024 End: 08-25-[address] Ethel Sparks MD -Laboratory Work Phone: Start: 08-25-2024 End: 08-25-[address] Ethel Sparks MD -[facility] Work Phone: Start: 08-25-2024 End: 08-25-2024 ambulatory Daniela Coulter Facility:[facility] Start: 08-24-2024 End: 08-24-[address] Ethel Sparks MD -[facility] Work Phone: Start: 08-24-2024 End: 08-25-2024 ambulatory Daniela Coulter Facility:[facility] Start: 2024 End: 2024 ambulatory Daniela Coulter Facility:[facility] Start: 2024 End: [address] Ethel Sparks MD -[facility] Work Phone: Start: 08-11-2024 End: 08-11-2024 ambulatory Daniela Coulter Facility:[facility] Start: 08-11-2024 End: 08-11-[address] Ethel Sparks MD -[facility] Work Phone: Start: 07-31-2024 Non-patient / Non-visit Dr. Ethel myers MD -[facility] Start: 07-31-2024 End: 07-31-2024 Admission to same day surgery center Dr. Ethel Sparks MD -[facility] Start: 07-31-2024 End: 07-31-[address] Daniela Coulter MD Work Phone: [facility] Work Phone: Start: 07-21-2024 End: 07-21-[address] Daniela Coulter MD Work Phone: [facility] Work Phone: Start: 07-21-2024 End: 07-21-[address] Daniela Coulter MD -Cardiovascular Services Work Phone: Start: 07-21-2024 End: 07-21-2024 ambulatory Daniela Coulter Facility:[facility] Start: 07-15-2024 End: 07-15-[address] Ethel Sparks MD -[facility] Work Phone: Start: 07-15-2024 End: 07-15-2024 ambulatory Daniela Coulter Facility:[facility] Start: 10-03-2023 Telephone encounter Madina campos APRN.DIGITAL COMMUNICATIONS MANAGER Work Phone: OB/Gynecology Comment on above: Vaginal Infection Start: 09-16-2023 Telephone encounter Waldojelani Rodriguezjose l londono APRN.DIGITAL COMMUNICATIONS MANAGER Work Phone: OB/Gynecology Comment on above: Results Start: 09-13-2023 End: 09-13-2023 ambulatory DANIELA COULTER Facility:[facility] Start: 09-13-2023 End: 09-13-2023 Patient encounter procedure Madina Morales APRN.DIGITAL COMMUNICATIONS MANAGER Work Phone: OB/Gynecology Comment on above: Vaginal discharge (P rimary Dx); Dysuria; Leukocytes in urine; History of herpes genitalis Start: 07-11-2023 End: 07-11-[address] Daniela Coulter Work Phone: [facility] Work Phone: Start: 07-11-2023 End: 07-11-[address] Daniela Coulter Work Phone: [facility] Start: 04-19-2023 End: 04-19-[address] Daniela Coulter Work Phone: [facility] Work Phone: Start: 11-12-2022 Refill Madina RODRIGUES RN.DIGITAL COMMUNICATIONS MANAGER Work Phone: OB/Gynecology Comment on above: Refill Request Start: 10-31-2022 Telephone encounter Candie Gandara APRN.DIGITAL COMMUNICATIONS MANAGER Work Phone: [facility] Comment on above: Results Start: 10-30-2022 End: 10-30-2022 ambulatory DANIELA COULTER Facility:[facility] Start: 10-30-2022 End: 10-30-2022 Patient encounter procedure Candie Gandara APRN.DIGITAL COMMUNICATIONS MANAGER Work Phone: [facility] Comment on above: Urinary frequency (P rimary Dx); Vaginal discharge Start: 07-26-2022 End: 07-26-2022 ambulatory [facility] Work Phone: Start: 07-26-2022 End: 07-26-2022 Patient encounter procedure [facility] Start: 04-26-2022 Refill Hansa Diana JENNIFER.DIGITAL COMMUNICATIONS MANAGER Work Phone: OB/Gynecology Comment on above: Refill Request Start: 01-22-2022 End: 01-22-2022 ambulatory [facility] Work Phone: Start: 01-22-2022 End: 01-22-2022 Patient encounter procedure [facility] Start: 11-10-2021 Refill Madina RODRIGUES RN.DIGITAL COMMUNICATIONS MANAGER Work Phone: OB/Gynecology Comment on above: Refill Request; Refi ll Request Start: 08-01-2021 End: 08-01-2021 Patient encounter procedure [facility] Procedures Date Procedure Procedure Detail Performing Clinician Start: 07-31-[address] Daniela henley MD Work Phone: Start: 09-13-2023 Smr prim src gram/gi emsa stain bct fungi/cell Madina Morales APRN.DIGITAL COMMUNICATIONS MANAGER Work Phone: Start: 09-13-2023 Urnls dip stick/tabl et rgnt auto w/o microscopy Madina Morales APRN.DIGITAL COMMUNICATIONS MANAGER Work Phone: Start: 07-11-[address] Daniela Coulter Work Phone: Start: 10-30-2022 BACTERIAL VAGINOSIS NAAT Candie Gandara APRN.DIGITAL COMMUNICATIONS MANAGER Work Phone: Start: 10-30-2022 Iadna trichomonas vaginalis amplified probe tech Candie Gandara APRN.DIGITAL COMMUNICATIONS MANAGER Work Phone: Start: 10-30-2022 Urnls dip stick/tabl et rgnt auto w/o microscopy Sherry Perez APRN.DIGITAL COMMUNICATIONS MANAGER Work Phone: Start: 08-10-2020 Colonoscopy Madina campos APRN.DIGITAL COMMUNICATIONS MANAGER Work Phone: Start: 03-31-2019 Mammography Madina campos APRN.DIGITAL COMMUNICATIONS MANAGER Work Phone: Start: 02-03-2013 Colonoscopy Candie Gandara APRN.DIGITAL COMMUNICATIONS MANAGER Work Phone: Start: 07-10-2012 Lipid 1996 panel - S cristela or Plasma Madina Morales APRN.DIGITAL COMMUNICATIONS MANAGER Work Phone: Plan of Treatment Date Care Activity Detail Author Start: 08-10-2030 Colonoscopy COLONOSCOPY [facility] Start: 08-10-2030 COLORECTAL CANCER SCREENING COLORECTAL CANCER SCREENING [facility] Start: 10-14-2025 HPV TESTING HPV TESTING [facility] Start: 10-14-2025 PAP TESTING PAP TESTING [facility] Start: 10-14-2025 Screening for malignant neoplasm of cervix [facility] Start: 12-04-2024 ambulatory Ambulatory Facility:[facility] Start: 12-03-2024 ambulatory Ambulatory Facility:[facility] Start: 09-21-2024 [facility] Start: 09-03-2024 Anes integ extremities ant trunk & perineum nos ANESTH SKIN EXT/PER/ATRUNK [facility] Start: 09-03-2024 Excision malignant lesion trunk/arm/leg > 4.0 cm EXC TR-EXT MAL+ИРИНА >4 CM [facility] Start: 09-03-2024 Split agrft t/a/l 1st 100 cm/&/1% bdy inft/chld SPLT AGRFT T/A/L 1ST 100SQCM [facility] [facility] Start: 09-03-2024 Patient discharge [facility] Start: 07-31-2024 Excision mal lesion trunk/arm/leg 1.1-2.0 cm EXC TR-EXT MAL+ИРИНА 1.1-2 CM [facility] Start: 07-31-2024 Patient discharge [facility] Start: 01-05-2024 Influenza vaccination Influenza Vaccine (Season Ended) [facility] Start: 05-06-2023 Behavioral Health Screening Behavioral Health Screening [facility] Start: 02-03-2023 Colonoscopy COLONOSCOPY [facility] Start: 02-03-2023 COLORECTAL CANCER SCREENING COLORECTAL CANCER SCREENING [facility] Start: 02-03-2023 Screening for malignant neoplasm of colon [facility] Start: 01-04-2023 Covid-19 Vaccine ( season) Covid-19 Vaccine ( season) [facility] Start: 01-04-2023 Influenza vaccination [facility] Start: 05-06-2022 DEPRESSION ASSESSMENT DEPRESSION ASSESSMENT [facility] Start: 01-04-2022 Influenza vaccination INFLUENZA (#1) [facility] Start: 05-09-2021 DIABETES SCREEN DIABETES SCREEN [facility] Start: 05-09-2021 Diabetes Screening Diabetes Screening [facility] Start: 05-06-2021 DEPRESSION ASSESSMENT DEPRESSION ASSESSMENT [facility] Start: 03-31-2020 Mammography MAMMOGRAM [facility] Start: 03-31-2020 Screening for malignant neoplasm of breast Mammogram Screening [facility] Start: 07-10-2017 Lipid panel Lipid Screening [facility] Start: 07-10-2017 LIPID SCREEN LIPID SCREEN [facility] Start: 08-20-2015 SHINGRIX VACCINE (1 of 2) SHINGRIX VACCINE (1 of 2) [facility] Start: 2010 COLOGUARD (FIT-DNA) COLOGUARD (FIT-DNA) [facility] Start: [address] COLONOGRAPHY [facility] Start: 2010 FECAL OCCULT BLOOD FECAL OCCULT BLOOD [facility] Start: 2010 Screening for malignant neoplasm of colon [facility] Start: 2010 SIGMOIDOSCOPY SIGMOIDOSCOPY [facility] Start: 1984 Hepatitis B Vaccine (1 of 3 - 19+ 3-dose series) Hepatitis B Vaccine (1 of 3 - 19+ 3-dose series) [facility] Start: 1984 Urine microalbumin profile [facility] Start: 08-20-1983 HEPATITIS C SCREENING HEPATITIS C SCREENING [facility] Start: 08-20-1983 Hepatitis C screening Hepatitis C Screening [facility] Start: 08-20-1983 HIV SCREENING HIV SCREENING [facility] Start: 08-20-1983 HIV screening HIV Screening [facility] Start: 1977 Adult depression screening assessment DEPRESSION SCREENING [facility] Start: 02-18-1966 COVID-19 VACCINE (#1) COVID-19 VACCINE (#1) [facility] Start: 1965 HEPATITIS B (1 of 3 - 3-dose series) HEPATITIS B (1 of 3 - 3-dose series) [facility] Bacteria identified in Urine by Culture URINE CULTURE Microbiology Routine Urinary frequency 10/30/2022 4:03 PM EDT [facility] Work Phone: Bacteria identified in Urine by Culture URINE CULTURE Microbiology Routine Dysuria Leukocytes in urine 09/13/2023 12:11 PM EDT [facility] Work Phone: Chlamydia trachomatis+Neisseria gonorrhoeae DNA [Presence] in Unspecified specimen by LUCIEN with probe detection GONORRHEA/CHLAMYDIA NAAT Lab Routine Urinary frequency Vaginal discharge 10/30/2022 4:03 PM EDT [facility] Work Phone: Patient referral [facility] Work Phone: Payers Date Payer Category Payer Self-pay [id number] 2024 Unknown [id number] 2023 Unknown [employer] [id number] 2023-Present [phone] [address] [place] [address] Indemnity [id number] 2023 Unknown [id number] 2022 Medicaid [id number] 2020 Medicaid [employer] [id number] 2020-Present [phone] [address] [place] [address] Medicaid [id number] 2020 Medicaid [id number] Unknown [id number] Unknown [id number] [id number] Unknown [id number] [id number]2 Unknown [id number] 2.16.840.1.982425.3.579.2.462 Unknown [id number] 2.16.840.1.209906.3.579.2.462 Unknown [id number] 2.16.840.1.791174.3.579.2.462 Unknown [id number] 2.16.840.1.363246.3.579.2.462 Unknown [id number] 2.16.840.1.458651.3.579.2.462 Unknown [id number] 2.16.840.1.751520.3.579.2.462 Unknown [id number] 2.16.840.1.308788.3.579.2.462 Unknown [id number] 2.16.840.1.263104.3.579.2.462 Unknown [id number] 2.16.840.1.844468.3.579.2.462 Unknown [id number] 2.16.840.1.356961.3.579.2.462 Unknown [id number] 2.16.840.1.172209.3.579.2.462 Unknown [id number] 2.16.840.1.301584.3.579.2.462 Unknown [id number] 2.16.840.1.296346.3.579.2.462 Unknown [id number] 2.16.840.1.169350.3.579.2.462 Unknown [id number] 2.16.840.1.642965.3.579.2.462 Unknown [id number] 2.16.840.1.023677.3.579.2.462 Unknown [id number] 2.16.840.1.513362.3.579.2.462 Unknown [id number] 2.16.840.1.496342.3.579.2.462 Unknown [id number] 2.16840.1.650911.3.579.2.462 Unknown [id number] 2.16.840.1.874806.3.579.2.462 Unknown [id number] [id number] Social History Date Type Detail Facility Start: 08-05-2020 End: 04-19-2023 Tobacco smoking status [facility] Unknown if ever smoked [facility] Start: 01-27-2015 Occasional [facility] Start: 01-27-2015 None [facility] Start: 08-05-2020 Non-smoker [facility] Start: 1965 Sex Assigned At Female [facility] Start: 02-15-2022 End: 09-21-2024 Tobacco smoking status IAIS Ex-smoker [facility] Work Phone: End: 05-29-2005 History of tobacco use Current smoker [facility] Work Phone: Start: 04-27-2021 End: 09-13-2023 Alcohol intake Current drinker of alcohol (finding) [facility] Start: 01-11-2014 History SDOH Alcohol Comment socially [facility] Start: 03-27-2019 History SDOH Financial 5 [facility] Start: 03-27-2019 History SDOH Food Worry 1 [facility] Start: 03-27-2019 History SDOH Transport Med 2 [facility] Start: 03-27-2019 Education 13 [facility] Start: 01-11-2014 End: 02-15-2022 Tobacco Comment quit 10 years. Prior was ppd for 20 years [facility] Start: 1965 Sex Assigned At Not on file [facility] End: 05-29-2005 History of tobacco use Cigarette Smoker [facility] Work Phone: Start: 02-15-2022 End: 09-13-2023 Cigarettes smoked current (pack per day) - Reported 0.5 [facility] Start: 02-15-2022 Tobacco use and exposure Smokeless tobacco non-user [facility] Work Phone: Start: 10-30-2022 End: 09-13-2023 Tobacco use panel [facility] National Score (1-100), lower number is lower risk 87 [facility] (I/We) worried whether (my/our) food would run out before (I/we) got money to buy more. Never true [facility] Start: 07-30-2024 End: 08-31-2024 Sex Female (finding) [facility] NEGATED: Highlighted row Not [facility] Goals Date Patient Goal Desired Activity /State Mental Status Date Assessment Result Facility 09-03-2024 Cognitive function Voice/Name [facility] Work Phone: 07-31-2024 Cognitive function Voice/Name [facility] Work Phone: Clinical Notes 04-24-2013 to 09-21-2024 Note Date & Type Note Facility 09-21-2024 Discharge summary [facility] 09-03-2024 Note [facility] Medical Records Department [address] [place] [address] History Physical Exam 09/03/24 0915 MR#: [id number] Acct: [id number] Name: DARLIN FORBES Rep #: [id number] : 1965 59 From: Ethel Sparks MD PCP: Dr. Mannie Mancuso MD Status:[facility] Location: [place] [address] History and Physical Date of Admission: 09/03/24 The patient is examined and there are no changes to the H P dated 08/27/2024. She presents for wide excision of a melanoma of her right lower extremity. She is aware that this likely will result in skin grafting of the wound. An informed consent is obtained. She is marked in the preop holding area. Assessment Plan Assessment/Plan (1) Superficial spreading melanoma: PLAN: Plan Wide excision melanoma and probable STSG of the resulting site. 09/03/24 0917 Cosigner Signature (if applicable): CC: Dr. Mannie Mancuso MD; Dr. Ethel Sparks MD Signed [facility] 07-31-2024 Evaluation note Diagnosis Onset Date Resolution Neoplasm of uncertain behavior of skin acute July 31 8:05am Neoplasm of uncertain behavior of skin acute August 11, 2024 10:50am Superficial spreading melanoma acute August 25, 2024 10:13am Superficial spreading melanoma acute September 03, 2024 8: 18am Superficial spreading melanoma acute September 08, 2024 10 :04am Superficial spreading melanoma acute September 16, 2024 11:05am Superficial spreading melanoma acute September 22, 2024 10:47am Superficial spreading melanoma acute September 30, 2024 1 :27pm Superficial spreading melanoma acute October 07, 2024 11:08am Wound of right leg acute October 052024 10:43am Wound of right leg acute October 052024 9:50am [facility] [employer] Work Phone: 1(750) 153-338803-28-2025 Procedure note [facility] Medical Records Department [address] [place] [address] Operative Report 07/31/24939 MR#: [id number] Acct: [id number] Name: DARLIN FORBES Rep #:[id number] : 1965 58 From: Ethel Sparks MD PCP: Dr. 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 Post-Operative Diagnosis: Same Surgery/Procedure Performed: Excision neoplasm right lower leg (1.5 cm) booking police officer: No Type of Anesthesia: Local RN Documented Start/Stop Times: Operation Date: 07/31/24 09:20 Case Time Into Pre-Op 07/31/24 08:27 Out of Pre-Op 07/31/24 08:59 Into Room 07/31/24 09:02 Procedure Start 07/31/24 09:19 Procedure End 07/31/24 09:31 Anesthesia End 07/31/24 09:35 Out of Room 07/31/24 09:35 Procedure Start Time: : Procedure Stop Time: : Select all DRAINS/GRAFTS/IMPLANTS that apply: None Estimated Blood Loss: Minimal Specimen collected: Yes Description of specimen(s) removed: Neoplasm right lowerleg Description of surgery: The patient presents today with a growing or changing neoplasm of the right lower leg. Because of the variation in color and borders, she presents for excision with submission for pathologic evaluation. She is aware the potential need for further surgery depending on the resulting pathology. She ismarked inthe preop holding area prior to surgery and an informed consent is obtained. The patient is brought to the operating room and placed on the operating room table in supine position. The right leg is prepped and draped in the usual sterile fashion. 1% Xylocaine with epinephrinebuffered with sodium bicarb is used for local anesthetic. Following this, the site is excised and passed off the operative field to be sent to pathology. Hemostasis is controlled with cautery. The incisions then closed with interrupted silk suture. Further refinement the closure is done with a running chromic suture. Xeroform gauze and a Coban wrap is used to dress the site. She tolerated the procedure well was taken to the recovery area in an awake and stable condition. Needle and sponge counts are correct. Surgical Findings: As above Complications Complications: No Admit VTE Documentation VTE Mechan Device Prophylaxis: None Reason prophylaxis not ordered: Treatment Not Indicated 07/31/24941 Cosigner Signature (if applicable): CC: Dr. Daniela Coulter MD; Dr. Ethel Sparks MD~ Signed [facility]03-28-2025 Discharge summary [facility] Medical Records Department [address] [place] [address] Instructions for Home/Discharge Instructions 07/31/24934 MR#: [id number] Acct: [id number] Name: DARLIN FORBES Rep #:[id number] : 1965 58 From: Ethel Sparks MD PCP: Dr. Daniela Coulter MD Status:[facility] Discharge Instructions Dressing / Incision Additional Dressing/Incision Instructions:: Keep your leg elevated is much as possible to decrease swelling and bruising. Take the oral antibiotic (Bactrim) 2 times a day until finished. May leave the dressing on until seen in the office. Keep the dressing dry when bathing. Follow Up Care Please Follow Up With: Ethel Sparks MD When: 1 to 2 weeks Test Results: Test results from this visit will be discussed in further detail at your follow- up appointment, if applicable. Discharge Plan Admission Attending Provider: Ethel Sparks Primary Care Provider: Daniela Coulter Instructions Print Language: Liberian Discharge Orders/Prescriptions Prescriptions: New sulfamethoxazole-trimethoprim [Bactrim] 400-80 mg tablet 1 tab PO BID 5 Days Qty: 10 0RF No Action biotin 1 mg capsule 1 mg PO DAILY zinc gluconate 30 mg tablet 30 mg PO DAILY apple cider vinegar 500 mg tablet 500 mg PO DAILY acyclovir 400 mg tablet 500 mg PO DAILY mirtazapine 7.5 mg tablet 7.5 mg PO QHS (DME) hydrocortisone 2.5%/lidocaine 5% suppository (compound) Suppository See Rx Instructions .ROUTE .MEDSUPPLY Qty: 1 Rx Instructions: 30 supp with 2 refills use BID PRN pain valacyclovir 1 gram tablet 1,000 mg PO QDAY estradiol-norethindrone acet 1 EACH tablet 1 ea PO DAILY Patient Comments: hormone loratadine 10 MG tablet 10 mg PO DAILY pantoprazole 40 MG tablet,delayed release (DR/EC) 40 mg PO DAILY Qty: 30 2RF fluconazole 150 mg tablet 150 mg PO Q3D Qty: 2 0RF Rx Instructions: may repeat second dose 72 hrs after first dose if symptoms persist Referrals / Follow Up: Daniela Coulter MD [Primary Care Provider] - Disposition Disposition (needs filled in before D/C Order can be placed): Home, Self Care 07/31/24 0939Terdena Sparks MD CC: Dr. Daniela Coulter MD ~ Signed [facility]03-28-2025 History and physical note [facility] Medical Records Department [address] [place] [address] History & Physical Exam 07/31/24 0847 MR#: [id number] Acct: [id number] Name: KARMADARLINMENDOZA GARCIA Rep #:[id number] : 1965 58 From: Ethel Sparks MD PCP: Dr. Daniela Coulter MD Status:[facility] Location: [place] [address] History and Physical Date of Admission: 07/31/24 The patient is examined and there are no changes from the H&P dated 07/15/2024. Patient for excision of a neoplasm of her right lower leg. She is marked in thepreop holding area prior to surgery. She is aware of the potential need for further surgery depending on the resulting pathology. An informed consent is obtained. Assessment & Plan Assessment/Plan (1) Neoplasm of uncertain behavior of skin: PLAN: Plan Excision neoplasm of right lower leg and submission for pathologic evaluation. 07/31/24 0848 Cosigner Signature (if applicable): CC: Dr. Daniela Coulter MD; Dr. Ethel Sparks MD~ [facility]03-28-2025 [facility] Medical Records Department [address] [place] [address] History Physical Exam 07/31/24 0847 MR#: [id number] Acct: [id number] Name: DARLIN FORBES Rep #: [id number] : 1965 58 From: Ethel Sparks MD PCP: Dr. Daniela Coulter MD Status:[facility] Location: [place] [address] History and Physical Date of Admission: 07/31/24 The patient is examined and there are no changes from the H P dated 07/15/2024. Patient for excision of a neoplasm of her right lower leg. She is marked in the preop holding area prior to surgery. She is aware of the potential need for further surgery depending on the resulting pathology. An informed consent is obtained. Assessment Plan Assessment/Plan (1) Neoplasm of uncertain behavior of skin: PLAN: Plan Excision neoplasm of right lower leg and submission for pathologic evaluation. 07/31/24 0848 Cosigner Signature (if applicable): CC: Dr. Daniela Coulter MD; Dr. Ethel Sparks MD [facility]03-12-2025 Evaluation note* Diagnosis Onset Date Resolution Status Admit Date Neoplasm of uncertain behavi or of skin acute July 15, 2024 9:12am [facility] Work Phone: 1(344) 322-157903-12-2025 Evaluation note* Diagnosis Onset Date Resolution Status Admit Date Neoplasm of uncertain behavi or of skin acute July 15, 2024 9:12am Neoplasm of uncertain behavi or of skin acute July 31, 2024 8:05am [facility] Work Phone: 1([phone]) 430-267103-12-2025 Evaluation note* Diagnosis Onset Date Resolution Status Admit Date Neoplasm of uncertain behavi or of skin acute July 15, 2024 9:12am Neoplasm of uncertain behavi or of skin acute July 31, 2024 8:05am Neoplasm of uncertain behavi or of skin acute August 11, 2024 10:50am Superficial spreading melanoma acute August 25, 2024 10:13am [facility] Work Phone: 1([phone]) 816-236303-12-2025 Evaluation note* Diagnosis Onset Date Resolution Status Admit Date Neoplasm of uncertain behavi or of skin acute July 15, 2024 9:12am Neoplasm of uncertain behavi or of skin acute July 31, 2024 8:05am Neoplasm of uncertain behavi or of skin acute August 11, 2024 10:50am Superficial spreading melanoma acute August 25, 2024 10:13am Superficial spreading melanoma acute September 03, 2024 8:18am Superficial spreading melanoma acute September 08, 2024 10:04am [facility] Work Phone: 1([phone]) 534-114903-12-2025 Evaluation note* Diagnosis Onset Date Resolution Status Admit Date Neoplasm of uncertain behavi or of skin acute July 15, 2024 9:12am Neoplasm of uncertain behavi or of skin acute July 31, 2024 8:05am Neoplasm of uncertain behavi or of skin acute August 11, 2024 10:50am Superficial spreading melanoma acute August 25, 2024 10:13am Superficial spreading melanoma acute September 03, 2024 8:18am Superficial spreading melanoma acute September 08, 2024 10:04am Superficial spreading melanoma acute September 16, 2024 11:05am [facility] Work Phone: 1([phone]) 139-907403-12-2025 Evaluation note* Diagnosis Onset Date Resolution Status Admit Date Neoplasm of uncertain behavi or of skin acute July 15, 2024 9:12am Neoplasm of uncertain behavi or of skin acute July 31, 2024 8:05am Neoplasm of uncertain behavi or of skin acute August 11, 2024 10:50am Superficial spreading melanoma acute August 25, 2024 10:13am Superficial spreading melanoma acute September 03, 2024 8:18am Superficial spreading melanoma acute September 08, 2024 10:04am Superficial spreading melanoma acute September 16, 2024 11:05am Superficial spreading melanoma acute September 22, 2024 10:47am Superficial spreading melanoma acute September 30, 2024 1:27pm [facility] [employer] Work Phone: 1([phone]) 364-918203-12-2025 Evaluation note* Diagnosis Onset Date Resolution Status Admit Date Neoplasm of uncertain behavi or of skin acute July 15, 2024 9:12am Neoplasm of uncertain behavi or of skin acute July 31, 2024 8:05am Neoplasm of uncertain behavi or of skin acute August 11, 2024 10:50am Superficial spreading melanoma acute August 25, 2024 10:13am Superficial spreading melanoma acute September 03, 2024 8:18am Superficial spreading melanoma acute September 08, 2024 10:04am Superficial spreading melanoma acute September 16, 2024 11:05am Superficial spreading melanoma acute September 22, 2024 10:47am Superficial spreading melanoma acute September 30, 2024 1:27pm Superficial spreading melanoma acute October 07, 2024 11:08am [facility] Work Phone: 1([phone]) 993-634703-12-2025 Evaluation note* Diagnosis Onset Date Resolution Status Admit Date Neoplasm of uncertain behavi or of skin acute July 15, 2024 9:12am Neoplasm of uncertain behavi or of skin acute July 31, 2024 8:05am Neoplasm of uncertain behavi or of skin acute August 11, 2024 10:50am Superficial spreading melanoma acute August 25, 2024 10:13am Superficial spreading melanoma acute September 03, 2024 8:18am Superficial spreading melanoma acute September 08, 2024 10:04am Superficial spreading melanoma acute September 16, 2024 11:05am Superficial spreading melanoma acute September 22, 2024 10:47am Superficial spreading melanoma acute September 30, 2024 1:27pm Superficial spreading melanoma acute October 07, 2024 11:08am Wound of right leg acute October 052024 10:43am [facility] Work Phone: 1(116) 745-355605-30-2024 Telephone encounter Note* Telephone Encounter - Beena Rivera RN - 10/03/2023 2:36 PM EDT Patient notified. Beena Rivera RN The following approved medication requests have been transmitted electronically. Requested Prescriptions Signed Prescriptions Disp Refills metroNIDAZOLE (FLAGYL) 500 mg tablet 14 tablet 0 Sig: Take 1 tablet by mouth two times a day for 7 days. Authorizing Provider: MADINA MORALES Pharmacy Information Pharmacy Address Telephone [id number] [place] [address] [facility]05-30-2024 Miscellaneous Notes* Telephone Encounter - Beena Rivera RN - 10/03/2023 2:36 PM EDT Patient notified. Beena Rivera RN The following approved medication requests have been transmitted electronically. Requested Prescriptions Signed Prescriptions Disp Refills metroNIDAZOLE (FLAGYL) 500 mg tablet 14 tablet 0 Sig: Take 1 tablet by mouth two times a day for 7 days. Authorizing Provider: MADINA MORALES Pharmacy Information Pharmacy Address Telephone [id number] [place] [address] * Telephone Encounter - Madina Morales APRN.CNP - 10/03/2023 2:30 PM EDT Yes, she can continue the boric acid. Madina Morales APRN.CL * Telephone Encounter - Beena Rivera RN - 10/03/2023 1:46 PM EDT Patient notified. She is willing to try Flagyl now. Pharmacy correct. She did pick up operator boric acid suppositories now too. Should she continue with those? Beena Rivera RN * Telephone Encounter - Madina Morales APRN.CNP - 10/03/2023 1:34 PM EDT She needs treated with oral metronidazole but declined due to wanting to drink alcohol on the weekends when camping so she was treated with clindamycin cream. Please ask if this acceptable with her. Madina Morales APRN.CNP * Telephone Encounter - Beena Rivera RN - 10/03/2023 10:22 AM EDT Patient calling with update. Saw AG 09/13/23 and was positive for BV. She completed the clindamycin PO and had no improvement with symptoms. States she is still having copious amounts of odorous vaginal discharge. Still having the vaginal burning/irritation too. Taking Florajen already. She ordered Clairvee, but stated she won't get that in the mail for about 10 days. She is self pay. Asking if she could get another round of antibiotics instead of coming in d/t cost. Please advise. Beena Rivera RN [facility] Telephone encounter Note * Telephone Encounter - Madina Morales APRN.CNP - 10/03/2023 2:30 PM EDT Yes, she can continue the boric acid. Madina Morales APRN.CNP [facility]05-30-2024 Telephone encounter Note* Telephone Encounter - Beena Rivera RN - 10/03/2023 1:46 PM EDT Patient notified. She is willing to try Flagyl now. Pharmacy correct. She did pick up operator boric acid suppositories now too. Should she continue with those? Beena Rivera RN [facility]05-30-2024 Telephone encounter Note* Telephone Encounter - Madina Morales APRN.CNP - 10/03/2023 1:34 PM EDT She needs treated with oral metronidazole but declined due to wanting to drink alcohol on the weekends when camping so she was treated with clindamycin cream. Please ask if this acceptable with her. Madina Morales APRN.CL [facility]05-30-2024 Telephone encounter Note* Telephone Encounter - Beena Rivera RN - 10/03/2023 10:22 AM EDT Patient calling with update. Saw AG 09/13/23 and was positive for BV. She completed the clindamycin PO and had no improvement with symptoms. States she is still having copious amounts of odorous vaginal discharge. Still having the vaginal burning/irritation too. Taking Florajen already. She ordered Clairvee, but stated she won't get that in the mail for about 10 days. She is self pay. Asking if she could get another round of antibiotics instead of coming in d/t cost. Please advise. Beena Rivera RN [facility]05-13-2024 Telephone encounter Note* Telephone Encounter - Vanessa Rahman RN - 09/16/2023 9:47 AM EDT Patient notified. Vanessa Rahman RN [facility]05-13-2024 Miscellaneous Notes* Telephone Encounter - Vanessa Rahman RN - 09/16/2023 9:47 AM EDT Patient notified. Vanessa Rahman RN * Telephone Encounter - Waldo Caldwell APRN.CNP - 09/16/2023 7:16 AM EDT Please notify patient: You tested positive for bacterial vaginosis. This is an imbalance of your normal bacteria. Your partner does not need treated. I will send a prescription for Clindamycin by mouth twice a day for 7 days. No intercourse during treatment. Probiotic by mouth once daily for 30 days or as needed. Please let me know if you have any questions. Waldo Caldwell APRN.CNP documented in this encounterK[facility] Telephone encounter Note * Telephone Encounter - Waldo Caldwell APRN.CNP - 09/16/2023 7:16 AM EDT Please notify patient: You tested positive for bacterial vaginosis. This is an imbalance of your normal bacteria. Your partner does not need treated. I will send a prescription for Clindamycin by mouth twice a day for 7 days. No intercourse during treatment. Probiotic by mouth once daily for 30 days or as needed. Please let me know if you have any questions. Waldo Caldwell APRN.CNP [facility]05-10-2024 NoteHNO ID: [id number] Author: MADINA MORALES APRN.CNP Service: ? Author Type: Nurse Practitioner Type: Progress Notes Filed: 09/13/2023 12:54 Note Text: Operations And Maintenance Specialist offered: Patient declines. Darlin Forbes is a 58 year old female who presents for problem visit vaginal discharge, burning and a little irritation for 1-2 weeks. HPI: Complains of vaginal discharge, burning and a little irritation for past 1-2 weeks. Thinks may have notice a fishy odor at times. Hot feeling when urine strikes the outside of the vagina. Urine has looked different - darker. Able to hold bladder at work. Had what she thought was a pimple to top of vagina a few weeks ago but it has resolved. Noticed sore to outer vagina, not labia, a couple of days ago which is still there. Has history of genital HSV but has never had an outbreak that she knows of. Using hypoallergenic Rastafari soap for bathing. Denies using douches. No recent antibiotic. Has started camping. 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 Is currently sexually active with partner of 1 year. Negative STD testing 10/2022 and does not want repeat. Stopped BRIGITTE that she was taking for HRT, per her preference, a month ago. Has had some episodes of feeling hot. OB History T0 L0 SAB0 IAB0 Ectopic0 Multiple0 Live Births0 Comment: Menarche 15. Was on OCP age 15 - 35 when tried to get . Document Management Specialist History LMP: 06/07/2001, Postmenopausal Age at Menarche: Age at First : Age at Menopause: Document Management Specialist History Comments: Sexual Activity: Not Currently; Male; dyspaurenia Contraception: No contraception data on record PAST MEDICAL HISTORY Diagnosis Date Benign positional vertigo 05/06/2014 BPV saw ENT and PCP had procedure Dyspareunia getting worse Herpes, genital hx of low vitamin D treated 07/04/2012 26.8 repeat 01/2014 normal Premature menopause age 35 Premature menopause on HRT activella PAST SURGICAL HISTORY Procedure Laterality Date CHOLECYSTECTOMY 06/01/2005 Cholecystectomy COLONOSCOPY FLX DX W/COLLJ SPEC WHEN PFRMD 02/03/2013 Colonoscopy- COLONOSCOPY GEN ANES 08/2020 DILATION AND CURETTAGE DXAND/THER NONOBSTETRIC 05/06/1994 false placenta grew, no embryo EGD 08/2020 EXCISION BENIGN LESIONS,EARS EXCISION LIP LESION PAST SURGICAL HISTORY OF 05/06/1991 vein stripping PAST SURGICAL HISTORY OF 04/05/2008 vein ligation left leg FAMILY HISTORY Problem Relation Age of Onset Diabetes Mother vein stripping, circulatory problem hysterectomy for prolapse Heart Mother Stent Hypertension Mother Asthma Mother Hyperlipidemia Mother Thyroid Mother Diabetes Father Heart Father open heart surgery Cancer Father Bladder Hypertension Father Asthma Father Hyperlipidemia Father Alzheimer's Disease Father other (Head Trauma) Father other (menopause age 50) Sister Alzheimer's Disease Paternal Grandmother Heart Paternal Grandfather Social History Tobacco Use Smoking status: Former Packs/day: 0.50 Years: 15.00 Additional pack years: 0.00 Total pack years: 7.50 Types: Cigarettes Quit date: 05/29/2005 Years since quittin.3 Smokeless tobacco: Never Tobacco comments: quit 10 years. Prior was ppd for 20 years Vaping Use Vaping Use: Never used Substance Use Topics Alcohol use: Yes Comment: socially Drug use: No Current Outpatient Medications Medication Sig Estradiol-Norethindrone Acet 1-0.5 mg per tablet Take 1 tablet by mouth once daily. mirtazapine (REMERON ORAL) Take 7.5 mg by mouth daily at bedtime. cholecalciferol (VITAMIN D3) 1,000 unit tab tablet Take 1,000 Units by mouth twice daily. Mirtazapine (REMERON) 7.5 mg tablet Take 7.5 mg by mouth daily at bedtime. loratadine (CLARITIN) 10 mg tablet Take 10 mg by mouth once daily. ascorbic acid, vitamin C, (VITAMIN C) 500 mg tablet Take 500 mg by mouth once daily. Ibuprofen 200 mg ORAL Cap Take by mouth every 4 hours as needed. FOR PAIN. No current facility-administered medications for this visit. Allergies As of Date: 09/13/2023 Allergen Noted Reaction VICODIN [HYDROCODONE-ACETAMINOPHE*07/22/2008 Vomiting Fully Assessed 10/30/2022 REVIEW OF SYSTEMS Abdomen: No bloating, early satiety, indigestion, or increased flatulence. No abdominal pain, nausea, vomiting, diarrhea, or constipation. Bladder: see HPI. Allergies and current medication updated:Yes EXAM: BP 136/76 Wt 160 lb (72.6kg) LMP 06/07/2001 GENERAL: pleasant, female in no apparent distress CHEST: Normal inspiratory effort ABDOMEN: soft, non-tender, and no masses PELVIC: external genitalia normal, normal Bartholin's glands, urethra, Hankins's glands, no vulvar lesions, no cervical lesions, moderate amount thick pale yellow discharge present, normal appearing perineal body and perianal region. Abrasion noted below meatus which she identifies as the sore. BIMANUAL: uterus normal size, shape and con (more content not included)... [facility]05-10-2024 Instructions* Patient Instructions* Madina Morales APRN.CL - 09/13/2023 11:30 AM EDT Minimizing irritation of the vulva (area around the vagina) Wear white cotton underwear. Avoid synthetic fabrics and tight clothing. Sleep wearing shorts or pajama bottoms without underwear. Shower as soon as possible after exercise. Avoid clothing detergents and soaps with perfumes or dyes. Use warm (not hot) water to wash the vulva and if you use soap use a product designed for sensitive skin (like Dove or Cetaphil). Do not douche or use creams/powders in the vulvar area unless instructed by your physician. If you must douche, use only plain warm water. Make sure the vulva is dry before dressing by patting dry with a towel. Avoid vigorous rubbing withthe towel. You may want to use the blow dryer (on the cool setting only!) on the vulva. The most important way to let your body heal is by avoiding scratching. Many patients find it difficult to avoid scratching at night when they are most aware of the itchiness. You can try taking Benadryl just before bedtime. Some women find it helpful to wear cotton gloves to bed to avoid scratching at night. Bacterial Vaginosis What is bacterial vaginosis? Bacterial vaginosis (BV) is a common infection that occurs in a woman's vagina. Bacterial vaginosisdoes not usually cause serious health problems, except in women. What causes BV? Health care providers do not yet fully understand what causes BV. Bacteria are a natural part of the vagina. For some reason, something upsets the normal balance of bacteria. Some of the bacteria grow too rapidly and cause infection. What are the symptoms of BV? Unfortunately, almost 50 percent of the women who have bacterial vaginosis do not have any symptoms. Common symptoms of BV include: White or discolored discharge Discharge that smells fishy Fishy smell that is strongest after sex Other symptoms can include: Itchy vagina Sore vagina Because BV has symptoms that are similar to other infections, it is important that you visit your health care provider if you think you have an infection in your vagina. Who can get BV? Any woman can get BV. The infection is most common in women between the ages of 18 and 44. BV is most common in sexually active women, although sexual transmission of BV has never been proven. Women who are not engaging in sex can also get BV. You may have a higher risk of getting BV if you: Have many sex partners Have a sexually transmitted infection (STI) How can I know if I have BV? Your health care provider can tell you if you have BV. He or she will examine you and will take a sample of fluid from your vagina. The fluid is viewed under a microscope. In most cases, your health care provider can tell right away if you have BV. How is BV treated? Bacterial vaginosis is treated using medicines that kill the infection. The most common medicine ordered for BV is called metronidazole. Common product names for this medicine are Flagyl and Protostat . Metronidazole may be given as a pill that is taken by mouth. It may also be given as a vaginal gel. Does the medication have side effects? Yes. You may have: Upset stomach Metal taste in your mouth Heartburn Don't drink alcohol while you are taking metronidazole. You can become very sick to your stomach. Call your health care provider if you have these or any other side effects. Can I treat myself for BV? No. Bacterial vaginosis can only be treated with medicines ordered by your health care provider. You cannot purchase [id number] products to treat BV. Products for douching and treating yeast infections will not cure BV. Should I be treated for BV if I am ? Yes, but not during the first three months of . Some studies have shown that having the infection during may cause early labor and premature . Tell your health care provider if you are . Also let your health care provider know if you think that you might be . You and your health care provider should discuss whether or not the infection should be treated. How can I protect myself from BV? Ways to prevent BV are not yet known. Female hygiene products like douches and deodorants will not cure the infection. These products may make the infection worse. To maintain your overall good health: Eat a well-balanced diet Exercise Manage stress levels Get a pelvic exam as directed by your provider When should I call my doctor? You should call your health care provider any time if: Your vaginal discharge changes color, becomes heavier, or smells different You notice itching, burning, swelling, or soreness around the vagina Copyright [id number] [facility], [place]. All rights reserved. This information is provided by the [facility] and is not intended to replace the medical advice of your doctor or health care provider. Please consult your health care provider for advice about a specific medical condition. For additional written health information, please contact the [facility] at the [facility] or toll-free extension [phone] or visit [email or web address] This document was last reviewed on: 2009 Probiotic Taking a women's health probiotic would definitely help . Florajen Women can be purchased at a pharmacy or on [employer] (around $20/month, needs refrigerated and take it daily)or [employer] ($35/month, norefrigeration and take 15 consecutive days per month) can be ordered at and use [employer]. You can also RepHresh vaginally and it can be purchased with the feminine products in many stores. You need to separate any antibiotic and probiotic by 1-2 hours. documented in this encounterK[facility]05-[facility] History of Present illness Narrative* Madina Morales APRN.CL - 09/13/2023 10:44 AM EDT Operations And Maintenance Specialist offered: Patient declines. Darlin Forbes is a 58 year old female who presents for problem visit vaginal discharge, burning and a little irritation for 1-2 weeks. HPI: Complains of vaginal discharge, burning and a little irritation for past 1- 2 weeks. Thinks mayhave notice a fishy odor at times. Hot feeling when urine strikes the outside of the vagina. Urine has looked different - darker. Ableto hold bladder at work. Had what she thought was a pimple to top of vagina a few weeks ago but it has resolved. Noticed sore to outer vagina, not labia, a couple of days ago which is still there. Has history of genital HSV but has never had an outbreak that she knows of. Using hypoallergenic Rastafari soap for bathing. Denies using douches. No recent antibiotic. Has started camping. 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 Is currently sexually active with partner of 1 year. Negative STD testing 10/2022 and does not want repeat. Stopped BRIGITTE that she was taking for HRT, per her preference, a month ago. Has had some episodes of feeling hot. OB History T0 L0 SAB0 IAB0 Ectopic0 Multiple0 Live Births0 Comment: Menarche 15. Was on OCP age 15 - 35 when tried to get . Document Management Specialist History LMP: 06/07/2001, Postmenopausal Age at Menarche: Age at First : Age at Menopause: Document Management Specialist History Comments: Sexual Activity: Not Currently; Male; dyspaurenia Contraception: No contraception data on record PAST MEDICAL HISTORY Diagnosis Date Benign positional vertigo 05/06/2014 BPV saw ENT and PCP had procedure Dyspareunia getting worse Herpes, genital hx of low vitamin D treated 07/04/2012 26.8 repeat 01/2014 normal Premature menopause age 35 Premature menopause on HRT activella PAST SURGICAL HISTORY Procedure Laterality Date CHOLECYSTECTOMY 06/01/2005 Cholecystectomy COLONOSCOPY FLX DX W/COLLJ SPEC WHEN PFRMD 02/03/2013 Colonoscopy- COLONOSCOPY GEN ANES 08/2020 DILATION & CURETTAGE DX&/THER NONOBSTETRIC 05/06/1994 false placenta grew, no embryo EGD 08/2020 EXCISION BENIGN LESIONS,EARS EXCISION LIP LESION PAST SURGICAL HISTORY OF 05/06/1991 vein stripping PAST SURGICAL HISTORY OF 04/05/2008 vein ligation left leg FAMILY HISTORY Problem Relation Age of Onset Diabetes Mother vein stripping, circulatory problem hysterectomy for prolapse Heart Mother Stent Hypertension Mother Asthma Mother Hyperlipidemia Mother Thyroid Mother Diabetes Father Heart Father open heart surgery Cancer Father Bladder Hypertension Father Asthma Father Hyperlipidemia Father Alzheimer's Disease Father other (Head Trauma) Father other (menopause age 50) Sister Alzheimer's Disease Paternal Grandmother Heart Paternal Grandfather Social History Tobacco Use Smoking status: Former Packs/day: 0.50 Years: 15.00 Additional pack years: 0.00 Total pack years: 7.50 Types: Cigarettes Quit date: 05/29/2005 Years since quittin.3 Smokeless tobacco: Never Tobacco comments: quit 10 years. Prior was ppd for 20 years Vaping Use Vaping Use: Never used Substance Use Topics Alcohol use: Yes Comment: socially Drug use: No Current Outpatient Medications Medication Sig Estradiol-Norethindrone Acet 1-0.5 mg per tablet Take 1 tablet by mouth once daily. mirtazapine (REMERON ORAL) Take 7.5 mg by mouth daily at bedtime. cholecalciferol (VITAMIN D3) 1,000 unit tab tablet Take 1,000 Units by mouth twice daily. Mirtazapine (REMERON) 7.5 mg tablet Take 7.5 mg by mouth daily at bedtime. loratadine (CLARITIN) 10 mg tablet Take 10 mg by mouth once daily. ascorbic acid, vitamin C, (VITAMIN C) 500 mg tablet Take 500 mg by mouth once daily. Ibuprofen 200 mg ORAL Cap Take by mouth every 4 hours as needed. FOR PAIN. No current facility-administered medications for this visit. Allergies As of Date: 09/13/2023 Allergen Noted Reaction VICODIN [HYDROCODONE-ACETAMINOPHE*07/22/2008 Vomiting Fully Assessed 10/30/2022 REVIEW OF SYSTEMS Abdomen: No bloating, early satiety, indigestion, or increased flatulence. No abdominal pain, nausea, vomiting, diarrhea, or constipation. Bladder: see HPI. Allergies and current medication updated:Yes EXAM: BP 136/76 Wt 160 lb (72.6kg) LMP 06/07/2001 GENERAL: pleasant, female in no apparent distress CHEST: Normal inspiratory effort ABDOMEN: soft, non-tender, and no masses PELVIC: external genitalia normal, normal Bartholin's glands, urethra, Hankins's glands, no vulvar lesions, no cervical lesions, moderate amount thick pale yellow discharge present, normal appearing perineal body and perianal region. Abrasion noted below meatus which she identifies as the sore. BIMANUAL: uterus normal size, shape and consistency, no adnexal masses, and Mild tenderness NEURO: alert and oriented x3,exam grossly non-focal ASSESSMENT/PLAN: 1. Vaginal discharge - ICD9: 623.5, ICD10: N89.8 (primary diagnosis) - BACT/DARIEN VAG GRAM STAIN - Declined STD screening - vulvar hygiene instructions - Women's health probiotic 2. History of herpes genitalis - ICD9: V12.09, ICD10: Z86.19 - VALACYCLOVIR 1 GRAM TABLET 3. Dysuria - ICD9: 788.1, ICD10: R30.0 - UAC - trace leuk - URINE CULTURE 4. Leukocytes in urine - ICD9: 791.7, ICD10: R82.998 - URINE CULTURE Will notify of results. If positive for BV, plan treatment with oral clindamycin. Follow- up as needed. Madina Morales APRN.CNP Medical Decision Making: Problems: Low: Stable chronic illness Moderate: New problem with uncertain prognosis Data: Unique test result(s) reviewed: 1 Unique test(s) ordered: 3+ Risk: Moderate: Drug management Medical Decision Making Level: 4 - Moderate documented in this encounterK[facility]06[facility] Miscellaneous Notes* Telephone Encounter - Estela Steiner - 10/31/2022 8:32 AM EDT Patient given results and verbalized understanding of instructions given. Estela Steiner * Telephone Encounter - Candie Gandara APRN.CNP - 10/31/2022 7:12 AM EDT Negative for gonorrhea, chlamydia, trichomonas, yeast, bacterial infection, patient's urine cultureis still pending but if patient symptoms are persistent patient should follow-up with primary care physician. documented in this encounterKettering [facility]06-27-2023 NoteHNO ID: [id number] Author: Candie Gandara APRN.CNP Service: ? Author Type: Nurse Practitioner Type: Progress Notes Filed: 10/30/2022 3:14 PM Note Text: CC: Patient presents with: Dysuria Patient does have a new sexual partner that she has been with for about 3 weeks. Patient has had unprotected sex. JOSEMANUEL Forbes is a 57 year old female who presents with complaint of possible UTI. These symptoms have been present for 2 days. Associated symptoms: burning and abnormal vaginal discharge Denies: fever, chills, and sweats Treatments: nothing The ROS was otherwise negative. PMH, Medications, labs, allergies, and recent past visits with PCP were reviewed and updated as able. PHYSICAL EXAM: BP 124/72 Pulse (!) 58 Temp 36.8 ?C (98.3 ?F) Resp 16 Ht 163.8 cm (5' 4.5) Wt 73.9 kg (163 lb) LMP 06/07/2001 BMI 27.55 kg/m? General: Well appearing and alert Back: straight and symmetric Abdomen: soft, nontender, nondistended No abnormalities upon vaginal exam. Operations And Maintenance Specialist was in the room. PAST MEDICAL HISTORY Diagnosis Date Benign positional vertigo 05/06/2014 BPV saw ENT and PCP had procedure Dyspareunia getting worse Herpes, genital hx of low vitamin D treated 07/04/2012 26.8 repeat 01/2014 normal Premature menopause age 35 Premature menopause on HRT activella PAST SURGICAL HISTORY Procedure Laterality Date CHOLECYSTECTOMY 06/01/2005 Cholecystectomy COLONOSCOPY FLX DX W/COLLJ SPEC WHEN PFRMD 02/03/2013 Colonoscopy- COLONOSCOPY GEN ANES 08/2020 DILATION AND CURETTAGE DXAND/THER NONOBSTETRIC 05/06/1994 false placenta grew, no embryo EGD 08/2020 EXCISION BENIGN LESIONS,EARS EXCISION LIP LESION PAST SURGICAL HISTORY OF 05/06/1991 vein stripping PAST SURGICAL HISTORY OF 04/05/2008 vein ligation left leg ALLERGIES Vicodin [Hydrocodone-Acetaminophen] MEDICATIONS Estradiol-Norethindrone Acet 1-0.5 mg per tablet Take 1 tablet by mouth once daily. valACYclovir (VALTREX) 1 gram Take 1 tablet by mouth once daily. Mirtazapine (REMERON) 7.5 mg tablet Take 7.5 mg by mouth daily at bedtime. loratadine (CLARITIN) 10 mg tablet Take 10 mg by mouth once daily. ascorbic acid, vitamin C, (VITAMIN C) 500 mg tablet Take 500 mg by mouth once daily. Ibuprofen 200 mg ORAL Cap Take by mouth every 4 hours as needed. FOR PAIN. mirtazapine (REMERON ORAL) Take 7.5 mg by mouth daily at bedtime. cholecalciferol (VITAMIN D3) 1,000 unit tab tablet Take 1,000 Units by mouth twice daily. FAMILY HISTORY Problem Relation Age of Onset Diabetes Mother vein stripping, circulatory problem hysterectomy for prolapse Heart Mother Stent Hypertension Mother Asthma Mother Hyperlipidemia Mother Thyroid Mother Diabetes Father Heart Father open heart surgery Cancer Father Bladder Hypertension Father Asthma Father Hyperlipidemia Father Alzheimer's Disease Father other (Head Trauma) Father other (menopause age 50) Sister Alzheimer's Disease Paternal Grandmother Heart Paternal Grandfather Social History Tobacco Use Smoking status: Former Packs/day: 0.50 Years: 15.00 Pack years: 7.50 Types: Cigarettes Quit date: 05/29/2005 Years since quittin.4 Smokeless tobacco: Never Tobacco comments: quit 10 years. Prior was ppd for 20 years Vaping Use Vaping Use: Never used Substance Use Topics Alcohol use: Yes Comment: socially Drug use: No ASSESSMENT/PLAN: 1. Urinary frequency - ICD9: 788.41, ICD10: R35.0 (primary diagnosis) - UA DIP, URINE (POC) - URINE CULTURE - DARIEN/TRICHOMONAS NAAT - BACTERIAL VAGINOSIS NAAT - GONORRHEA/CHLAMYDIA NAAT 2. Vaginal discharge - ICD9: 623.5, ICD10: N89.8 - DARIEN/TRICHOMONAS NAAT - BACTERIAL VAGINOSIS NAAT - GONORRHEA/CHLAMYDIA NAAT Patient was not treated at this time for anything. Please treat patient according to any positive test results. Patient would like a medication that is compatible with alcohol if possible. Candie Gandara APRN.CL Prescription instructions reviewed with patient as applicable. Potential red flag symptoms discussed with the patient. Reviewed appropriate action plan to take if red flag symptoms occur. Patient agreeable to treatment plan. Candie Gandara APRN.CNPC[facility]06-27-[facility]23 History of Present illness Narrative* Candie Gandara APRN.CNP - 10/30/2022 2:43 PM EDT CC: Patient presents with: Dysuria Patient does have a new sexual partner that she has been with for about 3 weeks. Patient has had unprotected sex. JOSEMANUEL Forbes is a 57 year old female who presents with complaint of possible UTI. These symptomshave been present for 2 days. Associated symptoms: burning and abnormal vaginal discharge Denies: fever, chills, and sweats Treatments: nothing The ROS was otherwise negative. PMH, Medications, labs, allergies, and recent past visits with PCP were reviewed and updated as able. PHYSICAL EXAM: BP 124/72 Pulse (!) 58 Temp 36.8 C (98.3 F) Resp 16 Ht 163.8 cm (5' 4.5) Wt 73.9 kg (163lb) LMP 06/07/2001 BMI 27.55 kg/m General: Well appearing and alert Back: straight and symmetric Abdomen: soft, nontender, nondistended No abnormalities upon vaginal exam. Operations And Maintenance Specialist was in the room. PAST MEDICAL HISTORY Diagnosis Date Benign positional vertigo 05/06/2014 BPV saw ENT and PCP had procedure Dyspareunia getting worse Herpes, genital hx of low vitamin D treated 07/04/2012 26.8 repeat 01/2014 normal Premature menopause age 35 Premature menopause on HRT activella PAST SURGICAL HISTORY Procedure Laterality Date CHOLECYSTECTOMY 06/01/2005 Cholecystectomy COLONOSCOPY FLX DX W/COLLJ SPEC WHEN PFRMD 02/03/2013 Colonoscopy- COLONOSCOPY GEN ANES 08/2020 DILATION & CURETTAGE DX&/THER NONOBSTETRIC 05/06/1994 false placenta grew, no embryo EGD 08/2020 EXCISION BENIGN LESIONS,EARS EXCISION LIP LESION PAST SURGICAL HISTORY OF 05/06/1991 vein stripping PAST SURGICAL HISTORY OF 04/05/2008 vein ligation left leg ALLERGIES Vicodin [Hydrocodone-Acetaminophen] MEDICATIONS Estradiol-Norethindrone Acet 1-0.5 mg per tablet Take 1 tablet by mouth once daily. valACYclovir (VALTREX) 1 gram Take 1 tablet by mouth once daily. Mirtazapine (REMERON) 7.5 mg tablet Take 7.5 mg by mouth daily at bedtime. loratadine (CLARITIN) 10 mg tablet Take 10 mg by mouth once daily. ascorbic acid, vitamin C, (VITAMIN C) 500 mg tablet Take 500 mg by mouth once daily. Ibuprofen 200 mg ORAL Cap Take by mouth every 4 hours as needed. FOR PAIN. mirtazapine (REMERON ORAL) Take 7.5 mg by mouth daily at bedtime. cholecalciferol (VITAMIN D3) 1,000 unit tab tablet Take 1,000 Units by mouth twice daily. FAMILY HISTORY Problem Relation Age of Onset Diabetes Mother vein stripping, circulatory problem hysterectomy for prolapse Heart Mother Stent Hypertension Mother Asthma Mother Hyperlipidemia Mother Thyroid Mother Diabetes Father Heart Father open heart surgery Cancer Father Bladder Hypertension Father Asthma Father Hyperlipidemia Father Alzheimer's Disease Father other (Head Trauma) Father other (menopause age 50) Sister Alzheimer's Disease Paternal Grandmother Heart Paternal Grandfather Social History Tobacco Use Smoking status: Former Packs/day: 0.50 Years: 15.00 Pack years: 7.50 Types: Cigarettes Quit date: 05/29/2005 Years since quittin.4 Smokeless tobacco: Never Tobacco comments: quit 10 years. Prior was ppd for 20 years Vaping Use Vaping Use: Never used Substance Use Topics Alcohol use: Yes Comment: socially Drug use: No ASSESSMENT/PLAN: 1. Urinary frequency - ICD9: 788.41, ICD10: R35.0 (primary diagnosis) - UA DIP, URINE (POC) - URINE CULTURE - DARIEN/TRICHOMONAS NAAT - BACTERIAL VAGINOSIS NAAT - GONORRHEA/CHLAMYDIA NAAT 2. Vaginal discharge - ICD9: 623.5, ICD10: N89.8 - DARIEN/TRICHOMONAS NAAT - BACTERIAL VAGINOSIS NAAT - GONORRHEA/CHLAMYDIA NAAT Patient was not treated at this time for anything. Please treat patient according to any positive test results. Patient would like a medication that is compatible with alcohol if possible. Candie Gandara APRN.CL Prescription instructions reviewed with patient as applicable. Potential red flag symptoms discussed with the patient. Reviewed appropriate action plan to take if red flag symptoms occur. Patient agreeable to treatment plan. Candie Gandara APRN.CL [facility] Miscellaneous Notes* Telephone Encounter - Jeannine Cid LPN - 04/26/2022 9:57 AM EST See pharmacy generated refill request. Jeannine Cid LPN documented in this [facility] Miscellaneous Notes* Telephone Encounter - Shelly Turner LPN - 11/10/2021 9:54 AM EDT Patient called requesting a refill of Valacyclovir. Patient's last appointment was 04/27/2021. Onlycall if problem documented in this encounterK[facility]12[facility] History of Past illness Narrative* Problem Noted Date Resolved Date Symptomatic menopausal or female climacteric sta madalyn 04/24/2013 01/11/2014 Abdominal pain, right upper quadrant 05/17/2005 04/15/2012 Other ovarian failure 01/26/2002 01/11/2014 documented as of this encounter (statuses as of 11/14/2021) [place] [address]-20-2013 History of Past illness Narrative* Problem Noted Date Resolved Date Symptomatic menopausal or female climacteric sta madalyn 04/24/2013 01/11/2014 Abdominal pain, right upper quadrant 05/17/2005 04/15/2012 Other ovarian failure 01/26/2002 01/11/2014 documented as of this encounter (statuses as of 04/27/2022) [address]20-2013 History of Past illness Narrative* Problem Noted Date Resolved Date Symptomatic menopausal or female climacteric sta madalyn 04/24/2013 01/11/2014 Abdominal pain, right upper quadrant 05/17/2005 04/15/2012 Other ovarian failure 01/26/2002 01/11/2014 documented as of this encounter (statuses as of 10/31/2022) [place] [address]2013 History of Past illness Narrative* Problem Noted Date Resolved Date Symptomatic menopausal or female climacteric sta madalyn 04/24/2013 01/11/2014 Abdominal pain, right upper quadrant 05/17/2005 04/15/2012 Other ovarian failure 01/26/2002 01/11/2014 documented as of this encounter (statuses as of 10/31/2022) [address]20-2013 History of Past illness Narrative* Problem Noted Date Diagnosed Date Resolved Date Symptomatic menopausal or fe male climacteric states 04/24/2013 01/11/2014 Abdominal pain, right upper quadrant 05/17/2005 04/15/2012 Other ovarian failure 01/26/20022013 documented as of this encounter (statuses as of 11/12/2022) [facility] Author Ethel Sparks [facility] Note Date/Time July 31, 2024 9:3 9am [facility] Medical Records Department [address] [place] [address] Instructions for Home/Discharge Instructions 07/31/24 0935 MR#: [id number] Acct: [id number] Name: DARLIN FORBES Rep #:[id number] : 1965 58 From: Ethel Sparks MD PCP: Dr. Daniela Coulter MD Status:REG [facility] [place] Discharge Instructions Dressing / Incision Additional Dressing/Incision Instructions:: Keep your leg elevated is much as possible to decrease swelling and bruising. Take the oral antibiotic (Bactrim) 2 times a day until finished. May leave the dressing on until seen in the office. Keep the dressing dry when bathing. Follow Up Care Please Follow Up With: Ethel Sparks MD When: 1 to 2 weeks Test Results: Test results from this visit will be discussed in further detail at your follow- up appointment, if applicable. Discharge Plan Admission Attending Provider: Ethel Sparks Primary Care Provider: Daniela Coulter Instructions Print Language: Liberian Discharge Orders/Prescriptions Prescriptions: New sulfamethoxazole-trimethoprim [Bactrim] 400-80 mg tablet 1 tab PO BID 5 Days Qty: 10 0RF No Action biotin 1 mg capsule 1 mg PO DAILY zinc gluconate 30 mg tablet 30 mg PO DAILY apple cider vinegar 500 mg tablet 500 mg PO DAILY acyclovir 400 mg tablet 500 mg PO DAILY mirtazapine 7.5 mg tablet 7.5 mg PO QHS (DME) hydrocortisone 2.5%/lidocaine 5% suppository (compound) Suppository See Rx Instructions .ROUTE .MEDSUPPLY Qty: 1 Rx Instructions: 30 supp with 2 refills use BID PRN pain valacyclovir 1 gram tablet 1,000 mg PO QDAY estradiol-norethindrone acet 1 EACH tablet 1 ea PO DAILY Patient Comments: hormone loratadine 10 MG tablet 10 mg PO DAILY pantoprazole 40 MG tablet,delayed release (DR/EC) 40 mg PO DAILY Qty: 30 2RF fluconazole 150 mg tablet 150 mg PO Q3D Qty: 2 0RF Rx Instructions: may repeat second dose 72 hrs after first dose if symptoms persist Referrals / Follow Up: Daniela Coulter MD [Primary Care Provider] - Disposition Disposition (needs filled in before D/C Order can be placed): Home, Self Care 07/31/24 8143<Electronically signed by Ethel Sparks MD>Ethel Sparks MD CC: Dr. Daniela Coulter MD ~ Signed [facility] Work Phone: Discharge summary Author Trell Peña [facility] Note Date/Time September 21, 2024 1:19p m [facility] Medical Records Department [address] [place] [address] Emergency Department Summary 09/21/24 MR#: [id number] Acct: [id number] Name: DARLIN FORBES Rep #:[id number] : 1965 59 From: Trell Peña DO PCP: Dr. Mannie Mancuso MD Status:PRE ER Location: ED HPI History of Present Illness Chief Complaint: Wound Check Narrative Narrative: Patient is a 59-year-old female with past medical history of IBS, right bundle branch block, anxiety who presents to the emergency department with concern for blood clot in her right leg. 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 States that she called her yesterday concerned with swelling in the leg and given her recent surgery she wanted sent her here to the emergency department to make sure she did not have a blood clot. [facility] Medical History Wears contact lenses MRSA infection History of IBS Former smoker History of edema PONV (postoperative nausea and vomiting) History of echocardiogram History of stress test Herpes Post-menopausal Vertigo Irritable bowel syndrome Constipation Anxiety Right bundle branch block (RBBB) Irritable bowel syndrome with constipation Home Medications ?Medication ?Instructions ?Recorded ?Last Taken ?Type NK 09/21/24 Unknown History Allergy/AdvReac Type Severity Reaction Status Date / Time amoxicillin Allergy Mild rash Verified 09/21/24 12:14 hydrocodone bitartrate (From AdvReac Vomiting Verified 09/21/24 12:14 Vicodin) Family History Father Asthma Diabetes Hypertension Heart disease Mother Asthma Diabetes Heart disease Grandfather Heart disease Surgical History History of colonoscopy History of esophagogastroduodenoscopy (EGD) history excision lesion lip history excision lesion left ear History of vein stripping History of laparoscopic cholecystectomy Social History Smoking Status: Former smoker how long ago did patient quit smoking: quit 18 years ago alcohol intake: current substance use type: does not use additional social history: pt denies vaping, denies marijuana use, denies edibles, denies aspirin use uses ibuprofen as needed ROS ROS ED ROS Narrative Constitutional: Denies fevers, chills, headaches malaise, denies Cardiovascular denies chest pain Respiratory: Denies shortness of breath Musculoskeletal: Complains of right lower extremity swelling as noted above, patient states that this has improved however since last night Neurological: Denies any numbness, wheeze, tingling EXAM Physical Exam Narrative Exam Narrative: General: Patient was lying in bed rest comfortably did not appear to be acute distress Head: Atraumatic, normocephalic Cardiovascular: Regular rate Musculoskeletal: No large appreciable difference between the right lower extremity and left lower extremity with comes the swelling compartments are softand compressible Extremities: DP pulses +2/4 in the bilateral lower extremities, +5/5 strength noted in the bilateral upper and lower extremities Neurological: Patient following commands knew that she was at [facility] year is 2024. Sensation grossly intact Skin: Patient's wound appears to be healing well without any concern for infection at this point time Const Vital Signs: 09/21/24 12:14 Temperature 97.6 F L Temperature Source Temporal Pulse Rate 84 Respiratory Rate 19 H Blood Pressure 145/91 H Blood Pressure Mean 109 Pulse Ox 98 Oxygen Delivery Method Room Air MDM MDM MDM Narrative Medical decision making narrative: Patient is a 59-year-old female who presents to the emerged part with concern for DVT in her right lower extremity sent by her plastic surgeon. On the differential diagnosis includes but not limited to deep venous thrombosis, superficial venous thrombosis, venous insufficiency. Once again the patient states that by this morning her swelling had improved however since she is here we will complete the DVT study. Patient's DVT study was reviewed and did not show any evidence of any DVT or superficial venous thrombosis. Called to back her plastic surgeon Dr. Sparks and I notified her of the resultsand she states that she will follow-up with her tomorrow in the office. Patientwas advised to go to the appointment tomorrow as scheduled. She was encouraged return with worsening symptoms and concerns. She is agreeable this plan all question concerns answered she is discharged home in stable condition. Discharge Plan Triage Chief Complaint: Wound Check ED Provider: Trell Peña Dx/Rx/DC Orders Clinical Impression: Localized swelling of right lower extremity Prescriptions: No Action NK Primary Care Provider: Mannie Mancuso Referrals: Mannie Mancuso MD [Primary Care Provider] - Activity Restrictions/Additional Instructions: Insert follow-up with your doctor at your scheduled appointment tomorrow. Your ultrasound did not show any evidence of blood clots in your legs today. Return with worsening symptoms or any concerns Print Language: Liberian Disposition Disposition: Home, Self Care What to do if you have Problems For any increased pain, shortness of breath, bleeding, nausea or vomiting, chestpain, or any unexpected problems, contact your Primary Care Provider. Call [facility] ([phone]) or report to the closest Emergency Room. Call 911 if necessary. 09/21/24 1319 <Electronically signed by Trell Peña DO> Cosigner Signature (if applicable): CC: Dr. Mannie Mancuso MD ~ Signed [facility] Work Phone: Evaluation noteNo assessment information available [facility] Work Phone: Evaluation note* Diagnosis Postmenopausal HRT (hormone replacement therapy) Need for prophylactic hormone replacement therapy (postmenopausal) History of herpes genitalis Personal history of other infectious and parasitic disease [facility]* Diagnosis Postmenopausal HRT (hormone replacement therapy) Need for prophylactic hormone replacement therapy (postmenopausal) [facility]* Diagnosis Urinary frequency- Primary Vaginal discharge Leukorrhea, not specified as infective [facility]* Diagnosis History of herpes genitalis Personal history of other infectious and parasitic disease [facility] Diagnosis Onset Date Resolution Status Acute sinusitis acute [facility] Work Phone: Evaluation note* Diagnosis Vaginal discharge- Primary Leukorrhea, not specified as infective Dysuria Leukocytes in urine Other cells and casts in urine History of herpes genitalis Personal history of other infectious and parasitic disease [facility]* Diagnosis BV (bacterial vaginosis)- Primary Vaginitis and vulvovaginitis, unspecified documented in this encounter [facility] and [facility] note Author Ethel Sparks [facility] Note Date/Time July 31, 2024 8:4 8am [facility] Medical Records Department [address] [place] [address] History & Physical Exam 07/31/24 0847 MR#: [id number] Acct: [id number] Name: DARLIN FORBES Rep #:[id number] : 1965 58 From: Ethel Sparks MD PCP: Dr. Daniela Coulter MD Status:[facility] Location: [place] [address] History and Physical Date of Admission: 07/31/24 The patient is examined and there are no changes from the H&P dated 07/15/2024. Patient for excision of a neoplasm of her right lower leg. She is marked in thepreop holding area prior to surgery. She is aware of the potential need for further surgery depending on the resulting pathology. An informed consent is obtained. Assessment & Plan Assessment/Plan (1) Neoplasm of uncertain behavior of skin: PLAN: Plan Excision neoplasm of right lower leg and submission for pathologic evaluation. 07/31/24 0848 <Electronically signed by Ethel Sparks MD> Cosigner Signature (if applicable): CC: Dr. Daniela Coulter MD; Dr. Ethel Sparks MD~ Signed [facility] Work Phone: Hospital Discharge instructions Additional Instructions Insert follow-up with your doctor at your scheduled appointment tomorrow. Your ultrasound did not show any evidence of blood clots in your legs today. Return with worsening symptoms or any concernsWCity [facility] Work Phone: Reason for referral (narrative)No reason for referral information available[facility] Work Phone: Family History No Family History Records Found Relationship Condition Age at Onset Recorded Date/T [place] father Asthma Unknown Diabetes mellitus Unknown Hypertension Unknown Cardiac disease Unknown mother Asthma Unknown grandfather Cardiac disease Unknown Advance Directives No Advanced Directives Records Found Advance Directive Response Recorded Date/ Time Advance Directives No January 12:23am Living Will No August 05, 2020 11:21am Power of Devulcanizer Loader No August 05 11:21am Advance Directive Response Recorded Date/ Time Advance Directives No January 12:23am Advance Directive Response Recorded Date/ Time Advance Directives No August 20 8:03am Advance Directive Response Recorded Date/ Time Advance Directives No August 20 8:03am Do you have a Healthcare Power of Devulcanizer Loader? No August 31, 2024 8:13am Advance Directive Response Recorded Date/ Time Advance Directives No August 20, 8:03am Do you have a Healthcare Power of Devulcanizer Loader? No August 31, 2024 8:13am Do you have a Healthcare Power of Devulcanizer Loader? 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 2024 9:12am Neoplasm of uncertain behavior of skin M arch 2024 8:05am Chief Complaint Admit Date R LEG NEVUS July 15, 2024 9:1 2am PERIPHERAL ARTERIAL DISEASE July 21, 2024 8:59am PVD July 21, 2024 9:0 7am Excision nevus right lower leg July 8:05am Excision nevus right lower leg July 8:47am post op August 11, 2024 10:5 0am NURSE VISIT 2024 5:0 4pm FOLLOW UP August 24, 2024 9:3 3am 2 W FU August 25, 2024 10: 13am INT LAB ORERS August 25, 2024 11: 15am Reason for Visit Admit Date Neoplasm of uncertain behavior of skin M arch 2024 9:12am Neoplasm of uncertain behavior of skin M arch 2024 8:05am Neoplasm of uncertain behavior of skin A pril 2024 10:50am Superficial spreading melanoma August 10:13am Chief Complaint Admit Date R LEG NEVUS July 15, 2024 9:1 2am PERIPHERAL ARTERIAL DISEASE July 21, 2024 8:59am PVD July 21, 2024 9:0 7am Excision nevus right lower leg July 8:05am Excision nevus right lower leg July 8:47am post op August 11, 2024 10:5 0am NURSE VISIT 2024 5:0 4pm FOLLOW UP August 24, 2024 9:3 3am 2 W FU August 25, 2024 10: 13am INT LAB ORERS August 25, 2024 11: 15am Wide excision melanoma right leg with sp lit thickn September 03, 2024 8:18am Wide excision melanoma right leg with sp lit thickn September 03, 2024 9:15am post op -concerned September 08, 2024 10:04a m post op September 16, 2024 11:05 am Reason for Visit Admit Date Neoplasm of uncertain behavior of skin M arch 2024 9:12am Neoplasm of uncertain behavior of skin M arch 2024 8:05am Neoplasm of uncertain behavior of skin A pril 2024 10:50am Superficial spreading melanoma August 10:13am Superficial spreading melanoma September 03, 2024 8:18am Superficial spreading melanoma September 08, 2024 10:04am Chief Complaint Admit Date R LEG NEVUS July 15, 2024 9:1 2am PERIPHERAL ARTERIAL DISEASE July 21, 2024 8:59am PVD July 21, 2024 9:0 7am Excision nevus right lower leg July 8:05am Excision nevus right lower leg July 8:47am post op August 11, 2024 10:5 0am NURSE VISIT 2024 5:0 4pm FOLLOW UP August 24, 2024 9:3 3am 2 W FU August 25, 2024 10: 13am INT LAB ORERS August 25, 2024 11: 15am Wide excision melanoma right leg with sp lit thickn September 03, 2024 8:18am Wide excision melanoma right leg with sp lit thickn September 03, 2024 9:15am post op -concerned September 08, 2024 10:04a m post op September 16, 2024 11:05 am wound September 21, 2024 12:13 pm Reason for Visit Admit Date Neoplasm of uncertain behavior of skin M arch 2024 9:12am Neoplasm of uncertain behavior of skin M arch 2024 8:05am Neoplasm of uncertain behavior of skin A pril 2024 10:50am Superficial spreading melanoma August 10:13am Superficial spreading melanoma September 03, 2024 8:18am Superficial spreading melanoma September 08, 2024 10:04am Superficial spreading melanoma September 16, 2024 11:05am Chief Complaint Admit Date R LEG NEVUS July 15, 2024 9:1 2am PERIPHERAL ARTERIAL DISEASE July 21, 2024 8:59am PVD July 21, 2024 9:0 7am Excision nevus right lower leg July 8:05am Excision nevus right lower leg July 8:47am post op August 11, 2024 10:5 0am NURSE VISIT 2024 5:0 4pm FOLLOW UP August 24, 2024 9:3 3am 2 W FU August 25, 2024 10: 13am INT LAB ORERS August 25, 2024 11: 15am Wide excision melanoma right leg with sp lit thickn September 03, 2024 8:18am Wide excision melanoma right leg with sp lit thickn September 03, 2024 9:15am post op -concerned September 08, 2024 10:04a m post op September 16, 2024 11:05 am wound September 21, 2024 12:13 pm 1 W FU September 22, 2024 10:47 am Chief Complaint Admit Date R LEG NEVUS July 15, 2024 9:1 2am PERIPHERAL ARTERIAL DISEASE July 21, 2024 8:59am PVD July 21, 2024 9:0 7am Excision nevus right lower leg July 8:05am Excision nevus right lower leg July 8:47am post op August 11, 2024 10:5 0am NURSE VISIT 2024 5:0 4pm FOLLOW UP August 24, 2024 9:3 3am 2 W FU August 25, 2024 10: 13am INT LAB ORERS August 25, 2024 11: 15am Wide excision melanoma right leg with sp lit thickn September 03, 2024 8:18am Wide excision melanoma right leg with sp lit thickn September 03, 2024 9:15am post op -concerned September 08, 2024 10:04a m post op September 16, 2024 11:05 am wound September 21, 2024 12:13 pm 1 W FU September 22, 2024 10:47 am 1 W FU September 30, 2024 1:27p m Reason for Visit Admit Date Neoplasm of uncertain behavior of skin M arch 2024 9:12am Neoplasm of uncertain behavior of skin M arch 2024 8:05am Neoplasm of uncertain behavior of skin A pril 2024 10:50am Superficial spreading melanoma August 10:13am Superficial spreading melanoma September 03, 2024 8:18am Superficial spreading melanoma September 08, 2024 10:04am Superficial spreading melanoma September 16, 2024 11:05am Superficial spreading melanoma September 22, 2024 10:47am Superficial spreading melanoma September 30, 2024 1:27pm Chief Complaint Admit Date R LEG NEVUS July 15, 2024 9:1 2am PERIPHERAL ARTERIAL DISEASE July 21, 2024 8:59am PVD July 21, 2024 9:0 7am Excision nevus right lower leg July 8:05am Excision nevus right lower leg July 8:47am post op August 11, 2024 10:5 0am NURSE VISIT 2024 5:0 4pm FOLLOW UP August 24, 2024 9:3 3am 2 W FU August 25, 2024 10: 13am INT LAB ORERS August 25, 2024 11: 15am Wide excision melanoma right leg with sp lit thickn September 03, 2024 8:18am Wide excision melanoma right leg with sp lit thickn September 03, 2024 9:15am post op -concerned September 08, 2024 10:04a m post op September 16, 2024 11:05 am wound September 21, 2024 12:13 pm 1 W FU September 22, 2024 10:47 am 1 W FU September 30, 2024 1:27p m 1 W FU October 07, 2024 11:08 am Chief Complaint Admit Date R LEG NEVUS July 15, 2024 9:1 2am PERIPHERAL ARTERIAL DISEASE July 21, 2024 8:59am PVD July 21, 2024 9:0 7am Excision nevus right lower leg July 8:05am Excision nevus right lower leg July 8:47am post op August 11, 2024 10:5 0am NURSE VISIT 2024 5:0 4pm FOLLOW UP August 24, 2024 9:3 3am 2 W FU August 25, 2024 10: 13am INT LAB ORERS August 25, 2024 11: 15am Wide excision melanoma right leg with sp lit thickn September 03, 2024 8:18am Wide excision melanoma right leg with sp lit thickn September 03, 2024 9:15am post op -concerned September 08, 2024 10:04a m post op September 16, 2024 11:05 am wound September 21, 2024 12:13 pm 1 W FU September 22, 2024 10:47 am 1 W FU September 30, 2024 1:27p m 1 W FU October 07, 2024 11:08 am wound check October 23, 2024 10:4 3am Reason for Visit Admit Date Neoplasm of uncertain behavior of skin M arch 2024 9:12am Neoplasm of uncertain behavior of skin M arch 2024 8:05am Neoplasm of uncertain behavior of skin A pril 2024 10:50am Superficial spreading melanoma August 10:13am Superficial spreading melanoma September 03, 2024 8:18am Superficial spreading melanoma September 08, 2024 10:04am Superficial spreading melanoma September 16, 2024 11:05am Superficial spreading melanoma September 22, 2024 10:47am Superficial spreading melanoma September 30, 2024 1:27pm Superficial spreading melanoma October 07, 2024 11:08am Chief Complaint Admit Date R LEG NEVUS July 15, 2024 9:1 2am PERIPHERAL ARTERIAL DISEASE July 21, 2024 8:59am PVD July 21, 2024 9:0 7am Excision nevus right lower leg July 8:05am Excision nevus right lower leg July 8:47am post op August 11, 2024 10:5 0am NURSE VISIT 2024 5:0 4pm FOLLOW UP August 24, 2024 9:3 3am 2 W FU August 25, 2024 10: 13am INT LAB ORERS August 25, 2024 11: 15am Wide excision melanoma right leg with sp lit thickn September 03, 2024 8:18am Wide excision melanoma right leg with sp lit thickn September 03, 2024 9:15am post op -concerned September 08, 2024 10:04a m post op September 16, 2024 11:05 am wound September 21, 2024 12:13 pm 1 W FU September 22, 2024 10:47 am 1 W FU September 30, 2024 1:27p m 1 W FU October 07, 2024 11:08 am wound check October 23, 2024 10:4 3am 1 w fu October 30, 2024 9:50 am Reason for Visit Admit Date Neoplasm of uncertain behavior of skin M arch 2024 9:12am Neoplasm of uncertain behavior of skin M arch 2024 8:05am Neoplasm of uncertain behavior of skin A pril 2024 10:50am Superficial spreading melanoma August 10:13am Superficial spreading melanoma September 03, 2024 8:18am Superficial spreading melanoma September 08, 2024 10:04am Superficial spreading melanoma September 16, 2024 11:05am Superficial spreading melanoma September 22, 2024 10:47am Superficial spreading melanoma September 30, 2024 1:27pm Superficial spreading melanoma October 07, 2024 11:08am Wound of right leg October 23, 2024 10:4 3am Chief Complaint Admit Date Excision nevus right lower leg July 8:05am Excision nevus right lower leg July 8:47am post op August 11, 2024 10:5 0am NURSE VISIT 2024 5:0 4pm FOLLOW UP August 24, 2024 9:3 3am 2 W FU August 25, 2024 10: 13am INT LAB ORERS August 25, 2024 11: 15am Wide excision melanoma right leg with sp lit thickn September 03, 2024 8:18am Wide excision melanoma right leg with sp lit thickn September 03, 2024 9:15am post op -concerned September 08, 2024 10:04a m post op September 16, 2024 11:05 am wound September 21, 2024 12:13 pm 1 W FU September 22, 2024 10:47 am 1 W FU September 30, 2024 1:27p m 1 W FU October 07, 2024 11:08 am wound check October 23, 2024 10:4 3am 1 w fu October 30, 2024 9:50 am 3 W FU November 20, 2024 8:50 am Reason for Visit Admit Date Neoplasm of uncertain behavior of skin M arch 2024 8:05am Neoplasm of uncertain behavior of skin A pril 2024 10:50am Superficial spreading melanoma August 10:13am Superficial spreading melanoma September 03, 2024 8:18am Superficial spreading melanoma September 08, 2024 10:04am Superficial spreading melanoma September 16, 2024 11:05am Superficial spreading melanoma September 22, 2024 10:47am Superficial spreading melanoma September 30, 2024 1:27pm Superficial spreading melanoma October 07, 2024 11:08am Wound of right leg October 23, 2024 10:4 3am Wound of right leg October 30, 2024 9:50 am Summary Purpose Additional Source Comments Goals (unrecognized section and content) Goals may be documented in a n alternate sectionGoals may be documented in an alternate sectionGoals may be documented in an alternate sectionGoals may be documented in an alternate sectionGoals may be documented in an alternate section Source Comments (unrecognize d section and content) In the event this informatio n is protected by the Federal Confidentiality of Alcohol and Drug Abuse Patient Records regulations: The Federal rules restrict any use of the information to criminally investigate or prosecute any alcohol or drug abuse patient.[facility] the event this information is protected by the Federal Confidentiality of Alcohol and Drug Abuse Patient Records regulations: The Federal rules restrict any use of the information to criminally investigate or prosecute any alcohol or drug abuse patient.[facility] the event this information is protected by the Federal Confidentiality of Alcohol and Drug Abuse Patient Records regulations: The Federal rules restrict any use of the information to criminally investigate or prosecute any alcohol or drug abuse patient.[facility] the event this information is protected by the Federal Confidentiality of Alcohol and Drug Abuse Patient Records regulations: The Federal rules restrict any use of the information to criminally investigate or prosecute any alcohol or drug abuse patient.[facility] the event this information is protected by the Federal Confidentiality of Alcohol and Drug Abuse Patient Records regulations: The Federal rules restrict any use of the information to criminally investigate or prosecute any alcohol or drug abuse patient.[facility] the event this information is protected by the Federal Confidentiality of Alcohol and Drug Abuse Patient Records regulations: The Federal rules restrict any use of the information to criminally investigate or prosecute any alcohol or drug abuse patient.[facility] the event this information is protected by the Federal Confidentiality of Alcohol and Drug Abuse Patient Records regulations: The Federal rules restrict any use of the information to criminally investigate or prosecute any alcohol or drug abuse patient.[facility] the event this information is protected by the Federal Confidentiality of Alcohol and Drug Abuse Patient Records regulations: The Federal rules restrict any use of the information to criminally investigate or prosecute any alcohol or drug abuse patient.[facility] Reason for Visit (unrecogniz ed section and content) Reason Onset Date Comments Refill Request 11/10/2021 Refill Request 11/14/2021 Reason Comments Refill Request Reason Comments Dysuria Reason Comments Results Reason Comments problem visit Specialty Diagnoses / Procedures Referred By Brunilda t Referred To Contact CORE BAKER Diagnoses vaginal irritation/discharge Procedures Est [facility] appointment - patient willing to pay out of pocket for appointment 09/12 at 10:30 with Madina Morales placed on hold for her 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 Daniela Coulter MD Family Provider Active Dr. Daniela Coulter MD Primary Care Provider Active Team Status: Inactive Member Role Status Dates Dr. Daniela Coulter MD Primary Care Provide r, Attending Provider, Referring Provider Active Rn Transitional Relationship Specialty Start Date End Date Daniela Coulter MD PCP - General Family Medicine 03/14/12 Rn Transitional Relationship Specialty Start Date End Date Daniela Coulter MD PCP - General Family Medicine 03/14/12 Rn Transitional Relationship Specialty Start Date End Date Daniela Coulter MD PCP - General Family Medicine 03/14/12 Team Status: Inactive Member Role Status Dates Dr. Daniela Coulter MD Primary Care Provider, Referring Marii manuel Active Travis BACA, [place] Attending Provider Active Team Status: Inactive Member Role Status Dates Dr. Daniela Coulter MD Primary Care Provider, Attending Marii manuel Active Rn Transitional Relationship Specialty Start Date End Date Daniela Coulter MD PCP - General Family Medicine 03/14/12 Rn Transitional Relationship Specialty Start Date End Date Daniela Coulter MD PCP - General Family Medicine 03/14/12 Rn Transitional Relationship Specialty Start Date End Date Daniela Coulter MD PCP - General Family Medicine 03/14/12 Team Status: Active Member Role Status Dates Dr. Daniela Coulter MD Primary Care Provider Active Team Status: Inactive Member Role Status Dates Dr. Daniela Coulter MD Primary Care Provider Active Start: July 15, 2024 End: July 15, 2024 Dr. Daniela Coulter MD Referring Provider Active St art: July 15, 2024 End: July 15, 2024 Dr. Ethel Sparks MD Attending Provider Active Start: July 15, 2024 End: July 15, 2024 Team Status: Inactive Member Role Status Dates Dr. Daniela Coulter MD Primary Care Provider Active Start: July 21, 2024 End: July 21, 2024 Dr. Daniela Coulter MD Attending Provider Active St art: July 21, 2024 End: July 21, 2024 Dr. Daniela Coulter MD Referring Provider Active St art: July 21, 2024 End: July 21, 2024 Team Status: Inactive Member Role Status Dates Dr. Daniela Coulter MD Primary Care Provider Active Start: July 31, 2024 End: July 31, 2024 Dr. Ethel Sparks MD Attending Provider Active Start: July 31, 2024 End: July 31, 2024 Dr. Ethel Sparks MD Referring Provider Active Start: July 31, 2024 End: July 31, 2024 Team Status: Active Member Role Status Dates Dr. Daniela Coulter MD Primary Care Provider Active Start: July 31, 2024 Dr. Ethel Sparks MD Attending Provider Active Start: July 31, 2024 Dr. Ethel Sparks MD Referring Provider Active Start: July 31, 2024 Dr. Ethel Sparks MD Other Provider Active St art: July 31, 2024 Team Status: Active Member Role Status Dates Dr. Macario Gardiner MD Attending Provider Active Start: July 21, 2024 Dr. Daniela Coulter MD Referring Provider Active St art: July 21, 2024 Team Status: Inactive Member Role Status Dates Dr. Daniela Coulter MD Primary Care Provider Active Start: August 11, 2024 End: August 11, 2024 Dr. Daniela Coulter MD Referring Provider Active St art: August 11, 2024 End: August 11, 2024 Dr. Ethel Sparks MD Attending Provider Active Start: August 11, 2024 End: August 11, 2024 Team Status: Inactive Member Role Status Dates Dr. Daniela Coulter MD Primary Care Provider Active Start: 2024 End: 2024 Dr. Daniela Coulter MD Referring Provider Active St art: 2024 End: 2024 Dr. Ethel Sparks MD Attending Provider Active Start: 2024 End: 2024 Team Status: Inactive Member Role Status Dates Dr. Daniela Coulter MD Primary Care Provider Active Start: August 24, 2024 End: August 24, 2024 Dr. Daniela Coulter MD Referring Provider Active St art: August 24, 2024 End: August 24, 2024 Dr. Ethel Sparks MD Attending Provider Active Start: August 24, 2024 End: August 24, 2024 Team Status: Inactive Member Role Status Dates Dr. Daniela Coulter MD Primary Care Provider Active Start: August 25, 2024 End: August 25, 2024 Dr. Daniela Coulter MD Referring Provider Active St art: August 25, 2024 End: August 25, 2024 Dr. Ethel Sparks MD Attending Provider Active Start: August 25, 2024 End: August 25, 2024 Team Status: Inactive Member Role Status Dates Dr. Daniela Coulter MD Primary Care Provider Active Start: August 25, 2024 End: August 25, 2024 Dr. Ethel Sparks MD Attending Provider Active Start: August 25, 2024 End: August 25, 2024 Dr. Ethel Sparks MD Referring Provider Active Start: August 25, 2024 End: August 25, 2024 Team Status: Active Member Role Status Dates Mannie Mancuso MD Primary Care Provider Active Team Status: Inactive Member Role Status Dates Dr. Ethel Sparks MD Attending Provider Active Start: September 03, 2024 End: September 03, 2024 Dr. Ethel Sparks MD Referring Provider Active Start: September 03, 2024 End: September 03, 2024 Mannie Mancuso MD Primary Care Provider Active St art: September 03, 2024 End: September 03, 2024 Team Status: Active Member Role Status Donell Sparks MD Attending Provider Active Start: September 03, 2024 Dr. Ethel Sparks MD Referring Provider Active Start: September 03, 2024 Dr. Ethel Sparks MD Other Provider Active St art: September 03, 2024 Mannie Mancuso MD Primary Care Provider Active St art: September 03, 2024 Team Status: Inactive Member Role Status Donell Mancuso MD Primary Care Provider Active St art: September 08, 2024 End: September 08, 2024 Mannie Mancuso MD Referring Provider Active Start : September 08, 2024 End: September 08, 2024 Dr. Ethel Sparks MD Attending Provider Active Start: September 08, 2024 End: September 08, 2024 Team Status: Inactive Member Role Status Donell Mancuso MD Primary Care Provider Active St art: September 16, 2024 End: September 16, 2024 Mannie Mancuso MD Referring Provider Active Start : September 16, 2024 End: September 16, 2024 Dr. Ethel Sparks MD Attending Provider Active Start: September 16, 2024 End: September 16, 2024 Team Status: Inactive Member Role Status Donell Mancuso MD Primary Care Provider Active St art: September 21, 2024 End: September 21, 2024 Dr. Trell Peña DO Emergency Provider Active Start: September 21, 2024 End: September 21, 2024 Team Status: Active Member Role Status Donell Mancuso MD Primary Care Provider Active St art: September 21, 2024 Dr. Daniela Mcbride MD Attending Provider Active S tart: September 21, 2024 Team Status: Inactive Member Role Status Donell Mancuso MD Primary Care Provider Active St art: September 22, 2024 End: September 22, 2024 Mannie Mancuso MD Referring Provider Active Start : September 22, 2024 End: September 22, 2024 Dr. Ethel Sparks MD Attending Provider Active Start: September 22, 2024 End: September 22, 2024 Team Status: Inactive Member Role Status Donell Mancuso MD Primary Care Provider Active St art: September 21, 2024 End: September 21, 2024 Dr. Trell Peña DO Attending Provider Active Start: September 21, 2024 End: September 21, 2024 Dr. Trell Peña DO Emergency Provider Active Start: September 21, 2024 End: September 21, 2024 Team Status: Active Member Role Status Donell Mancuso MD Primary Care Provider Active St art: September 21, 2024 Dr. Daniela Mcbride MD Attending Provider Active S tart: September 21, 2024 Dr. Trell Peña DO Referring Provider Active Start: September 21, 2024 Team Status: Inactive Member Role Status Donell Mancuso MD Primary Care Provider Active St art: September 30, 2024 End: September 30, 2024 Mannie Mancuso MD Referring Provider Active Start : September 30, 2024 End: September 30, 2024 Dr. Ethel Sparks MD Attending Provider Active Start: September 30, 2024 End: September 30, 2024 Team Status: Inactive Member Role Status Donell Mancuso MD Primary Care Provider Active St art: October 07, 2024 End: October 07, 2024 Mannie Mancuso MD Referring Provider Active Start : October 07, 2024 End: October 07, 2024 Dr. Ethel Sparks MD Attending Provider Active Start: October 07, 2024 End: October 07, 2024 Team Status: Inactive Member Role Status Donell Mancuso MD Primary Care Provider Active St art: October 23, 2024 End: October 23, 2024 Mannie Mancuso MD Referring Provider Active Start : October 23, 2024 End: October 23, 2024 Dr. Javad Green MD Attending Provider Active Start: October 23, 2024 End: October 23, 2024 Team Status: Inactive Member Role Status Donell Mancuso MD Primary Care Provider Active St art: October 30, 2024 End: October 30, 2024 Mannie Mancuso MD Referring Provider Active Start : October 30, 2024 End: October 30, 2024 Dr. Javad Green MD Attending Provider Active Start: October 30, 2024 End: October 30, 2024 Team Status: Active Member Role/Relationship Status Dates Mannie Mancuso MD Primary Care Provider Active Team Status: Inactive Member Role/Relationship Status Dates Dr. Daniela Coulter MD Primary Care Provider Active Start: July 31, 2024 End: July 31, 2024 Dr. Ehtel Sparks MD Attending Provider Active Start: July 31, 2024 End: July 31, 2024 Dr. Ethel Sparks MD Referring Provider Active Start: July 31, 2024 End: July 31, 2024 Team Status: Active Member Role/Relationship Status Dates Dr. Daniela Coulter MD Primary Care Provider Active Start: July 31, 2024 Dr. Ethel Sparks MD Attending Provider Active Start: July 31, 2024 Dr. Ethel Sparks MD Referring Provider Active Start: July 31, 2024 Dr. Ethel Sparks MD Other Provider Active St art: July 31, 2024 Team Status: Inactive Member Role/Relationship Status Dates Dr. Daniela Coulter MD Primary Care Provider Active Start: August 11, 2024 End: August 11, 2024 Dr. Daniela Coulter MD Referring Provider Active St art: August 11, 2024 End: August 11, 2024 Dr. Ethel Sparks MD Attending Provider Active Start: August 11, 2024 End: August 11, 2024 Team Status: Inactive Member Role/Relationship Status Dates Dr. Daniela Coulter MD Primary Care Provider Active Start: 2024 End: 2024 Dr. Daniela Coulter MD Referring Provider Active St art: 2024 End: 2024 Dr. Ethel Sparks MD Attending Provider Active Start: 2024 End: 2024 Team Status: Inactive Member Role/Relationship Status Dates Dr. Daniela Coulter MD Primary Care Provider Active Start: August 24, 2024 End: August 24, 2024 Dr. Daniela Coulter MD Referring Provider Active St art: August 24, 2024 End: August 24, 2024 Dr. Ethel Sparks MD Attending Provider Active Start: August 24, 2024 End: August 24, 2024 Team Status: Inactive Member Role/Relationship Status Dates Dr. Daniela Coulter MD Primary Care Provider Active Start: August 25, 2024 End: August 25, 2024 Dr. Daniela Coulter MD Referring Provider Active St art: August 25, 2024 End: August 25, 2024 Dr. Ethel Sparks MD Attending Provider Active Start: August 25, 2024 End: August 25, 2024 Team Status: Inactive Member Role/Relationship Status Dates Dr. Daniela Coulter MD Primary Care Provider Active Start: August 25, 2024 End: August 25, 2024 Dr. Ethel Sparks MD Attending Provider Active Start: August 25, 2024 End: August 25, 2024 Dr. Ethel Sparks MD Referring Provider Active Start: August 25, 2024 End: August 25, 2024 Team Status: Inactive Member Role/Relationship Status Dates Dr. Ethel Sparks MD Attending Provider Active Start: September 03, 2024 End: September 03, 2024 Dr. Ethel Sparks MD Referring Provider Active Start: September 03, 2024 End: September 03, 2024 Mannie Mancuso MD Primary Care Provider Active St art: September 03, 2024 End: September 03, 2024 Team Status: Active Member Role/Relationship Status Dates Dr. Ethel Sparks MD Attending Provider Active Start: September 03, 2024 Dr. Ethel Sparks MD Referring Provider Active Start: September 03, 2024 Dr. Ethel Sparks MD Other Provider Active St art: September 03, 2024 Mannie Mancuso MD Primary Care Provider Active St art: September 03, 2024 Team Status: Inactive Member Role/Relationship Status Dates Mannie Mancuso MD Primary Care Provider Active St art: September 08, 2024 End: September 08, 2024 Mannie Mancuso MD Referring Provider Active Start : September 08, 2024 End: September 08, 2024 Dr. Ethel Sparks MD Attending Provider Active Start: September 08, 2024 End: September 08, 2024 Team Status: Inactive Member Role/Relationship Status Dates Mannie Mancuso MD Primary Care Provider Active St art: September 16, 2024 End: September 16, 2024 Mannie Mancuso MD Referring Provider Active Start : September 16, 2024 End: September 16, 2024 Dr. Ethel Sparks MD Attending Provider Active Start: September 16, 2024 End: September 16, 2024 Team Status: Inactive Member Role/Relationship Status Donell Mancuso MD Primary Care Provider Active St art: September 21, 2024 End: September 21, 2024 Dr. Trell Peña DO Attending Provider Active Start: September 21, 2024 End: September 21, 2024 Dr. Trell Peña DO Emergency Provider Active Start: September 21, 2024 End: September 21, 2024 Team Status: Active Member Role/Relationship Status Donell Mancuso MD Primary Care Provider Active St art: September 21, 2024 Dr. Daniela Mcbride MD Attending Provider Active S tart: September 21, 2024 Dr. Trell Peña DO Referring Provider Active Start: September 21, 2024 Team Status: Inactive Member Role/Relationship Status Donell Mancuso MD Primary Care Provider Active St art: September 22, 2024 End: September 22, 2024 Mannie Mancuso MD Referring Provider Active Start : September 22, 2024 End: September 22, 2024 Dr. Ethel Sparks MD Attending Provider Active Start: September 22, 2024 End: September 22, 2024 Team Status: Inactive Member Role/Relationship Status Donell Mancuso MD Primary Care Provider Active St art: September 30, 2024 End: September 30, 2024 Mannie Mancuso MD Referring Provider Active Start : September 30, 2024 End: September 30, 2024 Dr. Ethel Sparks MD Attending Provider Active Start: September 30, 2024 End: September 30, 2024 Team Status: Inactive Member Role/Relationship Status Donell Mancuso MD Primary Care Provider Active St art: October 07, 2024 End: October 07, 2024 Mannie Mancuso MD Referring Provider Active Start : October 07, 2024 End: October 07, 2024 Dr. Ethel Sparks MD Attending Provider Active Start: October 07, 2024 End: October 07, 2024 Team Status: Inactive Member Role/Relationship Status Donell Mancuso MD Primary Care Provider Active St art: October 23, 2024 End: October 23, 2024 Mannie Mancuso MD Referring Provider Active Start : October 23, 2024 End: October 23, 2024 Dr. Javad Green MD Attending Provider Active Start: October 23, 2024 End: October 23, 2024 Team Status: Inactive Member Role/Relationship Status Dates Mannie Mancuso MD Primary Care Provider Active St art: October 30, 2024 End: October 30, 2024 Mannie Mancuso MD Referring Provider Active Start : October 30, 2024 End: October 30, 2024 Dr. Javad Green MD Attending Provider Active Start: October 30, 2024 End: October 30, 2024 Team Status: Inactive Member Role/Relationship Status Dates Mannie Mancuso MD Primary Care Provider Active St art: November 20, 2024 End: November 20, 2024 Mannie Mancuso MD Referring Provider Active Start : November 20, 2024 End: November 20, 2024 Dr. Javad Green MD Attending Provider Active Start: November 20, 2024 End: November 20, 2024 INFORMATION SOURCE (unrecogn ized section and content) DATE CREATED AUTHOR 10/04/2023 [facility] DATE CREATED AUTHOR 'S ORGANIZ ATION 11/29/2024 [facility] FOR RECORDS PERTAINING TO PATIENTS WHO ARE OR HAVE BEEN ENROLLED IN A CHEMICAL DEPENDENCY/SUBSTANCEABUSE PROGRAM, SOME INFORMATION MAY BE OMITTED. This clinical summary was aggregated from multiple sources. Caution should be exercised in using it in the provision of clinical care. This summary normalizes information from multiple sources, and as a consequence, information in this document may materially change the coding, format and clinical context of patient data. In addition, data may be omitted in some cases. CLINICAL DECISIONS SHOULD BE BASED ON THE PRIMARY CLINICAL RECORDS. [employer] provides no warranty or guarantee of the accuracy or completeness of information in this document.
== END | disposition home or self-care (01) ==
LOC: OPBI 10:13
PROVIDERS: PCP Family Medicine; Referring Provider Family Medicine; Visit Provider Family Medicine
DX: Z12.31 Encounter for screening mammogram for malignant neoplasm of breast (principal)
CPT/HCPCS: 77063; 77067

== ENCOUNTER 2024-12-04 07:08 | Outpatient (CLI) | payer OTHER, SELFPAY ==
--- NOTE | 2024-12-04 07:14 | CT_ITS ---
PROCEDURE: LIMITED CHEST CT CARDIAC ONLY 12/04/2024 REASON FOR EXAM: HX OF FAMILY HEART DISEASE TECHNIQUE: CT performed for coronary artery calcium scoring. One or more dose reduction techniques were used (e.g., Automated exposure control, adjustment of the mA and/or kV according to patient size, use of iterative reconstruction technique). RADIATION DOSE SUMMARY: CTDlvol: 12.19 mGy DLP: 195.04 mGycm COMPARISON: None. CT/Limited Chest CT Cardiac Only IMPRESSION: Limited imaging of the lungs demonstrates no acute process. No pleural effusion or pneumothorax is seen in visualized areas. No adenopathy is noted. The visualized upper abdomen demonstrates no significant abnormality. Reading Location: [place] [id number]
--- OUTSIDE RECORDS SUMMARY | 2024-12-04 07:22 | XMS RPT_ITS | CCD ---
Author Organization [facility] Care Team Providers Care Tobacco Flavorer Name Role Phone Daniela Coulter MD Primary Care Provider [phone] Dr. Daniela Coulter Primary Care Provider [phone] Daniela Coulter Referring Provider [phone] PHUONG Marrero Attending Provider Daniela Coulter MD Primary Care Provider [phone] DANIELA COLUTER Primary Care Unavailable MADINA MORALES Attending Unavailable [...] MD Primary Care Provider [phone] Mannie Mancuso MD Referring Provider Dr. Trell Peña DO [...] Care Unavailable Ghazoul, Ethel Referring Unavailable Ghazoul, Tehel Attending Unavailable Ghazoul, Ethel Consulting Unavailable Jamee, [...] HYDROcodone Drug Allergy 07-22-2008 Vomiting [facility] (7 sources) Acetaminophen Drug Allergy 08-30-2020 Vomiting [facility] (16 sources) HYDROcodone; Translations: [hydrocodone bitartrate] Drug Allergy 08-30-2020 Vomiting [facility] (8 sources) Acetaminophen / HYDROcodone; Translations: [HYDROCODONE-ACETA MINOPHEN] Drug Allergy 07-22-[address] [facility] Work Phone: (11 sources) Amoxicillin Drug Allergy 07-15-2024 rash [facility] (1 source) Acetaminophen Drug Allergy 08-25-2024 [facility] Repository (1 source) Amoxicillin Drug Allergy 11-20-2024 [facility] Repository Medications Current Medications Medication Drug [...] 28, 2020 12:00am August 29, 2020 12:03am [facility] (Nk) (7 sources) Start: 09-21-2024 [facility] (Nk) A ctive September 21, 2024 12:00am [...] Comment on above: Take 1 capsule by [facility] once daily. FLORAJEN WOMEN. If on antibiotic, [...] August 31, 2024 8:11am polyethylene glycol [phone] [id number] mg powder for oral solution (15 sources) [...] Report on 11-20-2024 Plastic Surgery Visit Report [facility] [address], [address] [place] [address] OFFICE VISIT Date of Service: 11/20/24 MR#: [id number] Acct: [id number] Name: DARLIN FORBES Rep #: [id number] : 1965 Provider: Dr. Javad Green MD Age/Sex: 59/F Location: [facility] Status: Signed Intake Vital Signs 10/30/24 09:55 [...] Cosigner Signature: Date (if applicable) CC: Normal [facility] Plastic Surgery Visit Report on 10-31-2024 Plastic Surgery Visit Report [facility] [address], [address] [place] [address] OFFICE VISIT Date of Service: 10/30/24 MR#: [id number] Acct: [id number] Name: DARLIN FORBES Rep #: [id number] : 1965 Provider: Dr. Javad Green MD Age/Sex: 59/F Location: [facility] Status: Signed Intake Vital Signs 10/23/24 10:59 [...] is O.K.). (more content not included)... Normal [facility] Plastic Surgery Visit Report on 10-23-2024 Plastic Surgery Visit Report [facility] [address], [address] [place] [address] OFFICE VISIT Date of Service: 10/23/24 MR#: [id number] Acct: [id number] Name: DARLIN FORBES Rep #: [id number] : 1965 Provider: Dr. Javad Green MD Age/Sex: 59/F Location: [facility] Status: Signed Intake Vital Signs 10/07/24 11:19 [...] to elevate (more content not included)... Normal [facility] Plastic Surgery Visit Report on 10-07-2024 Plastic Surgery Visit Report [facility] [address], [address] [place] [address] OFFICE VISIT Date of Service: 10/07/24 MR#: [id number] Acct: [id number] Name: DARLIN FORBES Rep #: [id number] : 1965 Provider: Dr. 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 [facility] Medical History Wears contact lenses MRSA infection [...] following commands knew that she was at [facility] year is 2024. Sensation grossly intact Skin: [...] and concerns. (more content not included)... Normal [facility] Venous Duplex US, Unilateral on 09-21-2024 Venous Duplex US, Unilateral [facility] [address] [place] [address] Venous Duplex US, Unilateral 09/21/24 1301 MR#: [id number] Acct: [id number] Name: DARLIN FORBES Rep #: [id number] : 1965 59 From: Daniela Mcbride MD [...] segmentally. Ordering Physician: Trell Peña Referring Physician: Mannie Mancuso Performed By: Lisa Deshpande RVT 09/22/24 0729 Date Daniela Mcbride MD CC: Dr. Mannie Mancuso MD; Dr. Trell Peña, DO Date Dictated: 09/21/24 1301 Date Transcribed: 09/22/24 0729 Chipping Machine Operator: Signed Normal [facility] Plastic Surgery Visit Report on 09-16-2024 Plastic Surgery Visit Report [facility] [address], [address] [place] [address] OFFICE VISIT Date of Service: 09/16/24 MR#: [id number] Acct: [id number] Name: DARLIN FORBES Rep #: [id number] : 1965 Provider: Dr. 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 Mannie Mancuso MD Status:REG [facility] Discharge Instructions Dressing / Incision Additional [...] Care Provider: Mannie Mancuso Instructions Print Language: Maltese Discharge Orders/Prescriptions Prescriptions: New sulfamethoxazole-trimet hoprim [Bactrim] [...] MD CC: Dr. Mannie Mancuso MD Signed [facility] MR/POSTOP.ANEon 09-03-2024 MR/POSTOP.ANE [facility] Medical Records Department [address] [place] [address] Anesthesia Postop Eval I 09/03/24 1140 MR#: [id number] Acct: [id number] Name: DARLIN FORBES Rep #: [id number] : 1965 59 From: Mariposa Sears HEALTH TECHNICIAN PCP: Dr. Mannie Mancuso MD Status:[facility] Y Race: C Location: [place] [address] Anesthesia: Postop Eval I Current Vital Signs [...] completed: Yes 09/03/24 1140 Date Mariposa Sears HEALTH TECHNICIAN Cosigner Signature: Date CC: Signed Normal [facility] MR/[id number] 09-03-2024 [facility] Medical Records Department [address] [place] [address] Anesthesia Postop Eval II 09/03/24 1523 MR#: [id number] Acct: [id number] Name: DARLIN FORBES Rep #: [id number] : 1965 59 From: Brent Ramos MD PCP: Dr. Mannie Mancuso MD Status:[facility] Y Race: C Location: [facility] Anesthesia Postop Eval I Sum Postop Eval Completion status Anesthesia document: Postop Eval 1 completed: Yes Anesthesia Postop Eval I Summary Anesthesia Postop Eval I Summary: Anesthesia Postop Eval I: Assessment Summary Airway patent Yes 09/03/24 11:40 HEALTH TECHNICIAN.LMIL Spontaneous unlabored Yes 09/03/24 11:40 HEALTH TECHNICIAN.LMIL respirations Mental status Awake,Calm 09/03/24 11:40 HEALTH TECHNICIAN.LMIL nausea No 09/03/24 11:40 HEALTH TECHNICIAN.LMIL Vomiting No 09/03/24 11:40 HEALTH TECHNICIAN.LMIL Anesthesia Postop Eval I: Fluid Summary Crystalloid volume administer 1,400 09/03/24 11:40 HEALTH TECHNICIAN.LMIL (ml) Colloids volume administered ( ml) Blood Product volume administered (ml) Total IV fluid infused 1,400 09/03/24 11:40 HEALTH TECHNICIAN.LMIL Anesthesia Postop Eval I: Summary Notes Anesthesia Complication No 09/03/24 11:40 HEALTH TECHNICIAN.LMIL Anesthesia Complication Comment: Post-operative progress note Anesthesia: Postop Eval II Evaluation Mental status: Awake and Calm Pain Level: 1 nausea: No Vomiting: No Complications Anesthesia Complication: No 09/03/24 1524 Date Brent Ramos MD Cosigner Signature: Date CC: Signed Normal [facility] Operative Reporton Operative Report [facility] Medical Records Department [address] [place] [address] Operative Report 09/03/24 1140 MR#: [id number] Acct: [id number] Name: DARLIN FORBES Rep #: [id number] : 1965 59 From: Ethel Sparks MD PCP: Dr. Mannie Mancuso MD Status:REG [facility] Location: [place] [address] Problems Associated Problem List Diagnoses (1) Superficial spreading melanoma: Operative Report (Standard) Operative Information Date of Procedure: 09/03/24 Pre-Operative Diagnosis: Biopsy-proven superficial spreading melanoma right ankle Post-Operative Diagnosis: Same Surgery/Procedure Performed: Wide excision melanoma right ankle --3.5 cm (1 cm margin); STSG from right thigh to right ankle (20 cm???) edge burnisher uppers: Yes General Internist: Ama Loco Tasks completed by surgical first assistant: Retracting Type of Anesthesia: General RN Documented [...] MD; Dr. Ethel Sparks MD Signed Normal [facility] Surgery Specimen Level Elizabeth 09-03-2024 Surgery Specimen Level IV Patient Age/Sex Location Account Attending Physician DARLIN FORBES 59/F [facility] [id number] Dr. Ethel Sparks MD Specimen: [id number] Received: 09/03/24 Status: CHIRAG Singleton Num: [id number] Spec Type: Lesion Subm Dr: Dr. Ethel [...] previous surgical procedure. * Note: See specimen [id number] for the original diagnosis and Synoptic Report (provided by Dr Hema Danielle, [facility]). MICROSCOPIC DESCRIPTION Slides are reviewed. GROSS DESCRIPTION [...] Slice 9, perpendicular sections of inferior/6:00 margin [facility] 09-03-2024 CPT:85052 Patient Age/Sex Location Account Attending Physician DARLIN FORBES 59/F [facility] [id number] Dr. Ethel Sparks MD Signed (signature on file) Dr. Nadja Duval MD 09/16/24 1020 Normal [facility] Comment on above: Performed By: #### P SUIV ####[facility] [address] [place], [address] MR/Josselin 08-31-2024 MR/PAT.[place] [facility] Medical Records Department [address] [place] [address] PAT - Anesthesia 08/31/24 1212 MR#: [id number] Acct: [id number] Name: DARLIN FORBES Rep #: [id number] : 1965 59 From: Aleksandar Basurto MD PCP: Dr. Daniela Coulter MD Status:PRE [facility] Y Race: C Location: [facility] Pre-Assessment Diagnosis/Proposed Procedure Planned Operative Procedure(s): (R) Wide excision melanoma right leg with split thickness skin graft Anesthesia History Anesthesia History - transitional living specialist: Anesthesia History - transitional living specialist Hx Hospitalization No 08/31/24 08:13 Any Problems [...] take am of surgery PONV PONV - transitional living specialist: PONV - transitional living specialist Female Yes 08/31/24 08:13 HX of Motion [...] 08/25/24 10:20 Respiratory Assessment Respiratory Assessment - transitional living specialist: Respiratory Tract Infection Hx - transitional living specialist Hx Respiratory Tract Infection No 08/31/24 08:13 STOP Sleep Apnea STOP Sleep Apnea - transitional living specialist: STOP Sleep Apnea - transitional living specialist Hx Hypertension No 08/31/24 08:13 Hx Sleep [...] Tobacco Use History Tobacco Use History - transitional living specialist: Tobacco Use History - transitional living specialist Tobacco Use Smoking Status Former smoker 08/31/24 08:13 Hx Tobacco Use No 08/31/24 08:13 Years Smoking Packs Smoked per Day Smoking Cessation Date was No - quit smoking greater 08/31/24 08:13 within the last 15 years than 15 years ago Hx Smoking Cessation Date 05/06/09 08/31/24 08:13 Hx Smoking Cessation No 08/31/24 08:13 Counseling Hematologic Medial History Hematologic Hx - transitional living specialist: 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 Normal [facility] Anion gap in Serum or Plasma Ordered By: Ethel Sparks on 08-25-2024 Anion gap [Moles/Vol] 11 mmol/L - [facility] BUN/creatinine ratioOrdered By: Ethel Sparks on 08-25-2024 Urea nitrogen/Creatinine [Mass ratio] 14.4 mg/mg - [facility] Basic Metabolic Profile (BMP )on 08-25-2024 BUN/CRE 14.4 RATIO Normal 02-22 [facility] Comment on above: Performed By: #### L 100.0500, L500.2500 ####[facility] [address] [place], [address] Calcium [Mass/Vol] 9.7 mg/dL Normal 7.6-11.0 [facility] Comment on above: Performed By: #### L 100.0500, L500.2500 ####[facility] [address] [place], [address] Chloride [Moles/Vol] 104 mmol/L Normal 98-108 [facility] Comment on above: Performed By: #### L 100.0500, L500.2500 ####[facility] [address] [place], [address] CO2 [Moles/Vol] 24.6 mmol/L Normal 21.0-32.0 [facility] Comment on above: Performed By: #### L 100.0500, L500.2500 ####[facility] [address] [place], [address] Creatinine [Mass/Vol] 0.94 mg/dL Normal 0.70-1.20 [facility] Comment on above: Performed By: #### L 100.0500, L500.2500 ####[facility] [address] [place], [address] GAP 11 Normal 5-15 [facility] Comment on above: Performed By: #### L 100.0500, L500.2500 ####[facility] [address] [place], [address] GFR/1.73 sq M.predicted among non-blacks MDRD (S/P/Bld) [Vol rate/Area] 70 mL/min/{1.73_m2} Normal >60 [facility] Comment on above: Result Comment: mL/m in/1.73m2 CKD-EPI Creatinine Equation (2020) Performed By: #### L 100.0500, L500.2500 ####[facility] [address] [place], [address] Glucose [Mass/Vol] 95 mg/dL Normal 70-99 [facility] Comment on above: Performed By: #### L 100.0500, L500.2500 ####[facility] [address] [place], [address] Potassium [Moles/Vol] 4.1 mmol/L Normal 3.3-5.1 [facility] Comment on above: Performed By: #### L 100.0500, L500.2500 ####[facility] [address] [place], [address] Sodium [Moles/Vol] 139 mmol/L Normal 133-145 [facility] Comment on above: Performed By: #### L 100.0500, L500.2500 ####[facility] [address] [place], [address] Urea nitrogen [Mass/Vol] 14 mg/dL Normal 4-19 [facility] Comment on above: Performed By: #### L 100.0500, L500.2500 ####[facility] [address] [place], [address] CBC-Complete Blood Cnt No Di ffon 08-25-2024 Erythrocyte distribution width (RBC) [Ratio] 12.7 % Normal 11.6-14.6 [facility] Comment on above: Performed By: #### L 100.0500, L500.2500 ####[facility] [address] [place], [address] Hematocrit (Bld) [Volume fraction] 43.2 % Normal 37-47 [facility] Comment on above: Performed By: #### L 100.0500, L500.2500 ####[facility] [address] [place], [address] Hemoglobin (Bld) [Mass/Vol] 14.7 g/dL Normal 12.0-15.0 [facility] Comment on above: Performed By: #### L 100.0500, L500.2500 ####[facility] [address] [place], [address] MCH (RBC) [Entitic mass] 33.6 pg High 27.0-32.0 [facility] Comment on above: Performed By: #### L 100.0500, L500.2500 ####[facility] [address] [place], [address] MCHC (RBC) [Mass/Vol] 34.0 g/dL Normal 32-36 [facility] Comment on above: Performed By: #### L 100.0500, L500.2500 ####[facility] [address] [place], [address] MCV (RBC) [Entitic vol] 98.6 fL Normal 81-99 [facility] Comment on above: Performed By: #### L 100.0500, L500.2500 ####[facility] [address] [place], [address] Platelet mean volume (Bld) [Entitic vol] 9.9 fL Normal 6.2-12.0 [facility] Comment on above: Performed By: #### L 100.0500, L500.2500 ####[facility] [address] [place], [address] Platelets (Bld) [#/Vol] 249 10*3/uL Normal 150-450 [facility] Comment on above: Performed By: #### L 100.0500, L500.2500 ####[facility] [address] [place], [address] RBC (Bld) [#/Vol] 4.38 10*6/uL Normal 4.2-5.4 [facility] Comment on above: Performed By: #### L 100.0500, L500.2500 ####[facility] [address] [place], [address] RDW SD 46.1 fl High 35.1-43.9 [facility] Comment on above: Performed By: #### L 100.0500, L500.2500 ####[facility] [address] [place], [address] WBC (Bld) [#/Vol] 6.8 10*3/uL Normal 4.4-11.0 [facility] Comment on above: Performed By: #### L 100.0500, L500.2500 ####[facility] [address] [place], [address] Carbon dioxide, total [Moles /volume] in Central venous bloodOrdered By: Ethel Sparks on 08-25-2024 CO2 [Moles/Vol] 24.6 mmol/L 21.0-32.0 [facility] Chloride assayOrdered By: Darrell Sparks on 08-25-2024 Chloride [Moles/Vol] 104 mmol/L 98-108 [facility] Erythrocyte distribution wid th (RBC) [Ratio]Ordered By: Ethel Sparks on 08-25-2024 Erythrocyte distribution width (RBC) [Entitic vol] 46.1 fL High 35.1-43.9 [facility] Erythrocyte distribution wid th ratioOrdered By: Ethel Sparks on 08-25-2024 Erythrocyte distribution width (RBC) [Ratio] 12.7 % 11.6-14.6 [facility] Erythrocyte distribution wid th standard deviationOrdered By: Ethel Balderramaazofarrah on 08-25-2024 Erythrocyte distribution width (RBC) [Ratio] 46.1 fl High 35.1-43.9 [facility] GFR/1.73 sq M.predicted jacquelin g non-blacks MDRD (S/P/Bld) [Vol rate/Area]Ordered By: Ethel Sparks on 08-25-2024 Estimated GFR (MDRD) Non-Af Amer 70 >60 [facility] Comment on above: mL/min/1.73m2 CKD-EP I Creatinine Equation (2020) Glomerular filtration rate ( GFR) estimation/1.73 sq m using serum, plasma, or whole bOrdered By: Ethel Sparks on 08-25-2024 GFR/1.73 sq M.predicted among non-blacks MDRD (S/P/Bld) [Vol rate/Area] 70 mL/min/{1.73_m2} >60 [facility] Comment on above: mL/min/1.73m2 CKD-EP I Creatinine Equation (2020) Hematocrit Auto (Bld) [Volum e fraction]Ordered By: Ethel Sparks on 08-25-2024 Hematocrit (Bld) [Volume fraction] 43.2 % 37-47 [facility] Hemoglobin measurementOrdere d By: Ethel Spakrs on 08-25-2024 Hemoglobin (Bld) [Mass/Vol] 14.7 g/dL 12.0-15.0 [facility] MCV (mean corpuscular volume ) determinationOrdered By: Ethel Sparks on 08-25-2024 MCV (RBC) [Entitic vol] 98.6 fL 81-99 [facility] Mean corpuscular hemoglobin (MCH) determinationOrdered By: Ethel Sparks on 08-25-2024 MCH (RBC) [Entitic mass] 33.6 pg High 27.0-32.0 [facility] Mean corpuscular hemoglobin concentration (MCHC) determinationOrdered By: Ethel Sparks on 08-25-2024 MCHC (RBC) [Mass/Vol] 34.0 g/dL 32-36 [facility] Mean platelet volume determi nationOrdered By: Ethel Sparks on 08-25-2024 Platelet mean volume (Bld) [Entitic vol] 9.9 fL 6.2-12.0 [facility] Plastic Surgery Visit Report on 08-25-2024 Plastic Surgery Visit Report [facility] [address], [address] [place], [place] [address] OFFICE VISIT Date of Service: 08/25/24 MR#: [id number] Acct: [id number] Name: DARLIN FORBES Rep #: [id number] : 1965 Provider: Dr. 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 Normal [facility] Platelet countOrdered By: Darrell Sparks on 08-25-2024 Platelets (Bld) [#/Vol] 249 10*3/uL 150-450 [facility] Potassium (Unsp spec) [Mass/ Vol]Ordered By: Ethel Sparks on 08-25-2024 Potassium [Moles/Vol] 4.1 mmol/L 3.3-5.1 [facility] Potassium measurement (mass/ volume)Ordered By: Ethel Sparks on 08-25-2024 Potassium (Unsp spec) [Mass/Vol] 4.1 mmol/L 3.3-5.1 [facility] RBC Auto (Bld) [#/Vol]Ordere d By: Ethel Sparks on 08-25-2024 RBC (Bld) [#/Vol] 4.38 10*6/uL 4.2-5.4 [facility] Serum creatinine measurement (mass/volume)Ordered By: Ethel Sparks on 08-25-2024 Creatinine [Mass/Vol] 0.94 mg/dL 0.70-1.20 [facility] Serum glucose measurement (m ass/volume)Ordered By: Ethel Sparks on 08-25-2024 Glucose [Mass/Vol] 95 mg/dL 70-99 [facility] Serum or plasma calcium ana cristina urement (mass/volume)Ordered By: Ethel Sparks on 08-25-2024 Calcium [Mass/Vol] 9.7 mg/dL 7.6-11.0 [facility] Serum or plasma urea nitroge n measurement (mass/volume)Ordered By: Ethel Sparks on 08-25-2024 Urea nitrogen [Mass/Vol] 14 mg/dL 4-19 [facility] Sodium levelOrdered By: Prema Sparks on 08-25-2024 Sodium [Moles/Vol] 139 mmol/L 133-145 [facility] White blood cell (WBC) count Ordered By: Ethel Sparks on 08-25-2024 WBC (Bld) [#/Vol] 6.8 10*3/uL 4.4-11.0 [facility] Office Visit Reporton 2024 Office Visit Report [facility] [place] [address] [place] [address] OFFICE VISIT Date of Service: 08/24/24 MR#: [id number] Acct: [id number] Patient: DARLIN FORBES Rep #: [id number] : 1965 Provider: Dr. Ethel yan MD Age/Sex: 59/F Location: [facility] Status: Signed Intake Vital Signs 08/20/24 08:03 [...] Cosigner Signature: Date (if applicable) CC: Normal [facility] Office Visit Reporton 2024 Office Visit Report [facility] [address] [place] [address] OFFICE VISIT Date of Service: 08/19/24 MR#: [id number] Acct: [id number] Patient: DARLIN FORBES Rep #: [id number] : 1965 Provider: Dr. Ethel yan MD Age/Sex: 59/F Location: [facility] Status: Signed Intake Vital Signs 08/11/24 10:54 [...] DS called in to [facility] in [place]. one tab by mouth twice a day for 7 days. 08/20/24 1627 Date Ethel Sparks MD Cosigner Signature: Date (if applicable) CC: Normal [facility] Plastic Surgery Visit Report on 08-11-2024 Plastic Surgery Visit Report [facility] [address], [address] [place] [address] OFFICE VISIT Date of Service: 08/11/24 MR#: [id number] Acct: [id number] Name: DARLIN FORBES Rep #: [id number] : 1965 Provider: Dr. Ethel yan MD Age/Sex: 58/F Location: [facility] Status: Signed Intake Vital Signs 07/15/24 [...] Neoplasm of uncertain behavior of skin D48.5 [facility] Medical History Irritable bowel syndrome Constipation Anxiety [...] Torrez Signature: Date (if applicable) CC: Normal [facility] Discharge Instructionon 07-05 Discharge Instruction [facility] Medical Records Department [address] [place] [address] Instructions for Home/Discharge Instructions 07/31/24 0935 MR#: [id number] Acct: [id number] Name: DARLIN FORBES Rep #: [id number] : 1965 58 From: Ethel Sparks MD PCP: Dr. Daniela Coulter MD Status:REG [facility] Discharge Instructions Dressing / Incision Additional [...] Care Provider: Daniela Coulter Instructions Print Language: Maltese Discharge Orders/Prescriptions Prescriptions: New sulfamethoxazole-trimet hoprim [Bactrim] [...] CC: Dr. Daniela Coulter MD Signed Normal [facility] Immunohistochemical Stainson 07-31-2024 Immunohistochemical Stains Patient Age/Sex Location Account Attending Physician DARLIN FORBES 58/F [facility] [id number] Dr. Ethel Sparks MD Specimen: [id number] Received: 07/31/24 Status: CHIRAG Areli Num: [id number] Spec Type: Lesion Subm Dr: Dr. Ethel [...] as follows:Cassette Summary:A1-central sectionsA2-opposing tips shaved 07/31/2024 CPT:18530 ADDENDUM Addendum 1 Entered: 08/19/24 This addendum is to report the FINAL DIAGNOSIS following intradepartmental consultation with dermatopathologist, Dr Hema Danielle, at [facility]: FINAL DIAGNOSIS: A. SKIN, RIGHT LOWER LEG, EXCISION: Patient Age/Sex Location Account Attending Physician KARMADARLIN GARCIA 58/F [facility] [id number] Dr. Ethel Sparks MD ADDENDUM (Continued) * [...] consultation by Dr Hema Danielle (dermatopathology division, [facility]). The diagnosis was discussed with Dr Sparks, 08/19/24. IHC utilized in the assessment: Melan-A (A1) The above synoptic report complies, in slightly modified form, with the guidelines of the College of [employer] and the Association of Directors of Anatomic and Surgical Pathology for the reporting of cancer specimens. All matched controls reacted appropriately. These tests were developed and their performance characteristics determined by [facility]. They may not have been cleared or approved by the U.S. Food and Drug Administration. The FDA has determined that such clearance or approval is not necessary. The above immunohistochemical/ashli Sienna markers are ordered and reviewed by the Pathologist. Addendum Signed (signature on file) Dr. Nadja Duval MD 08/19/24 1653 Patient Age/Sex Location Account Attending Physician DARLIN FORBES 58/F [facility] [id number] Dr. Ethel Sparks MD (more content not included)... Normal [facility] Comment on above: Performed By: #### P GIOVANY BOYLE ####[facility] [address] [place], [address] Operative Reporton 5 Operative Report [facility] Medical Records Department [address] [place] [address] Operative Report 07/31/24 0940 MR#: [id number] Acct: [id number] Name: DARLIN FORBES Rep #: [id number] : 1965 58 From: Ethel Sparks MD PCP: Dr. 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 Ethel Sparks MD Signed Normal [facility] Surgery Specimen Level Elizabeth 07-31-2024 Surgery Specimen Level IV Patient Age/Sex Location Account Attending Physician DARLIN FORBES 58/F [facility] [id number] Dr. Ethel Sparks MD Specimen: [id number] Received: 07/31/24 Status: CHIRAG Singleton Num: [id number] Spec Type: Lesion Subm Dr: Dr. Ethel [...] follows:Cassette Summary:A1-central sectionsA2-opposing tips shaved K 07/31/2024 CPT:48095 Patient Age/Sex Location Account Attending Physician DARLIN FORBES 58/F [facility] [id number] Dr. Ethel Sparks MD Signed (signature on file) Dr. Nadja Duval MD 08/11/24 1156 Normal [facility] Comment on above: Performed By: #### P GIOVANY BOYLE ####[facility] [address] [place], [address] Arterial study reportOrdered By: Macario Gardiner on 07-22-2024 Noninvasive arteriosclerosis study report [facility] [address] [place] [address] Lower Ext Art Exam w/ Exercise 07/21/24906 MR#: [id number] Acct: [id number] Name: DARLIN FORBES Rep #:[id number] : 1965 58 From: Macario Gardiner MD Attending Dr: Dr. Daniela Coulter MD atus: REG CLI Ordering Dr: Daniela Coulter MD Date: 07/04 12/28 Location: [facility] Sex: F C Admitted: Reason For Study [...] ~ Date Dictated: 07/21/24906 Date Transcribed: 07/22/241433 Chipping Machine Operator: Signed [facility] Other Phone: Lower Ext Art Exam w/ Exerci mayank 07-21-2024 Lower Ext Art Exam w/ Exercise [facility] [address] [place] [address] Lower Ext Art Exam w/ Exercise 07/21/24906 MR#: [id number] Acct: [id number] Name: DARLIN FORBES Rep #: [id number] : 1965 58 From: Macario Gardiner MD Attending Dr: Dr. Daniela Coulter MD Status: REG CL I Ordering Dr: Daniela Coulter MD Date: 07/21/24 Location: [facility] Sex: F C Admitted: Reason For Study [...] Dictated: 07/21/24 0907 Date Transcribed: 07/22/24 1434 Chipping Machine Operator: Signed Normal [facility] Plastic Surgery Visit Report on 07-15-2024 Plastic Surgery Visit Report [facility] [address] [facility] [place] [address] OFFICE VISIT Date of Service: 07/15/24 MR#: [id number] Acct: [id number] Name: DARLIN FORBES Rep #: [id number] : 1965 Provider: Dr. Ethel yan MD Age/Sex: 58/F Location: [facility] Status: Signed Intake Vital Signs 04/19/23 10:51 [...] right side of lower leg and back [facility] Medical History Irritable bowel syndrome Constipation Anxiety [...] otherwise fl (more content not included)... Normal [facility] ([id number]) 1965 F Date Time Provider Department 10/03/23 [...] d/t cost. Please advise. SHELBY Gregg Amy, APRN.[facility] 10/03/2023 1:37 PM Signed She needs treated with oral metronidazole but declined due to wanting to drink alcohol on the weekends when camping so she was treated with clindamycin cream. Please ask if this acceptable with her. Madina Morlaes APRN.Beena Valencia RN 10/03/2023 1:51 PM Signed Patient notified. She is willing to try Flagyl now. Pharmacy correct. 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 Should she [...] MADINA MORALES Pharmacy Information Pharmacy Address [facility]phone [id number] [address] [place] [address] Allergies As of Date: 10/03/2023 Noted Allergy Reaction VICODIN (HYDROCODONE-ACETAMINOP HE*07/22/2008 11 - Vomiting Date Reviewed: 09/13/2023 Reviewed by: Madina Morales APRN.HEEL SANDER - Fully Assessed Reason for Visit: Vaginal [...] st*04/24/2013 01/11/2014 Enlarged thyroid [E04.9] 06/09/2013 Dyspareunia [DLF7496] Postmenopausal HRT (hormone replacement therapy* Premature menopause [...] Encounter Status:Closed by BEENA RIVERA on 10/03/23 [facility] 09-16-[facility]23 CNPN Telephone (JAMES) DARLIN FORBES ([id number]) 1965 F Date Time Provider Department 09/16/23 WALDO CALDWELL During your visit today, we recorded the following information about you: Waldo Caldwell APRN.[facility] 09/16/2023 7:18 AM Signed Please notify patient: [...] Date Reviewed: 09/13/2023 Reviewed by: Madina Morales APRN.HEEL SANDER - Fully Assessed Reason for Visit: Results [...] st*04/24/2013 01/11/2014 Enlarged thyroid [E04.9] 06/09/2013 Dyspareunia [ZSC4751] Postmenopausal HRT (hormone replacement therapy* Premature menopause [...] Status:Closed by VANESSA RAHMAN on 09/16/23 Normal [facility] Bacteria Ur Culton 4 Bacteria identified Cx Nom (U) ORGANISM ID: 1 10,000 -<50,000 CFU/ml Normal urogenital maia Normal [facility] Comment on above: Performed By: #### 6 30-4 #### [facility] CLIA [id number] [address] [place] [address] [place] CNOVon 09-13-2023 CNOV Office Visit (DREWWNisha ) DARLIN FORBES ([id number]) 1965 F Date Time Provider Department 09/13/23 10:30 AM MADINA MORALES During your visit today, we recorded the following information about you: Blood pressure Weight 136/76 72.6 kg Madina Morales APRN.HEEL SANDER 09/13/2023 12:54 PM Signed Pet Care Worker offered: Patient declines. Darlin Forbes is a [...] outbreak that she knows of. Using hypoallergenic Adventist soap for bathing. Denies using douches. No [...] - 35 when tried to get . 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 Normal [facility] Gram Stn Vagon 09-13-2023 Microscopic observation Gram stain Nom (Vag fld) BACTERIAL VAGINOSIS: BACTERIAL VAGINOSIS RESULT: Stain results consistent with bacterial vaginosis. No Yeast observed No clue cells present Few Polymorphonuclear leukocytes Abnormal [facility] Comment on above: Performed By: #### 1 4361-0 #### [facility] CLIA [id number] [address] [place] [address] Microscopic observation Gram stain Nom (Vag fld)Ordered By: Dania Parada on 09-13-2023 Bacterial Vaginosis BACTERIAL VAGINOSIS RESULT: Stain results consistent with bacterial vaginosis. Abnormal [facility] Bacterial Vaginosis No Yeast observed Abnormal [facility] Bacterial Vaginosis No clue cells present Abnormal [facility] Bacterial Vaginosis Few Polymorphonuclea r leukocytes Abnormal [facility] No Panel InformationOrdered By: Dania Parada on 09-13-2023 Interpretation and review of laboratory results Abnormal [facility] UA DIP, URINE (POC)on 2023 BILIRUBIN UA (POCT) Negative Negative [facility] CLARITY UA (POCT) Clear [facility] COLOR UA (POCT) Yellow [facility] GLUCOSE UA (POCT) Negative Negative mg/dL [facility] Hemoglobin Ql (U) Negative Negative [facility] KETONE UA (POCT) Negative Negative mg/dL [facility] LEUKOCYTES UA (POCT) Trace Abnormal Negative [facility] NITRITE UA (POCT) Negative Negative [facility] PH UA (POCT) 5.5 4.5 - 8.0 [facility] Protein Ql (U) Negative Negative mg/dL [facility] SPECIFIC GRAVITY UA (POCT) >=1.030 1.005 - 1.030 [facility] UROBILINOGEN UA (POCT) 0.2 Normal E.U./d L [facility] Location:[facility], [address], [place], [address] [facility] POINT OF CARE [facility] No Panel InformationOrdered By: Daniela Coulter on 07-12-2023 Folate 20.50 ng/mL 3.1-55.4 [facility] Absolute lymphocyte countOrd ered By: Daniela Yfn on 07-11-2023 Lymphocytes Auto (Unsp spec) [#/Vol] 2.34 10*3/uL 0.83-4.51 [facility] Automated lymphocyte count a s percentage of total leukocytesOrdered By: Daniela Yfn on 07-11-2023 Lymphocytes/100 WBC Auto (Unsp spec) 36.4 % 19-41 [facility] Basophil percentageOrdered B y: Danielasandra Coulter on 07-11-2023 Basophils/100 WBC (Bld) 1.1 % 0-1 [facility] Bilirubin [Mass/Vol] 0.50 mg/dL 0.20-1.00 [facility] Comment on above: For patients on eltr ombopag therapy, use of Dimension Raymond TBIL is not recommended. Chloride [Moles/Vol] 104 mmol/L 98-107 [facility] Eosinophils/100 WBC (Bld) 1.6 % 0-5 [facility] Glucose [Mass/Vol] 101 mg/dL 74-106 [facility] Comment on above: Fasting Glucose resu lt from 100 to 125 mg/dL suggests IMPAIRED HOMEOSTASIS per A.D.A. criteria. Hemoglobin (Bld) [Mass/Vol] 14.4 g/dL 12.0-15.0 [facility] Monocytes/100 WBC (Bld) 6.9 % 0-10 [facility] Neutrophils (Bld) [#/Vol] 3.5 10*3/uL 2.0-7.7 [facility] Neutrophils/100 WBC (Bld) 53.7 % 47-70 [facility] Potassium [Moles/Vol] 4.0 mmol/L 3.5-5.1 [facility] Protein [Mass/Vol] 7.9 g/dL 6.4-8.2 [facility] Sodium [Moles/Vol] 140 mmol/L 136-145 [facility] WBC (Bld) [#/Vol] 6.4 10*3/uL 4.4-11.0 [facility] Culture, urineOrdered By: Wade sandra Coulter on 07-11-2023 Bacteria identified Cx Nom (U) Mixed Gram Pos & Gram Neg Org [facility] Determination of erythrocyte mean corpuscular volume (MCV)Ordered By: Daniela Coulter on 07-11-2023 MCV (RBC) [Entitic vol] 102.9 fL 81-99 [facility] Erythrocyte distribution wid th ratioOrdered By: Daniela Coulter on 07-11-2023 Erythrocyte distribution width (RBC) [Ratio] 12.6 % 11.6-14.6 [facility] Erythrocyte distribution wid th standard deviationOrdered By: Daniela Coulter on 07-11-2023 Erythrocyte distribution width (RBC) [Entitic vol] 48.3 fL 35.1-43.9 [facility] Hematocrit Auto (Bld) [Volum e fraction]Ordered By: Daniela Coulter on 07-11-2023 Hematocrit (Bld) [Volume fraction] 42.8 % 37-47 [facility] Immature granulocytes/100 WB C Auto (Bld)Ordered By: Daniela Coulter on 07-11-2023 Immature granulocytes/100 WBC (Bld) 0.300 % 0.0-0.9 [facility] Comment on above: IG% - Immature Granu locytes (promyelocytes, myelocytes and metamyelocytes) > 1% indicates that a LEFT SHIFT is Present. Laboratory - Chemistry and C hemistry - challengeOrdered By: Daniela Coulter on 07-11-2023 Albumin/Globulin [Mass ratio] 1.1 {ratio} 0.9-2.4 [facility] ALP [Catalytic activity/Vol] 36 U/L 45-117 [facility] ALT [Catalytic activity/Vol] 17 U/L 13-56 [facility] Amylase [Catalytic activity/Vol] 4 U/L 5-55 [facility] CO2 [Moles/Vol] 27.0 mmol/L 21.0-32.0 [facility] Globulin (S) [Mass/Vol] 3.8 g/dL 2.2-4.2 [facility] Lipase [Catalytic activity/Vol] 36 U/L 13-75 [facility] Comment on above: Please note:LIPASE r evised reference range effective 22. New Lipase methodology. Expected to produce lower values than the previous assay method. NEW Reference Range: 13 - 75 U/L Urea nitrogen/Creatinine [Mass ratio] 14.0 mg/mg 10-20 [facility] - Hematology and Cell countsOrdered By: Daniela Coulter on 07-11-2023 MCH (RBC) [Entitic mass] 34.6 pg 27.0-32.0 [facility] MCHC (RBC) [Mass/Vol] 33.6 g/dL 32-36 [facility] Nucleated RBC/100 WBC (Bld) [Ratio] 0 % 0-5 [facility] Platelet mean volume (Bld) [Entitic vol] 10.7 fL 6.2-12.0 [facility] Platelets (Bld) [#/Vol] 229 10*3/uL 150-450 [facility] No Panel InformationOrdered By: Daniela Coulter on 07-11-2023 C-Reactive Protein Extended Range < 2.90 mg/L 0.0-3.0 [facility] Comment on above: C-Reactive Protein ( CRP) provides useful information for thediagnosis, therapy and monitoring of inflammatory processesand associated diseases. For the evaluation of Relative Riskfor Cardiovascular Disease, a High Sensitivity CRP (HSCRP)should be ordered. Estimated GFR (MDRD) Amer 108 mL/min >60 [facility] Comment on above: GFR Calc Estimated GFR (MDRD) Non-Af Amer 89 mL/min >60 [facility] Comment on above: Non- GFR Calc RBC Auto (Bld) [#/Vol]Ordere d By: Daniela Coulter on 07-11-2023 RBC (Bld) [#/Vol] 4.16 10*6/uL 4.2-5.4 [facility] Serum or plasma calcium ana cristina urement (mass/volume)Ordered By: Daniela Coulter on 07-11-2023 Calcium [Mass/Vol] 9.5 mg/dL 8.5-10.1 [facility] Serum or plasma creatinine m easurement (mass/volume)Ordered By: Daniela Coulter on 07-11-2023 Creatinine [Mass/Vol] 0.72 mg/dL 0.55-1.02 [facility] Comment on above: The validity of the calculated GFR & GFRAA in patients over 70 years has not been determined. Clinical correlation is essential. Serum or plasma thyroid stim ulating hormone (TSH) measurement (units/volume)Ordered By: Daniela Coulter on 07-11-2023 TSH Qn 1.00 uIU/mL 0.358-3.74 [facility] Serum or plasma urea nitroge n measurement (mass/volume)Ordered By: Daniela Coulter on 07-11-2023 Urea nitrogen [Mass/Vol] 10 mg/dL 7-18 [facility] Thin prep Papanicolaou smear with manual screeningOrdered By: Daniela Coulter on 07-11-2023 Thin prep Papanicolaou smear with manual screening 4.1 g/dL 3.2-5.0 [facility] Thin prep Papanicolaou smear with manual screening 15 U/L 15-37 [facility] Thin prep Papanicolaou smear with manual screening 9 5-15 [facility] BACTERIAL VAGINOSIS NAATon 0 10-31-2022 Lactobacillus crispatus+gasseri+jense sandra + Gardnerella vaginalis + Atopobium vaginae rRNA LUCIEN+probe Ql (Vag fld) Negative Negative for bacterial vaginosis [facility] DARIEN/TRICHOMONAS NAATon 0 10-31-2022 C. glabrata RNA LUCIEN+probe Ql (Vag fld) Negative Negative for Darien glabrata [facility] Darien sp DNA LUCIEN+probe Ql (Vag fld) Negative Negative for Darien species [facility] T. vaginalis DNA LUCIEN+probe Ql (Unsp spec) Negative Negative for Trichomonas vaginalis by amplification [facility] CNPNon 10-31-2022 CNPN Telephone ([facility]) DARLIN FORBES ([id number]) 1965 F Date Time Provider Department 10/31/22 [facility] During your visit today, we recorded the following information about you: Candie Gandara APRN.HEEL SANDER 10/31/2022 7:12 AM Signed Negative for gonorrhea, [...] st*04/24/2013 01/11/2014 Enlarged thyroid [E04.9] 06/09/2013 Dyspareunia [SWP6330] Postmenopausal HRT (hormone replacement therapy* Premature menopause [E28.319] Premature menopause on HRT [E28.319, Z79.890] hx of low vitamin D treated [E55.9] 07/04/2012 Vertigo [R42] Benign positional vertigo [H81.10] 05/06/2014 Other screening mammogram [Z12.31] 06/18/2014 Encounter Status:Closed by ESTELA STEINER on 10/31/22 Normal [facility] BACTERIAL VAGINOSIS NAATon 0 10-30-2022 Lactobacillus crispatus+gasseri+jense sandra + Gardnerella vaginalis + Atopobium vaginae rRNA LUCIEN+probe Ql (Vag fld) Negative Normal Negative for bacterial vaginosis [facility] Comment on above: Order Comment: Speci men Type: SWAB Ordering Facility: [facility] Address: [address] [place] [address] Performed By: #### Geoff VAMP, 12139-1 #### [facility] CLIA [id number] [address] [place] [address] [place] Bacteria Ur Culton 3 Bacteria identified Cx Nom (U) CULTURE, URINE: No growth (<1,000 CFU/ml) Normal [facility] Comment on above: Performed By: #### 6 30-4 #### [facility] CLIA [id number] [address] [place] [address] [place] C. trachomatis+N. gonorrhoea e DNA LUCIEN+probe Ql (Unsp spec)on 10-30-2022 C. trachomatis rRNA LUCIEN+probe Ql (Unsp spec) Negative Normal Negative for Chlamydia trachomatis by amplificaton [facility] Comment on above: Order Comment: Speci men Type: SWAB Ordering Facility: [facility] Address: [address] [place] [address] Performed By: #### Geoff VAMP, 22174-6 #### [facility] CLIA [id number] [address] [place] [address] [place] N. gonorrhoeae rRNA LUCIEN+probe Ql (Unsp spec) Negative Normal Negative for Neisseria gonorrhoeae by amplification [facility] Comment on above: Order Comment: Speci men Type: SWAB Ordering Facility: [facility] Address: [address] [place] [address] Performed By: #### Geoff VAMP, 05857-3 #### [facility] CLIA [id number] [address] [place] [address] [place] [id number] [place] DARIEN/TRICHOMONAS NAATon 0 10-30-2022 DARIEN/TRICHOMONAS NAAT DARIEN SPECIES GROUP: Negative for Darien species DARIEN GLABRATA: Negative for Darien glabrata TRICH VAG AMPLIFICATION: Negative for Trichomonas vaginalis by amplification Normal [facility] Comment on above: Performed By: #### C VTV #### [facility] CLIA [id number] [facility] [place] [id number] [place] CNOVon 10-30-2022 CNOV Office Visit (UCWSTR ) DARLIN FORBES ([id number]) 1965 F Date Time Provider Department 10/30/22 2:30 PM [facility] During your visit today, we recorded the following information about you: Temperature Pulse Respiration Blood pressure 98.3 degrees 58/minute 16/minute 124/72 Weight Height 73.9 kg 1.638 m Candie Gandara APRN.HEEL SANDER 10/30/2022 3:14 PM Signed CC: Patient presents with: Dysuria Patient does have a new sexual partner that she has been with for about 3 weeks. Patient has had unprotected sex. HPI Darlni Forbes is a 57 year old female [...] nontender, nondistended No abnormalities upon vaginal exam. Pet Care Worker was in the room. PAST MEDICAL HISTORY [...] compatible with alcohol if possible. Candie Gandara APRN.HEEL SANDER Prescription instructions reviewed with patient as applicable. Potential red flag symptoms discussed with the patient. Reviewed appropriate action plan to take if red flag symptoms occur. Patient agreeable to treatment plan. Candie Gandara APRN.HEEL SANDER Allergies As of Date: 10/30/2022 Noted Allergy Reaction VICODIN (HYDROCODONE-ACETAMINOP HE*07/22/2008 11 - Vomiting Date Reviewed: 10/30/2022 Reviewed by: Liat Moy MA - Fully Assessed Reason for Visit: Dysuria [1085] Primary Visit Diagnosis:Urinary frequency [R35.0] Other Visit Diagnosis:Vaginal discharge [N89.8] Order(s):UA DIP, URINE (POC) [[id number]] Or (more content not included)... Normal [facility] UA DIP, URINE (POC)on 2022 BILIRUBIN UA (POCT) Negative Negative [facility] CLARITY UA (POCT) Clear [facility] COLOR UA (POCT) Yellow [facility] GLUCOSE UA (POCT) Negative Negative mg/dL [facility] HEMOGLOBIN/BLOOD UA (POCT) Negative Negative [facility] KETONE UA (POCT) Negative Negative mg/dL [facility] LEUKOCYTES UA (POCT) Negative Negative [facility] NITRITE UA (POCT) Negative Negative [facility] PH UA (POCT) 5.5 4.5 - 8.0 [facility] Protein Ql (U) Negative Negative mg/dL [facility] SPECIFIC GRAVITY UA (POCT) 1.010 1.005 - 1.030 [facility] UROBILINOGEN UA (POCT) 0.2 E.U./dL Normal E.U./ dL [facility] Absolute lymphocyte countOrd ered By: Dr. Coulter on 07-26-2022 Lymphocytes Auto (Unsp spec) [#/Vol] 3.64 10*3/uL 0.83-4.51 [facility] Basophil percentageOrdered B y: Dr. Coulter on 07-26-2022 Basophils/100 WBC (Bld) 0.9 % 0-1 [facility] Bilirubin [Mass/Vol] 0.70 mg/dL 0.20-1.00 [facility] Comment on above: For patients on eltr ombopag therapy, use of Dimension Raymond TBIL is not recommended. Chloride [Moles/Vol] 106 mmol/L 98-107 [facility] Cholesterol [Mass/Vol] 190 mg/dL <200 [facility] Comment on above: <200 mg/dL Desirable 200-240 mg/dL Borderline >240 mg/dL High Risk Eosinophils/100 WBC (Bld) 3.5 % 0-5 [facility] Glucose [Mass/Vol] 96 mg/dL 74-106 [facility] Neutrophils (Bld) [#/Vol] 1.9 10*3/uL 2.0-7.7 [facility] Neutrophils/100 WBC (Bld) 29.3 % 47-70 [facility] Potassium [Moles/Vol] 4.1 mmol/L 3.5-5.1 [facility] Protein [Mass/Vol] 7.3 g/dL 6.4-8.2 [facility] Sodium [Moles/Vol] 141 mmol/L 136-145 [facility] Triglyceride [Mass/Vol] 73 mg/dL <199 [facility] Comment on above: The drugs N-Acetylcy steine and Metamizole may falsely depress this assay.Serum Triglycerides Reference Interval Normal <150 mg/dL Borderline high 150 - 199 mg/dL High 200 - 499 mg/dL Very High > or = 500 mg/dL WBC (Bld) [#/Vol] 6.6 10*3/uL 4.4-11.0 [facility] Blood erythrocytes count (nu mber/volume)Ordered By: Dr. Coulter on 07-26-2022 RBC (Bld) [#/Vol] 4.21 10*6/uL 4.2-5.4 [facility] Blood hemoglobin measurement (mass/volume)Ordered By: Dr. Coulter on 07-26-2022 Hemoglobin (Bld) [Mass/Vol] 14.1 g/dL 12.0-15.0 [facility] Blood lymphocytes/100 leukoc ytesOrdered By: Dr. Coulter on 07-26-2022 Lymphocytes/100 WBC (Bld) 55.3 % 19-41 [facility] Blood monocytes/100 leukocyt esOrdered By: Dr. Coulter on 07-26-2022 Monocytes/100 WBC (Bld) 10.8 % 0-10 [facility] Blood platelet mean volumeOr dered By: Dr. Coulter on 07-26-2022 Platelet mean volume (Bld) [Entitic vol] 10.6 fL 6.2-12.0 [facility] Determination of erythrocyte mean corpuscular volume (MCV)Ordered By: Dr. Coulter on 07-26-2022 MCV (RBC) [Entitic vol] 103.1 fL 81-99 [facility] Hematocrit Auto (Bld) [Volum e fraction]Ordered By: Dr. Coulter on 07-26-2022 Hematocrit (Bld) [Volume fraction] 43.4 % 37-47 [facility] Laboratory - Chemistry and C hemistry - challengeOrdered By: Dr. Coulter on 07-26-2022 ALP [Catalytic activity/Vol] 33 U/L 45-117 [facility] ALT [Catalytic activity/Vol] 23 U/L 13-56 [facility] CO2 [Moles/Vol] 25.0 mmol/L 21.0-32.0 [facility] Globulin (S) [Mass/Vol] 3.4 g/dL 2.2-4.2 [facility] Urea nitrogen/Creatinine [Mass ratio] 19.8 mg/mg 10-20 [facility] Laboratory - Hematology and Cell countsOrdered By: Dr. Coulter on 07-26-2022 Erythrocyte distribution width (RBC) [Entitic vol] 48.6 fL 35.1-43.9 [facility] Erythrocyte distribution width (RBC) [Ratio] 12.8 % 11.6-14.6 [facility] Immature granulocytes/100 WBC (Bld) 0.200 % 0.0-0.9 [facility] Comment on above: IG% - Immature Granu locytes (promyelocytes, myelocytes and metamyelocytes) > 1% indicates that a LEFT SHIFT is Present. MCH (RBC) [Entitic mass] 33.5 pg 27.0-32.0 [facility] Nucleated RBC/100 WBC (Bld) [Ratio] 0 % 0-5 [facility] MCHC Auto (RBC) [Mass/Vol]Or dered By: Dr. Coulter on 07-26-2022 MCHC (RBC) [Mass/Vol] 32.5 g/dL 32-36 [facility] No Panel InformationOrdered By: Dr. Coulter on 07-26-2022 Addendum Document Comment . [facility] Comment on above: The SPE pattern appe ars unremarkable. Evidence ofmonoclonal protein is not apparent.Performed at: [facility] [address] [id number] Director: Delgado Harris PhD, Phone: [phone] Umoih-5-Lfbfdotje 0.2 g/dL 0.0-0.4 [facility] Xhbuu-2-Jvkbchikr 0.7 g/dL 0.4-1.0 [facility] Estimated GFR (MDRD) Amer 120 mL/min >60 [facility] Comment on above: GFR Calc Estimated GFR (MDRD) Non-Af Amer 99 mL/min >60 [facility] Comment on above: Non- GFR Calc Gamma Globulins 1.2 g/dL 0.4-1.8 [facility] Thyroid Stimulating Hormone (TSH) 1.18 uIU/mL 0.358-3.74 [facility] Platelets bldOrdered By: Dr. Coulter on 07-26-2022 Platelets (Bld) [#/Vol] 258 10*3/uL 150-450 [facility] Protein Fractions Elph [Inte rp]Ordered By: Dr. Coulter on 07-26-2022 Protein Fractions [Interp] Comment . [facility] Comment on above: Protein electrophore sis scan will follow via computer,mail, or carpenter mine delivery. Serum albumin to globulin ra paula by protein electrophoresisOrdered By: Dr. Coulter on 07-26-2022 Albumin/Globulin Elph [Mass ratio] 1.2 0.7-1.7 [facility] Serum globulin measurement ( mass/volume)Ordered By: Dr. Coulter on 07-26-2022 Globulin (S) [Mass/Vol] 3.2 g/dL 2.2-3.9 [facility] Serum or plasma albumin ana cristina urement (mass/volume)Ordered By: Dr. Coulter on 07-26-2022 Albumin [Mass/Vol] 3.9 g/dL 2.9-4.4 [facility] Serum or plasma albumin/glob ulin mass ratioOrdered By: Dr. Coulter on 07-26-2022 Albumin/Globulin [Mass ratio] 1.1 {ratio} 0.9-2.4 [facility] Serum or plasma beta globuli n measurement by electrophoresis (mass/volume)Ordered By: Dr. Coulter on 07-26-2022 Beta globulin Elph [Mass/Vol] 1.0 g/dL 0.7-1.3 [facility] Serum or plasma calcium ana cristina urement (mass/volume)Ordered By: Dr. Coulter on 07-26-2022 Calcium [Mass/Vol] 9.1 mg/dL 8.5-10.1 [facility] Serum or plasma cholesterol in HDL measurement (mass/volume)Ordered By: Dr. Coulter on 07-26-2022 Cholesterol in HDL [Mass/Vol] 60 mg/dL >40 [facility] Comment on above: The drugs N-Acetylcy steine and Metamizole may falsely depress this assay. Reference Range HDL <40 mg/dL Low HDL Cholesterol HDL >or= 60 mg/dL High HDL Cholesterol Serum or plasma cholesterol in VLDL measurement (mass/volume)Ordered By: Dr. Coulter on 07-26-2022 Cholesterol in VLDL [Mass/Vol] 15 mg/dL 5-40 [facility] Serum or plasma creatinine m easurement (mass/volume)Ordered By: Dr. Coulter on 07-26-2022 Creatinine [Mass/Vol] 0.66 mg/dL 0.55-1.02 [facility] Comment on above: The validity of the calculated GFR & GFRAA in patients over 70 years has not been determined. Clinical correlation is essential. Serum or plasma low density lipoprotein (LDL) cholesterol measurement (mass/volume)Ordered By: Dr. Coulter on 07-26-2022 Cholesterol in LDL [Mass/Vol] 115 mg/dL 0-130 [facility] Serum or plasma urea nitroge n measurement (mass/volume)Ordered By: Dr. Coulter on 07-26-2022 Urea nitrogen [Mass/Vol] 13 mg/dL 7-18 [facility] Thin prep Papanicolaou smear with manual screeningOrdered By: Dr. Coulter on 07-26-2022 Thin prep Papanicolaou smear with manual screening 20 U/L 15-37 [facility] Thin prep Papanicolaou smear with manual screening 10 5-15 [facility] Thin prep Papanicolaou smear with manual screening See comment [facility] Comment on above: Result: Not Observed Total protein bloodOrdered B y: Dr. Coulter on 07-26-2022 Protein [Mass/Vol] 7.1 g/dL 6.0-8.5 [facility] Absolute lymphocyte counton 01-22-2022 Lymphocytes Auto (Unsp spec) [#/Vol] 4.04 10*3/uL 0.83-4.51 [facility] Work Phone: [phone] Basophil percentageon 2021 Basophils/100 WBC (Bld) 1.0 % 0-1 [facility] Work Phone: [phone] Bilirubin [Mass/Vol] 0.30 mg/dL 0.20-1.00 [facility] Work Phone: [phone] Comment on above: For patients on eltr ombopag therapy, use of Dimension Raymond TBIL is not recommended. Chloride [Moles/Vol] 104 mmol/L 98-107 [facility] Work Phone: Eosinophils/100 WBC (Bld) 2.8 % 0-5 [facility] Work Phone: Glucose [Mass/Vol] 89 mg/dL 74-106 [facility] Work Phone: Neutrophils (Bld) [#/Vol] 2.2 10*3/uL 2.0-7.7 [facility] Work Phone: Neutrophils/100 WBC (Bld) 30.6 % 47-70 [facility] Work Phone: Potassium [Moles/Vol] 3.7 mmol/L 3.5-5.1 [facility] Work Phone: Protein [Mass/Vol] 7.9 g/dL 6.4-8.2 [facility] Work Phone: Sodium [Moles/Vol] 138 mmol/L 136-145 [facility] Work Phone: WBC (Bld) [#/Vol] 7.1 10*3/uL 4.4-11.0 [facility] Work Phone: Blood erythrocytes count (nu mber/volume)on 01-22-2022 RBC (Bld) [#/Vol] 4.00 10*6/uL 4.2-5.[facility] Blood hemoglobin measurement (mass/volume)on 01-22-2022 Hemoglobin (Bld) [Mass/Vol] 13.4 g/dL 12.0-15.0 [facility] Work Phone: Blood lymphocytes/100 leukoc yteson 01-22-2022 Lymphocytes/100 WBC (Bld) 56.7 % 19-41 [facility] Work Phone: Blood monocytes/100 leukocyt eson 01-22-2022 Monocytes/100 WBC (Bld) 8.8 % 0-10 [facility] Work Phone: Blood platelet mean volumeon 01-22-2022 Platelet mean volume (Bld) [Entitic vol] 11.0 fL 6.2-12.0 [facility] Work Phone: Determination of erythrocyte mean corpuscular volume (MCV)on 01-22-2022 MCV (RBC) [Entitic vol] 103.0 fL 81-99 [facility] Work Phone: Hematocrit Auto (Bld) [Volum e fraction]on 01-22-2022 Hematocrit (Bld) [Volume fraction] 41.2 % 37-47 [facility] Work Phone: [phone] Laboratory - Chemistry and C hemistry - challengeon 01-22-2022 ALP [Catalytic activity/Vol] 32 U/L 45-117 [facility] Work Phone: ALT [Catalytic activity/Vol] 21 U/L 13-56 [facility] Work Phone: CO2 [Moles/Vol] 28.0 mmol/L 21.0-32.0 [facility] Work Phone: Globulin (S) [Mass/Vol] 3.9 g/dL 2.2-4.2 [facility] Work Phone: [phone] Urea nitrogen/Creatinine [Mass ratio] 14.0 mg/mg 10-20 [facility] Work Phone: [phone] Laboratory - Hematology and Cell countson 01-22-2022 Erythrocyte distribution width (RBC) [Entitic vol] 47.8 fL 35.1-43.9 [facility] Work Phone: [phone] Erythrocyte distribution width (RBC) [Ratio] 12.6 % 11.6-14.6 [facility] Work Phone: [phone] Immature granulocytes/100 WBC (Bld) 0.100 % 0.0-0.9 [facility] Work Phone: [phone] Comment on above: IG% - Immature Granu locytes (promyelocytes, myelocytes and metamyelocytes) > 1% indicates that a LEFT SHIFT is Present. MCH (RBC) [Entitic mass] 33.5 pg 27.0-32.0 [facility] Work Phone: [phone] Nucleated RBC/100 WBC (Bld) [Ratio] 0 % 0-5 [facility] Work Phone: [phone] MCHC Auto (RBC) [Mass/Vol]on 01-22-2022 MCHC (RBC) [Mass/Vol] 32.5 g/dL 32-36 [facility] Work Phone: [phone] No Panel Informationon 01-22 Estimated GFR (MDRD) Amer 109 mL/min >60 [facility] Work Phone: Comment on above: GFR Calc Estimated GFR (MDRD) Non-Af Amer 90 mL/min >60 [facility] Work Phone: Comment on above: Non- GFR Calc Platelets bldon 01-22-2022 Platelets (Bld) [#/Vol] 218 10*3/uL 150-450 [facility] Work Phone: Serum or plasma albumin ana cristina urement (mass/volume)on 01-22-2022 Albumin [Mass/Vol] 4.0 g/dL 3.2-5.0 [facility] Work Phone: Serum or plasma albumin/glob ulin mass ratioon 01-22-2022 Albumin/Globulin [Mass ratio] 1.0 {ratio} 0.9-2.4 [facility] Work Phone: Serum or plasma calcium ana cristina urement (mass/volume)on 01-22-2022 Calcium [Mass/Vol] 9.1 mg/dL 8.5-10.1 [facility] Work Phone: Serum or plasma creatinine m easurement (mass/volume)on 01-22-2022 Creatinine [Mass/Vol] 0.71 mg/dL 0.55-1.02 [facility] Work Phone: Comment on above: The validity of the calculated GFR & GFRAA in patients over 70 years has not been determined. Clinical correlation is essential. Serum or plasma urea nitroge n measurement (mass/volume)on 01-22-2022 Urea nitrogen [Mass/Vol] 10 mg/dL 7-18 [facility] Work Phone: Thin prep Papanicolaou smear with manual screeningon 01-22-2022 Thin prep Papanicolaou smear with manual screening 18 U/L 15-37 [facility] Work Phone: Thin prep Papanicolaou smear with manual screening 6 5-15 [facility] Work Phone: Absolute lymphocyte counton 08-01-2021 Lymphocytes Auto (Unsp spec) [#/Vol] 3.41 10*3/uL 0.83-4.51 [facility] Work Phone: [phone] Basophil percentageon 2021 Basophils/100 WBC (Bld) 1.2 % 0-1 [facility] Work Phone: [phone] Bilirubin [Mass/Vol] 0.40 mg/dL 0.20-1.00 [facility] Work Phone: [phone] Comment on above: For patients on eltr ombopag therapy, use of Dimension Raymond TBIL is not recommended. Chloride [Moles/Vol] 105 mmol/L 98-107 [facility] Work Phone: [phone] Cholesterol [Mass/Vol] 197 mg/dL <200 [facility] Work Phone: [phone] Comment on above: <200 mg/dL Desirable 200-240 mg/dL Borderline >240 mg/dL High Risk Eosinophils/100 WBC (Bld) 2.3 % 0-5 [facility] Work Phone: Glucose [Mass/Vol] 84 mg/dL 74-106 [facility] Work Phone: Neutrophils (Bld) [#/Vol] 2.5 10*3/uL 2.0-7.7 [facility] Work Phone: Neutrophils/100 WBC (Bld) 38.0 % 47-70 [facility] Work Phone: [phone] Potassium [Moles/Vol] 3.8 mmol/L 3.5-5.1 [facility] Work Phone: Protein [Mass/Vol] 7.5 g/dL 6.4-8.2 [facility] Work Phone: Sodium [Moles/Vol] 140 mmol/L 136-145 [facility] Work Phone: Triglyceride [Mass/Vol] 87 mg/dL [facility] Work Phone: [phone] Comment on above: The drugs N-Acetylcy steine and Metamizole may falsely depress this assay.Serum Triglycerides Reference Interval Normal <150 mg/dL Borderline high 150 - 199 mg/dL High 200 - 499 mg/dL Very High > or = 500 mg/dL WBC (Bld) [#/Vol] 6.6 10*3/uL 4.4-11.0 [facility] Work Phone: [phone] Blood erythrocytes count (nu mber/volume)on 08-01-2021 RBC (Bld) [#/Vol] 4.32 10*6/uL 4.2-5.4 [facility] Work Phone: [phone] Blood hemoglobin measurement (mass/volume)on 08-01-2021 Hemoglobin (Bld) [Mass/Vol] 14.9 g/dL 12.0-15.0 [facility] Work Phone: Blood lymphocytes/100 leukoc yteson 08-01-2021 Lymphocytes/100 WBC (Bld) 51.4 % 19-41 [facility] Work Phone: Blood monocytes/100 leukocyt eson 08-01-2021 Monocytes/100 WBC (Bld) 6.9 % 0-10 [facility] Work Phone: Blood platelet mean volumeon 08-01-2021 Platelet mean volume (Bld) [Entitic vol] 10.8 fL 6.2-12.0 [facility] Work Phone: Determination of erythrocyte mean corpuscular volume (MCV)on 08-01-2021 MCV (RBC) [Entitic vol] 102.8 fL 81-99 [facility] Work Phone: [phone] Hematocrit Auto (Bld) [Volum e fraction]on 08-01-2021 Hematocrit (Bld) [Volume fraction] 44.4 % 37-47 [facility] Work Phone: [phone] Laboratory - Chemistry and C hemistry - challengeon 08-01-2021 ALP [Catalytic activity/Vol] 35 U/L 45-117 [facility] Work Phone: [phone] ALT [Catalytic activity/Vol] 22 U/L 13-56 [facility] Work Phone: CO2 [Moles/Vol] 27.0 mmol/L 21.0-32.0 [facility] Work Phone: Globulin (S) [Mass/Vol] 3.4 g/dL 2.2-4.2 [facility] Work Phone: Urea nitrogen/Creatinine [Mass ratio] 15.7 mg/mg 10-20 [facility] Work Phone: Laboratory - Hematology and Cell countson 08-01-2021 Erythrocyte distribution width (RBC) [Entitic vol] 48.1 fL 35.1-43.9 [facility] Work Phone: Erythrocyte distribution width (RBC) [Ratio] 12.6 % 11.6-14.6 [facility] Work Phone: Immature granulocytes/100 WBC (Bld) 0.200 % 0.0-0.9 [facility] Work Phone: Comment on above: IG% - Immature Granu locytes (promyelocytes, myelocytes and metamyelocytes) > 1% indicates that a LEFT SHIFT is Present. MCH (RBC) [Entitic mass] 34.5 pg 27.0-32.0 [facility] Work Phone: Nucleated RBC/100 WBC (Bld) [Ratio] 0 % 0-5 [facility] Work Phone: MCHC Auto (RBC) [Mass/Vol]on 08-01-2021 MCHC (RBC) [Mass/Vol] 33.6 g/dL 32-36 [facility] Work Phone: No Panel Informationon 08-01 Estimated GFR (MDRD) Amer 111 mL/min >60 [facility] Work Phone: Comment on above: GFR Calc Estimated GFR (MDRD) Non-Af Amer 92 mL/min >60 [facility] Work Phone: Comment on above: Non- GFR Calc Platelets bldon 08-01-2021 Platelets (Bld) [#/Vol] 248 10*3/uL 150-450 [facility] Work Phone: Serum or plasma albumin ana cristina urement (mass/volume)on 08-01-2021 Albumin [Mass/Vol] 4.1 g/dL 3.2-5.0 [facility] Work Phone: Serum or plasma albumin/glob ulin mass ratioon 08-01-2021 Albumin/Globulin [Mass ratio] 1.2 {ratio} 0.9-2.4 [facility] Work Phone: Serum or plasma calcium ana cristina urement (mass/volume)on 08-01-2021 Calcium [Mass/Vol] 9.3 mg/dL 8.5-10.1 [facility] Work Phone: Serum or plasma cholesterol in HDL measurement (mass/volume)on 08-01-2021 Cholesterol in HDL [Mass/Vol] 61 mg/dL [facility] Work Phone: Comment on above: The drugs N-Acetylcy steine and Metamizole may falsely depress this assay. Reference Range HDL <40 mg/dL Low HDL Cholesterol HDL >or= 60 mg/dL High HDL Cholesterol Serum or plasma cholesterol in VLDL measurement (mass/volume)on 08-01-2021 Cholesterol in VLDL [Mass/Vol] 17 mg/dL 5-40 [facility] Work Phone: Serum or plasma creatinine m easurement (mass/volume)on 08-01-2021 Creatinine [Mass/Vol] 0.70 mg/dL 0.55-1.02 [facility] Work Phone: Comment on above: The validity of the calculated GFR & GFRAA in patients over 70 years has not been determined. Clinical correlation is essential. Serum or plasma low density lipoprotein (LDL) cholesterol measurement (mass/volume)on 08-01-2021 Cholesterol in LDL [Mass/Vol] 119 mg/dL 0-130 [facility] Work Phone: Serum or plasma urea nitroge n measurement (mass/volume)on 08-01-2021 Urea nitrogen [Mass/Vol] 11 mg/dL 7-18 [facility] Work Phone: Thin prep Papanicolaou smear with manual screeningon 08-01-2021 Thin prep Papanicolaou smear with manual screening 18 U/L 15-37 [facility] Work Phone: Thin prep Papanicolaou smear with manual screening 8 5-15 [facility] Work Phone: Vital Signs Date Time Vital Sign Value Performing Clinician Facility 11-20-2024 08:56-0400 Body height 165.[address] Daniela Coulter MD Work Phone: [facility] 11-20-2024 08:56-0400 Body mass index (BMI) [Ratio] 27.6 kg/m2 Dr. Daniela Coulter MD Work Phone: [facility] 11-20-2024 08:56-0400 Body temperature 97.3 [degF] Dr. Daniela Coulter MD Work Phone: [facility] 11-20-2024 08:56-0400 Body weight 75.[address] Daniela Coulter MD Work Phone: [facility] 11-20-2024 08:56-0400 Diastolic blood pressure 84 mm[Hg] Dr. Daniela Coulter MD Work Phone: [facility] 11-20-2024 08:56-0400 Heart rate 72 /min Dr. Daniela Coulter MD Work Phone: [facility] 11-20-2024 08:56-0400 Respiratory rate 18 /min Dr. Daniela Coulter MD Work Phone: [facility] 11-20-2024 08:56-0400 SaO2% (BldA) [Mass fraction] 97 % Dr. Daniela Coulter MD Work Phone: [facility] 11-20-2024 08:56-0400 Systolic blood pressure 128 mm[Hg] Dr. Daniela Coulter MD Work Phone: [facility] 10-30-2024 09:55-0400 Body height 165.[address] Daniela Coulter MD Work Phone: [phone] [place] [address] 10-30-2024 09:55-0400 Body temperature 98.4 [degF] Dr. Daniela Coulter MD Work Phone: [facility] 10-30-2024 09:55-0400 Diastolic blood pressure 68 mm[Hg] Dr. Daniela Coulter MD Work Phone: [phone] [place] [address] 10-30-2024 09:55-0400 Heart rate 77 /min Dr. Daniela Coulter MD Work Phone: [phone] [address] 10-30-2024 09:55-0400 Respiratory rate 18 /min Dr. Daniela Coulter MD Work Phone: [phone])[phone] [place] [address] 10-30-2024 09:55-0400 SaO2% (BldA) [Mass fraction] 97 % Dr. Daniela Coulter MD Work Phone: [phone] [place] [address] 10-30-2024 09:55-0400 Systolic blood pressure 114 mm[Hg] Dr. Daniela Coulter MD Work Phone: [phone] [address] 10-23-2024 10:59-0400 Body height 165.[address] Daniela Coulter MD Work Phone: [phone] [address] 10-23-2024 10:59-0400 Body temperature 97.9 [degF] Dr. Daniela Coulter MD Work Phone: [phone] [address] 10-23-2024 10:59-0400 Diastolic blood pressure 76 mm[Hg] Dr. Daniela Coulter MD Work Phone: [facility] 10-23-2024 10:59-0400 Heart rate 72 /min Dr. Daniela Coulter MD Work Phone: [phone] [place] [address] 10-23-2024 10:59-0400 Respiratory rate 18 /min Dr. Daniela Coulter MD Work Phone: [facility] 10-23-2024 10:59-0400 SaO2% (BldA) [Mass fraction] 99 % Dr. Daniela Coulter MD Work Phone: [facility] 10-23-2024 10:59-0400 Systolic blood pressure 124 mm[Hg] Dr. Daniela Coulter MD Work Phone: [phone] [place] [address] 10-07-2024 11:19-0400 Body height 165.[address] Daniela Coulter MD Work Phone: [phone] [place] [address] 10-07-2024 11:19-0400 Body mass index (BMI) [Ratio] 28.3 kg/m2 Dr. Daniela Coulter MD Work Phone: 0(653)[phone] [place] [address] 10-07-2024 11:19-0400 Body temperature 97.8 [degF] Dr. Daniela Coulter MD Work Phone: [phone] [place] [address] 10-07-2024 11:19-0400 Body weight 77.[address] Daniela Coulter MD Work Phone: [phone] [place] [address] 10-07-2024 11:19-0400 Diastolic blood pressure 73 mm[Hg] Dr. Daniela Coulter MD Work Phone: [phone])173-170789 [place] [address] 10-07-2024 11:19-0400 Heart rate 98 /min Dr. Daniela Coulter MD Work Phone: [phone])545-105989 [place] [address] 10-07-2024 11:19-0400 Respiratory rate 18 /min Dr. Daniela Coulter MD Work Phone: [phone])[phone] [place] [address] 10-07-2024 11:19-0400 SaO2% (BldA) [Mass fraction] 95 % Dr. Daniela Coulter MD Work Phone: [phone] [address] [place] [address] 10-07-2024 11:19-0400 Systolic blood pressure 125 mm[Hg] Dr. Daniela Coulter MD Work Phone: 5(892)148-342889 [place] [address] 09-30-2024 13:36-0400 Body height 165.[address] Daniela Coulter MD Work Phone: 6(007)272-131189 [place] [address] 09-30-2024 13:36-0400 Body mass index (BMI) [Ratio] 27.9 kg/m2 Dr. Daniela Coulter MD Work Phone: 4(482)526-127902 [place] [address] 09-30-2024 13:36-0400 Body temperature 98.7 [degF] Dr. Daniela Coulter MD Work Phone: 6(124)688-281602 [place] [address] 09-30-2024 13:36-0400 Body weight 76.[address] Daniela Coulter MD Work Phone: 0(779)501-555889 [place] [address] 09-30-2024 13:36-0400 Diastolic blood pressure 72 mm[Hg] Dr. Daniela Coulter MD Work Phone: 7(041)628-835089 [place] [address] 09-30-2024 13:36-0400 Heart rate 73 /min Dr. Daniela Coulter MD Work Phone: 1(586)334-938489 [place] [address] 09-30-2024 13:36-0400 Respiratory rate 18 /min Dr. Daniela Coulter MD Work Phone: 8(337)299-083689 [place] [address] 09-30-2024 13:36-0400 SaO2% (BldA) [Mass fraction] 92 % Dr. Daniela Coulter MD Work Phone: 7(615)617-091189 [place] [address] 09-30-2024 13:36-0400 Systolic blood pressure 121 mm[Hg] Dr. Daniela Coulter MD Work Phone: 3(243)492-728389 [place] [address] 09-22-2024 11:13-0400 Body height 165.[address] Daniela Coulter MD Work Phone: 1(043)982-716289 [place] [address] 09-22-2024 11:13-0400 Body mass index (BMI) [Ratio] 28.1 kg/m2 Dr. Daniela Coulter MD Work Phone: 4(597)042-402089 [place] [address] 09-22-2024 11:13-0400 Body temperature 98.7 [degF] Dr. Daniela Coulter MD Work Phone: 1(139)745-022389 [place] [address] 09-22-2024 11:13-0400 Body weight 76.[address] Daniela Coulter MD Work Phone: 9(836)053-728389 [place] [address] 09-22-2024 11:13-0400 Diastolic blood pressure 64 mm[Hg] Dr. Daniela Coulter MD Work Phone: 1(193)025-085589 [place] [address] 09-22-2024 11:13-0400 Heart rate 84 /min Dr. Daniela Coulter MD Work Phone: 0(526)751-646889 [place] [address] 09-22-2024 11:13-0400 Respiratory rate 18 /min Dr. Daniela Coulter MD Work Phone: 9(124)267-737389 [place] [address] 09-22-2024 11:13-0400 SaO2% (BldA) [Mass fraction] 96 % Dr. Daniela Coulter MD Work Phone: 4(751)235-500289 [place] [address] 09-22-2024 11:13-0400 Systolic blood pressure 103 mm[Hg] Dr. Daniela Coulter MD Work Phone: 8(336)893-471189 [place] [address] 09-21-2024 13:28-0400 Diastolic blood pressure 90 mm[Hg] Dr. Daniela Coulter MD Work Phone: 6(185)949-876289 [place] [address] 09-21-2024 13:28-0400 Heart rate 87 /min Dr. Daniela Coulter MD Work Phone: 9(878)696-581489 [place] [address] 09-21-2024 13:28-0400 Respiratory rate 16 /min Dr. Daniela Coulter MD Work Phone: 0(635)785-330689 [place] [address] 09-21-2024 13:28-0400 SaO2% (BldA) [Mass fraction] 99 % Dr. Daniela Coutler MD Work Phone: 6(445)397-614289 [place] [address] 09-21-2024 13:28-0400 Systolic blood pressure 141 mm[Hg] Dr. Daniela Coulter MD Work Phone: 2(141)055-403989 [place] [address] 09-21-2024 12:14-0400 Body height 165.[address] Daniela Coulter MD Work Phone: 9(652)263-808089 [place] [address] 09-21-2024 12:14-0400 Body mass index (BMI) [Ratio] 28 kg/m2 Dr. Daniela Coulter MD Work Phone: 0(793)785-654389 [place] [address] 09-21-2024 12:14-0400 Body temperature 97.6 [degF] Dr. Daniela Coulter MD Work Phone: 0(993)193-874989 [place] [address] 09-21-2024 12:14-0400 Body weight 76.[address] Daniela Coulter MD Work Phone: 7(456)343-121002 [place] [address] 09-16-2024 11:20-0400 Body height 165.[address] Daniela Coulter MD Work Phone: 7(848)580-962289 [place] [address] 09-16-2024 11:20-0400 Body mass index (BMI) [Ratio] 28.1 kg/m2 Dr. Daniela Coulter MD Work Phone: 6(324)252-683189 [place] [address] 09-16-2024 11:20-0400 Body temperature 98 [degF] Dr. Daniela Coulter MD Work Phone: 5(830)923-861489 [place] [address] 09-16-2024 11:20-0400 Body weight 76.[address] Daniela Coulter MD Work Phone: 4(116)267-130589 [place] [address] 09-16-2024 11:20-0400 Diastolic blood pressure 76 mm[Hg] Dr. Daniela Coulter MD Work Phone: 3(691)523-379689 [place] [address] 09-16-2024 11:20-0400 Heart rate 71 /min Dr. Daniela Coulter MD Work Phone: 8(100)408-147989 [place] [address] 09-16-2024 11:20-0400 Respiratory rate 18 /min Dr. Daniela Coulter MD Work Phone: 4(724)195-606489 [place] [address] 09-16-2024 11:20-0400 SaO2% (BldA) [Mass fraction] 96 % Dr. Daniela Coulter MD Work Phone: 9(200)325-220589 [place] [address] 09-16-2024 11:20-0400 Systolic blood pressure 113 mm[Hg] Dr. Daniela Coulter MD Work Phone: 9(700)207-300689 [place] [address] 09-08-2024 10:10-0400 Body mass index (BMI) [Ratio] 28.1 kg/m2 Dr. Daniela Coulter MD Work Phone: 0(101)904-754889 [place] [address] 09-08-2024 10:10-0400 Body temperature 97.5 [degF] Dr. Daniela Coulter MD Work Phone: 2(923)335-883089 [place] [address] 09-08-2024 10:10-0400 Body weight 76.[address] Daniela Coulter MD Work Phone: [facility] 09-08-2024 10:10-0400 Diastolic blood pressure 74 mm[Hg] Dr. Daniela Coulter MD Work Phone: 6(226)676-988789 [place] [address] 09-08-2024 10:10-0400 Heart rate 85 /min Dr. Daniela Coulter MD Work Phone: 1(080)541-638089 [place] [address] 09-08-2024 10:10-0400 Respiratory rate 18 /min Dr. Daniela Coulter MD Work Phone: 6(487)954-183589 [place] [address] 09-08-2024 10:10-0400 SaO2% (BldA) [Mass fraction] 96 % Dr. Daniela Coulter MD Work Phone: 0(897)709-029089 [place] [address] 09-08-2024 10:10-0400 Systolic blood pressure 125 mm[Hg] Dr. Daniela Coulter MD Work Phone: 6(333)249-316189 [place] [address] 09-03-2024 12:35-0400 Body temperature 97 [degF] Dr. Daniela Coulter MD Work Phone: 9(937)058-551189 [place] [address] 09-03-2024 12:35-0400 Diastolic blood pressure 62 mm[Hg] Dr. Daniela Coulter MD Work Phone: 2(567)590-506389 [place] [address] 09-03-2024 12:35-0400 Heart rate 53 /min Dr. Daniela Coulter MD Work Phone: 3(554)450-209989 [place] [address] 09-03-2024 12:35-0400 Respiratory rate 16 /min Dr. Daniela Coulter MD Work Phone: 2(983)393-219689 [place] [address] 09-03-2024 12:35-0400 SaO2% (BldA) [Mass fraction] 99 % Dr. Daniela Coulter MD Work Phone: 6(977)314-798989 [place] [address] 09-03-2024 12:35-0400 Systolic blood pressure 97 mm[Hg] Dr. Daniela Coulter MD Work Phone: 6(885)797-562089 [place] [address] 09-03-2024 09:05-0400 Body mass index (BMI) [Ratio] 27.5 kg/m2 Dr. Daniela Coulter MD Work Phone: [facility] 09-03-2024 09:05-0400 Body weight [address] Daniela Coulter MD Work Phone: 9(725)314-978289 [place] [address] 08-25-2024 10:20-0400 Body height 165.[address] Daniela Coulter MD Work Phone: 7(285)127-721489 [place] [address] 08-25-2024 10:20-0400 Body mass index (BMI) [Ratio] 27.8 kg/m2 Dr. Daniela Coulter MD Work Phone: 8(909)002-330082 [address] 08-25-2024 10:20-0400 Body temperature 98.3 [degF] Dr. Daniela Coulter MD Work Phone: 0(842)380-063389 [place] [address] 08-25-2024 10:20-0400 Body weight 75.[address] Daniela Coulter MD Work Phone: 8(138)068-155789 [place] [address] 08-25-2024 10:20-0400 Diastolic blood pressure 73 mm[Hg] Dr. Daniela Coulter MD Work Phone: 5(721)576-574489 [place] [address] 08-25-2024 10:20-0400 Heart rate 66 /min Dr. Daniela Coulter MD Work Phone: 0(019)210-127089 [place] [address] 08-25-2024 10:20-0400 Respiratory rate 18 /min Dr. Daniela Coulter MD Work Phone: 4(534)466-723889 [place] [address] 08-25-2024 10:20-0400 SaO2% (BldA) [Mass fraction] 98 % Dr. Daniela Coulter MD Work Phone: 9(511)440-164002 [place] [address] 08-25-2024 10:20-0400 Systolic blood pressure 114 mm[Hg] Dr. Daniela Coulter MD Work Phone: 8(168)946-951289 [place] [address] 08-24-2024 09:53-0400 Body temperature 98.5 [degF] Dr. Daniela Coulter MD Work Phone: 9(038)668-578389 [place] [address] 08-24-2024 09:53-0400 Diastolic blood pressure 88 mm[Hg] Dr. Daniela Coulter MD Work Phone: 1(567)702-073589 [place] [address] 08-24-2024 09:53-0400 Heart rate 66 /min Dr. Daniela Coulter MD Work Phone: [facility] 08-24-2024 09:53-0400 Respiratory rate 18 /min Dr. Daniela Coulter MD Work Phone: 5(855)899-096702 [place] [address] 08-24-2024 09:53-0400 Systolic blood pressure 116 mm[Hg] Dr. Daniela Coulter MD Work Phone: 9(835)219-504289 [place] [address] 08-11-2024 10:54-0400 Body mass index (BMI) [Ratio] 28.3 kg/m2 Dr. Daniela Coulter MD Work Phone: 4(979)930-955289 [place] [address] 08-11-2024 10:54-0400 Body temperature 97.3 [degF] Dr. Daniela Coulter MD Work Phone: 1(127)377-641589 [place] [address] 08-11-2024 10:54-0400 Body weight 77.[address] Daniela Coulter MD Work Phone: 6(080)466-044802 [place] [address] 08-11-2024 10:54-0400 Diastolic blood pressure 60 mm[Hg] Dr. Daniela Coulter MD Work Phone: 4(308)090-457789 [place] [address] 08-11-2024 10:54-0400 Heart rate 75 /min Dr. Daniela Coulter MD Work Phone: 2(791)749-426089 [place] [address] 08-11-2024 10:54-0400 Respiratory rate 18 /min Dr. Daniela Coulter MD Work Phone: 6(889)604-763302 [place] [address] 08-11-2024 10:54-0400 SaO2% (BldA) [Mass fraction] 96 % Dr. Daniela Coulter MD Work Phone: 3(888)759-680302 [place] [address] 08-11-2024 10:54-0400 Systolic blood pressure 104 mm[Hg] Dr. Daniela Coulter MD Work Phone: 9(377)206-111002 [place] [address] 07-31-2024 09:40-0400 Body temperature 98.1 [degF] Dr. Daniela Coulter MD Work Phone: 3(879)729-505789 [place] [address] 07-31-2024 09:40-0400 Diastolic blood pressure 62 mm[Hg] Dr. Daniela Coulter MD Work Phone: 9(852)541-388302 [place] [address] 07-31-2024 09:40-0400 Heart rate 68 /min Dr. Daniela Coulter MD Work Phone: 5(959)066-547689 [place] [address] 07-31-2024 09:40-0400 Respiratory rate 16 /min Dr. Daniela Coulter MD Work Phone: 8(855)175-152589 [place] [address] 07-31-2024 09:40-0400 SaO2% (BldA) [Mass fraction] 96 % Dr. Daniela Coulter MD Work Phone: 0(115)076-350589 [place] [address] 07-31-2024 09:40-0400 Systolic blood pressure 122 mm[Hg] Dr. Daniela Coulter MD Work Phone: 8(696)841-417189 [place] [address] 07-31-2024 08:39-0400 Body height 165.[address] Daniela Coulter MD Work Phone: 6(028)098-093989 [place] [address] 07-31-2024 08:39-0400 Body mass index (BMI) [Ratio] 27.6 kg/m2 Dr. Daniela Coulter MD Work Phone: 4(699)386-604889 [place] [address] 07-31-2024 08:39-0400 Body weight 75.[address] Daniela Coulter MD Work Phone: 0(367)206-874289 [place] [address] 07-15-2024 09:36-0400 Body height 165.[address] Daniela Coulter MD Work Phone: 2(691)453-025289 [place] [address] 07-15-2024 09:36-0400 Body mass index (BMI) [Ratio] 28.5 kg/m2 Dr. Daniela Coulter MD Work Phone: 1(059)606-803089 [place] [address] 07-15-2024 09:36-0400 Body temperature 99.2 [degF] Dr. Daniela Coulter MD Work Phone: 6(434)515-653189 [place] [address] 07-15-2024 09:36-0400 Body weight 77.[address] Daniela Coulter MD Work Phone: 3(011)115-229689 [place] [address] 07-15-2024 09:36-0400 Diastolic blood pressure 59 mm[Hg] Dr. Daniela Coulter MD Work Phone: [facility] 07-15-2024 09:36-0400 Heart rate 60 /min Dr. Daniela Coulter MD Work Phone: [facility] 07-15-2024 09:36-0400 Respiratory rate 18 /min Dr. Daniela Coulter MD Work Phone: [facility] 07-15-2024 09:36-0400 SaO2% (BldA) [Mass fraction] 98 % Dr. Daniela Coulter MD Work Phone: [facility] 07-15-2024 09:36-0400 Systolic blood pressure 112 mm[Hg] Dr. Daniela Coulter MD Work Phone: [facility] 09-13-2023 10:50-0400 Body mass index (BMI) [Ratio] 27.04 kg/m2 Madina Morales APRN.HEEL SANDER Work Phone: [facility] 09-13-2023 10:50-0400 Body weight 72.58 kg Madina Morales APRN.HEEL SANDER Work Phone: [facility] 09-13-2023 10:50-0400 Diastolic blood pressure 76 mm[Hg] Madina Morales APRN.HEEL SANDER Work Phone: [facility] 09-13-2023 10:50-0400 Systolic blood pressure 136 mm[Hg] Madina Morales APRN.HEEL SANDER Work Phone: [facility] 04-19-2023 10:51-0500 Body height 162.[address] Daniela Coulter Work Phone: [facility] 04-19-2023 10:51-0500 Body mass index (BMI) [Ratio] 27.4 kg/m2 Dr. Daniela Coulter Work Phone: [facility] 04-19-2023 10:51-0500 Body temperature 98.9 [degF] Dr. Daniela Coulter Work Phone: [facility] 04-19-2023 10:51-0500 Body weight 72.[address] Daniela Coulter Work Phone: [facility] 04-19-2023 10:51-0500 Diastolic blood pressure 76 mm[Hg] Dr. Daniela Coulter Work Phone: [facility] 04-19-2023 10:51-0500 Heart rate 88 /min Dr. Daniela Coulter Work Phone: [facility] 04-19-2023 10:51-0500 Respiratory rate 16 /min Dr. Daniela Coulter Work Phone: [facility] 04-19-2023 10:51-0500 SaO2% (BldA) [Mass fraction] 97 % Dr. Daniela Coulter Work Phone: [facility] 04-19-2023 10:51-0500 Systolic blood pressure 150 mm[Hg] Dr. Daniela Coulter Work Phone: [facility] 10-30-2022 14:36-0400 Body height 163.8 cm Candie Gandara APRN.HEEL SANDER Work Phone: [facility] 10-30-2022 14:36-0400 Body temperature 98.29 [degF] Candie Gandara APRN.HEEL SANDER Work Phone: [facility] 10-30-2022 14:36-0400 Body weight 73.94 kg Candie Gandara APRN.HEEL SANDER Work Phone: [facility] 10-30-2022 14:36-0400 Diastolic blood pressure 72 mm[Hg] Candie Gandara APRN.HEEL SANDER Work Phone: [facility] 10-30-2022 14:36-0400 Heart rate 58 /min Candie Gandara APRN.HEEL SANDER Work Phone: [facility] 10-30-2022 14:36-0400 Respiratory rate 16 /min Candie Gandara APRN.HEEL SANDER Work Phone: [facility] 10-30-2022 14:36-0400 Systolic blood pressure 124 mm[Hg] Candie Gandara APRN.HEEL SANDER Work Phone: [facility] Encounters Encounter Date Encounter Type Care Provider Facility Start: 11-20-2024 End: 11-20-[address] Javad Green MD -[facility] Work Phone: Start: 11-20-2024 End: 11-20-[address] Daniela Coulter MD Work Phone: -[facility] Start: 10-30-2024 End: 10-30-[address] Javad Green MD -[facility] Work Phone: Start: 10-30-2024 End: 10-30-[address] Daniela Coulter MD Work Phone: [facility] Work Phone: Start: 10-23-2024 End: 10-23-[address] Javad Green MD -[facility] Work Phone: Start: 10-23-2024 End: 10-23-[address] Daniela Coulter MD Work Phone: [facility] Work Phone: Start: 10-07-2024 End: 10-07-[address] Ethel Sparks MD -[facility] Work Phone: Start: 10-07-2024 End: 10-07-[address] Daniela Coulter MD Work Phone: [facility] Work Phone: Start: 09-30-2024 End: 09-30-[address] Ethel Sparks MD -[facility] Work Phone: Start: 09-30-2024 End: 09-30-[address] Daniela Coulter MD Work Phone: [facility] Work Phone: Start: 09-22-2024 End: 09-22-[address] Ethel Sparks MD -[facility] Work Phone: Start: 09-22-2024 End: 09-22-[address] Daniela Coulter MD Work Phone: [facility] Work Phone: Start: 09-21-2024 ambulatory [facility] Facility:[facility] Start: 09-21-2024 Non-patient / Non-visit Dr. Daniela terry MD -[facility] Start: 09-21-2024 End: 09-21-2024 Emergency department patient visit Dr. Daniela Coulter MD Work Phone: -Emergency Department Work Phone: Start: 09-16-2024 End: 09-16-[address] Etehl Sparks MD -[facility] Work Phone: Start: 09-16-2024 End: 09-16-[address] Daniela Coulter MD Work Phone: [facility] Work Phone: Start: 09-08-2024 End: 09-08-[address] Ethel Sparks MD -[facility] Work Phone: Start: 09-08-2024 End: 09-08-2024 ambulatory Chalon Jamee Facility:[facility] Start: 09-03-2024 Non-patient / Non-visit Dr. Ethel myers MD -[facility] Start: 09-03-2024 End: 09-03-2024 Admission to same day surgery center Dr. Ethel Sparks MD -[facility] Start: 09-03-2024 End: 09-03-2024 ambulatory Chalon Jamee Facility:[facility] Start: 08-25-2024 End: 08-25-[address] Daniela Coulter MD Work Phone: [facility] Work Phone: Start: 08-25-2024 End: 08-25-[address] Ethel Sparks MD -Laboratory Work Phone: Start: 08-25-2024 End: 08-25-[address] Ethel Sparks MD -[facility] Work Phone: Start: 08-25-2024 End: 08-25-2024 ambulatory Daniela Coulter Facility:[facility] Start: 08-24-2024 End: 08-24-[address] Ethel Sparks MD -[facility] Work Phone: Start: 08-24-2024 End: 08-25-2024 ambulatory Daniela Coulter Facility:[facility] Start: 2024 End: 2024 ambulatory Daniela Coulter Facility:[facility] Start: 2024 End: [address] Ethel Sparks MD -[facility] Work Phone: Start: 08-11-2024 End: 08-11-2024 ambulatory Daniela Coulter Facility:[facility] Start: 08-11-2024 End: 08-11-[address] Ethel Sparks MD -[facility] Work Phone: Start: 07-31-2024 Non-patient / Non-visit Dr. Ethel myers MD -[facility] Start: 07-31-2024 End: 07-31-2024 Admission to same day surgery center Dr. Ethel Sparks MD -[facility] Start: 07-31-2024 End: 07-31-[address] Daniela Coulter MD Work Phone: [facility] Work Phone: Start: 07-21-2024 End: 07-21-[address] Daniela Coulter MD Work Phone: [facility] Work Phone: Start: 07-21-2024 End: 07-21-[address] Daniela Coulter MD -Cardiovascular Services Work Phone: Start: 07-21-2024 End: 07-21-2024 ambulatory Daniela Coulter Facility:[facility] Start: 07-15-2024 End: 07-15-[address] Ethel Sparks MD -[facility] Work Phone: Start: 07-15-2024 End: 07-15-2024 ambulatory Daniela Coulter Facility:[facility] Start: 10-03-2023 Telephone encounter Mdaina campos APRN.HEEL SANDER Work Phone: OB/Gynecology Comment on above: Vaginal Infection Start: 09-16-2023 Telephone encounter Waldojelani Rodriguezjose l londono APRN.HEEL SANDER Work Phone: OB/Gynecology Comment on above: Results Start: 09-13-2023 End: 09-13-2023 ambulatory DANIELA COULTER Facility:[facility] Start: 09-13-2023 End: 09-13-2023 Patient encounter procedure Madina Morales APRN.HEEL SANDER Work Phone: OB/Gynecology Comment on above: Vaginal discharge (P rimary Dx); Dysuria; Leukocytes in urine; History of herpes genitalis Start: 07-11-2023 End: 07-11-[address] Daniela Coulter Work Phone: [facility] Work Phone: Start: 07-11-2023 End: 07-11-[address] Daniela Coulter Work Phone: [facility] Start: 04-19-2023 End: 04-19-[address] Daniela Coulter Work Phone: [facility] Work Phone: Start: 11-12-2022 Refill Madina RODRIGUES RN.HEEL SANDER Work Phone: OB/Gynecology Comment on above: Refill Request Start: 10-31-2022 Telephone encounter Candie Gandara APRN.HEEL SANDER Work Phone: [facility] Comment on above: Results Start: 10-30-2022 End: 10-30-2022 ambulatory DANIELA COULTER Facility:[facility] Start: 10-30-2022 End: 10-30-2022 Patient encounter procedure Candie Gandara APRN.HEEL SANDER Work Phone: [facility] Comment on above: Urinary frequency (P rimary Dx); Vaginal discharge Start: 07-26-2022 End: 07-26-2022 ambulatory [facility] Work Phone: Start: 07-26-2022 End: 07-26-2022 Patient encounter procedure [facility] Start: 04-26-2022 Refill Hansa Diana JENNIFER.HEEL SANDER Work Phone: OB/Gynecology Comment on above: Refill Request Start: 01-22-2022 End: 01-22-2022 ambulatory [facility] Work Phone: Start: 01-22-2022 End: 01-22-2022 Patient encounter procedure [facility] Start: 11-10-2021 Refill Madina RODRIGUES RN.HEEL SANDER Work Phone: OB/Gynecology Comment on above: Refill Request; Refi ll Request Start: 08-01-2021 End: 08-01-2021 Patient encounter procedure [facility] Procedures Date Procedure Procedure Detail Performing Clinician Start: 07-31-[address] Daniela henley MD Work Phone: Start: 09-13-2023 Smr prim src gram/gi emsa stain bct fungi/cell Madina Morales APRN.HEEL SANDER Work Phone: Start: 09-13-2023 Urnls dip stick/tabl et rgnt auto w/o microscopy Madina Morales APRN.HEEL SANDER Work Phone: Start: 07-11-[address] Daniela Coulter Work Phone: Start: 10-30-2022 BACTERIAL VAGINOSIS NAAT Candie Gandara APRN.HEEL SANDER Work Phone: Start: 10-30-2022 Iadna trichomonas vaginalis amplified probe tech Candie Gandara APRN.HEEL SANDER Work Phone: Start: 10-30-2022 Urnls dip stick/tabl et rgnt auto w/o microscopy Sherry Perez APRN.HEEL SANDER Work Phone: Start: 08-10-2020 Colonoscopy Madina campos APRN.HEEL SANDER Work Phone: Start: 03-31-2019 Mammography Madina campos APRN.HEEL SANDER Work Phone: Start: 02-03-2013 Colonoscopy Candie Gandara APRN.HEEL SANDER Work Phone: Start: 07-10-2012 Lipid 1996 panel - S cristela or Plasma Madina Morales APRN.HEEL SANDER Work Phone: Plan of Treatment Date Care Activity Detail Author Start: 08-10-2030 Colonoscopy COLONOSCOPY [facility] Start: 08-10-2030 COLORECTAL CANCER SCREENING COLORECTAL CANCER SCREENING [facility] Start: 10-14-2025 HPV TESTING HPV TESTING [facility] Start: 10-14-2025 PAP TESTING PAP TESTING [facility] Start: 10-14-2025 Screening for malignant neoplasm of cervix [facility] Start: 12-04-2024 ambulatory Ambulatory Facility:[facility] Start: 12-03-2024 ambulatory Ambulatory Facility:[facility] Start: 09-21-2024 [facility] Start: 09-03-2024 Anes integ extremities ant trunk & perineum nos ANESTH SKIN EXT/PER/ATRUNK [facility] Start: 09-03-2024 Excision malignant lesion trunk/arm/leg > 4.0 cm EXC TR-EXT MAL+ИРИНА >4 CM [facility] Start: 09-03-2024 Split agrft t/a/l 1st 100 cm/&/1% bdy inft/chld SPLT AGRFT T/A/L 1ST 100SQCM [facility] Start: 09-03-2024 Patient discharge [facility] Start: 07-31-2024 Excision mal lesion trunk/arm/leg 1.1-2.0 cm EXC TR-EXT MAL+ИРИНА 1.1-2 CM [facility] Start: 07-31-2024 Patient discharge [facility] Start: 01-05-2024 Influenza vaccination Influenza Vaccine (Season Ended) [facility] Start: 05-06-2023 Behavioral Health Screening Behavioral Health Screening [facility] Start: 02-03-2023 Colonoscopy COLONOSCOPY [facility] Start: 02-03-2023 COLORECTAL CANCER SCREENING COLORECTAL CANCER SCREENING [facility] Start: 02-03-2023 Screening for malignant neoplasm of colon [facility] Start: 01-04-2023 Covid-19 Vaccine ( season) Covid-19 Vaccine ( season) [facility] Start: 01-04-2023 Influenza vaccination [facility] Start: 05-06-2022 DEPRESSION ASSESSMENT DEPRESSION ASSESSMENT [facility] Start: 01-04-2022 Influenza vaccination INFLUENZA (#1) [facility] Start: 05-09-2021 DIABETES SCREEN DIABETES SCREEN [facility] Start: 05-09-2021 Diabetes Screening Diabetes Screening [facility] Start: 05-06-2021 DEPRESSION ASSESSMENT DEPRESSION ASSESSMENT [facility] Start: 03-31-2020 Mammography MAMMOGRAM [facility] Start: 03-31-2020 Screening for malignant neoplasm of breast Mammogram Screening [facility] Start: 07-10-2017 Lipid panel Lipid Screening [facility] Start: 07-10-2017 LIPID SCREEN LIPID SCREEN [facility] Start: 08-20-2015 SHINGRIX VACCINE (1 of 2) SHINGRIX VACCINE (1 of 2) [facility] Start: 2010 COLOGUARD (FIT-DNA) COLOGUARD (FIT-DNA) [facility] Start: [address] COLONOGRAPHY [facility] Start: 2010 FECAL OCCULT BLOOD FECAL OCCULT BLOOD [facility] Start: 2010 Screening for malignant neoplasm of colon [facility] Start: 2010 SIGMOIDOSCOPY SIGMOIDOSCOPY [facility] Start: 1984 Hepatitis B Vaccine (1 of 3 - 19+ 3-dose series) Hepatitis B Vaccine (1 of 3 - 19+ 3-dose series) [facility] Start: 1984 Urine microalbumin profile [facility] Start: 08-20-1983 HEPATITIS C SCREENING HEPATITIS C SCREENING [facility] Start: 08-20-1983 Hepatitis C screening Hepatitis C Screening [facility] Start: 08-20-1983 HIV SCREENING HIV SCREENING [facility] Start: 08-20-1983 HIV screening HIV Screening [facility] Start: 1977 Adult depression screening assessment DEPRESSION SCREENING [facility] Start: 02-18-1966 COVID-19 VACCINE (#1) COVID-19 VACCINE (#1) [facility] Start: 1965 HEPATITIS B (1 of 3 - 3-dose series) HEPATITIS B (1 of 3 - 3-dose series) [facility] Bacteria identified in Urine by Culture URINE CULTURE Microbiology Routine Urinary frequency 10/30/2022 4:03 PM EDT [facility] Work Phone: Bacteria identified in Urine by Culture URINE CULTURE Microbiology Routine Dysuria Leukocytes in urine 09/13/2023 12:11 PM EDT [facility] Work Phone: Chlamydia trachomatis+Neisseria gonorrhoeae DNA [Presence] in Unspecified specimen by LUCIEN with probe detection GONORRHEA/CHLAMYDIA NAAT Lab Routine Urinary frequency Vaginal discharge 10/30/2022 4:03 PM EDT [facility] Work Phone: Patient referral [facility] Work Phone: Payers Date Payer Category Payer Self-pay [id number] 2024 Unknown [id number] 2023 Unknown [employer] [id number] 2023-Present [phone] [address] [place] [address] Indemnity [id number] 2023 Unknown [id number] 2022 Medicaid [id number] 2020 Medicaid [employer] [id number] 2020-Present [phone] [address] [place] [address] Medicaid [id number] 2020 Medicaid [id number]. [id number] Unknown [id number] Unknown [id number] 2.16.840.1.191365.3.579.2.462 Unknown [id number] 2.16.840.1.653173.3.579.2.462 Unknown [id number] 2.16.840.1.393434.3.579.2.462 Unknown [id number] 2.16.840.1.576207.3.579.2.462 Unknown [id number] 2.16.840.1.264333.3.579.2.462 Unknown [id number] 2.16.840.1.330130.3.579.2.462 Unknown [id number] 2.16.840.1.339614.3.579.2.462 Unknown [id number] 2.16.840.1.959432.3.579.2.462 Unknown [id number] 2.16.840.1.137407.3.579.2.462 Unknown [id number] 2.16.840.1.012555.3.579.2.462 Unknown [id number] 2.16.840.1.999351.3.579.2.462 Unknown [id number] 2.16.840.1.409353.3.579.2.462 Unknown [id number] 2.16.840.1.456715.3.579.2.462 Unknown [id number] 2.16.840.1.285457.3.579.2.462 Unknown [id number] 2.16.840.1.161663.3.579.2.462 Unknown [id number] 2.16.840.1.529150.3.579.2.462 Unknown [id number] 2.16.840.1.959822.3.579.2.462 Unknown [id number] 2.16.840.1.794525.3.579.2.462 Unknown [id number] 2.16.840.1.385974.3.579.2.462 Unknown [id number] 2.16.840.1.848443.3.579.2.462 Unknown [id number] 2.16840.1.796811.3.579.2.462 Unknown [id number] 2.16.840.1.228311.3.579.2.462 Unknown [id number] 2.16840.1.581269.3.579.2.462 Social History Date Type Detail Facility Start: 08-05-2020 End: 04-19-2023 Tobacco smoking status [facility] Unknown if ever smoked [facility] Start: 01-27-2015 Occasional [facility] Start: 01-27-2015 None [facility] Start: 08-05-2020 Non-smoker [facility] Start: 1965 Sex Assigned At Female [facility] Start: 02-15-2022 End: 09-21-2024 Tobacco smoking status RIIS Ex-smoker [facility] Work Phone: End: 05-29-2005 History of tobacco use Current smoker [facility] Work Phone: Start: 04-27-2021 End: 09-13-2023 Alcohol intake Current drinker of alcohol (finding) [facility] Start: 01-11-2014 History SDOH Alcohol Comment socially [facility] Start: 03-27-2019 History SDOH Financial 5 [facility] Start: 03-27-2019 History SDOH Food Worry 1 [facility] Start: 03-27-2019 History SDOH Transport Med 2 [facility] Start: 03-27-2019 Education 13 [facility] Start: 01-11-2014 End: 02-15-2022 Tobacco Comment quit 10 years. Prior was ppd for 20 years [facility] Start: 1965 Sex Assigned At Not on file [facility] End: 05-29-2005 History of tobacco use Cigarette Smoker [facility] Work Phone: Start: 02-15-2022 End: 09-13-2023 Cigarettes smoked current (pack per day) - Reported 0.5 [facility] Start: 02-15-2022 Tobacco use and exposure Smokeless tobacco non-user [facility] Work Phone: Start: 10-30-2022 End: 09-13-2023 Tobacco use panel [facility] National Score (1-100), lower number is lower risk 87 [facility] (I/We) worried whether (my/our) food would run out before (I/we) got money to buy more. Never true [facility] Start: 07-30-2024 End: 08-31-2024 Sex Female (finding) [facility] NEGATED: Highlighted row Not [facility] Goals Date Patient Goal Desired Activity /State Mental Status Date Assessment Result Facility 09-03-2024 Cognitive function Voice/Name [facility] Work Phone: 07-31-2024 Cognitive function Voice/Name [facility] Work Phone: Clinical Notes 04-24-2013 to 09-21-2024 Note Date & Type Note Facility 09-21-2024 Discharge summary [facility] 09-03-2024 Note [facility] Medical Records Department [address] [place] [address] History Physical Exam 09/03/24 0915 MR#: [id number] Acct: [id number] Name: DARLIN FORBES Rep #: [id number] : 1965 59 From: Ethel Sparks MD PCP: Dr. Mannie Mancuso MD Status:[facility] Location: [place] [address] History and Physical Date of Admission: 09/03/24 [...] Mancuso MD; Dr. Ethel Sparks MD Signed [facility] 07-31-2024 Evaluation note Diagnosis Onset Date [...] of right leg acute October 052024 9:50am [employer] Work Phone: 1(946) 328-660303-28-2025 Procedure note [facility] Medical Records Department [address] [place] [address] Operative Report 07/31/24939 MR#: [id number] Acct: [id number] Name: DARLIN FORBES Rep #:[id number] : 1965 58 From: Ethel Sparks MD PCP: Dr. 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 Ethel Sparks MD~ Signed [facility]03-28-2025 Discharge summary [facility] Medical Records Department [address] [place] [address] Instructions for Home/Discharge Instructions 07/31/24934 MR#: [id number] Acct: [id number] Name: DARLIN FORBES Rep #:[id number] : 1965 58 From: Ethel Sparks MD PCP: Dr. Daniela Coulter MD Status:[facility] Discharge Instructions Dressing / Incision Additional [...] Care Provider: Daniela Coulter Instructions Print Language: Maltese Discharge Orders/Prescriptions Prescriptions: New sulfamethoxazole-trimethoprim [Bactrim] 400-80 [...] CC: Dr. Daniela Coulter MD ~ Signed [facility]03-28-2025 History and physical note [facility] Medical Records Department [address] [place] [address] History & Physical Exam 07/31/24 0847 MR#: [id number] Acct: [id number] Name: KARMADARLINMENDOZA GARCIA Rep #:[id number] : 1965 58 From: Ethel Sparks MD PCP: Dr. Daniela Coulter MD Status:[facility] Location: [place] [address] History and Physical Date of Admission: 07/31/24 [...] Daniela Coulter MD; Dr. Ethel Sparks MD~ [facility]03-28-2025 [facility] Medical Records Department [address] [place] [address] History Physical Exam 07/31/24 0847 MR#: [id number] Acct: [id number] Name: DARLIN FORBES Rep #: [id number] : 1965 58 From: Ethel Sparks MD PCP: Dr. Daniela Coulter MD Status:[facility] Location: [place] [address] History and Physical Date of Admission: 07/31/24 [...] Daniela Coulter MD; Dr. Ethel Sparks MD [facility]03-12-2025 Evaluation note* Diagnosis Onset Date Resolution Status Admit Date Neoplasm of uncertain behavi or of skin acute July 15, 2024 9:12am [facility] Work Phone: 1(836) 721-369503-12-2025 Evaluation note* Diagnosis Onset Date Resolution Status Admit Date Neoplasm of uncertain behavi or of skin acute July 15, 2024 9:12am Neoplasm of uncertain behavi or of skin acute July 31, 2024 8:05am [facility] Work Phone: 1(936) 202-275003-12-2025 Evaluation note* Diagnosis Onset Date Resolution Status Admit Date Neoplasm of uncertain behavi or of skin acute July 15, 2024 9:12am Neoplasm of uncertain behavi or of skin acute July 31, 2024 8:05am Neoplasm of uncertain behavi or of skin acute August 11, 2024 10:50am Superficial spreading melanoma acute August 25, 2024 10:13am [facility] Work Phone: 1(898) 968-749003-12-2025 Evaluation note* Diagnosis Onset Date Resolution Status [...] spreading melanoma acute September 08, 2024 10:04am [facility] Work Phone: 1(685) 125-391603-12-2025 Evaluation note* Diagnosis Onset Date Resolution Status [...] spreading melanoma acute September 16, 2024 11:05am [facility] Work Phone: 1(972) 390-827903-12-2025 Evaluation note* Diagnosis Onset Date Resolution Status [...] spreading melanoma acute September 30, 2024 1:27pm [employer] Work Phone: 1(263) 595-760503-12-2025 Evaluation note* Diagnosis Onset Date Resolution Status [...] spreading melanoma acute October 07, 2024 11:08am [employer] Work Phone: 1(633) 675-904503-12-2025 Evaluation note* Diagnosis Onset Date Resolution Status [...] of right leg acute October 052024 10:43am [employer] Work Phone: 1(700) 317-386205-30-2024 Telephone encounter Note* Telephone Encounter - Beena [...] Pharmacy Information Pharmacy Address Telephone [id number] [address] [place] [address] [facility]05-30-2024 Miscellaneous Notes* Telephone Encounter - Beena Rivera [...] Pharmacy Information Pharmacy Address Telephone [id number] [place] [address] * Telephone Encounter - Madina Morales APRN.CNP - 10/03/2023 2:30 PM EDT Yes, she can continue the boric acid. Madina Morales APRN.CL * Telephone Encounter - Beena Rivera RN - 10/03/2023 1:46 PM EDT Patient notified. She is willing to try Flagyl now. Pharmacy correct. 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 Should she [...] Rivera RN [facility] Telephone encounter Note * Telephone Encounter - Madina Morales APRN.CNP - 10/03/2023 2:30 PM EDT Yes, she can continue the boric acid. Madina Morales APRN.CNP [facility]05-30-2024 Telephone encounter Note* Telephone Encounter - Beena Rivera RN - 10/03/2023 1:46 PM EDT Patient notified. She is willing to try Flagyl now. Pharmacy correct. 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 Should she continue with those? Beena Rivera RN [facility]05-30-2024 Telephone encounter Note* Telephone Encounter - Madina Morales APRN.CNP - 10/03/2023 1:34 PM EDT She needs treated with oral metronidazole but declined due to wanting to drink alcohol on the weekends when camping so she was treated with clindamycin cream. Please ask if this acceptable with her. Madina Morales APRN.CL [facility]05-30-2024 Telephone encounter Note* Telephone Encounter - Beena [...] Please advise. Beena Rivera RN [facility]05-13-2024 Telephone encounter Note* Telephone Encounter - Vanessa Rahman RN - 09/16/2023 9:47 AM EDT Patient notified. Vanessa Rahman RN [facility]05-13-2024 Miscellaneous Notes* Telephone Encounter - Vanessa Rahman [...] Caldwell APRN.CNP documented in [facility] encounterK[facility] Telephone encounter Note * Telephone Encounter - [...] any questions. Waldo Caldwell APRN.CNP [facility]05-10-2024 NoteHNO ID: [id number] Author: MADINA MORALES APRN.CNP Service: ? Author Type: Nurse Practitioner Type: Progress Notes Filed: 09/13/2023 12:54 Note Text: Pet Care Worker offered: Patient declines. Darlin Forbes is a [...] outbreak that she knows of. Using hypoallergenic Adventist soap for bathing. Denies using douches. No [...] - 35 when tried to get . 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 Abrasion noted below meatus which she identifies as the sore. BIMANUAL: uterus normal size, shape and con (more content not included)... [facility]05-10-2024 Instructions* Patient Instructions* Madina Morales APRN.CL - [...] your health care provider. You cannot purchase nxnv-fus-dvijwdw products to treat BV. Products for douching [...] swelling, or soreness around the vagina Copyright 9732-8119 [facility]. All rights reserved. This information is provided by the [facility] and is not intended to replace the medical advice of your doctor or health care provider. Please consult your health care provider for advice about a specific medical condition. For additional written health information, please contact the [facility] at the [facility] or toll-free extension [phone] or visit [email or web address] This document was last reviewed on: 2009 Probiotic Taking a women's health probiotic would definitely help . Florajen Women can be purchased at a pharmacy or on [employer] (around $20/month, needs refrigerated and take it daily)or VendRx ($35/month, norefrigeration and take 15 consecutive days per month) can be ordered at and use [employer]. You can also RepHresh vaginally and it can be purchased with the feminine products in many stores. You need to separate any antibiotic and probiotic by 1-2 hours. documented in this encounterK[facility]05-[facility] History of Present illness Narrative* Madina Morales APRN.CL - 09/13/2023 10:44 AM EDT Pet Care Worker offered: Patient declines. Darlin Forebs is a 58 year old female who [...] outbreak that she knows of. Using hypoallergenic Adventist soap for bathing. Denies using douches. No [...] - 35 when tried to get . 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 documented in this encounterK[facility]06-27-2023 NoteHNO ID: [id number] Author: Candie Gandara APRN.CNP Service: ? Author [...] nontender, nondistended No abnormalities upon vaginal exam. Pet Care Worker was in the room. PAST MEDICAL HISTORY [...] Patient agreeable to treatment plan. Candie Gandara APRN.CNPOhio[facility]06-27-20[facility] History of Present illness Narrative* Candie Gandara [...] nontender, nondistended No abnormalities upon vaginal exam. Pet Care Worker was in the room. PAST MEDICAL HISTORY [...] Gandara APRN.CL documented in this encounterK[facility]12-[facility]-2022 Miscellaneous Notes* Telephone Encounter - Jeannine Cid LPN - 04/26/2022 9:57 AM EST See pharmacy generated refill request. Jeannine Cid LPN documented in this encounterK[facility]07-08-2022 Miscellaneous Notes* Telephone Encounter - Shelly Turner LPN - 11/10/2021 9:54 AM EDT Patient called requesting a refill of Valacyclovir. Patient's last appointment was 04/27/2021. Onlycall if problem documented in this encounterK[facility]12-[facility]-2013 History of Past illness Narrative* Problem Noted Date Resolved Date Symptomatic menopausal or female climacteric sta madalyn 04/24/2013 01/11/2014 Abdominal pain, right upper quadrant 05/17/2005 04/15/2012 Other ovarian failure 01/26/2002 01/11/2014 documented as of this encounter (statuses as of 11/14/2021) [place] [address]20-2013 History of Past illness Narrative* Problem Noted Date Resolved Date Symptomatic menopausal or female climacteric sta madalyn 04/24/2013 01/11/2014 Abdominal pain, right upper quadrant 05/17/2005 04/15/2012 Other ovarian failure 01/26/2002 01/11/2014 documented as of this encounter (statuses as of 04/27/2022) [address]20-2013 History of Past illness Narrative* Problem Noted Date Resolved Date Symptomatic menopausal or female climacteric sta madalyn 04/24/2013 01/11/2014 Abdominal pain, right upper quadrant 05/17/2005 04/15/2012 Other ovarian failure 01/26/2002 01/11/2014 documented as of this encounter (statuses as of 10/31/2022) [place] [address]2013 History of Past illness Narrative* Problem Noted Date Resolved Date Symptomatic menopausal or female climacteric sta madalyn 04/24/2013 01/11/2014 Abdominal pain, right upper quadrant 05/17/2005 04/15/2012 Other ovarian failure 01/26/2002 01/11/2014 documented as of this encounter (statuses as of 10/31/2022) [address]20-2013 History of Past illness Narrative* Problem Noted Date Diagnosed Date Resolved Date Symptomatic menopausal or fe male climacteric states 04/24/2013 01/11/2014 Abdominal pain, right upper quadrant 05/17/2005 04/15/2012 Other ovarian failure 01/26/20022013 documented as of this encounter (statuses as of 11/12/2022) [facility] Ethel Sparks [facility] Note Date/Time July 31, 2024 9:3 9am [facility] Medical Records Department [address] [place] [address] Instructions for Home/Discharge Instructions 07/31/24 0935 MR#: [id number] Acct: [id number] Name: DARLIN FORBES Rep #:[id number] : 1965 58 From: Ethel Sparks MD PCP: Dr. Daniela Coulter MD Status:[facility] Discharge Instructions Dressing / Incision Additional [...] Care Provider: Daniela Coulter Instructions Print Language: Maltese Discharge Orders/Prescriptions Prescriptions: New sulfamethoxazole-trimethoprim [Bactrim] 400-80 [...] can be placed): Home, Self Care 07/31/24 5009<Electronically signed by Ethel Sparks MD>Ethel Sparks MD CC: Dr. Daniela Coulter MD ~ Signed [facility] Work Phone: Discharge summary Author Trell Peña [facility] Note Date/Time September 21, 2024 1:19p m [facility] Medical Records Department [address] [place] [address] Emergency Department Summary 09/21/24 MR#: [id number] Acct: [id number] Name: DARLIN FORBES Rep #:[id number] : 1965 59 From: Trell Peña DO [...] she did not have a blood clot. [facility] Medical History Wears contact lenses MRSA infection [...] following commands knew that she was at [facility] year is 2024. Sensation grossly intact Skin: [...] worsening symptoms or any concerns Print Language: Maltese Disposition Disposition: Home, Self Care What to do if you have Problems For any increased pain, shortness of breath, bleeding, nausea or vomiting, chestpain, or any unexpected problems, contact your Primary Care Provider. Call [facility] ([phone]) or report to the closest Emergency Room. Call 911 if necessary. 09/21/24 1319 <Electronically signed by Trell Peña DO> Cosigner Signature (if applicable): CC: Dr. Mannie Mancuso MD ~ Signed [facility] Work Phone: Evaluation noteNo assessment information available [facility] Work Phone: Evaluation note* Diagnosis Postmenopausal HRT (hormone replacement therapy) Need for prophylactic hormone replacement therapy (postmenopausal) History of herpes genitalis Personal history of other infectious and parasitic disease [facility] Diagnosis Postmenopausal HRT (hormone replacement therapy) Need for prophylactic hormone replacement therapy (postmenopausal) [facility]* Diagnosis Urinary frequency- Primary Vaginal discharge Leukorrhea, not specified as infective [facility]* Diagnosis History of herpes genitalis Personal history of other infectious and parasitic disease [facility] Diagnosis Onset Date Resolution Status Acute sinusitis acute [facility] Work Phone: Evaluation note* Diagnosis Vaginal discharge- Primary Leukorrhea, not specified as infective Dysuria Leukocytes in urine Other cells and casts in urine History of herpes genitalis Personal history of other infectious and parasitic disease [facility] Diagnosis BV (bacterial vaginosis)- Primary Vaginitis and vulvovaginitis, unspecified [facility] Author Ethel Sparks [facility] Note Date/Time July 31, 2024 8:4 8am [facility] Medical Records Department [address] [place] [address] History & Physical Exam 07/31/24 0847 MR#: [id number] Acct: [id number] Name: DARLIN FORBES Rep #:[id number] : 1965 58 From: Ethel Sparks MD PCP: Dr. Daniela Coulter MD Status:[facility] Location: [place] [address] History and Physical Date of Admission: 07/31/24 [...] Coulter MD; Dr. Ethel Sparks MD~ Signed [facility] Work Phone: Hospital Discharge instructions Additional Instructions Insert follow-up with your doctor at your scheduled appointment tomorrow. Your ultrasound did not show any evidence of blood clots in your legs today. [facility] worsening symptoms [facility]: Reason for referral (narrative)No reason for referral information availableMiami [facility] Work Phone: Family History No Family History Records Found Relationship Condition Age at Onset Recorded Date/T lucille father Asthma Unknown Diabetes mellitus Unknown Hypertension Unknown Cardiac disease Unknown mother Asthma Unknown grandfather Cardiac disease Unknown Advance Directives No Advanced Directives Records Found Advance Directive Response Recorded Date/ Time Advance Directives No January 12:23am Living Will No August 05, 2020 11:21am Power of Mountain Services Manager No August 05 11:21am Advance Directive Response Recorded Date/ Time Advance Directives No January 12:23am Advance Directive Response Recorded Date/ Time Advance Directives No August 20 8:03am Advance Directive Response Recorded Date/ Time Advance Directives No August 20 8:03am Do you have a Healthcare Power of Mountain Services Manager? No August 31, 2024 8:13am Advance Directive Response Recorded Date/ Time Advance Directives No August 20, 8:03am Do you have a Healthcare Power of Mountain Services Manager? No August 31, 2024 8:13am Do you have a Healthcare Power of Mountain Services Manager? No September 21, 2024 12:42pm Chief Complaint [...] any alcohol or drug abuse patient.[facility]In the event this information is protected by the Federal Confidentiality of Alcohol and Drug Abuse Patient Records regulations: The Federal rules restrict any use of the information to criminally investigate or prosecute any alcohol or drug abuse patient.[facility] DaytonIn the event this information is protected by the Federal Confidentiality of Alcohol and Drug Abuse Patient Records regulations: The Federal rules restrict any use of the information to criminally investigate or prosecute any alcohol or drug abuse patient.[facility] DaytonIn the event this information is protected by the Federal Confidentiality of Alcohol and Drug Abuse Patient Records regulations: The Federal rules restrict any use of the information to criminally investigate or prosecute any alcohol or drug abuse patient.[facility] DaytonIn the event this information is protected by the Federal Confidentiality of Alcohol and Drug Abuse Patient Records regulations: The Federal rules restrict any use of the information to criminally investigate or prosecute any alcohol or drug abuse patient.[facility] DaytonIn the event this information is protected by the Federal Confidentiality of Alcohol and Drug Abuse Patient Records regulations: The Federal rules restrict any use of the information to criminally investigate or prosecute any alcohol or drug abuse patient.[facility] DaytonIn the event this information is protected by the Federal Confidentiality of Alcohol and Drug Abuse Patient Records regulations: The Federal rules restrict any use of the information to criminally investigate or prosecute any alcohol or drug abuse patient.[facility] DaytonIn the event this information is protected by the Federal Confidentiality of Alcohol and Drug Abuse Patient Records regulations: The Federal rules restrict any use of the information to criminally investigate or prosecute any alcohol or drug abuse patient.[facility] Reason for Visit (unrecogniz ed section and content) Reason Onset Date Comments Refill Request 11/10/2021 Refill Request 11/14/2021 Reason Comments Refill Request Reason Comments Dysuria Reason Comments Results Reason Comments problem visit Specialty Diagnoses / Procedures Referred By Brunilda t Referred To Contact SOA ARCHITECT Diagnoses vaginal irritation/discharge Procedures Est [facility] appointment - patient willing to pay out of pocket for appointment 09/12 at 10:30 with Madina Morales placed on hold for her Self Madina 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 [address] Referral ID Status Reason Start Date Expiration Date Visits Requested Visits Authorized [id number] Waiting for Response Financial Clearance Required - OON Payor 09/12/2023 12/11/2023 1 0 Reason Comments Vaginal Infection Care Teams (unrecognized sec tion and content) Tobacco Flavorer Relationship Specialty Start Date End Date Daniela Coulter MD PCP - General Family Practice 03/14/12 Tobacco Flavorer Relationship Specialty Start Date End Date Daniela Coulter MD PCP - General Family Medicine 03/14/12 Team Status: Active Member Role Status Dates Dr. Daniela Coulter MD Family Provider Active Dr. Daniela Coulter MD Primary Care Provider Active Team Status: Inactive Member Role Status Dates Dr. Daniela Coulter MD Primary Care Provide r, Attending Provider, Referring Provider Active Tobacco Flavorer Relationship Specialty Start Date End Date Daniela Coulter MD PCP - General Family Medicine 03/14/12 Tobacco Flavorer Relationship Specialty Start Date End Date Daniela Coulter MD PCP - General Family Medicine 03/14/12 Tobacco Flavorer Relationship Specialty Start Date End Date Daniela Coulter MD PCP - General Family Medicine 03/14/12 Team Status: Inactive Member Role Status Dates Dr. Daniela Coulter MD Primary Care Provider, Referring Marii manuel Active Travis BACA, [place] Attending Provider Active Team Status: Inactive Member Role Status Dates Dr. Daniela Coulter MD Primary Care Provider, Attending Marii manuel Active Tobacco Flavorer Relationship Specialty Start Date End Date Daniela Coulter MD PCP - General Family Medicine 03/14/12 Tobacco Flavorer Relationship Specialty Start Date End Date Daniela Coulter MD PCP - General Family Medicine 03/14/12 Tobacco Flavorer Relationship Specialty Start Date End Date Daniela Coulter MD PCP - General Family Medicine 03/14/12 Team Status: Active Member Role Status Dates Dr. Daniela Coulter MD Primary Care Provider Active Team Status: Inactive Member Role Status Dates Dr. Daniela Cuolter MD Primary Care Provider Active Start: July [...] Team Status: Active Member Role Status Donell Mnacuso MD Primary Care Provider Active St art: [...] St art: September 21, 2024 Dr. Daniela Mbcride MD Attending Provider Active S tart: September [...] 25, 2024 End: August 25, 2024 Dr. Dainela Coulter MD Referring Provider Active St art: [...] section and content) DATE CREATED AUTHOR 10/04/2023 [facility] DATE CREATED AUTHOR 'S ORGANIZ ATION 11/29/2024 [facility] FOR RECORDS PERTAINING TO PATIENTS WHO [...] BE BASED ON THE PRIMARY CLINICAL RECORDS. [employer] provides no warranty or guarantee of the accuracy or completeness of information in this document.
--- NOTE | 2024-12-04 17:19 | CA.SCORE ---
Calcium Scoring Date of Study:: 12/04/24 Indications Indications: FH Coronary Calcium Scoring: High-resolution Computed Tomographic imaging of the chest was performed on [12/04/24 ], with particular attention paid to the coronary arteries. Images from the examination were analyzed for the presence and extent of coronary artery calcification , using coronary calcium quantification software. The patient tolerated the procedure well and there were no complications. The results of the coronary calcification analysis are provided below. Findings Coronary Artery Left Main (LM): 0 Left Anterior Descending (LAD): 101 Left Circumflex (LCX): 125 Right Coronary Artery (RCA): 23.8 Total Agatston Score: 249.8 Percentile Ranking: Greater than 90th percentile Calcium Scoring Interpretation: Different methods to categorize the overall amount of coronary plaque. Overall amount CAC SIS Visual of coronary plaque P1 Mild -100 <2 1-2 vessels with mild amount of plaque P2 Moderate 101-300 3-4 1-2 vessels with moderate amount, 3 vessels with mild amount of plaque P3 Severe 301-999 5-7 3 vessels with moderate amount, 1 vessel with severe amount of plaque P4 Extensive >1000 >8 2-3 vessels with severe amount of plaque Calcium Score: Moderate: 1-2 vessels w/moderate amt, 3 vessels w/mild amt of plaque Conclusion: Mild three-vessel plaque disease noted.
== END 2024-12-04 23:59 | disposition home or self-care (01) ==
PROVIDERS: PCP Family Medicine; Referring Provider Family Medicine; Visit Provider Family Medicine
DX: Z12.39 Encounter for other screening for malignant neoplasm of breast (principal); Z82.49 Family history of ischemic heart disease and other diseases of the circulatory system
CPT/HCPCS: 75571; 76380

== ENCOUNTER → 2024-12-07 | Outpatient (CLI) | payer OTHER, SELFPAY ==
--- NOTE | 2024-12-07 17:11 | RAD_ITS ---
PROCEDURE: ABDOMEN SINGLE VIEW 12/07/2024 REASON FOR EXAM: CHECK FOR KIDNEY STONES LARGE BLOOD IN URINE TECHNIQUE: ABDOMEN SINGLE VIEW COMPARISON: None. FINDINGS:: [] Moderate amount of fecal residue in the large bowels. Mild diffuse spondylosis. Normal visualized lung bases. There is an unremarkable bowel gas pattern. There is no demonstrated free abdominal air. Normal visualized liver. Normal visualized spleen. Normal visualized kidneys. The soft tissue structures of the pelvis are unremarkable. RAD/Abdomen Single View IMPRESSION: Moderate amount of fecal residue in the large bowels. No definite radiographic evidence of renal stones. Findings can be better evaluated by means of an unenhanced CT scan of the abdom en and pelvis if clinically warranted. Reading Location: [facility]
== END | disposition home or self-care (01) ==
LOC: MTRAD 17:11
PROVIDERS: PCP Family Medicine
DX: R39.198 Other difficulties with micturition (principal)
CPT/HCPCS: 74018

== ENCOUNTER → 2024-12-08 | Outpatient (CLI) | payer OTHER, SELFPAY | END | disposition home or self-care (01) | PROVIDERS: PCP Family Medicine | DX: N39.0 Urinary tract infection, site not specified (principal) | CPT/HCPCS: 87086 ==